=== PATIENT | female | born 1950 | race Caucasian/White ===

== ENCOUNTER → 2018-06-25 11:39 | Outpatient (CLI) | payer OTHER, SELFPAY ==
--- NOTE | 2018-06-25 | DI.CT.S_ITS ---
PROCEDURE: CT KIDNEY URETER BLADDER (KUB) INDICATIONS: Calculus of kidney TECHNIQUE: Noncontrast 5 mm thick sections acquired from the diaphragms to the symphysis. 5 mm thick coronal and sagittal reformats were then performed. For radiation dose reduction, the following was used: automated exposure control, adjustment of mA and/or kV according to patient size. COMPARISON: None. FINDINGS: Image quality: Excellent. Lung bases: There is mild scarring in the lung bases. Heart size is normal. A small hiatal hernia is present. Urinary system: There is a small obstructing urinary stone in the proximal right ureter measuring approximately 4 mm. There is associated mild right hydronephrosis. There are 2 nonobstructing left renal stones measuring up to 3 mm. No left hydronephrosis. The urinary bladder demonstrates normal wall thickness. No calcified bladder stones. Other solid organs: Noncontrast evaluation of the liver demonstrates no focal hepatic lesions. The gallbladder is surgically absent. There is mild biliary ductal dilatation likely related to prior cholecystectomy. Pancreas demonstrates mild atrophy in the uncinate process. No definite pancreatic duct dilatation or peripancreatic fat stranding. Spleen is normal in size. No adrenal nodules. Peritoneum and bowel: Unenhanced bowel loops demonstrate normal wall thickness and caliber. No evidence of appendicitis. No free fluid or air. Nodes and vessels: No retroperitoneal or mesenteric adenopathy by size criteria. Aorta and inferior vena cava are normal in caliber. Abdominal wall: No ventral hernias. Pelvis: No free pelvic fluid. No inguinal hernias or adenopathy. Bones: No suspicious bony lesions. No vertebral body compression fractures. IMPRESSION: 1. Small obstructing urinary stone in the proximal right ureter measuring up to 4 mm with mild right hydronephrosis. 2. Additional small nonobstructing left renal stones. No left hydronephrosis. Dictated by: New Grey M.D. on 06/25/2018 at 11:58 Approved by: New Grey M.D. on 06/25/2018 at 12:06
== END ==
PROVIDERS: PCP Internal Medicine; Visit Provider Specialist
DX: N13.2 Hydronephrosis with renal and ureteral calculous obstruction (principal)
CPT/HCPCS: 74176

== ENCOUNTER 2018-06-27 00:22 | Emergency (ER) | payer OTHER, SELFPAY ==
[2018-06-27 00:31] VITALS: BP 122/61; PULSE 79; RESP 18; TEMP 36.8; O2SAT 98
--- NOTE | 2018-06-27 00:41 | ED.ABDPAIN ---
HPI - Abdominal Pain General Chief Complaint: Abdominal Pain Stated Complaint: kidney stones, nausea Time Seen by Provider: 06/27/18 00:27 Source: patient Mode of arrival: ambulatory Limitations: no limitations History of Present Illness HPI narrative: 68-year-old female here for evaluation of right-sided flank pain. She states that she saw all day provider at her primary care doctor's office earlier this week for right-sided pain. She states that during a urinalysis showed there was potentially some blood. She was sent for CT scan and was diagnosed with a right-sided kidney stone. She was given Flomax. Not given any pain medication however she is on daily morphine at home for chronic pain issues. She does have a follow-up with her primary doctor on Sunday. She returns this evening because earlier the day she started having increasing pain on her right flank. No fevers. No urinary symptoms. No skin changes. Related Data Home Medications Medication Instructions Recorded Confirmed Diphenhydramine Hydrochloride 50 mg PO Q4H #0 cap 03/20/13 (BENADRYL) MOMETASONE FUROATE (Asmanex) 110 mcg INH #30 dose 03/20/13 albuterol sulfate [Proventil HFA] #0 03/20/13 amlodipine [Norvasc] #0 03/20/13 duloxetine [Cymbalta] 60 mg PO Q DAY #0 03/20/13 famotidine [Pepcid] 20 mg PO BID #0 03/20/13 gabapentin [Neurontin] 400 mg PO TID #0 cap 03/20/13 morphine 15 mg PO BID #0 ter 03/20/13 prednisone 15 mg PO AMCC #0 03/20/13 triamcinolone acetonide 0 gm TOPICAL #80 gm 03/20/13 Previous Rx's Medication Instructions Recorded morphine 15 mg PO Q6H PRN #5 tab 06/27/18 Allergies Allergy/AdvReac Type Severity Reaction Status Date / Time ASPIRIN INTOLERANCE Allergy Unknown STATES SHE Uncoded 10/24/17 12:25 GETS POLPYS Review of Systems Constitutional Denies fever(s) and Denies headache(s) ENT Ears, Nose, Mouth, and Throat: Denies headache(s) Cardiovascular Denies chest pain and Denies dyspnea Respiratory Denies dyspnea Gastrointestinal Gastrointestinal: Reports abdominal pain, Denies change in stool character, Reports nausea and Denies vomiting Genitourinary Reports flank pain, Denies urinary incontinence, Denies urinary hesitancy and Denies urinary urgency Musculoskeletal Denies myalgias and Denies arthralgias Integumentary/Breasts Denies lesions and Denies rash Neurologic Denies headache(s) Hematologic/Lymphatic Comments: Not on any anticoagulation [facility] Medical History Fibromyalgia (Acute) Social History marital status: lives independently: Yes Exam Initial Vital Signs Initial Vital Signs: Vital Signs Temperature 98.2 F 06/27/18 00:31 Pulse Rate 79 06/27/18 00:31 Respiratory Rate 18 06/27/18 00:31 Blood Pressure 122/61 06/27/18 00:31 Pulse Oximetry 98 06/27/18 00:31 Const General: cooperative, comfortable, well developed, well groomed and No acute distress Orientation: alert, awake and oriented x3 HENMT Head: normal to inspection and normocephalic Resp Effort & Inspection: normal respiratory effort Auscultation: clear to auscultation bilaterally Cardio Rate: regular rate Rhythm: regular rhythm GI Inspection: non-distended Palpation: soft and No firm Back/Spine/Pelvis Back: No CVA tenderness Skin Lesions: no lesions Rashes: no rashes Neuro General: alert, awake and oriented x3 Cognition: normal cognition Speech: speech normal Extrem General: normal to inspection and capillary refill normal Psych Appearance: grossly normal and well kempt Course Orders Ordered: ED Orders 06/27/18 01:00 Basic Metabolic Panel Stat 06/27/18 02:00 Urinalysis and Microscopic Stat Discontinued Medications Hydromorphone HCl (Dilaudid) 1 mg IV NOW ONE Stop: 06/27/18 00:49 Last Admin: 06/27/18 01:21 Dose: 1 mg Sodium Chloride (Normal Saline 0.9%) 1,000 mls @ 1,000 mls/hr IV BOLUS ONE Stop: 06/27/18 01:47 Last Infusion: 06/27/18 02:49 Dose: 1,000 mls/hr Admin: 06/27/18 01:22 Dose: 1,000 mls/hr Ketorolac Tromethamine (Toradol) 30 mg IV NOW ONE Stop: 06/27/18 00:49 Last Admin: 06/27/18 01:21 Dose: 30 mg Ondansetron HCl (Zofran) 4 mg IV NOW ONE Stop: 06/27/18 00:49 Last Admin: 06/27/18 01:21 Dose: 4 mg Vital Signs - 8 hr 06/27/18 00:31 Temperature 98.2 F Pulse Rate 79 Respiratory Rate 18 Blood Pressure 122/61 Pulse Oximetry 98 MDM - Abdominal Pain Lab Data Attestation: I reviewed the patient's lab results. Result diagrams: 06/27/18 01:00 Lab Results 06/27/18 06/27/18 Range/Units 01:00 02:00 Sodium 139 (137-145) mmol/L Potassium 3.8 (3.4-5.1) mmol/L Chloride 103 (98-107) mmol/L Carbon Dioxide 25 (22-32) mmol/L BUN 12 (7-17) mg/dL Creatinine 0.60 (0.52-1.04) mg/dL Estimated GFR > 60.0 (>60) mL/min BUN/Creatinine Ratio 20.0 (6-22) Glucose 123 H (80-110) mg/dL Calcium 9.4 (8.4-10.2) mg/dL Urine Color Yellow Urine Appearance Clear Urine pH 5.0 (4.5-8.0) Ur Specific [place] 1.025 (1.000-1.035) Urine Protein Trace H (Negative) Urine Glucose (UA) Negative (Normal) g/dL Urine Ketones Negative (NEGATIVE) Urine Occult Blood 3+ H (Negative) Urine Nitrate Negative (Negative) Urine Bilirubin Negative (NEGATIVE) Urine Urobilinogen 0.2 (0.2) E.U./dL Ur Leukocyte Esterase Trace H (NEGATIVE) Urine RBC 10-30/hpf H (0-5/HPF) Urine WBC 1-5/hpf (0-5/HPF) Urine Bacteria Few (2-10) H (None) Urine Mucus 1+ H (Negative) Ur Culture Indicated? Specimen cultured Micro UA Comment Not Reportable Point of care testing: Urine Dip Bedside Urine Glucose Negative Bedside Urine Bilirubin - Negative Bedside Urine Ketone - Negative Urine Specific [place] 1.030 Bedside Urine Occult Blood +++ Bedside Urine pH 6.0 Bedside Urine Protein +/- 15 Bedside Urine Urobilinogen - Negative Bedside Urine Nitrite - Negative Bedside Urine Leukocytes +/- 15 Esterase MDM Narrative Medical decision making narrative: Patient feels much better after the medicines here in the emergency department. No signs of acute kidney injury. Urinalysis not consistent with an infection. Does have a 4 mm stone from the CT scan a couple days ago. Had a long discussion regarding the symptoms. She is currently on Flomax. She takes morphine on a daily basis for other pain. I told her that I would refill a few of her immediate release morphine is but she needed to talk with her primary doctor about that. She has a follow-up with her primary doctor on Sunday. She was given return precautions. She expressed understanding and agreement with plan. Discharge Plan Departure Patient Disposition: Home Clinical Impression: Renal colic on right side Instructions: DI for Kidney Stones Activity Restrictions/Additional Instructions: Recommend you continue to take your pain medication as directed. Also recommend you keep your follow-up appointment on Sunday. Return to the emergency department for any new or worsening symptoms Prescriptions: New morphine 15 mg tablet 15 mg PO Q6H PRN (Reason: pain) Qty: 5 RF: 0 No Action triamcinolone acetonide 0.1 % cream Topical Qty: 80 RF: 0 gabapentin [Neurontin] 400 MG capsule 400 mg PO TID Qty: 0 RF: 0 duloxetine [Cymbalta] 60 MG capsule,delayed release(DR/EC) 60 mg PO Q DAY Qty: 0 RF: 0 prednisone 10 MG tablet 15 mg PO AMCC Qty: 0 RF: 0 amlodipine [Norvasc] 2.5 mg Tablet Qty: 0 RF: 0 morphine 15 MG tablet extended release 15 mg PO BID Qty: 0 RF: 0 albuterol sulfate [Proventil HFA] 90 mcg/actuation Hfa Aerosol Inhaler Qty: 0 RF: 0 Diphenhydramine Hydrochloride (BENADRYL) 50 mg PO Q4H Qty: 0 RF: 0 MOMETASONE FUROATE (Asmanex) 110 mcg INH Qty: 30 RF: 0 famotidine [Pepcid] 20 MG tablet 20 mg PO BID Qty: 0 RF: 0
[2018-06-27] MEDS: HYDROMORPHONE 0.5 MG INJ 1 MG IV (01:21)
[2018-06-27] MEDS: KETOROLAC 60 MG/2 ML VIAL 30 MG IV (01:21)
[2018-06-27] MEDS: ONDANSETRON 4 MG/2 ML INJ IV (01:21)
[2018-06-27] MEDS: SODIUM CHLORIDE 0.9% 1,000 ML 1000 ML IV (01:22)
[2018-06-27 01:30] LABS: Blood Urea Nitrogen 12 mg/dL (7-17); Calcium 9.4 mg/dL (8.4-10.2); Carbon Dioxide 25 mmol/L (22-32); Chloride 103 mmol/L (98-107); Estimated Glomerular Filt Rate > 60.0 mL/min (>60); Glucose 123 mg/dL (80-110); HEMOLYSIS 91 (0-50); Sodium 139 mmol/L (137-145)
[2018-06-27 01:31] LABS: Potassium 3.8 mmol/L (3.4-5.1)
[2018-06-27 03:07] LABS: Appearance Urine UA CLEAR; Bilirubin Urine UA NEGATIVE (NEGATIVE); Color Urine UA YELLOW; Glucose Urine UA NEGATIVE (Normal); Ketones Urine UA NEGATIVE (NEGATIVE); Leukocyte Esterase Urine UA TRACE (NEGATIVE); Nitrite Urine UA NEGATIVE (Negative); Occult Blood Urine UA 3+ (Negative); Protein Urine UA TRACE (Negative); Specific Gravity Urine UA 1.025 (1.000-1.035); Urobilinogen Urine UA 0.2 E.U./dL (0.2)
[2018-06-27 03:08] LABS: RBC Urine 10-30/HPF (0-5/HPF); WBC Urine 1-5/HPF (0-5/HPF)
[2018-06-27 03:09] LABS: Bacteria Urine Few (2-10); Culture Indicated Urine Specimen Cultured; Mucus Urine 1+ (Negative)
[2018-06-27 03:56] VITALS: BP 123/58; PULSE 93; RESP 15; O2SAT 96
== END 2018-06-27 03:58 | disposition home or self-care (01) ==
PROVIDERS: Emergency Provider Emergency Medicine; PCP Internal Medicine
DX: N23 Unspecified renal colic (principal)
CPT/HCPCS: 36591; 80048; 81001; 81003; 87086; 96361; 96374; 96375; 99283; 99284; J1170; J1885; J2405

== ENCOUNTER → 2018-07-25 09:10 | Outpatient (CLI) | payer OTHER, SELFPAY ==
--- NOTE | 2018-07-25 | DI.RAD.S_ITS ---
PROCEDURE: FL BARIUM SWALLOW W SPEECH INDICATIONS: DYSPAGIA TECHNIQUE: Examination was conducted in conjunction with speech pathology per standard protocol. In the lateral projection, filming was performed of the patient swallowing. AP projection filming may also be performed with patient swallowing. COMPARISON: None. FINDINGS: Function: The oral preparatory phase appears normal, with proper containment. The subsequent oral propulsive phase, pharyngeal phase, and esophageal phase of swallowing also appear normal with all proffered substances. No laryngotracheal penetration or aspiration. No pathologic vallecular pooling. 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 No cervical esophageal webs. No Zenker's diverticulum. No strictures. There is a small hiatal hernia. IMPRESSION: No penetration or aspiration is noted during the study. 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 Please refer to speech pathology notes for further information. Dictated by: Theodore Garcia M.D. on 07/25/2018 at 12:07 Approved by: Theodore Garcia M.D. on 07/25/2018 at 12:10
--- NOTE | 2018-07-25 12:15 | ST.SWALLOW ---
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 Pt reported that she may experience choking if she swallows a large amount of liquid; but that her greatest difficulty is the foods listed above as well as taking pills. The pt reported a history of hiatal hernia that was diagnosed approximately 20 years ago. Subjective Observations Pt was seated in the flouroscopy chair. Patient Positioning Position View Lat-A/P Imaging Lateral View Textures Administered Trials Presented Thin Liquid via Spoon Thin Liquid via Cup Regular Textures Barium Tablet Oral Phase Source: MBSIMP (TM) (C) Bolus Specific Scoring Grid Lip Closure No Impairment (WNL) Tongue Control During Bolus Hold No Impairment (WNL) Bolus Prep/Mastication WFL Bolus Transport/Lingual Motion No Impairment (WNL) A/P Lingual Propulsion Delay No Oral Residue WFL Residue Clearing WFL Nasal Regurgitation No Additional Oral Phase Observations oral phase WFL Pharyngeal Phase Source: MBSIMP (TM) (C) Bolus Specific Scoring Grid Delayed Initiation of Pharyngeal Swallow No Soft Palate Elevation WFL Tongue Base Strength/Range of Motion WFL Residue Along the Tongue Base Minimal to trace - clears with subsequent swallows (WFL) Clearance of Residue Along Tongue Base WFL Laryngeal Elevation Minimal Impairment Anterior Hyoid Movement Minimal Impairment Epiglottic Range of Motion WFL Vallecular Residue Yes Clearance of Vallecular Residue Minimal Impairment Laryngeal Vestibular Closure No Impairment (WNL) Pharyngeal Stripping Wave WFL Pharyngeal Contraction Minimal Impairment Posterior Pharyngeal Wall Residue No Clearance of Posterior Pharyngeal Wall WFL Residue Upper Esophageal Sphincter Opening Moderate Impairment Residue in the Pyriform Sinuses Yes Clearance of Residue in the Pyriform WFL Sinuses Esophageal Clearance Upright Position Severe Impairment Pharyngoesophageal Backflow Observed Yes Additional Pharyngeal Phase Observations During the MBSS the pt appeared to swalow all liquid trials WFL. When given a trial cookie with barium, there was significant residue within the valeculla that required a water wash to allow the bolus to pass to the esophagus. A possible cricipharyngeal bar was observe, which impeded the bolus flow. Water washes used to clear the area of the bar easily. Trial barium tablet was swallowed without difficulty through the pharyngeal cavity. The patient reported the sensation of something stuck . A second barium tablet was given to the pt as she had swallowed the first one before the equipment was able to capture rhe initial swallow. A/P View Textures Administered Trials Presented Thin Liquid via Cup Barium Tablet A/P View Observations Pharyngeal Contraction WFL Vocal Fold Function Good Esophageal Function Slowed Clearing Reverse Peristalsis Narrowing Esophageal Clearance Upright Position Severe Impairment Additional Observations In the AP view, the first barium tablet was observed to be approximately 2/3 down the esophagus. The second tablet the appeared at the same point . Water washes were trialed to try to allow the tablets to be swallowed. The water washes were ineffective. Thin barium was then given to the pt to observe the tablets within the esophagus. There appeared to be a restriction to the flow of the bolus at the point of the tablets. There appeared to be a pouching of the esophagus below the tablets with further restriction at the point of the LES. Back flow of the esophagus contents was also observed. Esophageal Observations Esophageal Function The esophagus appeared to have more than one area of restricted bolus flow with the inability to pass trialed barium tablets. Clinical Impressions Dysphagia Type No oropharyngeal dysphagia observed (WFL). Esophageal dysphagia suspected. Patient Appropriate for Therapy No: Recommend referral to GI specialist Recommendations Diet Liquids Order Thin Diet Order Mechanical Soft Medication Recommendation Whole in Carrier Comments using a carrier for medications will east the bolus flow to the stomach Aspiration Precautions Recommended Precautions Upright at 90 Degrees Alternate Liquids/Solids Small Bites/Sips Treatment Plan Recommended Referrals GI Consult Compensatory Strategies Recommendations Sitting Upright (90 deg) Small Bites and Sips Alternate Liquids/Solids Additional Recommendations/Comments The above results and recommendations were discussed with the pt at length following the MBSS. Compensatory strategies were discussed with rationales. Pt indicated that she understood and was appreciative.
== END ==
PROVIDERS: PCP Internal Medicine; Visit Provider Internal Medicine
DX: R13.10 Dysphagia, unspecified (principal); K44.9 Diaphragmatic hernia without obstruction or gangrene
CPT/HCPCS: 74230; 92611

== ENCOUNTER → 2018-08-12 11:57 | Outpatient (CLI) | payer OTHER, SELFPAY ==
--- NOTE | 2018-08-12 | DI.US.S_ITS ---
PROCEDURE: US RENAL COMPLETE INDICATIONS: HISTORY STONES, HYDRONEPHROSIS TECHNIQUE: Real-time scanning was performed of the kidneys and bladder, with image documentation. COMPARISON: [facility], CT, CT KIDNEY URETER BLADDER (KUB), 06/25/2018, 11:39. FINDINGS: Kidneys: Kidneys are normal in size. Right kidney measures 9.9 cm long; left kidney measures 11.5 cm long. Right renal cortical thickness is 0.8 cm; left renal cortical thickness is 1.6 cm. Renal cortical echotexture is normal. No hydronephrosis bilaterally. 5 mm lower pole nonobstructing left renal calcification redemonstrated. Bladder: Pre-void bladder volume is 333 mL. Post-void residual is 0 mL. Pre-void images demonstrate no intraluminal masses or stones. On pre-void images, bilateral ureteral jets are noted with color Doppler interrogation. (Of note, ureteral jets may not be detectable in up to 25% of cases due to insufficient differences in specific gravity between ureteral and bladder urine). Miscellaneous: No free pelvic fluid. IMPRESSION: 1. Nonobstructing 5 mm left inferior pole calcification redemonstrated. 2. Right renal cortical thinning. Dictated by: Can BLEVINS Interpreted: Theodore Garcia MD on 08/12/2018 at 16:36 Approved by: Theodore Garcia M.D. on 08/12/2018 at 17:02
== END ==
PROVIDERS: PCP Internal Medicine; Visit Provider Internal Medicine
DX: N20.0 Calculus of kidney (principal); Z87.442 Personal history of urinary calculi
CPT/HCPCS: 76770

== ENCOUNTER 2018-11-07 06:06 | Emergency (ER) | payer OTHER, SELFPAY ==
--- NOTE | 2018-11-07 06:12 | ED_ITS ---
HPI - General Adult General Chief complaint: Back Pain/Injury Stated complaint: blood in urine yesterday/pain in left kidney Time Seen by Provider: 11/07/18 06:09 Source: patient Mode of arrival: ambulatory Limitations: no limitations History of Present Illness HPI narrative: 68-year-old female here for evaluation of pain in her left kidney and also blood in her urine. She states she started noticing blood in her urine yesterday. She went to her primary doctor's office at an outside facility where the patient states that she had her urine checked and was told that she did not have an infection that she most likely passed a stone. She states the bleeding has continued and over night started having left-sided flank pain. she states it feels just like the time when she had a stone diagnosed on the right side by CT scan. Denies any vomiting. Is on morphine at home for chronic pain. Took 1 of her morphine pills last evening and again this morning with only minimal improvement. Related Data Home Medications Medication Instructions Recorded Confirmed duloxetine [Cymbalta] 60 mg PO DAILY #0 03/20/13 11/07/18 morphine 15 mg PO Q12H #0 ter 03/20/13 11/07/18 triamcinolone acetonide 0 gm TOPICAL #80 gm 03/20/13 albuterol sulfate [ProAir HFA] 1 puff INHALATION PRN PRN 11/07/18 11/07/18 amlodipine 10 mg PO DAILY 11/07/18 11/07/18 atorvastatin 40 mg PO DAILY 11/07/18 11/07/18 fluticasone propion-salmeterol 2 puff INHALATION BID 11/07/18 11/07/18 [Advair HFA] gabapentin 1,200 mg PO TID 11/07/18 11/07/18 lisinopril 20 mg PO DAILY 11/07/18 11/07/18 Previous Rx's Medication Instructions Recorded hydrocodone-acetaminophen 1 tab PO Q6H PRN #14 tab 11/07/18 ondansetron 4 mg PO QID PRN #10 tab 11/07/18 tamsulosin [Flomax] 0.4 mg PO DAILY #7 cap 11/07/18 Allergies Allergy/AdvReac Type Severity Reaction Status Date / Time ibuprofen AdvReac Verified 11/07/18 06:24 ASPIRIN INTOLERANCE Allergy Unknown STATES SHE Uncoded 10/24/17 12:25 GETS POLPYS Review of Systems Constitutional Denies fever(s) and Denies headache(s) ENT Ears, Nose, Mouth, and Throat: Denies headache(s) Cardiovascular Denies chest pain and Denies dyspnea Respiratory Denies dyspnea Gastrointestinal Gastrointestinal: Denies abdominal pain Genitourinary Reports hematuria and Denies dysuria Musculoskeletal Reports back pain (Left flank) and Denies arthralgias Integumentary/Breasts Denies rash Neurologic Denies headache(s) Hematologic/Lymphatic Denies easy bleeding and Denies easy bruising [facility] Medical History Fibromyalgia (Acute) Social History marital status: lives independently: Yes Social History marital status: lives independently: Yes Exam Initial Vital Signs Initial Vital Signs: Vital Signs Temperature 97.1 F L 11/07/18 06:19 Pulse Rate 56 L 11/07/18 06:19 Respiratory Rate 18 11/07/18 06:19 Blood Pressure 187/97 H 11/07/18 06:19 Pulse Oximetry 95 11/07/18 06:19 Const General: cooperative, comfortable, well developed, well groomed and No acute distress Orientation: alert, awake and oriented x3 HENMT Head: normal to inspection and normocephalic Resp Effort & Inspection: normal respiratory effort Cardio Rate: regular rate GI Inspection: non-distended Palpation: soft, No firm and No tender Back/Spine/Pelvis Back: No CVA tenderness (No CVA tenderness to palpation) Skin Lesions: no lesions Rashes: no rashes Neuro General: alert, awake and oriented x3 Extrem General: normal to inspection and capillary refill normal Psych Appearance: grossly normal and well kempt Course Orders Ordered: Discontinued Medications Cyclobenzaprine HCl (Flexeril) 10 mg PO NOW ONE Stop: 11/07/18 08:34 Last Admin: 11/07/18 08:53 Dose: Not Given Hydromorphone HCl (Dilaudid) 1 mg IV NOW ONE Stop: 11/07/18 06:23 Last Admin: 11/07/18 06:30 Dose: Not Given Hydromorphone HCl (Dilaudid) 1 mg IV NOW ONE Stop: 11/07/18 06:29 Last Admin: 11/07/18 06:30 Dose: 1 mg Ketorolac Tromethamine (Toradol) 60 mg IM NOW ONE Stop: 11/07/18 08:34 Last Admin: 11/07/18 08:53 Dose: Not Given Ondansetron HCl (Zofran) 4 mg IV NOW ONE Stop: 11/07/18 06:35 Last Admin: 11/07/18 06:35 Dose: 4 mg Vital Signs - 8 hr 11/07/18 06:19 Temperature 97.1 F L Pulse Rate 56 L Respiratory Rate 18 Blood Pressure 187/97 H Pulse Oximetry 95 Medical Decision Making Lab Data Lab results reviewed: Yes I reviewed the patient's lab results. Result diagrams: 11/07/18 06:18 11/07/18 06:18 Lab Results 11/07/18 11/07/18 11/07/18 Range/Units 06:18 06:18 07:46 WBC 13.2 H (4.5-11.0) X10^3/uL RBC 4.12 (4.0-5.2) X10^6/uL Hgb 12.6 (12.0-16.0) g/dL Hct 37.8 (36-46) % MCV 91.6 (80-100) fL MCH 30.4 (26-34) PG MCHC 33.2 (30-36) % RDW 13.4 (11.6-14.8) % Plt Count 390 (150-400) X10^3/uL Neut % (Auto) 64.6 (50-75) % Lymph % (Auto) 16.2 L (25-40) % [place] % (Auto) 5.9 (3-14) % Eos % (Auto) 12.6 H (2-4) % Baso % (Auto) 0.7 (0-2) % Neut # (Auto) 8500 H (7467-1653) /uL Lymph # (Auto) 2100 (8911-9984) /uL [place] # (Auto) 800 (0-900) /uL Eos # (Auto) 1700 H (0-450) /uL Baso # (Auto) 100 (0-100) /uL Sodium 139 (137-145) mmol/L Potassium 3.7 (3.4-5.1) mmol/L Chloride 101 (98-107) mmol/L Carbon Dioxide 27 (22-32) mmol/L BUN 11 (7-17) mg/dL Creatinine 0.70 (0.52-1.04) mg/dL Estimated GFR > 60.0 (>60) mL/min BUN/Creatinine Ratio 15.7 (6-22) Glucose 117 H (80-110) mg/dL Calcium 9.4 (8.4-10.2) mg/dL Urine Ictotest Negative (Negative) Urine RBC >100/hpf H (0-5/HPF) Urine WBC 10-30/hpf H (0-5/HPF) Ur Squamous Epith Cells 1-5 /hpf (0-5/HPF) Calcium Oxalate Crystal Occasional H Urine Bacteria None seen (None) Ur Culture Indicated? Specimen cultured Urine Dip Bedside Urine Glucose Negative Bedside Urine Bilirubin + 1 Bedside Urine Ketone +/- 5 Urine Specific [place] 1.030 Bedside Urine Occult Blood +++ Bedside Urine pH 5.5 Bedside Urine Protein ++ 100 Bedside Urine Urobilinogen 1+ 2mg Bedside Urine Nitrite + Positive Bedside Urine Leukocytes ++ 125 Esterase Point of care testing: Urine Dip Bedside Urine Glucose Negative Bedside Urine Bilirubin + 1 Bedside Urine Ketone +/- 5 Urine Specific [place] 1.030 Bedside Urine Occult Blood +++ Bedside Urine pH 5.5 Bedside Urine Protein ++ 100 Bedside Urine Urobilinogen 1+ 2mg Bedside Urine Nitrite + Positive Bedside Urine Leukocytes ++ 125 Esterase MDM Narrative Medical decision making narrative: Creatinine is unremarkable. Patient does have a leukocytosis. Urine still pending. Care turned over to day provider at change of shift to follow up on urinalysis results and further disposition. Discharge Plan Departure Patient Disposition: Home Clinical Impression: Kidney stone on left side Discharge Date/Time: 11/07/18 09:53 Interventions: ED Discharge Assessment Last Done: 11/07/18 09:52 Instructions: DI for Kidney Stones Activity Restrictions/Additional Instructions: Your CT scan showed a 5 mm kidney stone, which is causing some blockage of the ureter on your left side. Some swelling of the ureter from backup of urine is noted on CT scan. This stone may pass on its own in the next few hours to few weeks. However, if you're not noticing any improvement in the next week, and certainly, if your symptoms worsen, you should follow-up with urology specialist. You may take the pain and nausea medication, as needed. If you develop a high fever and pain and burning with urination, please return to the emergency department. Prescriptions: New hydrocodone-acetaminophen 5-325 mg tablet 1 tab PO Q6H PRN (Reason: pain) Qty: 14 RF: 0 tamsulosin [Flomax] 0.4 mg capsule 0.4 mg PO DAILY Qty: 7 RF: 0 ondansetron 4 mg tablet,disintegrating 4 mg PO QID PRN (Reason: nausea and vomiting) Qty: 10 RF: 0 No Action triamcinolone acetonide 0.1 % cream Topical Qty: 80 RF: 0 duloxetine [Cymbalta] 60 MG capsule,delayed release(DR/EC) 60 mg PO DAILY Qty: 0 RF: 0 morphine 15 MG tablet extended release 15 mg PO Q12H Qty: 0 RF: 0 atorvastatin 40 mg tablet 40 mg PO DAILY RF: 0 lisinopril 20 mg tablet 20 mg PO DAILY RF: 0 gabapentin 400 mg capsule 1,200 mg PO TID RF: 0 amlodipine 10 mg tablet 10 mg PO DAILY RF: 0 albuterol sulfate [ProAir HFA] 90 mcg/actuation HFA aerosol inhaler 1 puff Inhalation PRN PRN (Reason: Shortness Of Breath) RF: 0 Advair HFA 230-21 mcg/actuation HFA aerosol inhaler 2 puff Inhalation BID RF: 0 Referrals: [facility] Urology [Provider Group] Jigar Mclean MD [Primary Care Provider] -
[2018-11-07 06:19] VITALS: BP 187/97; PULSE 56; RESP 18; TEMP 36.2; O2SAT 95; BMI 31.1
[2018-11-07] MEDS: HYDROMORPHONE 1 MG INJ IV (06:30)
[2018-11-07 06:31] LABS: Add Manual Diff / Slide Review NO; Basophils Absolute Auto 100 /uL (0-100); Basophils Percent Auto 0.7 % (0-2); Eosinophils Absolute Auto 1700 /uL (0-450); Eosinophils Percent Auto 12.6 % (2-4); Hematocrit 37.8 % (36-46); Hemoglobin 12.6 g/dL (12.0-16.0); Lymphocytes Absolute Auto 2100 /uL (1100-4500); Lymphocytes Percent Auto 16.2 % (25-40); Mean Corpuscular HGB Conc 33.2 % (30-36); Mean Corpuscular Hemoglobin 30.4 PG (26-34); Mean Corpuscular Volume 91.6 fL (80-100); Monocytes Absolute Auto 800 /uL (0-900); Monocytes Percent Auto 5.9 % (3-14); Neutrophils Absolute Auto 8500 /uL (1500-7000); Neutrophils Percent Auto 64.6 % (50-75); Platelet Count 390 X10^3/uL (150-400); Red Blood Cell Count 4.12 X10^6/uL (4.0-5.2); Red Cell Distribution Width 13.4 % (11.6-14.8); White Blood Cell Count 13.2 X10^3/uL (4.5-11.0)
[2018-11-07] MEDS: ONDANSETRON 4 MG/2 ML INJ IV (06:35)
[2018-11-07 06:41] LABS: BUN Creatinine Ratio 15.7 (6-22); Blood Urea Nitrogen 11 mg/dL (7-17); Calcium 9.4 mg/dL (8.4-10.2); Carbon Dioxide 27 mmol/L (22-32); Chloride 101 mmol/L (98-107); Estimated Glomerular Filt Rate > 60.0 mL/min (>60); Glucose 117 mg/dL (80-110); HEMOLYSIS < 15 (0-50); Potassium 3.7 mmol/L (3.4-5.1); Sodium 139 mmol/L (137-145)
[2018-11-07 07:47] LABS: Bacteria Urine None Seen
[2018-11-07 08:11] LABS: Calcium Oxalate Crystals Urine Occasional; Culture Indicated Urine Specimen Cultured; Ictotest Urine Negative (Negative); RBC Urine >100/HPF (0-5/HPF); Squamous Epithelial Cell Urine 1-5 /HPF (0-5/HPF); WBC Urine 10-30/HPF (0-5/HPF)
[2018-11-07 08:22] VITALS: BP 118/51; PULSE 54; RESP 16; O2SAT 95
--- NOTE | 2018-11-07 08:33 | DI.CT.S_ITS ---
PROCEDURE: CT KIDNEY URETER BLADDER (KUB) INDICATIONS: Left flank pain, gross hematuria x 24 hours TECHNIQUE: Noncontrast 5 mm thick sections acquired from the diaphragms to the symphysis. 5 mm thick coronal and sagittal reformats were then performed. For radiation dose reduction, the following was used: automated exposure control, adjustment of mA and/or kV according to patient size. COMPARISON: [facility], US, US RENAL COMPLETE, 08/12/2018, 12:38. [facility], CT, CT KIDNEY URETER BLADDER (KUB), 06/25/2018, 11:39. FINDINGS: Image quality: Excellent. Lung bases: Lung bases are clear. Heart size is normal. A small hiatal hernia is incidentally noted. Urinary system: There is a 5 mm obstructing stone seen within the proximal left ureter, as on series 2 image 42. There is associated moderate to prominent left-sided hydroureter and hydronephrosis. Within the inferior left kidney, there is a nonobstructing stone measuring 3 mm, as on series 2 image 38. No right-sided stones are seen. No right-sided hydronephrosis. Both kidneys are normal in size. Bladder wall thickness is normal; no calcified bladder stones. Other solid organs: Liver is normal in size. Gallbladder has been removed. Pancreas is normal in contours. Spleen is normal in size. No adrenal nodules. Peritoneum and bowel: Unenhanced bowel loops demonstrate normal wall thickness and caliber. No free fluid or air. Incidental note is made of a normal-appearing appendix. Nodes and vessels: No retroperitoneal or mesenteric adenopathy by size criteria. Aorta and inferior vena cava are normal in caliber. Atherosclerotic calcification is noted. Abdominal wall: No ventral hernias. Pelvis: No free pelvic fluid. No inguinal hernias or adenopathy. Bones: No suspicious bony lesions. No vertebral body compression fractures. Mild levoconvex scoliotic curvature is noted. Age-appropriate bony degenerative changes are seen. IMPRESSION: 5 mm obstructing stone within the left proximal ureter, with associated left-sided hydroureter and hydronephrosis. Nonobstructing 3 mm left-sided kidney stone. Incidental note is made of: Small hiatal hernia and Levoconvex scoliotic curvature Cholecystectomy Normal appendix Dictated by: Fabrice Swift M.D. on 11/07/2018 at 8:02 Approved by: Fabrice Swift M.D. on 11/07/2018 at 8:05
== END 2018-11-07 09:53 | disposition home or self-care (01) ==
PROVIDERS: Emergency Medicine; Emergency Provider Emergency Medicine; PCP Internal Medicine
DX: N20.0 Calculus of kidney (principal)
CPT/HCPCS: 36591; 74176; 80048; 81003; 81015; 85025; 87086; 96374; 96375; 99282; 99284; J1170; J2405

== ENCOUNTER → 2018-11-08 11:34 | Outpatient (CLI) | payer OTHER, SELFPAY ==
--- NOTE | 2018-11-08 | DI.MG.S_ITS ---
BILATERAL DIGITAL SCREENING MAMMOGRAM 3D/2D WITH CAD: 11/08/2018 CLINICAL: Routine screening. Family history of breast cancer. Comparison is made to exams dated: 10/12/2016 mammogram - [facility], 07/28/2014 mammogram, and 07/03/2014 mammogram - [facility]. There are scattered fibroglandular elements in both breasts. Current study was also evaluated with a Computer Aided Detection (CAD) system. There are benign calcifications in both breasts. No significant masses, calcifications, or other findings are seen in either breast. There has been no significant interval change. IMPRESSION: There is no mammographic evidence of malignancy. A 1 year screening mammogram is recommended. This exam was interpreted at Station ID: [id number]. NOTE: For mammograms, a report in lay terms will be sent to the patient. Approximately 15% of breast malignancies will not be visualized mammographically. In the management of a palpable breast mass, a negative mammogram must not discourage biopsy of a clinically suspicious lesion. Electronically Signed By: Jeison mclain/clinton:11/08/2018 12:53:55 letter sent: Normal Exam ACR BI-RADS Category 2: Benign Finding(s) [id number]
== END ==
PROVIDERS: PCP Internal Medicine; Visit Provider Internal Medicine
DX: Z12.31 Encounter for screening mammogram for malignant neoplasm of breast (principal); Z80.3 Family history of malignant neoplasm of breast
CPT/HCPCS: 77063; 77067

== ENCOUNTER 2018-11-14 20:10 | Emergency (ER) | payer OTHER, SELFPAY ==
[2018-11-14 20:30] VITALS: BP 130/80; PULSE 94; RESP 18; TEMP 36.6; O2SAT 96; BMI 30.7
[2018-11-14 20:43] LABS: Bacteria Urine None Seen
[2018-11-14 20:51] LABS: Culture Indicated Urine Specimen Cultured; RBC Urine 10-30/HPF (0-5/HPF); WBC Urine 5-10/HPF (0-5/HPF)
[2018-11-14 23:09] LABS: Add Manual Diff / Slide Review NO; Basophils Absolute Auto 0 /uL (0-100); Basophils Percent Auto 0.3 % (0-2); Eosinophils Absolute Auto 1400 /uL (0-450); Eosinophils Percent Auto 8.3 % (2-4); Hematocrit 38.5 % (36-46); Hemoglobin 12.6 g/dL (12.0-16.0); Lymphocytes Absolute Auto 1700 /uL (1100-4500); Lymphocytes Percent Auto 10.6 % (25-40); Mean Corpuscular HGB Conc 32.7 % (30-36); Mean Corpuscular Hemoglobin 30.1 PG (26-34); Monocytes Absolute Auto 1200 /uL (0-900); Monocytes Percent Auto 7.1 % (3-14); Neutrophils Absolute Auto 12100 /uL (1500-7000); Neutrophils Percent Auto 73.7 % (50-75); Platelet Count 408 X10^3/uL (150-400); Red Blood Cell Count 4.18 X10^6/uL (4.0-5.2); Red Cell Distribution Width 13.1 % (11.6-14.8); White Blood Cell Count 16.4 X10^3/uL (4.5-11.0)
--- NOTE | 2018-11-14 23:12 | DI.US.S_ITS ---
PROCEDURE: US RENAL COMPLETE INDICATIONS: LT FLANK PAIN TECHNIQUE: Real-time scanning was performed of the kidneys and bladder, with image documentation. COMPARISON: [facility], CT, CT KIDNEY URETER BLADDER (KUB), 11/07/2018, 8:35. FINDINGS: Kidneys: Kidneys are normal in size. Right kidney measures 10.3 cm long; left kidney measures 12.5 cm long. Right renal cortical thickness is one cm; left renal cortical thickness is zero cm. Renal cortical echotexture is normal. No nephrolithiasis. Moderate left-sided hydronephrosis is noted with proximal left ureter measuring 2.0 cm. No suspicious solid mass lesions. Bladder: Pre-void bladder volume is 131 mL. Post-void residual is minimal zero mL. Pre-void images demonstrate no intraluminal masses or stones. On pre-void images, both the right and left ureteral jets are noted with color Doppler interrogation. (Of note, ureteral jets may not be detectable in up to 25% of cases due to insufficient differences in specific gravity between ureteral and bladder urine). Miscellaneous: No free pelvic fluid. IMPRESSION: Moderate left-sided hydronephrosis. Dictated by: Ivana Hartman MD, PhD on 11/15/2018 at 8:43 Approved by: Ivana Hartman MD, PhD on 11/15/2018 at 8:45
[2018-11-14 23:15] VITALS: BP 137/58; PULSE 87; RESP 19; TEMP 37; O2SAT 99
[2018-11-14 23:17] LABS: BUN Creatinine Ratio 18.8 (6-22); Blood Urea Nitrogen 15 mg/dL (7-17); Calcium 9.3 mg/dL (8.4-10.2); Carbon Dioxide 25 mmol/L (22-32); Chloride 103 mmol/L (98-107); Estimated Glomerular Filt Rate > 60.0 mL/min (>60); Glucose 109 mg/dL (80-110); Potassium 4.2 mmol/L (3.4-5.1); Sodium 137 mmol/L (137-145)
[2018-11-14] MEDS: LIDOCAINE 2% 6.3 ML in SODIUM CHLORIDE 0.9% 50 ML 337.8 ML IV (23:18)
[2018-11-14 23:19] LABS: HEMOLYSIS 63 (0-50)
[2018-11-14] MEDS: CEFTRIAXONE 1 GM/50 ML FROZ.PIGGY IV (23:30)
--- NOTE | 2018-11-15 01:32 | ED_ITS ---
HPI - Back Pain/Injury General Chief Complaint: Back Pain/Injury Stated Complaint: STATES KIDNEY STONE Time Seen by Provider: 11/14/18 21:53 Source: patient and EMS Limitations: no limitations History of Present Illness HPI Narrative: 68-year-old female nonsmoker with known left-sided kidney stone presents with worsening pain and nausea over the course of the day. She was here about a week ago and had a CT noting a proximal stone and obstructive uropathy. She had been doing relatively well over the course of the week but this evening developed significant pain and nausea again. She has had no fever or shaking chills, but did feel rather weak yesterday with decreased appetite. her pain is in her left back and left flank. She does not have an existing relationship with a urologist. Related Data Home Medications Medication Instructions Recorded Confirmed duloxetine [Cymbalta] 60 mg PO DAILY #0 03/20/13 11/15/18 morphine 15 mg PO Q12H #0 ter 03/20/13 11/15/18 albuterol sulfate [ProAir HFA] 1 puff INHALATION PRN PRN 11/07/18 11/15/18 amlodipine 10 mg PO DAILY 11/07/18 11/15/18 atorvastatin 40 mg PO DAILY 11/07/18 11/15/18 fluticasone propion-salmeterol 2 puff INHALATION BID 11/07/18 11/15/18 [Advair HFA] gabapentin 1,200 mg PO TID 11/07/18 11/15/18 lisinopril 20 mg PO DAILY 11/07/18 11/15/18 aspirin 325 mg PO BID 11/15/18 11/15/18 Previous Rx's Medication Instructions Recorded hydrocodone-acetaminophen 1 tab PO Q6H PRN #14 tab 11/07/18 ondansetron 4 mg PO QID PRN #10 tab 11/07/18 Allergies Allergy/AdvReac Type Severity Reaction Status Date / Time ibuprofen AdvReac Verified 11/07/18 06:24 ASPIRIN INTOLERANCE Allergy Unknown STATES SHE Uncoded 10/24/17 12:25 GETS POLPYS Review of Systems Review of Systems ROS Unobtainable: All systems reviewed & are unremarkable except as noted in HPI and below Constitutional Denies chills, Denies fever(s), Denies lethargy and Denies weakness Eyes Denies change in vision, Denies eye discharge, Denies irritation and Denies loss of vision ENT Ears, Nose, Mouth, and Throat: Denies change in voice, Denies neck pain and Denies sore throat Cardiovascular Denies chest pain, Denies irregular heart rhythm, Denies lightheadedness, Denies palpitations, Denies dyspnea, Denies dyspnea on exertion and Denies orthopnea Respiratory Denies cough, Denies dyspnea, Denies dyspnea on exertion and Denies wheezing Gastrointestinal Gastrointestinal: Denies abdominal pain, Denies change in bowel habits, Denies diarrhea, Denies nausea and Denies vomiting Genitourinary Denies hematuria, Denies flank pain, Denies urinary incontinence and Denies urinary urgency Musculoskeletal Reports back pain and Denies neck pain Integumentary/Breasts Denies pruritus, Denies erythema, Denies rash and Denies wounds Neurologic Denies confusion, Denies loss of vision and Denies weakness Psychiatric Denies anxiety, Denies confusion, Denies depression, Denies homicidal ideation and Denies suicidal ideation Endocrine Denies palpitations Hematologic/Lymphatic Denies easy bruising Allergic/Immunologic Denies wheezing PFSH Social History marital status: lives independently: Yes Smoking Status: Never smoker Social History marital status: lives independently: Yes Smoking Status: Never smoker Exam Narrative Exam Narrative: GENERAL: 68-year-old female obviously uncomfortable, clutching her left flank HEAD: Atraumatic. Normocephalic. No temporal or scalp tenderness. EYES: Pupils equal round and reactive. Extraocular motions intact. No scleral icterus. No injection or drainage. ENT: Nose without bleeding, purulent drainage or septal hematoma. Throat without erythema, tonsillar hypertrophy or exudate. Uvula midline. Airway patent. NECK: Trachea midline. No JVD or lymphadenopathy. Supple, nontender, no meningeal signs. CARDIOVASCULAR: Regular rate and rhythm without murmurs, gallops, or rubs. RESPIRATORY: Clear to auscultation. Breath sounds equal bilaterally. No wheezes, rales, or rhonchi. GASTROINTESTINAL: Abdomen soft, non-tender, nondistended. No hepato-splenome ramone, or palpable masses. No guarding. EXTREMITIES: No clubbing, cyanosis, or edema. No joint tenderness, effusion, or edema noted. BACK: Left flank pain. NEURO: AOx3. SKIN: No rash or erythema. Initial Vital Signs Initial Vital Signs: Vital Signs Temperature 98 F 11/14/18 20:30 Pulse Rate 94 H 11/14/18 20:30 Respiratory Rate 18 11/14/18 20:30 Blood Pressure 130/80 11/14/18 20:30 Pulse Oximetry 96 11/14/18 20:30 Course Orders Ordered: ED Orders 11/14/18 23:02 Basic Metabolic Panel Stat Complete Blood Count AUTO DIFF Stat 11/14/18 23:12 US renal complete Stat Discontinued Medications Hydromorphone HCl (Dilaudid) 1 mg IV NOW ONE Stop: 11/15/18 04:30 Last Admin: 11/15/18 04:37 Dose: 1 mg Lidocaine HCl 6.3 ml/ Sodium (Chloride) 56.3 mls @ 337.8 mls/hr IV NOW ONE Stop: 11/14/18 22:35 Last Infusion: 11/14/18 23:29 Dose: 0 mls/hr Admin: 11/14/18 23:18 Dose: 337.8 mls/hr Ceftriaxone Sodium/Dextrose (Rocephin) 1 gm in 50 mls @ 100 mls/hr IV NOW ONE Stop: 11/14/18 23:39 Last Infusion: 11/14/18 23:58 Dose: 0 mls/hr Admin: 11/14/18 23:30 Dose: 100 mls/hr Consultations Consultation #1: Given elevated white count, worsening pain, obstructive uropathy on ultrasound I have called Urology at . THey will reach out to patient later in the day to schedule a close follow up and likely ureteral stent Consultation #2: has arranged for follow tomorrow, turns out patient is [place]. Called [facility], they share opinion that transfer and stent is most appropriate. Beds will open at [facility] later in morning. We are on wait list Vital Signs - 8 hr 11/15/18 01:50 11/15/18 03:11 11/15/18 04:48 Pulse Rate 90 84 91 H Respiratory Rate 18 14 16 Blood Pressure [Right Arm] 133/71 144/66 H 129/70 Pulse Oximetry 98 92 99 11/15/18 07:22 Pulse Rate 80 Respiratory Rate 12 Blood Pressure [Right Arm] 133/70 Pulse Oximetry 99 MDM - Back Pain/Injury Lab Data Result diagrams: 11/14/18 23:02 11/14/18 23:02 Lab Results 11/14/18 11/14/18 11/14/18 Range/Units 20:35 23:02 23:02 WBC 16.4 H (4.5-11.0) X10^3/uL RBC 4.18 (4.0-5.2) X10^6/uL Hgb 12.6 (12.0-16.0) g/dL Hct 38.5 (36-46) % MCV 92.0 (80-100) fL MCH 30.1 (26-34) PG MCHC 32.7 (30-36) % RDW 13.1 (11.6-14.8) % Plt Count 408 H (150-400) X10^3/uL Neut % (Auto) 73.7 (50-75) % Lymph % (Auto) 10.6 L (25-40) % [place] % (Auto) 7.1 (3-14) % Eos % (Auto) 8.3 H (2-4) % Baso % (Auto) 0.3 (0-2) % Neut # (Auto) 92200 H (3263-7552) /uL Lymph # (Auto) 1700 (4809-5967) /uL [place] # (Auto) 1200 H (0-900) /uL Eos # (Auto) 1400 H (0-450) /uL Baso # (Auto) 0 (0-100) /uL Sodium 137 (137-145) mmol/L Potassium 4.2 (3.4-5.1) mmol/L Chloride 103 (98-107) mmol/L Carbon Dioxide 25 (22-32) mmol/L BUN 15 (7-17) mg/dL Creatinine 0.80 (0.52-1.04) mg/dL Estimated GFR > 60.0 (>60) mL/min BUN/Creatinine Ratio 18.8 (6-22) Glucose 109 (80-110) mg/dL Calcium 9.3 (8.4-10.2) mg/dL Urine RBC 10-30/hpf H (0-5/HPF) Urine WBC 5-10/hpf H (0-5/HPF) Urine Bacteria None seen (None) Ur Culture Indicated? Specimen cultured Urine Dip Bedside Urine Glucose Negative Bedside Urine Bilirubin - Negative Bedside Urine Ketone - Negative Urine Specific [place] 1.020 Bedside Urine Occult Blood +++ Bedside Urine pH 6.5 Bedside Urine Protein +/- 15 Bedside Urine Urobilinogen +/- 1mg Bedside Urine Nitrite - Negative Bedside Urine Leukocytes + 70 Esterase Imaging Data Renal US: Radiologist's impression: L hydroureter, L hydronephrosis MDM Narrative Medical decision making narrative: [facility] has successfully placed patient at [facility]. BLS unit will arrive at about 0830 Critical Care Time Critical Care Time: Yes Total Critical Care Time: 30 Attestation: The high probability of a clinically significant, sudden or life threatening deterioration of the [renal] system(s) required my full and direct attention, intervention and personal management. The aggregate critical care time was [30] minutes. This time is in addition to time spent performing reported procedures but includes the following: [x] Data Review and interpretation [x] Patient assessment and monitoring of vital signs [x] Documentation [x] Medication orders and management Discharge Plan Departure Patient Disposition: [facility] Clinical Impression: Kidney stone on left side, Renal colic Prescriptions: No Action duloxetine [Cymbalta] 60 MG capsule,delayed release(DR/EC) 60 mg PO DAILY Qty: 0 RF: 0 morphine 15 MG tablet extended release 15 mg PO Q12H Qty: 0 RF: 0 hydrocodone-acetaminophen 5-325 mg tablet 1 tab PO Q6H PRN (Reason: pain) Qty: 14 RF: 0 ondansetron 4 mg tablet,disintegrating 4 mg PO QID PRN (Reason: nausea and vomiting) Qty: 10 RF: 0 atorvastatin 40 mg tablet 40 mg PO DAILY RF: 0 lisinopril 20 mg tablet 20 mg PO DAILY RF: 0 gabapentin 400 mg capsule 1,200 mg PO TID RF: 0 amlodipine 10 mg tablet 10 mg PO DAILY RF: 0 albuterol sulfate [ProAir HFA] 90 mcg/actuation HFA aerosol inhaler 1 puff Inhalation PRN PRN (Reason: Shortness Of Breath) RF: 0 Advair HFA 230-21 mcg/actuation HFA aerosol inhaler 2 puff Inhalation BID RF: 0 aspirin 325 mg Tablet 325 mg PO BID RF: 0 Referrals: Jigar Mclean MD [Primary Care Provider] -
[2018-11-15 01:50] VITALS: BP 133/71; PULSE 90; RESP 18; O2SAT 98
[2018-11-15 03:11] VITALS: BP 144/66; PULSE 84; RESP 14; O2SAT 92
[2018-11-15] MEDS: HYDROMORPHONE 1 MG INJ IV (04:37)
[2018-11-15 04:48] VITALS: BP 129/70; PULSE 91; RESP 16; O2SAT 99
[2018-11-15 07:22] VITALS: BP 133/70; PULSE 80; RESP 12; O2SAT 99
[2018-11-15 08:10] VITALS: BP 121/61; PULSE 85; RESP 11; O2SAT 100
[2018-11-15 09:21] VITALS: BP 120/61; PULSE 83; RESP 15; O2SAT 96
== END 2018-11-15 08:45 | disposition short-term general hospital (02) ==
PROVIDERS: Emergency Provider Emergency Medicine; Family Provider Internal Medicine; PCP Internal Medicine
DX: N20.0 Calculus of kidney (principal); N23 Unspecified renal colic; R11.0 Nausea; R53.1 Weakness; M54.9 Dorsalgia, unspecified
CPT/HCPCS: 36591; 76770; 80048; 81003; 81015; 85025; 87086; 96365; 96375; 99284; 99285; J1170

== ENCOUNTER → 2018-12-05 12:34 | Outpatient (CLI) | payer OTHER, SELFPAY | PROVIDERS: Family Provider Internal Medicine; PCP Internal Medicine; Visit Provider Internal Medicine | DX: Z13.820 Encounter for screening for osteoporosis (principal); M85.851 Other specified disorders of bone density and structure, right thigh; Z78.0 Asymptomatic menopausal state; Z82.62 Family history of osteoporosis | CPT/HCPCS: 77080 ==

== ENCOUNTER 2018-12-09 23:14 | Emergency (ER) | payer OTHER, SELFPAY ==
--- NOTE | 2018-12-09 23:18 | ED_ITS ---
HPI - Fall General Chief Complaint: Extremity Injury, Upper Stated Complaint: fall, right arm injury, facial bruising Time Seen by Provider: 12/09/18 23:17 Source: patient and family Mode of arrival: ambulatory Limitations: no limitations History of Present Illness HPI Narrative: 68-year-old female nonsmoker with history hypertension and hyperlipidemia presents with a ground level fall in which she fell onto an ou tstretched wrist this evening. She has obvious deformity and a laceration on the volar aspect of her wrist. She has decreased range of motion secondary to pain and mechanical obstruction. A few days ago she had a mechanical fall in which she fell and struck the left side of her head. She denied any loss of consciousness, vomiting or blurred vision but does take full-dose aspirin and has significant swelling to left side of her face. MD complaint: fall Onset (ago): hour(s) Fall from: standing Fall witnessed: yes, by family Place fall occurred: home Loss of consciousness: none Prolonged down time: no Symptoms prior to fall: none Context: tripped/slipped Location of injury: head Severity: moderate Quality: burning Associated symptoms (after fall): headache Related Data Home Medications Medication Instructions Recorded Confirmed duloxetine [Cymbalta] 60 mg PO DAILY #0 03/20/13 12/10/18 morphine 15 mg PO Q12H #0 ter 03/20/13 12/10/18 albuterol sulfate [ProAir HFA] 1 puff INHALATION PRN PRN 11/07/18 12/10/18 amlodipine 10 mg PO DAILY 11/07/18 12/10/18 atorvastatin 40 mg PO DAILY 11/07/18 12/10/18 fluticasone propion-salmeterol 2 puff INHALATION BID 11/07/18 12/10/18 [Advair HFA] gabapentin 1,200 mg PO TID 11/07/18 12/10/18 lisinopril 20 mg PO DAILY 11/07/18 12/10/18 aspirin 650 mg PO BID 11/15/18 12/10/18 Allergies Allergy/AdvReac Type Severity Reaction Status Date / Time ibuprofen AdvReac Verified 12/09/18 23:34 ASPIRIN INTOLERANCE Allergy Unknown STATES SHE Uncoded 12/09/18 23:34 GETS POLPYS Review of Systems Constitutional Denies chills, Denies fever(s), Denies lethargy and Denies weakness Eyes Denies change in vision, Denies eye discharge, Denies irritation and Denies loss of vision ENT Ears, Nose, Mouth, and Throat: Denies change in voice, Denies neck pain and Denies sore throat Cardiovascular Denies chest pain, Denies irregular heart rhythm, Denies lightheadedness, Denies palpitations, Denies dyspnea, Denies dyspnea on exertion and Denies orthopnea Respiratory Denies cough, Denies dyspnea, Denies dyspnea on exertion and Denies wheezing Gastrointestinal Gastrointestinal: Denies abdominal pain, Denies change in bowel habits, Denies diarrhea, Denies nausea and Denies vomiting Genitourinary Denies hematuria, Denies flank pain, Denies urinary incontinence and Denies urinary urgency Musculoskeletal Reports joint swelling, Reports limited range of motion and Denies neck pain Integumentary/Breasts Denies pruritus, Denies erythema, Denies rash and Denies wounds Neurologic Denies confusion, Denies loss of vision and Denies weakness Psychiatric Denies anxiety, Denies confusion, Denies depression, Denies homicidal ideation and Denies suicidal ideation Endocrine Denies palpitations Hematologic/Lymphatic Denies easy bruising Allergic/Immunologic Denies wheezing Exam Narrative Exam Narrative: GENERAL: 68F is AOx3, GCS 15, obvious pain, clutching R wrist HEAD: Noted bruising and swelling to L side of face, orbit. Ecchymosis is yellowing, EYES: Pupils equal round and reactive. Extraocular motions intact. Large linear corneal abrasion. No evidence of globe rupture. Vision in tact. ENT: Nose without bleeding, purulent drainage or septal hematoma. Throat without erythema, tonsillar hypertrophy or exudate. Uvula midline. Airway patent. NECK: Trachea midline. No JVD or lymphadenopathy. Supple, nontender, no meningeal signs. CARDIOVASCULAR: Regular rate and rhythm without murmurs, gallops, or rubs. RESPIRATORY: Clear to auscultation. Breath sounds equal bilaterally. No wheezes, rales, or rhonchi. GASTROINTESTINAL: Abdomen soft, non-tender, nondistended. No hepato- splenomegaly, or palpable masses. No guarding. EXTREMITIES: Obvious deformity of R wrist c/w fracture. 1cm laceration on volar surface of wrist, minimal bleeding, no exposed bone. BACK: Nontender without deformity or crepitance. No flank tenderness. NEURO: AOx3. SKIN: No rash or erythema. Initial Vital Signs Initial Vital Signs: Vital Signs Temperature 98.1 F 12/09/18 23:34 Pulse Rate 83 12/09/18 23:34 Respiratory Rate 18 12/09/18 23:34 Blood Pressure 139/71 12/09/18 23:34 Pulse Oximetry 97 12/09/18 23:34 PFSH Social History marital status: lives independently: Yes Smoking Status: Never smoker Social History marital status: lives independently: Yes Smoking Status: Never smoker Procedures Orthopedic Fracture Reduction Fracture #1: Time Out Performed: Yes Side: right Fracture Reduction Location: radius and ulna Analgesia: procedural sedation Technique: direct manipulation and traction/counter-traction Post Reduction X-rays Demonstrate: acceptable reduction Post-reduction neuro exam: intact Post-reduction vascular exam: intact Splint Applied: Yes Patient Tolerated Procedure: Well Orthopedic Splinting/Casting Injury #1: Side: right Upper Extremity Injury Location: wrist Upper Extremity Immobilizer: sling/shoulder immobilizer and sugar tong splint Post splinting neuro exam: intact Post splinting vascular exam: intact Placed by: Provider Procedural Sedation Patient Age: Patient is 5yrs or older Consent signed: Yes Time out performed: Yes Indication: fracture/dislocation reduction ASA Class: III Mallampati Airway Classification: Class II Time of Last PO Intake: 18:30 Preparation: alarm security or surveillance monitor applied, pulse oximeter, capnometry used, supplemental O2 applied, suction/airway equipment at bedside and IV secured Ketamine: IV Ketamine dose (mg): 75 Intraservice time/total sedation time (min): 10 ED Sedation Level: Moderate (Concious) Patient Tolerated Procedure: Well Complications: none Course Orders Ordered: ED Orders 12/09/18 23:30 CT facial bones wo con Stat CT head/brain wo con Stat XR wrist RT 2V Stat 12/09/18 23:31 XR elbow RT min 3V Stat 12/10/18 XR wrist RT 2V Stat 12/10/18 00:20 Basic Metabolic Panel Stat Complete Blood Count AUTO DIFF Stat Prothrombin Time INR Stat Discontinued Medications Diphtheria/Tetanus/Acell Pertussis (Adacel) 0.5 ml IM .ONCE ONE Stop: 12/09/18 23:32 Last Admin: 12/09/18 23:51 Dose: 0.5 ml Fentanyl (Sublimaze) 50 mcg IV NOW ONE Stop: 12/10/18 02:44 Last Admin: 12/10/18 02:50 Dose: 50 mcg Cefazolin Sodium/Dextrose (Ancef) 1 gm in 50 mls @ 200 mls/hr IV NOW ONE Stop: 12/10/18 00:25 Last Infusion: 12/10/18 00:54 Dose: 0 mls/hr Admin: 12/10/18 00:30 Dose: 200 mls/hr Sodium Chloride (Normal Saline 0.9%) 500 mls @ 1,000 mls/hr IV BOLUS ONE Stop: 12/10/18 01:18 Last Infusion: 12/10/18 01:27 Dose: 0 mls/hr Admin: 12/10/18 00:52 Dose: 1,000 mls/hr Sodium Chloride (Normal Saline 0.9%) 1,000 mls @ 1,000 mls/hr IV BOLUS ONE Stop: 12/10/18 01:46 Last Admin: 12/10/18 03:17 Dose: Not Given Ketamine HCl (Ketalar) 75 mg IV NOW ONE Stop: 12/10/18 02:44 Last Admin: 12/10/18 01:40 Dose: 75 mg Ondansetron HCl (Zofran) 4 mg IV NOW ONE Stop: 12/10/18 00:51 Last Admin: 12/10/18 00:54 Dose: 4 mg Proparacaine HCl (Parcaine 0.5% Ophth Cristy) 1 drops EYE-RIGHT NOW ONE Stop: 12/09/18 23:32 Last Admin: 12/09/18 23:50 Dose: 1 drop Consultations Consultation #1: [facility] [place] contacted upon receipt of head CT. Dr. Horowitz to receive patient. We share opinion that low dose ketamine is appropriate choice for procedural sedation. Time: 01:10 Vital Signs - 8 hr 12/09/18 23:34 12/10/18 00:30 12/10/18 00:45 Temperature 98.1 F Pulse Rate 83 53 L 56 L Respiratory Rate 18 18 14 Blood Pressure 139/71 Blood Pressure [Left Arm] 93/48 L 88/46 L Pulse Oximetry 97 96 95 12/10/18 01:00 12/10/18 01:30 12/10/18 01:40 Temperature Pulse Rate 96 H 55 L 59 L Respiratory Rate 18 14 14 Blood Pressure Blood Pressure [Left Arm] 103/48 L 117/48 L 114/53 L Pulse Oximetry 96 100 100 12/10/18 01:45 12/10/18 01:50 12/10/18 01:55 Temperature Pulse Rate 83 94 H 82 Respiratory Rate 15 19 18 Blood Pressure Blood Pressure [Left Arm] 113/87 134/79 130/65 Pulse Oximetry 98 100 97 12/10/18 02:00 12/10/18 02:05 12/10/18 02:15 Temperature Pulse Rate 72 69 69 Respiratory Rate 17 15 16 Blood Pressure Blood Pressure [Left Arm] 125/57 L 116/53 L 116/50 L Pulse Oximetry 99 99 99 12/10/18 02:44 Temperature Pulse Rate 61 Respiratory Rate 12 Blood Pressure Blood Pressure [Left Arm] 110/48 L Pulse Oximetry 98 - Fall Lab Data Result diagrams: 12/10/18 00:20 12/10/18 00:20 Lab Results 12/10/18 12/10/18 12/10/18 Range/Units 00:20 00:20 00:20 WBC 9.1 (4.5-11.0) X10^3/uL RBC 3.39 L (4.0-5.2) X10^6/uL Hgb 10.6 L (12.0-16.0) g/dL Hct 32.2 L (36-46) % MCV 94.9 (80-100) fL MCH 31.1 (26-34) PG MCHC 32.8 (30-36) % RDW 13.7 (11.6-14.8) % Plt Count 374 (150-400) X10^3/uL Neut % (Auto) 65.3 (50-75) % Lymph % (Auto) 17.5 L (25-40) % [place] % (Auto) 6.8 (3-14) % Eos % (Auto) 9.8 H (2-4) % Baso % (Auto) 0.6 (0-2) % Neut # (Auto) 6000 (9677-1307) /uL Lymph # (Auto) 1600 (8247-1270) /uL [place] # (Auto) 600 (0-900) /uL Eos # (Auto) 900 H (0-450) /uL Baso # (Auto) 100 (0-100) /uL PT 11.4 (10.1-12.7) SECONDS INR 1.0 (0.9-1.3) Sodium 138 (137-145) mmol/L Potassium 3.8 (3.4-5.1) mmol/L Chloride 102 (98-107) mmol/L Carbon Dioxide 31 (22-32) mmol/L BUN 10 (7-17) mg/dL Creatinine 0.60 (0.52-1.04) mg/dL Estimated GFR > 60.0 (>60) mL/min BUN/Creatinine Ratio 16.7 (6-22) Glucose 107 (80-110) mg/dL Calcium 9.0 (8.4-10.2) mg/dL Imaging Data CT scan - head: Radiologist's impression: minimal R sided subdural hemorrhage without mass effect Facial Bones CT: Radiologist's impression: No facial bone fracture Wrist Xray: Radiologist's impression: Distal Radius fx with 30% lateral displacement and dorsal angulation. Ulnar component with 25% lateral displacement and dorsal angulation. Laceration overlying distal ulna MDM Narrative Medical decision making narrative: 68F on ASA with fall, head injury, repeat fall, open distal radius/ulna fracture is AOx3, GCS 15. She has had tetanus updated, Ancef IVPB, reduction of R wrist and small SDH on head CT. Patient requires transfer to [facility] [place] for definitive care of multisystem trauma. patient does not require air transport Discharge Plan Departure Patient Disposition: [facility] Clinical Impression: Acute subdural hematoma Corneal laceration of right eye Qualifiers: Encounter type: initial encounter Qualified Code(s): S05.31XA - Ocular laceration without prolapse or loss of intraocular tissue, right eye, initial encounter Open fracture of distal end of radius Qualifiers: Encounter type: initial encounter Open fracture type: open type I or II Fracture morphology: Colles' Laterality: right Qualified Code(s): S52.531B - Col les' fracture of right radius, initial encounter for open fracture type I or II Discharge Date/Time: 12/10/18 03:22 Interventions: ED Discharge Assessment Last Done: 12/10/18 03:21 Prescriptions: No Action duloxetine [Cymbalta] 60 MG capsule,delayed release(DR/EC) 60 mg PO DAILY Qty: 0 RF: 0 morphine 15 MG tablet extended release 15 mg PO Q12H Qty: 0 RF: 0 atorvastatin 40 mg tablet 40 mg PO DAILY RF: 0 lisinopril 20 mg tablet 20 mg PO DAILY RF: 0 gabapentin 400 mg capsule 1,200 mg PO TID RF: 0 amlodipine 10 mg tablet 10 mg PO DAILY RF: 0 albuterol sulfate [ProAir HFA] 90 mcg/actuation HFA aerosol inhaler 1 puff Inhalation PRN PRN (Reason: Shortness Of Breath) RF: 0 Advair HFA 230-21 mcg/actuation HFA aerosol inhaler 2 puff Inhalation BID RF: 0 aspirin 325 mg Tablet 650 mg PO BID RF: 0 Referrals: Jigar Mclean MD [Primary Care Provider] -
--- NOTE | 2018-12-09 23:30 | DI.CT.S_ITS ---
PROCEDURE: CT HEAD/BRAIN WO CON INDICATIONS: fall with facial injury TECHNIQUE: Noncontrast 4.5 mm thick angled axial sections acquired from the foramen magnum to the vertex, with coronal and sagittal reformats. For radiation dose reduction, the following was used: automated exposure control, adjustment of mA and/or kV according to patient size. COMPARISON: None. FINDINGS: Image quality: Excellent. CSF spaces: Basal cisterns are patent. Trace right frontotemporal subdural hematoma (series 2 image 17). The ventricles are symmetric in size and shape. Brain: No intracranial bleeds or masses. There is cerebral volume loss for age, with resultant ventricular and sulcal prominence. There are periventricular and deep white matter chronic small vessel ischemic changes. There is intracranial internal carotid artery atherosclerosis. Skull and face: Calvarium and visualized facial bones appear intact, without suspicious lesions. Sinuses: There is maxillary sinus mucosal thickening bilaterally. Mastoids are clear. IMPRESSION: 1. Trace left frontal subdural hematoma. 2. Cerebral volume loss and chronic microvascular ischemic changes. 3. Bilateral maxillary sinus mucosal thickening. No significant discrepancy with the night assistant radiology preliminary report. Dictated by: Stacy Cisneros M.D. on 12/10/2018 at 7:35 Approved by: Stacy Cisneros M.D. on 12/10/2018 at 7:38
--- NOTE | 2018-12-09 23:30 | DI.CT.S_ITS ---
PROCEDURE: CT FACIAL BONES WO CON INDICATIONS: fall with facial injury TECHNIQUE: Noncontrast 2.5 mm thick axial images acquired from the mandible through the frontal sinuses, with coronal and sagittal reformatting. For radiation dose reduction, the following was used: automated exposure control, adjustment of mA and/or kV according to patient size. COMPARISON: CT, SINUS W/O CONTRAST, 04/24/2012, 12:05. [facility], CT, SINUS SCREEN WO CONTRAST, 09/24/2014, 11:59. FINDINGS: Image quality: Excellent. Bones and teeth: Orbital kelly are intact. Sinus kelly show no fracture or deformity. Nasal bones and septum are intact. Visualized portions of the mandible demonstrate no fractures or subluxation. Zygomatic arches are intact. Pterygoid plates are intact. Visualized portions of the skull base and auditory canals are intact. Sinuses: Bilateral antrectomies. Bilateral maxillary sinus mucosal thickening and small fluid levels. The left frontal sinus is opacified. Mastoid air cells are aerated. Soft tissues: No edema, masses, or fluid collections. No enlarged lymph nodes. No soft tissue lacerations or debris. Vascular: Visualized vascular structures appear normal in the absence of contrast. Bony vascular foramina and canals are intact. IMPRESSION: 1. No facial bone fractures. 2. Bilateral maxillary and left frontal sinusitis. No significant discrepancy with the cnc machinist 2nd shift radiology preliminary report. Dictated by: Stacy Cisneros M.D. on 12/10/2018 at 7:38 Approved by: Stacy Cisneros M.D. on 12/10/2018 at 7:42
--- NOTE | 2018-12-09 23:30 | DI.RAD.S_ITS ---
PROCEDURE: XR WRIST RT 2V INDICATIONS: fall with deformity TECHNIQUE: 2 views of the wrist were acquired. COMPARISON: [facility], CR, XR WRIST RT 2V, 12/10/2018, 1:36. FINDINGS: Bones: No dislocations. No suspicious bony lesions. There is a prominently comminuted intra-articular fracture involving the distal radius with dorsal angulation at the fracture plane and also a moderately comminuted distal ulnar fracture also dorsally angulated but to a lesser degree Scaphoid view: Not obtained. The scaphoid is relatively poorly seen Soft tissues: No suspicious soft tissue calcifications. IMPRESSION: Extensive fractures with dorsal angulation and intra-articular extension at the distal radius and to lesser degree the distal ulna. Dictated by: Jorge L Hernandez M.D. on 12/10/2018 at 8:06 Approved by: Jorge L Hernandez M.D. on 12/10/2018 at 8:07
--- NOTE | 2018-12-09 23:31 | DI.RAD.S_ITS ---
PROCEDURE: XR ELBOW RT MIN 3V INDICATIONS: fall with pain TECHNIQUE: 3 views of the elbow were acquired. COMPARISON: None. FINDINGS: Bones: No fractures or dislocations. No suspicious bony lesions. Soft tissues: No elbow joint effusion. No suspicious soft tissue calcifications. IMPRESSION: No trauma found. Dictated by: Jorge L Hernandez M.D. on 12/10/2018 at 8:07 Approved by: Jorge L Hernandez M.D. on 12/10/2018 at 8:08
[2018-12-09 23:34] VITALS: BP 139/71; PULSE 83; RESP 18; TEMP 36.7; O2SAT 97; BMI 30.6
[2018-12-09] MEDS: PROPARACAINE 0.5% OPHTH SOL 1 DROPS EYE-RIGHT (23:50)
[2018-12-09] MEDS: TET,DIPH,PERTUSS(ACELL),VAC/PF 0.5 ML SYRINGE IM (23:51)
[2018-12-10] VITALS (12 sets, daily range): BP systolic 88–134; BP diastolic 46–87; PULSE 53–96; RESP 12–19; O2SAT 95–100
--- NOTE | 2018-12-10 | DI.RAD.S_ITS ---
PROCEDURE: XR WRIST RT 2V INDICATIONS: POST REDUCTION TECHNIQUE: 2 views of the wrist were acquired. COMPARISON: [facility], CR, XR WRIST RT 2V, 12/09/2018, 23:33. FINDINGS: Bones: No previously unidentified fractures or dislocations. No suspicious bony lesions. The there has been successful reduction in the severity of fracture or malalignment at the distal radius and ulna after closed reduction and splinting. Scaphoid view: Not obtained in the scaphoid is relatively poorly seen. Soft tissues: No suspicious soft tissue calcifications. IMPRESSION: Improvement in malalignment after closed reduction and splinting. Dictated by: Jorge L Hernandez M.D. on 12/10/2018 at 8:08 Approved by: Jorge L Hernandez M.D. on 12/10/2018 at 8:09
[2018-12-10] MEDS: CEFAZOLIN 1 GM/50 ML FROZ.PIGGY IV (00:30)
[2018-12-10] MEDS: SODIUM CHLORIDE 0.9% 500 ML 1000 ML IV (00:52)
[2018-12-10 00:54] LABS: Add Manual Diff / Slide Review NO; Basophils Absolute Auto 100 /uL (0-100); Basophils Percent Auto 0.6 % (0-2); Eosinophils Absolute Auto 900 /uL (0-450); Eosinophils Percent Auto 9.8 % (2-4); Hematocrit 32.2 % (36-46); Hemoglobin 10.6 g/dL (12.0-16.0); Lymphocytes Absolute Auto 1600 /uL (1100-4500); Lymphocytes Percent Auto 17.5 % (25-40); Mean Corpuscular HGB Conc 32.8 % (30-36); Mean Corpuscular Hemoglobin 31.1 PG (26-34); Mean Corpuscular Volume 94.9 fL (80-100); Monocytes Absolute Auto 600 /uL (0-900); Monocytes Percent Auto 6.8 % (3-14); Neutrophils Absolute Auto 6000 /uL (1500-7000); Neutrophils Percent Auto 65.3 % (50-75); Platelet Count 374 X10^3/uL (150-400); Red Blood Cell Count 3.39 X10^6/uL (4.0-5.2); Red Cell Distribution Width 13.7 % (11.6-14.8); White Blood Cell Count 9.1 X10^3/uL (4.5-11.0)
[2018-12-10] MEDS: ONDANSETRON 4 MG/2 ML INJ IV (00:54)
[2018-12-10 00:55] LABS: Prothrombin Time 11.4 SECONDS (10.1-12.7)
[2018-12-10 00:59] LABS: BUN Creatinine Ratio 16.7 (6-22); Blood Urea Nitrogen 10 mg/dL (7-17); Carbon Dioxide 31 mmol/L (22-32); Chloride 102 mmol/L (98-107); Estimated Glomerular Filt Rate > 60.0 mL/min (>60); Glucose 107 mg/dL (80-110); HEMOLYSIS 24 (0-50); Potassium 3.8 mmol/L (3.4-5.1); Sodium 138 mmol/L (137-145)
--- NOTE | 2018-12-10 01:15 | PC.NURSE ---
Pt has bruising to her left arm
[2018-12-10] MEDS: KETAMINE 500 MG/5 ML INJ 75 MG IV (01:40)
[2018-12-10] MEDS: fentaNYL 100 MCG/2 ML INJ 50 MCG IV (02:50)
== END 2018-12-10 03:22 | disposition short-term general hospital (02) ==
PROVIDERS: Emergency Provider Emergency Medicine; Family Provider Internal Medicine; PCP Internal Medicine
DX: S06.5X9A Traumatic subdural hemorrhage with loss of consciousness of unspecified duration, initial encounter (principal); S05.31XA Ocular laceration without prolapse or loss of intraocular tissue, right eye, initial encounter; S52.531B Colles' fracture of right radius, initial encounter for open fracture type I or II; W19.XXXA Unspecified fall, initial encounter; Z79.82 Long term (current) use of aspirin
CPT/HCPCS: 25605; 36591; 70450; 70486; 73080; 73100; 80048; 85025; 85610; 94770; 96361; 96365; 96366; 96372; 99152; 99285; 99291; 99292; 90715; J2405; J3010

== ENCOUNTER 2019-08-19 11:33 | Outpatient (RCR) | payer OTHER, SELFPAY ==
--- NOTE | 2019-08-19 16:36 | PT.OIE ---
Current Diagnoses Abnormal posture (08/19/19) Repeated falls (08/19/19) Past Medical History (Last Reviewed 11/07/18 @ 06:25 by Patrice Hall DO) Fibromyalgia (Acute) Visit Care Team Role Provider Type Jigar Mclean MD Attending Provider Non-Staff Primary Care Provider Referring Provider Specialty: Internal Medicine Address: [address] [place] [address], [id number] Email: Physical Therapy Initial Evaluation PT-OP-A Visit Information Start: 08/19/19 16:06 Freq: Status: Active Protocol: Document 08/19/19 12:00 DCW (Rec: 08/19/19 16:35 DCW [id number]) Out-Patient Physical Therapy Visit Information Visit Information Visit Type Initial Evaluation Visit Start Time 12:00 Visit Stop Time 12:45 Total Visit Minutes 45 Visit Number 1 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 Pt reports she has broken both wrists twice, broken her elbow twice, hit her face and required multiple corrective surgeries for fractures. Pt reports there have been multiple different reasons for the falls, including getting distracted going up the steps, tripping on uneven sidewalks, climbing onto a junk pile in the garage to reach something up high, and many other reasons which include distractions and poor judgment. Pt also notes that she is getting a hunchback, and reports that she has very flat feet. Pt notes she never uses an assistive device, except for a walking stick occasionally when out on uneven surfaces. Treatment Goals Patient/Caregiver Goals I want to learn why I fall, and try to prevent any more falls. I just can't take more injuries. Personal Factors Other Personal Factors That May Effect HTN, Multiple falls, wrist Therapy/Recovery surgery x2 (2019), Osteoporosis, SOB PT-OP-C Subjective Start: 08/19/19 16:06 Freq: Status: Active Protocol: Document 08/19/19 12:00 DCW (Rec: 08/19/19 16:35 [facility] [id number]) OP-PT Pain Assessment Location Right Wrist Intensity 4 Scale Used Numeric (1 - 10) Description Aching,Tightness PT-OP-D Balance Start: 08/19/19 16:06 Freq: Status: Active Protocol: Document 08/19/19 12:00 DCW (Rec: 08/19/19 16:35 [facility] [id number]) OP-PT Balance Assessment Sitting Balance Static Sitting Balance Ability Normal Dynamic Sitting Balance Ability Normal Standing Balance Static Standing Balance Ability Normal Dynamic Standing Balance Ability Normal Device Used None Balance Tests Jade Balance Test Jade Balance Test Score 51/56 Jade Impairment Rating 1 to 19% Impaired (Score 45-55 ) mCTSIB mCTSIB Position 1 30 sec mCTSIB Position 2 30 sec mCTSIB Position 3 30 sec mCTSIB Position 4 30 sec Jade Balance Assessment Evaluation Sitting to Standing Ability Independent w/out Hands Unsupported Stance Safely- 2 minutes Sitting Unsupported, Feet on Floor Safely- 2 minutes Standing to Sitting Ability Safely, Minimal Hand Use Transfer Ability Safely, Minimal Hand Use Unsupported Stance- Eyes Closed Safely, 10 seconds Unsupported Stance- Eyes Open Independent, 1 minute Reaching Forward Standing Confidently, 10 inches Pick- Up Object From Floor Independent/Safe Look Behind Shoulder - Standing Turns Sideways Only Turning 360 Degrees Turns Bilateral, < 4 secs Unsupported Stance, Alternating Feet on (I)- 8 Steps in 20 secs Stair Unsupported Tandem Stance Achieves Tandem Unilateral Leg Stance Lifts Leg/Unable to Hold Total Score Jade Total Score (out of 56 points) 51 Jade Impairment Rating 1 to 19% Impaired (Score 45-55 ) King Fall Scale Copyright Permission PT-OP-E Functional Tests Start: 08/19/19 16:06 Freq: Status: Active Protocol: Document 08/19/19 12:00 DCW (Rec: 08/19/19 16:35 [facility] [id number]) Functional Tests Dynamic Gait Index (DGI) Score 20/24 DGI Impairment Rating 1 to <20% Impaired (Score 20- 23) PT-OP-H Neuro Start: 08/19/19 16:06 Freq: Status: Active Protocol: Document 08/19/19 12:00 DCW (Rec: 08/19/19 16:35 DCW [id number]) Sensation Evaluation Gross Sensation Gross Sensation WNL Location Details Right Foot Light Touch Intact/Normal Deep Pressure Intact/Normal Protective Sensation Intact/Normal Proprioception (Position) Intact/Normal Kinesthesia (Movement) Intact/Normal Left Foot Light Touch Intact/Normal Deep Pressure Intact/Normal Protective Sensation Intact/Normal Proprioception (Position) Intact/Normal Kinesthesia (Movement) Intact/Normal PT-OP-J Posture/Palpation/Skin Start: 08/19/19 16:06 Freq: Status: Active Protocol: Document 08/19/19 12:00 DCW (Rec: 08/19/19 16:35 DCW [id number]) Posture Evaluation Position Standing Evaluation View Lateral T-Spine Posture Increased Kyphosis Ankle/Foot Posture (L) Pronated,(R) Pronated Foot Arch (L) No Arch,(R) No Arch PT-OP-M Strength Start: 08/19/19 16:06 Freq: Status: Active Protocol: Document 08/19/19 12:00 DCW (Rec: 08/19/19 16:35 AZ[facility] [id number]) Hip Strength Hip Manual Muscle Testing Right Flexion (L2) 4- Good- Abduction 4+ Good+ Adduction 4+ Good+ External Rotation 4+ Good+ Internal Rotation 4+ Good+ Left Flexion (L2) 4+ Good+ Abduction 4+ Good+ Adduction 4+ Good+ External Rotation 4+ Good+ Internal Rotation 4+ Good+ Knee Strength Knee Manual Muscle Testing Right Flexion (S2) 4+ Good+ Extension (L3) 4+ Good+ Left Flexion (S2) 4+ Good+ Extension (L3) 4+ Good+ Ankle/Foot Strength Ankle and Foot Manual Muscle Testing Right Dorsiflexion (L4) 4+ Good+ Plantarflexion (S1) 4+ Good+ Left Dorsiflexion (L4) 4+ Good+ Plantarflexion (S1) 4+ Good+ PT-OP-T Assessment and Plan Start: 08/19/19 16:06 Freq: Status: Active Protocol: Document 08/19/19 12:00 DCW (Rec: 08/19/19 16:35 DCW [id number]) Physical Therapy Assessment Evaluation Complexity Number of Personal Factors/Comorbidities 3 or More Number of Body Systems Impaired 4 or More Clinical Presentation at Evaluation Stable Impairments Impairments Balance,Posture Other Concerns Fall Risk Yes per substantial fall history Goals Three Impairment Pt had no arch bilaterally when standing 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 Per her fall history, she is obviously a high falls risk, however her Jade (51/56) and DGI (20/24) scores to not indicate any deficiency, pt had no deductions on the mCTSIB, her sensation and proprioception were completely WNL, and her strength was largely WNL, with the exception of some weakness (4- /5) of her right hip flexors. Further high-level testing ( including FGA and CTSIB) may be necessary next visit in order to uncover any other deficits, but it may be necessary to work on a comprehensive HEP for her to work on independently if no deficit is found. Physical Therapy Plan Frequency and Duration Frequency of Treatment 2x/Week Duration of Treatment 6 weeks Plan of Care Start Date 08/19/19 Plan of Care End Date 10/14/19 Therapeutic Interventions Therapeutic Interventions Balance Training,Gait Training ,Home Exercise Program, Neuromuscular Re-education, Patient/Caregiver Education, Self-Care/Home Management, Therapeutic Exercises Next Visit Focus/Plan Next Note Type Treatment Note Next Visit Plan Further balance testing (TUG, FGA, CTSIB), Balance training, HEP
--- NOTE | 2019-08-19 16:37 | PT.OPPOC ---
Physical, Occupational & Speech Therapy At [facility] Current Diagnoses Abnormal posture (08/19/19) Repeated falls (08/19/19) Visit Care Team Role Provider Type Jigar Mclean MD Attending Provider Non-Staff Primary Care Provider Referring Provider Specialty: Internal Medicine Address: [address] [place] [address], [phone] Email: Plan Of Care PT-OP-T Assessment and Plan Start: 08/19/19 16:06 Freq: Status: Active Protocol: Document 08/19/19 12:00 DCW (Rec: 08/19/19 16:35 DCW [id number]) Physical Therapy Assessment Evaluation Complexity Number of Personal Factors/Comorbidities 3 or More Number of Body Systems Impaired 4 or More Clinical Presentation at Evaluation Stable Impairments Impairments Balance,Posture Other Concerns Fall Risk Yes per substantial fall history Goals Three Impairment Pt had no arch bilaterally when standing Half-Way Goal (LTG) Pt feet to present with minimal arch in stance LTG Duration 09/17/19 Two Impairment R hip flexor weakness can lead to poorR foot swing phase during gait 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 Per her fall history, she is obviously a high falls risk, however her Jade (51/56) and DGI (20/24) scores to not indicate any deficiency, pt had no deductions on the mCTSIB, her sensation and proprioception were completely WNL, and her strength was largely WNL, with the exception of some weakness (4- /5) of her right hip flexors. Further high-level testing ( including FGA and CTSIB) may be necessary next visit in order to uncover any other deficits, but it may be necessary to work on a comprehensive HEP for her to work on independently if no deficit is found. Physical Therapy Plan Frequency and Duration Frequency of Treatment 2x/Week Duration of Treatment 6 weeks Plan of Care Start Date 08/19/19 Plan of Care End Date 10/14/19 Therapeutic Interventions Therapeutic Interventions Balance Training,Gait Training ,Home Exercise Program, Neuromuscular Re-education, Patient/Caregiver Education, Self-Care/Home Management, Therapeutic Exercises Next Visit Focus/Plan Next Note Type Treatment Note Next Visit Plan Further balance testing (TUG, FGA, CTSIB), Balance training, HEP Plan of Care Dates Plan of Care Start Date 08/19/19 Plan of Care End Date 10/14/19 Electronically Signed by: Too Carter, PT 08/19/19 0880 Please Sign and Return: I have reviewed this Plan of Care and certify that the skilled therapy services above are required to meet the patient?s needs. Physician Signature Date Printed Name and Credentials Clinical Instructor Signature Printed Name and Credentials
--- NOTE | 2019-08-21 15:59 | PT-OP ANOTE ---
Pt no-showed to her appointment on 08/21/19
== END 2020-01-28 13:49 | disposition home or self-care (01) ==
LOC: PHYS 11:33
PROVIDERS: PCP Internal Medicine; Referring Provider Internal Medicine; Visit Provider Internal Medicine
DX: R29.6 Repeated falls (principal); R29.3 Abnormal posture
CPT/HCPCS: 97162

== ENCOUNTER → 2020-03-07 11:07 | Outpatient (CLI) | payer OTHER, SELFPAY ==
--- NOTE | 2020-03-07 11:10 | DI.RAD.S_ITS ---
PROCEDURE: XR CHEST 2V INDICATIONS: CHEST PAIN TECHNIQUE: 2 views of the chest were acquired. COMPARISON: None. FINDINGS: Surgical changes and devices: None. Lungs and pleura: Lungs are clear. No pleural effusions or pneumothorax. Mediastinum: Mediastinal contours are normal. Heart size is normal. Bones and chest wall: No suspicious bony abnormalities. Soft tissues appear unremarkable. IMPRESSION: No acute cardiopulmonary findings. Dictated by: Lucrecia Norris M.D. on 03/07/2020 at 10:16 Approved by: Lucrecia Norris M.D. on 03/07/2020 at 10:17
== END ==
PROVIDERS: PCP Internal Medicine; Referring Provider Physician Assistant; Visit Provider Physician Assistant
DX: R07.9 Chest pain, unspecified (principal); R10.13 Epigastric pain; K44.9 Diaphragmatic hernia without obstruction or gangrene; R11.2 Nausea with vomiting, unspecified
CPT/HCPCS: 71046

== ENCOUNTER → 2020-03-09 10:06 | Outpatient (CLI) | payer OTHER, SELFPAY ==
--- NOTE | 2020-03-09 | DI.RAD.S_ITS ---
PROCEDURE: FL BARIUM SWALLOW INDICATIONS: Epigastric pain COMPARISON: , , FL BARIUM SWALLOW W SPEECH, 07/25/2018, 9:33. FINDINGS: Function: Esophageal dysmotility is present. There is delayed esophageal clearance There is intermittently observed retrograde propulsion of contrast material within the esophagus. Distal esophageal short-segment narrowing is present. There is no passage of a calibrated barium tablet at this level. Posterior cervical esophageal diverticulum incidentally noted at the level of C6. Morphology: Air-contrast images are suboptimal due to incomplete gaseous distension. IMPRESSION: Short-segment narrowing of the distal esophagus. Cannot exclude stricture of benign or malignant etiology. Recommend clinical correlation and follow-up with dedicated upper endoscopy as clinically appropriate. Severe esophageal dysmotility. Posterior cervical esophageal diverticulum. Findings and recommendations were personally telephoned and discussed with Nayeli RAMÍREZ at 1100 hours on 03/09/20. Dictated by: Leonel Dupree M.D. on 03/09/2020 at 10:48 Approved by: Leonel Dupree M.D. on 03/09/2020 at 11:05
== END ==
PROVIDERS: PCP Internal Medicine; Referring Provider Internal Medicine; Visit Provider Physician Assistant
DX: R10.13 Epigastric pain (principal); K44.9 Diaphragmatic hernia without obstruction or gangrene; R11.2 Nausea with vomiting, unspecified
CPT/HCPCS: 74220

== ENCOUNTER 2020-03-09 10:40 | Emergency (ER) | payer OTHER, SELFPAY ==
[2020-03-09] VITALS (10 sets, daily range): BP systolic 120–133; BP diastolic 56–62; PULSE 79–97; RESP 14; TEMP 37.1; O2SAT 92–99; BMI 32.3
[2020-03-09 14:34] LABS: Add Manual Diff / Slide Review NO; Basophils Absolute Auto 100 /uL (0-100); Basophils Percent Auto 0.6 % (0-2); Eosinophils Absolute Auto 100 /uL (0-450); Hemoglobin 12.1 g/dL (12.0-16.0); Lymphocytes Absolute Auto 1500 /uL (1100-4500); Lymphocytes Percent Auto 12.1 % (25-40); Mean Corpuscular HGB Conc 32.8 % (30-36); Mean Corpuscular Hemoglobin 30.5 PG (26-34); Mean Corpuscular Volume 93.1 fL (80-100); Monocytes Absolute Auto 1000 /uL (0-900); Monocytes Percent Auto 8.2 % (3-14); Neutrophils Absolute Auto 9800 /uL (1500-7000); Neutrophils Percent Auto 78.1 % (50-75); Platelet Count 413 X10^3/uL (150-400); Red Blood Cell Count 3.97 X10^6/uL (4.0-5.2); White Blood Cell Count 12.5 X10^3/uL (4.5-11.0)
[2020-03-09] MEDS: SODIUM CHLORIDE 0.9% 1,000 ML 1000 ML IV (14:40)
[2020-03-09] MEDS: ONDANSETRON 4 MG/2 ML INJ IV (14:40)
[2020-03-09 14:50] LABS: Alanine Aminotransferase 18 IU/L (<35); Albumin 4.3 g/dL (3.5-5.0); Albumin Globulin Ratio 1.1 (1.0-2.8); Alkaline Phosphatase 123 U/L (38-126); Amylase 54 U/L (30-110); Aspartate Aminotransferase 33 IU/L (14-36); BUN Creatinine Ratio 28.2 (6-22); Bilirubin Total 0.8 mg/dL (0.2-1.3); Blood Urea Nitrogen 22 mg/dL (7-17); Calcium 9.5 mg/dL (8.4-10.2); Carbon Dioxide 38 mmol/L (22-32); Chloride 94 mmol/L (98-107); Estimated Glomerular Filt Rate > 60.0 mL/min (>60); Globulin 3.9 g/dL (1.7-4.1); Glucose 110 mg/dL (80-110); HEMOLYSIS 27 (0-50); Lipase 102 U/L (23-300); Magnesium 2.6 mg/dL (1.6-2.3); Potassium 3.8 mmol/L (3.4-5.1); Sodium 139 mmol/L (137-145); Total Protein 8.2 g/dL (6.3-8.2)
[2020-03-09 15:34] LABS: Bacteria Urine None Seen; RBC Urine None Seen (0-5/HPF)
[2020-03-09 15:51] LABS: Culture Indicated Urine Specimen Cultured; Hyaline Casts Urine 1-5/LPF; Mucus Urine 2+ (Negative); WBC Urine 5-10/HPF (0-5/HPF)
[2020-03-09] MEDS: ONDANSETRON 4 MG ODT SL (16:57)
--- NOTE | 2020-03-09 20:50 | ED_ITS ---
HPI - Nausea/Vomiting/Diarrhea <Chetna Monroe, ELECTRIFICATION ADVISER-BC - Last Filed: 03/09/20 20:55> General Chief complaint: Nausea/Vomiting/Diarrhea Stated complaint: Throwing up every 2 hours, upper abdominal pain. Time Seen by Provider: 03/09/20 13:53 Source: patient Mode of arrival: Wheelchair Limitations: no limitations History of Present Illness HPI Narrative: 70-year-old female nonsmoker with history of hyperlipidemia who presents with a chief complaint of nausea and vomiting ongoing since early this month. She states that it started immediately after she took apple cider vinegar gummies. She states she vomits every few hours and feels like food is ?not going through.She denies any fevers. She has not taken anything to feel better. She denies any chest pain or shortness of breath. She did go to an outside facility last night to be evaluated, did have a barium swallow study today, states that she has an ultrasound tomorrow. Her PCP is Dr. Mclean. She states nothing makes it better, eating makes it worse. Denies any dysuria urgency or frequency but is concerned about being dehydrated. Related Data Home Medications Medication Instructions Recorded Confirmed duloxetine [Cymbalta] 60 mg PO DAILY #0 03/20/13 12/10/18 morphine 15 mg PO Q12H #0 ter 03/20/13 12/10/18 albuterol sulfate [ProAir HFA] 1 puff INHALATION PRN PRN 11/07/18 12/10/18 amlodipine 10 mg PO DAILY 11/07/18 12/10/18 atorvastatin 40 mg PO DAILY 11/07/18 12/10/18 fluticasone propion-salmeterol 2 puff INHALATION BID 11/07/18 12/10/18 [Advair HFA] gabapentin 1,200 mg PO TID 11/07/18 12/10/18 lisinopril 20 mg PO DAILY 11/07/18 12/10/18 aspirin 650 mg PO BID 11/15/18 12/10/18 Previous Rx's Medication Instructions Recorded ondansetron 4 mg PO Q6H PRN #20 tab 03/09/20 Allergies Allergy/AdvReac Type Severity Reaction Status Date / Time ibuprofen AdvReac Verified 03/09/20 10:48 ASPIRIN INTOLERANCE Allergy Unknown STATES SHE Uncoded 12/09/18 23:34 GETS POLPYS Review of Systems <SUSY Dangelo - Last Filed: 03/09/20 20:55> Review of Systems Narrative: GENERAL: See HPI HEENT: Denies sinus pain, ear pain, sore throat, difficulty swallowing, dizziness. RESPIRATORY: Denies dyspnea, cough, wheezing, hemoptysis, sputum. CARDIOVASCULAR: Denies chest pain, palpitations, orthopnea, edema, GASTROINTESTINAL: See HPI : Denies dysuria, frequency, incontinence, hematuria, urinary retention. MUSCULOSKELETAL: denies weakness, joint pain, or bony pain SKIN: Denies rash, skin lesions, or other NEUROLOGIC: Denies weakness, headache, numbness, change in speech, confusion, seizures, incoordination. PSYCHIATRIC: No concerning psychosocial issues. 12 point review of systems is negative except for those stated above Patient History <SUSY Dangelo - Last Filed: 03/09/20 20:55> Medical History (Updated 03/09/20 @ 17:17 by SUSY Dangelo) Fibromyalgia (Acute) Social History marital status: lives independently: Yes Smoking Status: Never smoker Smoking Status: Never smoker alcohol intake frequency: holidays/special occasions only Substance Use Type: does not use Exam <SUSY Dangelo - Last Filed: 03/09/20 20:55> Narrative Exam Narrative: GENERAL: This is a well-nourished, well-developed patient, no acute distress HEAD: Atraumatic. Normocephalic. No temporal or scalp tenderness. EYES: Pupils equal round and reactive. Extraocular motions intact. No scleral icterus. No injection or drainage. ENT: Nose without bleeding, purulent drainage or septal hematoma. Throat without erythema, tonsillar hypertrophy or exudate. Uvula midline. Airway patent. Dry mucous membranes noted NECK: Trachea midline. No JVD or lymphadenopathy. Supple, nontender, no meningeal signs. CARDIOVASCULAR: Regular rate and rhythm RESPIRATORY: Clear to auscultation. Breath sounds equal bilaterally. No wheezes, rales, or rhonchi. No cough. No increased respiratory effort. No accessory muscle use. GASTROINTESTINAL: Abdomen soft, non-tender, nondistended. No hepato- splenomegaly, or palpable masses. No guarding. EXTREMITIES: No clubbing, cyanosis, or edema. No joint tenderness, effusion, or edema noted. BACK: Nontender without deformity or crepitance. No flank tenderness. NEURO: AOx3. SKIN: No rash or erythema. Initial Vital Signs Initial Vital Signs: Vital Signs Temperature 98.7 F 03/09/20 10:48 Pulse Rate 97 H 03/09/20 10:48 Respiratory Rate 14 03/09/20 10:48 Blood Pressure 120/56 L 03/09/20 10:48 Pulse Oximetry 97 03/09/20 10:48 <Tanika Matson MD - Last Filed: 03/12/20 12:54> Initial Vital Signs Initial Vital Signs: Vital Signs Temperature 98.7 F 03/09/20 10:48 Pulse Rate 97 H 03/09/20 10:48 Respiratory Rate 14 03/09/20 10:48 Blood Pressure 120/56 L 03/09/20 10:48 Pulse Oximetry 97 03/09/20 10:48 Course <SUSY Dangelo - Last Filed: 03/09/20 20:55> Orders Ordered: Discontinued Medications Sodium Chloride (Normal Saline 0.9%) 1,000 mls @ 1,000 mls/hr IV BOLUS ONE Stop: 03/09/20 15:25 Last Infusion: 03/09/20 17:01 Dose: 0 mls/hr Documented by: Admin: 03/09/20 14:40 Dose: 1,000 mls/hr Documented by: TIMOTHY Ondansetron HCl (Zofran) 4 mg IV NOW ONE Stop: 03/09/20 14:27 Last Admin: 03/09/20 14:40 Dose: 4 mg Documented by: TIMOTHY Ondansetron HCl (Zofran Odt) 4 mg SL NOW ONE Stop: 03/09/20 16:54 Last Admin: 03/09/20 16:57 Dose: 4 mg Documented by: SREEDHAR Vital Signs Vital signs: Vital Signs - 8 hr 03/09/20 14:00 03/09/20 14:30 03/09/20 15:00 Pulse Rate 87 85 81 Blood Pressure 127/56 L 125/59 L 129/61 Pulse Oximetry 97 99 92 03/09/20 15:30 03/09/20 16:00 03/09/20 16:30 Pulse Rate 82 80 79 Blood Pressure Pulse Oximetry 99 97 97 03/09/20 16:42 03/09/20 17:00 03/09/20 17:30 Pulse Rate 89 82 83 Blood Pressure 129/62 133/61 128/58 L Pulse Oximetry 95 96 94 <Tanika Matson MD - Last Filed: 03/12/20 12:54> Orders Ordered: Discontinued Medications Sodium Chloride (Normal Saline 0.9%) 1,000 mls @ 1,000 mls/hr IV BOLUS ONE Stop: 03/09/20 15:25 Last Infusion: 03/09/20 17:01 Dose: 0 mls/hr Documented by: Admin: 03/09/20 14:40 Dose: 1,000 mls/hr Documented by: TIMOTHY Ondansetron HCl (Zofran) 4 mg IV NOW ONE Stop: 03/09/20 14:27 Last Admin: 03/09/20 14:40 Dose: 4 mg Documented by: TIMOTHY Ondansetron HCl (Zofran Odt) 4 mg SL NOW ONE Stop: 03/09/20 16:54 Last Admin: 03/09/20 16:57 Dose: 4 mg Documented by: SREEDHAR Vital Signs Vital signs: Vital Signs - 8 hr 03/09/20 14:00 03/09/20 14:30 03/09/20 15:00 Pulse Rate 87 85 81 Blood Pressure 127/56 L 125/59 L 129/61 Pulse Oximetry 97 99 92 03/09/20 15:30 03/09/20 16:00 03/09/20 16:30 Pulse Rate 82 80 79 Blood Pressure Pulse Oximetry 99 97 97 03/09/20 16:42 03/09/20 17:00 03/09/20 17:30 Pulse Rate 89 82 83 Blood Pressure 129/62 133/61 128/58 L Pulse Oximetry 95 96 94 MDM - Nausea/Vomiting/Diarrhea <SUSY Dangelo - Last Filed: 03/09/20 20:55> Lab Data Result diagrams: 03/09/20 14:20 03/09/20 14:20 Labs: Lab Results 08/25/20 08/25/20 08/25/20 Range/Units 14:20 14:20 15:33 WBC 12.5 H (4.5-11.0) X10^3/uL RBC 3.97 L (4.0-5.2) X10^6/uL Hgb 12.1 (12.0-16.0) g/dL Hct 37.0 (36-46) % MCV 93.1 (80-100) fL MCH 30.5 (26-34) PG MCHC 32.8 (30-36) % RDW 13.0 (11.6-14.8) % Plt Count 413 H (150-400) X10^3/uL Neut % (Auto) 78.1 H (50-75) % Lymph % (Auto) 12.1 L (25-40) % [place] % (Auto) 8.2 (3-14) % Eos % (Auto) 1.0 L (2-4) % Baso % (Auto) 0.6 (0-2) % Neut # (Auto) 9800 H (9052-4602) /uL Lymph # (Auto) 1500 (6602-0593) /uL [place] # (Auto) 1000 H (0-900) /uL Eos # (Auto) 100 (0-450) /uL Baso # (Auto) 100 (0-100) /uL Sodium 139 (137-145) mmol/L Potassium 3.8 (3.4-5.1) mmol/L Chloride 94 L (98-107) mmol/L Carbon Dioxide 38 H (22-32) mmol/L BUN 22 H (7-17) mg/dL Creatinine 0.78 (0.52-1.04) mg/dL Estimated GFR > 60.0 (>60) mL/min BUN/Creatinine Ratio 28.2 H (6-22) Glucose 110 (80-110) mg/dL Calcium 9.5 (8.4-10.2) mg/dL Magnesium 2.6 H (1.6-2.3) mg/dL Total Bilirubin 0.8 (0.2-1.3) mg/dL AST 33 (14-36) IU/L ALT 18 (<35) IU/L Alkaline Phosphatase 123 (38-126) U/L Total Protein 8.2 (6.3-8.2) g/dL Albumin 4.3 (3.5-5.0) g/dL Globulin 3.9 (1.7-4.1) g/dL Albumin/Globulin Ratio 1.1 (1.0-2.8) Amylase 54 (30-110) U/L Lipase 102 (23-300) U/L Urine RBC None seen (0-5/HPF) Urine WBC 5-10/hpf H (0-5/HPF) Urine Bacteria None seen (None) Hyaline Casts 1-5/lpf (None) Urine Mucus 2+ H (Negative) Ur Culture Indicated? Specimen cultured Urine Dip Bedside Urine Glucose Negative Bedside Urine Bilirubin ++ 2 Bedside Urine Ketone ++ 40 Urine Specific Carlton 1.030 Bedside Urine Occult Blood - Negative Bedside Urine pH 5.0 Bedside Urine Protein + 30 Bedside Urine Urobilinogen +/- 1mg Bedside Urine Nitrite - Negative Bedside Urine Leukocytes +++ 500 Esterase Imaging Data Barium swallow x-ray: Radiologist's Impression: RIGO Lerner [id number] XRay Report Signed Patient: Sue Coy MMR#: [id number] : 9Acct:[id number] Age/Sex: 70 / FDate of Service: 03/09/20 Loc: RAD Accession Number: [id number] Procedure: [place] barium swallow Ordering Provider: Hilda John P.A-C PROCEDURE: [place] BARIUM SWALLOW INDICATIONS: Epigastric pain COMPARISON: [facility], [place] BARIUM SWALLOW W SPEECH, 07/25/2018, 9:33. FINDINGS: Function: Esophageal dysmotility is present. There is delayed esophageal clearance There is intermittently observed retrograde propulsion of contrast material within the esophagus. Distal esophageal short-segment narrowing is present. There is no passage of a calibrated barium tablet at this level. Posterior cervical esophageal diverticulum incidentally noted at the level of C6. Morphology: Air-contrast images are suboptimal due to incomplete gaseous distension. IMPRESSION: Short-segment narrowing of the distal esophagus. Cannot exclude stricture of benign or malignant etiology. Recommend clinical correlation and follow-up with dedicated upper endoscopy as clinically appropriate. Severe esophageal dysmotility. Posterior cervical esophageal diverticulum. Findings and recommendations were personally telephoned and discussed with Nayeli RAMÍREZ at 1100 hours on 03/09/20. Dictated by: Leonel Dupree M.D. on 03/09/2020 at 10:48 Approved by: Leonel Dupree M.D. on 03/09/2020 at 11:05 [facility] Narrative Medical decision making narrative: The patient is a 70-year-old female who presents with a chief complaint of inability keep down food or fluids and epigastric pain. The patient's lab work is grossly reassuring, normal renal function, no significant leukocytosis. Who she does show some evidence of d ehydration with a slightly elevated BUN, slightly elevated platelets., Urine is concerning for infection but she denies any symptoms, so we wait on a urine culture to treat. Of Zofran was able to tolerate p.o. fluids. Of note the patient's at patient's barium swallow did show some esophageal dysmotility with possible stricture versus malignancy. Thus I did speak with Dr. Bennett, the patient's PCP states that he will follow up with the patient to schedule an EGD possible GI consult etcetera. He states he will be able to take care of things from here. Given that the patient is able to keep down p.o. fluids, I did give her prescription of Zofran as well as strict instructions to follow-up with Dr. Bennett. Discussed going back to the ER for any acute concerns. Patient has no questions or concerns upon discharge and states understanding of return precautions as well as follow-up care. <Tanika Matson MD - Last Filed: 03/12/20 12:54> Lab Data Labs: Lab Results 03/09/20 03/09/20 03/09/20 Range/Units 14:20 14:20 15:33 WBC 12.5 H (4.5-11.0) X10^3/uL RBC 3.97 L (4.0-5.2) X10^6/uL Hgb 12.1 (12.0-16.0) g/dL Hct 37.0 (36-46) % MCV 93.1 (80-100) fL MCH 30.5 (26-34) PG MCHC 32.8 (30-36) % RDW 13.0 (11.6-14.8) % Plt Count 413 H (150-400) X10^3/uL Neut % (Auto) 78.1 H (50-75) % Lymph % (Auto) 12.1 L (25-40) % [place] % (Auto) 8.2 (3-14) % Eos % (Auto) 1.0 L (2-4) % Baso % (Auto) 0.6 (0-2) % Neut # (Auto) 9800 H (6243-7197) /uL Lymph # (Auto) 1500 (4165-7932) /uL [place] # (Auto) 1000 H (0-900) /uL Eos # (Auto) 100 (0-450) /uL Baso # (Auto) 100 (0-100) /uL Sodium 139 (137-145) mmol/L Potassium 3.8 (3.4-5.1) mmol/L Chloride 94 L (98-107) mmol/L Carbon Dioxide 38 H (22-32) mmol/L BUN 22 H (7-17) mg/dL Creatinine 0.78 (0.52-1.04) mg/dL Estimated GFR > 60.0 (>60) mL/min BUN/Creatinine Ratio 28.2 H (6-22) Glucose 110 (80-110) mg/dL Calcium 9.5 (8.4-10.2) mg/dL Magnesium 2.6 H (1.6-2.3) mg/dL Total Bilirubin 0.8 (0.2-1.3) mg/dL AST 33 (14-36) IU/L ALT 18 (<35) IU/L Alkaline Phosphatase 123 (38-126) U/L Total Protein 8.2 (6.3-8.2) g/dL Albumin 4.3 (3.5-5.0) g/dL Globulin 3.9 (1.7-4.1) g/dL Albumin/Globulin Ratio 1.1 (1.0-2.8) Amylase 54 (30-110) U/L Lipase 102 (23-300) U/L Urine RBC None seen (0-5/HPF) Urine WBC 5-10/hpf H (0-5/HPF) Urine Bacteria None seen (None) Hyaline Casts 1-5/lpf (None) Urine Mucus 2+ H (Negative) Ur Culture Indicated? Specimen cultured Urine Dip Bedside Urine Glucose Negative Bedside Urine Bilirubin ++ 2 Bedside Urine Ketone ++ 40 Urine Specific [place] 1.030 Bedside Urine Occult Blood - Negative Bedside Urine pH 5.0 Bedside Urine Protein + 30 Bedside Urine Urobilinogen +/- 1mg Bedside Urine Nitrite - Negative Bedside Urine Leukocytes +++ 500 Esterase Discharge Plan Departure Patient Disposition: Home Clinical Impression: Esophageal abnormality Nausea & vomiting Qualifiers: Vomiting type: unspecified Vomiting Intractability: non-intractable Qualified Code(s): R11.2 - Nausea with vomiting, unspecified Discharge Date/Time: 03/09/20 17:53 Instructions: DI for Nausea -- Adult, DI for Vomiting -- Adult Activity Restrictions/Additional Instructions: Thank you so much for trusting us with your care today. As discussed, your kidney function came back. The barium swallow study that you had earlier today illustrated some esophageal dysmotility as well as some narrowing. I spoke with Dr. Bennett regarding this, he will work on getting you an EGD to further evaluate this. In the meantime please take frequent small sips of fluids, focus on fluids rather than solids. Please come back to emergency department for any acute concerns including inability keep down fluids Please follow-up with primary care provider in the next few days and give them a call tomorrow. I sent a prescription of Zofran for nausea to [facility] in [place]. Please be aware that this can be constipating. Prescriptions: New ondansetron 4 mg tablet,disintegrating 4 mg PO Q6H PRN (Reason: nausea and vomiting) Qty: 20 RF: 0 No Action duloxetine [Cymbalta] 60 MG capsule,delayed release(DR/EC) 60 mg PO DAILY Qty: 0 RF: 0 morphine 15 MG tablet extended release 15 mg PO Q12H Qty: 0 RF: 0 atorvastatin 40 mg tablet 40 mg PO DAILY RF: 0 lisinopril 20 mg tablet 20 mg PO DAILY RF: 0 gabapentin 400 mg capsule 1,200 mg PO TID RF: 0 amlodipine 10 mg tablet 10 mg PO DAILY RF: 0 albuterol sulfate [ProAir HFA] 90 mcg/actuation HFA aerosol inhaler 1 puff Inhalation PRN PRN (Reason: Shortness Of Breath) RF: 0 Advair HFA 230-21 mcg/actuation HFA aerosol inhaler 2 puff Inhalation BID RF: 0 aspirin 325 mg Tablet 650 mg PO BID RF: 0 Referrals: Jigar Mclean MD [Primary Care Provider] - <Tanika Matson MD - Last Filed: 03/12/20 12:54> Cosign ED Attending Cosignature Attestation: I was immediately available in the department for consultation throughout this patient's visit. I agree with documentation as above. Tanika Matson MD
== END 2020-03-09 17:53 | disposition home or self-care (01) ==
PROVIDERS: Emergency Provider Nurse Practitioner Family; PCP Internal Medicine
DX: K22.9 Disease of esophagus, unspecified (principal); R10.13 Epigastric pain; K44.9 Diaphragmatic hernia without obstruction or gangrene; R11.2 Nausea with vomiting, unspecified; E78.5 Hyperlipidemia, unspecified
CPT/HCPCS: 36415; 74220; 80053; 81003; 81015; 82150; 83690; 83735; 85025; 87086; 96361; 96374; 99284; J2405

== ENCOUNTER → 2020-03-10 10:10 | Outpatient (CLI) | payer OTHER, SELFPAY ==
--- NOTE | 2020-03-10 | DI.US.S_ITS ---
PROCEDURE: US ABDOMEN COMPLETE INDICATIONS: EPIGASTRIC PAIN TECHNIQUE: Real-time scanning was performed of the abdominal and retroperitoneal organs, with image documentation. COMPARISON: [facility], CT, CT KIDNEY URETER BLADDER (KUB), 11/07/2018, 8:35. FINDINGS: Liver: Liver is normal in size and mildly heterogeneous in echotexture. There is mild intrahepatic biliary distension. Gallbladder: Has been previously resected Biliary ducts: Intrahepatic bile ducts are non-dilated. Extrahepatic bile duct caliber measures 13.6 mm. Normal is 6-7 mm or less in diameter, or 10 mm or less post-cholecystectomy. Pancreas: Visualized small portions of the pancreas are sonographically normal but much of the pancreas is not well visualized due to overlying bowel gas. Spleen: Spleen is normal in size and homogeneous in echotexture. Kidneys: Kidneys are normal in size and echotexture. Right kidney measures 11.5 cm long; left kidney measures 10.9 cm long. No hydronephrosis or nephrolithiasis. No solid masses. There is a small nonobstructive calculus measuring 3 x 9 x 9 mm at the inferior left renal collecting system. Aorta: Visualized aorta is normal in caliber at less than 3 cm. Iliacs: Proximal common iliac arteries are normal in caliber at less than 2.5 cm. IVC: Intrahepatic inferior vena cava is patent. Miscellaneous: No free abdominal fluid. IMPRESSION: Limited quality of valuation due to patient body habitus and bowel gas. The liver appears mildly heterogeneous. There is intrahepatic biliary distension that is mild in overall severity and the extrahepatic common duct is abnormally distended at 13.6 mm. Etiology is uncertain but the pancreas is poorly visualized. A common duct stone could be present or a biliary or pancreatic neoplasm also could be present. Contrast-enhanced CT scanning utilizing pancreatic protocol technique likely is warranted. MR scanning utilizing color angiographic technique also may be warranted. Please correlate with liver function Dictated by: Jorge L Hernandez M.D. on 03/10/2020 at 12:04 Approved by: Jorge L Hernandez M.D. on 03/10/2020 at 12:09
== END ==
PROVIDERS: PCP Internal Medicine; Referring Provider Physician Assistant; Visit Provider Physician Assistant
DX: R10.13 Epigastric pain (principal); K83.8 Other specified diseases of biliary tract
CPT/HCPCS: 76700

== ENCOUNTER → 2020-03-25 11:26 | Outpatient (CLI) | payer OTHER, SELFPAY | PROVIDERS: PCP Internal Medicine; Referring Provider Internal Medicine; Visit Provider Internal Medicine | DX: Z12.31 Encounter for screening mammogram for malignant neoplasm of breast (principal); Z53.8 Procedure and treatment not carried out for other reasons ==

== ENCOUNTER → 2020-04-19 09:21 | Outpatient (CLI) | payer OTHER, SELFPAY ==
--- NOTE | 2020-04-19 | DI.US.S_ITS ---
LIMITED ULTRASOUND OF RIGHT BREAST: 04/19/2020 CLINICAL: Focal right breast pain. Comparison is made to exams dated: 04/19/2020 mammogram and 11/08/2018 mammogram - [facility]. Ultrasound of the right breast 1-4 o'clock region was performed on the area of interest. IMPRESSION: NEGATIVE There is no sonographic evidence of malignancy. There is no mammographic or sonographic abnormality seen in the right breast to correspond with the pain at 2 o'clock, however, clinical followup is recommended. A 1 year screening mammogram is recommended. This exam was interpreted at Station ID: [id number]. Electronically Signed By: Lucrecia mays/clinton:04/19/2020 11:26:28 letter sent: Clinical Evaluation Ultrasound BI-RADS: 1 Negative
--- NOTE | 2020-04-19 | DI.MRI.S_ITS ---
PROCEDURE: MR ABDOMEN WO/W CON INDICATIONS: Duodenal ulcer, unspecified as acute or chronic, without hem TECHNIQUE: Coronal HASTE, axial 2D FLASH in- and [id number]; axial breath-hold T2 FSE. Dynamic axial VIBE during the administration of contrast; post-contrast coronal VIBE or 2D FLASH with fat saturation from the hepatic dome to the iliac crests. Optional diffusion weighted imaging and ADC may be performed. COMPARISON: None. FINDINGS: Image quality: Excellent. Lung bases: No basal pleural effusions. Heart size is normal. There is a small sliding hiatal hernia. Solid organs: Liver is normal in size and enhancement. The gallbladder is surgically absent and the biliary system is dilated. Intrahepatic common ducts are tortuous and dilated, and the extrahepatic common duct is dilated up to 12 mm. No filling defects. The duct is dilated to the ampulla. The pancreatic duct is normal caliber and there is classic ductal anatomy. There is a simple thin-walled 9 mm cystic structure in the tail of the pancreas with connection to the pancreatic duct. Pancreas is otherwise normal in morphology. Spleen is normal in size and enhancement. No adrenal nodules. Both kidneys demonstrate normal size and enhancement, without hydronephrosis. Nodes and vessels: No retroperitoneal or mesenteric adenopathy by size criteria. Aorta and inferior vena cava are normal in size. Bowel and peritoneum: Circumferential wall thickening/narrowing of the 1st portion of the duodenum without surrounding edema. Unenhanced bowel loops are otherwise normal in caliber. Increased quantity of solid colonic stool. No free fluid. Bones and soft tissues: No ventral hernias. Bone marrow is normal in overall signal. IMPRESSION: 1. Mild wall thickening and luminal narrowing of the 1st portion of the duodenum without surrounding inflammatory changes by MRI. This may be physiologic, secondary to peristalsis during the exam, or represent a benign ulcer mound. Correlation with upper endoscopy findings is recommended. 2. Cholecystectomy with resultant intra and extrahepatic biliary dilatation. Correlate with LFTs to determine clinical significance and if elevated, consider sphincterotomy. No evidence of stones. 3. Small hiatal hernia. Dictated by: Jenny Stacy M.D. on 04/19/2020 at 13:56 Approved by: Jenny Stacy M.D. on 04/19/2020 at 14:28
--- NOTE | 2020-04-19 | DI.MG.S_ITS ---
BILATERAL DIGITAL DIAGNOSTIC MAMMOGRAM 3D/2D: 04/19/2020 CLINICAL: Right breast lump. Comparison is made to exams dated: 11/08/2018 mammogram, 10/12/2016 mammogram - [facility], and 07/28/2014 mammogram - [facility]. There are scattered fibroglandular elements in both breasts. No significant masses, calcifications, or other findings are seen in either breast. IMPRESSION: INCOMPLETE: NEEDS ADDITIONAL IMAGING EVALUATION There is no mammographic abnormality seen in the right breast to correspond with the palpable abnormality, however, targeted ultrasound of the right breast is recommended and will be performed immediately following this exam. This exam was interpreted at Station ID: [id number]. NOTE: For mammograms, a report in lay terms will be sent to the patient. Approximately 15% of breast malignancies will not be visualized mammographically. In the management of a palpable breast mass, a negative mammogram must not discourage biopsy of a clinically suspicious lesion. Electronically Signed By: Lucrecia Norris M.D. lk/:04/19/2020 09:55:32 ACR BI-RADS Category 0: Incomplete [id number]
== END ==
PROVIDERS: PCP Internal Medicine; Referring Provider Physician Assistant; Visit Provider Physician Assistant
DX: K26.9 Duodenal ulcer, unspecified as acute or chronic, without hemorrhage or perforation (principal); K83.8 Other specified diseases of biliary tract; K44.9 Diaphragmatic hernia without obstruction or gangrene; R92.8 Other abnormal and inconclusive findings on diagnostic imaging of breast; N63.10 Unspecified lump in the right breast, unspecified quadrant; N64.4 Mastodynia; Z90.49 Acquired absence of other specified parts of digestive tract
CPT/HCPCS: 74183; 76642; 77066; G0279; A9579

== ENCOUNTER → 2020-05-24 11:16 | Outpatient (CLI) | payer OTHER, SELFPAY ==
--- NOTE | 2020-05-24 | DI.RAD.S_ITS ---
PROCEDURE: XR SACROILIAC JOINT MIN 3V INDICATIONS: LBP TECHNIQUE: 3 views of the sacroiliac joints were acquired. COMPARISON: None. FINDINGS: Bones: No bony erosions or ankylosis. No suspicious bony lesions. No fractures. Soft tissues: Overlying bowel gas pattern is normal. No suspicious soft tissue densities. IMPRESSION: No sclerosis or ankylosis. No suspicious bony lesions. Dictated by: Lucrecia Norris M.D. on 05/24/2020 at 15:14 Approved by: Lucrecia Norris M.D. on 05/24/2020 at 15:15
--- NOTE | 2020-05-24 | DI.RAD.S_ITS ---
PROCEDURE: XR RIBS BI MIN 4V W CXR1V INDICATIONS: LBP TECHNIQUE: 2 views of the right and left ribs were acquired, along with a single view chest. COMPARISON: [facility], CT, CT KIDNEY URETER BLADDER (KUB), 11/07/2018, 8:35. [facility], CR, XR CHEST 2V, 03/07/2020, 11:01. [facility], CR, XR THORACIC SPINE 3V, 05/24/2020, 11:29. FINDINGS: Surgical changes and devices: Cholecystectomy clips. Bones and chest wall: Irregularity of the left lateral 7th rib and possibly the left 5th rib. This could be due to nondisplaced fractures. There is also undulation of the right lateral 7th and 8th ribs. No dislocations. No suspicious bony lesions. Overlying soft tissues appear unremarkable. Lungs and pleura: No pleural effusions or pneumothorax. Lungs appear clear. Mediastinum: Mediastinal contours appear normal. Heart size is within normal limits. IMPRESSION: 1. Irregularity of the left lateral 7th rib and possibly the left 5th rib which could be due to nondisplaced fractures. No pneumothorax. 2. Undulation of the inferior lateral ribs bilaterally is similar to the CT from 2019. 3. No acute cardiopulmonary abnormality. Dictated by: Jeremy Russell M.D. on 05/24/2020 at 13:45 Approved by: Jeremy Russell M.D. on 05/24/2020 at 13:52
--- NOTE | 2020-05-24 | DI.RAD.S_ITS ---
PROCEDURE: XR THORACIC SPINE 3V INDICATIONS: LBP TECHNIQUE: 3 views of the thoracic spine were acquired. COMPARISON: [facility], THORACIC SPINE 3 VIEWS, 08/18/2016, 11:27. FINDINGS: Bones: There is a severe compression deformity at T11 which is new when compared with the study dated August 18, 2016. Additionally, this is new when compared with the MRI of the abdomen dated April 19, 2020. Vertebral body height is otherwise preserved. Degenerative changes including intervertebral disc space narrowing and sclerosis is present throughout the thoracolumbar spine. Soft tissues: No paravertebral stripe thickening. IMPRESSION: Compression deformity at T11 which is new compared with the study from April,. Findings are suspicious for an acute or subacute fracture. Please correlate with trauma history. Dictated by: Lucrecia Norris M.D. on 05/24/2020 at 15:12 Approved by: Lucrecia Norris M.D. on 05/24/2020 at 15:14
--- NOTE | 2020-05-24 | DI.RAD.S_ITS ---
PROCEDURE: XR LUMBAR SPINE 2-3V INDICATIONS: LBP TECHNIQUE: 3 views of the lumbar spine were acquired. COMPARISON: [facility], MR, MR ABDOMEN WO/W CON, 04/19/2020, 11:22. [facility], CR, XR RIBS BI MIN 4V W CXR1V, 05/24/2020, 11:29. [facility], CT, CT KIDNEY URETER BLADDER (KUB), 11/07/2018, 8:35. [facility], CT, CT KIDNEY URETER BLADDER (KUB), 06/25/2018, 11:39. [facility], CR, XR CHEST 2V, 03/07/2020, 11:01. FINDINGS: Bones: 5 [id number] vertebrae are present. There is normal bony alignment. There is exaggerated lordosis of the lumbar spine. A severe compression deformity is present at T11 with approximately 90% vertebral body height loss. This is new when compared with the MRI of the abdomen dated April 19, 2020. Vertebral body height is otherwise preserved . No suspicious bony lesions. Soft tissues: Overlying bowel gas pattern is normal. No suspicious soft tissue calcifications. IMPRESSION: 1. Severe compression deformity at T11 which is new when compared with the prior imaging from April 19, 2020. Please correlate with recent trauma. Findings suggest acute or subacute fracture. If further characterization is warranted, noncontrast MRI of the thoracic spine could be used. Additionally, if the patient endorses acute pain associated with this fracture, this may be amenable to vertebral augmentation. If the patient would like to discuss possible therapeutic options, consultation with interventional radiology at [facility] is recommended (Ambulatory consult interventional radiology in [facility]). Dictated by: Lucrecia Norris M.D. on 05/24/2020 at 15:06 Approved by: Lucrecia Norris M.D. on 05/24/2020 at 15:12
== END ==
PROVIDERS: PCP Internal Medicine; Referring Provider Internal Medicine; Visit Provider Physician Assistant
DX: M48.54XA Collapsed vertebra, not elsewhere classified, thoracic region, initial encounter for fracture (principal); M54.6 Pain in thoracic spine; M54.5 Low back pain; R07.81 Pleurodynia; M47.815 Spondylosis without myelopathy or radiculopathy, thoracolumbar region
CPT/HCPCS: 71111; 72072; 72100; 72202

== ENCOUNTER → 2020-06-04 08:02 | Outpatient (CLI) | payer OTHER, SELFPAY ==
--- NOTE | 2020-06-04 | DI.MRI.S_ITS ---
PROCEDURE: MR THORACIC SPINE WO CON INDICATIONS: Pain in thoracic spine TECHNIQUE: Noncontrast sagittal T1 spine echo and T2 fast spin echo, sagittal STIR, axial T1 and T2 fast spin echo through the thoracic spine. COMPARISON: [facility], CT, CHEST W/O CONTRAST, 01/13/2014, 12:24. [facility], CR, XR THORACIC SPINE 3V, 05/24/2020, 11:29. FINDINGS: Image quality: Excellent. Alignment and Curvature: Accentuated thoracic kyphosis is seen. No focal AP alignment abnormality is seen. Bone Marrow: A T11 fracture is again seen, with 70% loss of height centrally. There is posterior displacement of fracture fragments of 6 mm. No additional acute fractures are seen. Within the T6 vertebral body, there is a focus that demonstrates low signal on T1 weighted images with increased signal on the T2 weighted and STIR images. On the 2013 examination, this demonstrates prominent vertical trabeculations. Marrow is of normal overall signal. Spinal Cord: Visualized spinal cord is normal in size and signal. Paraspinous Soft Tissues: No paravertebral masses. Several perineural cysts are seen involving the exit foramina, particularly within the mid thoracic spine. Miscellaneous: At the T11 level, there is at least moderate central canal narrowing. Mass effect can be seen upon the ventral spinal cord. Mild bilateral neural foraminal narrowing is seen at T10-T11. Milder degenerative changes are seen elsewhere. IMPRESSION: There is a subacute compression deformity seen involving T11, with 70% loss of height centrally. 6 mm posterior displacement of fracture fragments can be seen, with at least moderate central canal narrowing. Associated mass effect is seen upon the ventral spinal cord. Please consider interventional radiology consultation for consideration of vertebroplasty. Incidental note is made of: Accentuated thoracic kyphosis T6 atypical vertebral body hemangioma. Dictated by: Fabrice Swift M.D. on 06/04/2020 at 8:32 Approved by: Fabrice Swift M.D. on 06/04/2020 at 8:39
== END ==
PROVIDERS: PCP Internal Medicine; Referring Provider Physician Assistant; Visit Provider Physician Assistant
DX: M51.04 Intervertebral disc disorders with myelopathy, thoracic region (principal)
CPT/HCPCS: 72146

== ENCOUNTER → 2021-05-28 14:48 | Outpatient (CLI) | payer OTHER, SELFPAY ==
--- NOTE | 2021-05-28 | DI.MG.S_ITS ---
BILATERAL DIGITAL SCREENING MAMMOGRAM 3D/2D WITH CAD: 05/28/2021 CLINICAL: Routine screening. Comparison is made to exams dated: 04/19/2020 mammogram, 11/08/2018 mammogram, and 10/12/2016 mammogram - [facility]. There are scattered fibroglandular elements in both breasts. Current study was also evaluated with a Computer Aided Detection (CAD) system. There are benign calcifications in both breasts. No significant masses, calcifications, or other findings are seen in either breast. There has been no significant interval change. IMPRESSION: BENIGN There is no mammographic evidence of malignancy. A 1 year screening mammogram is recommended. This exam was interpreted at Station ID: [id number]. NOTE: For mammograms, a report in lay terms will be sent to the patient. Approximately 15% of breast malignancies will not be visualized mammographically. In the management of a palpable breast mass, a negative mammogram must not discourage biopsy of a clinically suspicious lesion. Electronically Signed By: Rad Josue acr/penrad:05/30/2021 08:16:04 letter sent: Normal Exam ACR BI-RADS Category 2: Benign Finding(s) 3342F
== END ==
PROVIDERS: PCP Internal Medicine; Referring Provider Internal Medicine; Visit Provider Internal Medicine
DX: Z12.31 Encounter for screening mammogram for malignant neoplasm of breast (principal)
CPT/HCPCS: 77063; 77067

== ENCOUNTER → 2021-08-19 09:36 | Outpatient (CLI) | payer OTHER, SELFPAY ==
--- NOTE | 2021-08-19 | DI.US.S_ITS ---
PROCEDURE: US PELVIC COMPLETE INDICATIONS: PELVIC PAIN TECHNIQUE: Real-time scanning was performed of the pelvic organs, with image documentation. Additional endovaginal scanning was necessary due to incomplete visualization of the adnexal and endometrial structures by transabdominal scanning. COMPARISON: None. FINDINGS: Uterus: Uterus is anteverted and normal in size at 3.5 x 1.6 x 2.7 cm. The myometrium is homogeneous. The endometrium measures 0.5 mm combined thickness. Ovaries: Neither ovary is seen on this study. No adnexal masses are seen on either side. Other: No pathologic free abdominal or pelvic fluid. IMPRESSION: Normal study for age, with an atrophic uterus. Neither ovary can be seen. No adnexal masses are seen on either side. We strive to produce accurate, complete, and clear reports of imaging services. To assist us in improving patient care, this report was composed using standard report templates and voice recognition software. Therefore, it may contain abnormal punctuation, insertions and/or omissions. Occasional wrong-word or sound-alike substitutions may occur. Though we review the report and make efforts to correct it, we do recommend that the report be read carefully in proper context to recognize any text inaccuracies. Dictated by: Fabrice Swift M.D. on 08/19/2021 at 9:35 Approved by: Fabrice Swift M.D. on 08/19/2021 at 9:36
== END ==
PROVIDERS: PCP Internal Medicine; Referring Provider Physician Assistant; Visit Provider Physician Assistant
DX: R10.2 Pelvic and perineal pain (principal); K59.00 Constipation, unspecified
CPT/HCPCS: 76830; 76856

== ENCOUNTER → 2022-06-16 11:29 | Outpatient (CLI) | payer OTHER, SELFPAY ==
--- NOTE | 2022-06-16 | DI.MG.S_ITS ---
BILATERAL DIGITAL SCREENING MAMMOGRAM 3D/2D WITH CAD: 06/16/2022 CLINICAL: Routine screening. Comparison is made to exams dated: 05/28/2021 mammogram, 04/19/2020 ultrasound, 04/19/2020 mammogram, 11/08/2018 mammogram, and 10/12/2016 mammogram - . There are scattered areas of fibroglandular density in both breasts (category b / 25%-50% glandular tissue). Current study was also evaluated with a Computer Aided Detection (CAD) system. There are benign calcifications in both breasts. No significant masses, calcifications, or other findings are seen in either breast. There has been no significant interval change. IMPRESSION: BENIGN There is no mammographic evidence of malignancy. A 1 year screening mammogram is recommended. Based on the Tyrer Cuzick model (a risk assessment model) the patient's lifetime risk is 6.8% and her 10 year risk is 5.5%. According to the ACR, ACS, and NCCN guidelines, an annual breast MRI exam along with mammogram is recommended if the patient's lifetime risk is 20% or greater. This exam was interpreted at Station ID: [id number]. NOTE: For mammograms, a report in lay terms will be sent to the patient. Approximately 15% of breast malignancies will not be visualized mammographically. In the management of a palpable breast mass, a negative mammogram must not discourage biopsy of a clinically suspicious lesion. Electronically Signed By: Jenny richardson/clinton:06/16/2022 16:05:26 letter sent: Normal Exam ACR BI-RADS Category 2: Benign Finding(s) [id number]
== END ==
PROVIDERS: PCP Internal Medicine; Referring Provider Internal Medicine; Visit Provider Internal Medicine
DX: Z12.31 Encounter for screening mammogram for malignant neoplasm of breast (principal)
CPT/HCPCS: 77063; 77067

== ENCOUNTER → 2022-07-20 12:15 | Outpatient (CLI) | payer OTHER, SELFPAY ==
--- NOTE | 2022-07-20 | DI.ECHO.S_ITS ---
[facility] +---------+ : : [address] : : : : [id number] : : : : Phone: [phone]+ Echocardiogram Report + + :Name: DELMI RENEE Study Date: 07/20/2022 Height: 63 in : :[facility] ReadingLocation: Weight: 180 lb : : Gender: Female BSA: 1.8 m2 : :: 1950 Age: 72 yrs BP: 122/68 mmHg: :Reason For Study: COPD, TACHYCARDIA, EDEMA : :Ordering Physician: RADHA COLORADOPerformed By: Amy Barrios : :Referring: RADHA COLORADO : + + Interpretation Summary The ejection fraction is estimated to be 60-65%. Unable to grade diastolic function. The right ventricle is normal in size and function. No significant valvular abnormalities. Unable to estimate PASP. The ascending aorta is mildly enlarged. Procedure: A two-dimensional transthoracic echocardiogram with color flow and Doppler was performed. The study quality was technically adequate. There is no prior echocardiogram noted for this patient. The patient was in sinus rhythm with heart rates between 75-86 bpm during the exam. Left Ventricle: The left ventricle is normal in size. There is normal left ventricular wall thickness. The ejection fraction is estimated to be 60-65%. Diastolic function could not be accurately assessed due to unobtainable data. Right Ventricle: The right ventricle is normal in size and function. Atria: The left atrial size is normal. Right atrial size is normal. There is no Doppler evidence for an interatrial shunt. Mitral Valve: The mitral valve is normal in structure and function. There is trace mitral regurgitation. Aortic Valve: The aortic valve is trileaflet. The aortic valve opens well. There is no aortic valve stenosis. No aortic regurgitation is present. Tricuspid Valve: The tricuspid valve is normal in structure and function. No tricuspid regurgitation. Pulmonary artery pressures cannot be estimated because of the lack of a measurable TR jet velocity. Pulmonic Valve: The pulmonic valve leaflets are thin and pliable; valve motion is normal. There is trace pulmonic regurgitation. Great Vessels: The aortic root is normal size. The ascending aorta is mildly enlarged. The IVC is of normal diameter and collapses greater than 50% with a sniff. This suggests a low right atrial pressure of 3 mm Hg. Pericardium/ Pleura There is no pericardial effusion. There is no pleural effusion. MMode/2D Measurements & Calculations LVIDd: 4.0 cm LVOT diam: 2.0 cm LVIDs: 2.6 cm Ao root diam: 3.4 cm FS: 35.4 % asc Aorta Diam: 3.6 cm IVSd: 1.1 cm Ao Arch Diam (Prox Trans): 3.0 cm LVPWd: 0.93 cm LV kelley. diameter/BSA (cm/m^2): 2.2 LV sys. diameter/BSA (cm/m^2): 1.4 LA A2 area: 18.9 cm2 RA long axis: 5.3 cm LA A4 area: 18.7 cm2 RA area: 17.5 cm2 LA length (vol): 5.4 cm RA vol: 49.2 ml LA vol: 55.9 ml RA : 26.6 ml/m2 LA vol index: 30.2 ml/m2 IVC diam: 1.5 cm RVD1 (basal): 3.9 cm RVD2 (mid): 3.9 cm TAPSE: 1.7 cm Doppler Measurements & Calculations Ao V2 max: 182.3 cm/sec LVOT Max James: 116.6 cm/sec Ao V2 mean: 127.9 cm/sec LV V1 max P.4 mmHg Ao max P.3 mmHg LV V1 VTI: 24.0 cm Ao mean P.5 mmHg BRADLEY(I,D): 2.0 cm2 Ao V2 VTI: 37.4 cm BRADLEY(V,D): 2.0 cm2 sev ratio: 0.64 BRADLEY indexed to BSA (cm^2/m^2): 1.1 MV E max james: 94.6 cm/sec PA V2 max: 83.4 cm/sec MV A max james: 103.1 cm/sec PA V2 mean: 56.1 cm/sec MV E/A: 0.92 PA mean P.5 mmHg Med Peak E' James: 5.6 cm/sec PA pr(Accel): 37.9 mmHg E/E' med: 17.0 Lat Peak E' James: 7.1 cm/sec E/E' lat: 13.4 E/e' average: 15.2 MV dec time: 0.29 sec SV(LVOT): 74.5 ml Reading Physician:08:31 PM
== END ==
PROVIDERS: PCP Internal Medicine; Referring Provider Internal Medicine; Visit Provider Internal Medicine
DX: J44.9 Chronic obstructive pulmonary disease, unspecified (principal); R60.0 Localized edema; R00.0 Tachycardia, unspecified; I77.89 Other specified disorders of arteries and arterioles
CPT/HCPCS: 93306

== ENCOUNTER 2022-09-18 15:15 | Emergency (ER) | payer OTHER, SELFPAY ==
[2022-09-18 15:37] VITALS: BP 149/70; PULSE 95; RESP 18; TEMP 36.5; O2SAT 97
--- NOTE | 2022-09-18 17:24 | DI.CT.S_ITS ---
PROCEDURE: CT THORACIC SPINE WO CON INDICATIONS: injury TECHNIQUE: Noncontrast 3 mm thick sections acquired through the region of interest in the thoracic spine. Sagittal and coronal reformats were then constructed. For radiation dose reduction, the following was used: automated exposure control. COMPARISON: [facility], CR, XR THORACIC SPINE 3V, 05/24/2020, 11:29. [facility], MR, MR THORACIC SPINE WO CON, 06/04/2020, 8:29. [facility], CR, XR LUMBAR SPINE 2-3V, 05/24/2020, 11:29. FINDINGS: Image quality: Excellent. Bones: There is normal overall bony alignment. There are compression fractures in thoracic spine, severe at T11, mild at T3 and T6. Compression fracture at T11 was present on 06/04/2020. Compression fractures at T3 and T6 are new. There is an intra osseous hemangioma in T6. Generalized osteopenia. No posterior displacement of fractured vertebral bodies. Central spinal canal is of normal overall caliber. Soft tissues: No paravertebral masses or hematomas. Bilateral atelectasis at lung bases there may be mild infiltrate in lingula. Moderate atherosclerotic calcifications of aorta. Small hiatal hernia. IMPRESSION: 1. Multiple compression fractures in thoracic spine. Severe compression fracture at T11 is chronic. Mild compression fractures of T3 and T6 are new since 06/04/2020, therefore, indeterminate in chronicity but most likely subacute. No posterior displacement of fractured vertebral bodies. 2. Osteopenia. Dictated by: Stacy Cisneros M.D. on 09/18/2022 at 17:51 Approved by: Stacy Cisneros M.D. on 09/18/2022 at 17:59
--- NOTE | 2022-09-18 17:29 | ED_ITS ---
HPI - Back Pain/Injury <Evan Marlow PA-C - Last Filed: 09/19/22 20:20> General Chief Complaint: Back Pain/Injury Stated Complaint: Sent from [facility], back pain, pop on sunday Time Seen by Provider: 09/18/22 15:46 History of Present Illness HPI Narrative: 72-year-old female with past medical history of osteoporosis, hyperlipidemia, history of vertebral fracture presents to the ED with midthoracic back pain for 2 days. 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 Patient states that the pain also radiates to either side of the spine. Patient takes 15 mg of morphine b.i.d. for another condition, states that it has not been touching her back pain. Patient denies numbness, tingling, weakness, chest pain, shortness of breath. Related Data Home Medications Medication Instructions Recorded Confirmed duloxetine 60 mg capsule,delayed 60 mg PO DAILY ##0 03/20/13 09/18/22 release (Cymbalta) morphine 15 mg tablet,extended 15 mg PO Q12H ##0 03/20/13 09/18/22 release albuterol sulfate 90 mcg/actuation 1 puff inhalation PRN PRN 11/07/18 09/18/22 aerosol inhaler Shortness Of Breath amlodipine 10 mg tablet 10 mg PO DAILY 11/07/18 09/18/22 atorvastatin 40 mg tablet 40 mg PO DAILY 11/07/18 09/18/22 fluticasone propionate 230 2 puff inhalation BID 11/07/18 09/18/22 mcg-salmeterol 21 mcg/actuation HFA inhaler lisinopril 20 mg tablet 20 mg PO DAILY 11/07/18 09/18/22 aspirin 325 mg tablet 650 mg PO BID 11/15/18 09/18/22 Previous Rx's Medication Instructions Recorded cyclobenzaprine 10 mg tablet 10 mg PO TID PRN muscle spasm #20 09/18/22 tabs Allergies Allergy/AdvReac Type Severity Reaction Status Date / Time ibuprofen AdvReac Verified 09/18/22 15:40 ASPIRIN INTOLERANCE Allergy Unknown STATES SHE Uncoded 09/18/22 15:41 GETS POLPYS Review of Systems <Evan Marlow PA-C - Last Filed: 09/19/22 20:20> Review of Systems ROS Unobtainable: All systems reviewed & are unremarkable except as noted in HPI and below Constitutional Constitutional: Denies chills, Denies fatigue, Denies fever(s), Denies frequent falls, Denies lethargy and Denies weakness Eyes Eyes: Denies change in vision, Denies eye discharge, Denies irritation and Denies loss of vision ENT Ears, Nose, Mouth, and Throat: Denies change in voice, Denies dizziness, Denies neck pain, Denies sore throat and Denies throat swelling Cardiovascular Cardiovascular: Denies chest pain, Denies irregular heart rhythm, Denies lightheadedness, Denies palpitations, Denies dyspnea, Denies dyspnea on exertion and Denies orthopnea Respiratory Respiratory: Denies cough, Denies dyspnea, Denies dyspnea on exertion and Denies wheezing Gastrointestinal Gastrointestinal: Denies abdominal pain, Denies change in bowel habits, Denies diarrhea, Denies nausea and Denies vomiting Genitourinary Genitourinary: Denies hematuria, Denies flank pain, Denies urinary incontinence and Denies urinary urgency Musculoskeletal Musculoskeletal: Reports back pain, Denies muscle weakness, Denies neck pain, Denies numbness and Denies tingling Integumentary/Breasts Skin/Breast: Denies pruritus, Denies erythema, Denies rash and Denies wounds Neurologic Neurologic: Denies behavioral changes, Denies confusion, Denies dizziness, Denies frequent falls, Denies loss of vision, Denies numbness, Denies tingling and Denies weakness Psychiatric Psychiatric: Denies anxiety, Denies behavioral changes, Denies confusion, Denies depression, Denies homicidal ideation and Denies suicidal ideation Endocrine Endocrine: Denies fatigue, Denies flushing and Denies palpitations Hematologic/Lymphatic Hematologic/Lymphatic: Denies easy bruising Allergic/Immunologic Allergic/Immunologic: Denies urticaria, Denies throat swelling and Denies wheezing Patient History <Evan Marlow PA-C - Last Filed: 09/19/22 20:20> Medical History (Updated 09/18/22 @ 18:53 by Evan Marlow PA-C) Fibromyalgia Social History marital status: lives independently: Yes Smoking Status: Never smoker Smoking Status: Never smoker alcohol intake frequency: holidays/special occasions only Substance Use Type: does not use Exam <Evan Marlow PA-C - Last Filed: 09/19/22 20:20> Narrative Exam Narrative: General:?cooperative, healthy appearing and comfortable [facility] Head:?normal to inspection Ears:?hearing grossly normal bilaterally Nose:?external nose normal Face and sinus:?normal facial exam and sinuses nontender Mouth:?oral mucosae normal Throat:?posterior oropharynx normal Eyes General:?appearance normal, both eyes and all related structures Neck Neck:?normal visual inspection and no lymphadenopathy noted Resp Effort & Inspection:?normal respiratory effort Auscultation:?clear to auscultation bilaterally Cardio Rate:?regular rate Rhythm:?regular rhythm Musculoskeletal Midline tenderness to palpation of midthoracic spine. No paraspinal tenderness to palpation. There is full range of motion. Neuro General:?patient alert, patient awake and patient oriented x3 Initial Vital Signs Initial Vital Signs: Vital Signs Temperature 97.7 F 09/18/22 15:37 Pulse Rate 95 H 09/18/22 15:37 Respiratory Rate 18 09/18/22 15:37 Blood Pressure 149/70 H 09/18/22 15:37 Pulse Oximetry 97 09/18/22 15:37 Oxygen Delivery Method Room Air 09/18/22 15:37 <Chetna Davenport DO - Last Filed: 09/20/22 07:27> Initial Vital Signs Initial Vital Signs: Vital Signs Temperature 97.7 F 09/18/22 15:37 Pulse Rate 95 H 09/18/22 15:37 Respiratory Rate 18 09/18/22 15:37 Blood Pressure 149/70 H 09/18/22 15:37 Pulse Oximetry 97 09/18/22 15:37 Oxygen Delivery Method Room Air 09/18/22 15:37 Course <Evan Marlow PA-C - Last Filed: 09/19/22 20:20> Orders Ordered: Discontinued Medications Cyclobenzaprine HCl (Cyclobenzaprine 10 Mg Tablet) 10 mg PO NOW ONE Stop: 09/18/22 17:26 Last Admin: 09/18/22 18:07 Dose: 10 mg Documented By: JUSTIN Oxycodone/Acetaminophen (Oxycodone/Acetaminophen 5/325 Tablet) 1 tab PO NOW ONE Stop: 09/18/22 17:26 Last Admin: 09/18/22 18:21 Dose: Not Given Documented By: KB Vital Signs Vital signs: Vital Signs - 8 hr 09/18/22 15:37 Temperature 97.7 F Pulse Rate 95 H Respiratory Rate 18 Blood Pressure 149/70 H Pulse Oximetry 97 Oxygen Delivery Method Room Air <Chetna Davenport DO - Last Filed: 09/20/22 07:27> Orders Ordered: Discontinued Medications Cyclobenzaprine HCl (Cyclobenzaprine 10 Mg Tablet) 10 mg PO NOW ONE Stop: 09/18/22 17:26 Last Admin: 09/18/22 18:07 Dose: 10 mg Documented By: JUSTIN Oxycodone/Acetaminophen (Oxycodone/Acetaminophen 5/325 Tablet) 1 tab PO NOW ONE Stop: 09/18/22 17:26 Last Admin: 09/18/22 18:21 Dose: Not Given Documented By: MIAN Vital Signs Vital signs: Vital Signs - 8 hr 09/18/22 15:37 Temperature 97.7 F Pulse Rate 95 H Respiratory Rate 18 Blood Pressure 149/70 H Pulse Oximetry 97 Oxygen Delivery Method Room Air MDM - Back Pain/Injury <Evan Marlow PA-C - Last Filed: 09/19/22 20:20> MDM Narrative Medical decision making narrative: 72-year-old female with past medical history of osteoporosis, hyperlipidemia, history of vertebral fracture presents to the ED with midthoracic back pain for 2 days. Concern for fracture/dislocation versus musculoskeletal sprain/strain. Will obtain CT thoracic spine. Will give Percocet, Flexeril for symptoms. Will reassess. CT shows a severe compression fracture that is chronic at T11, to mild co mpression fractures at T3 and T6 that appear subacute. The T3-T6 fractures seem to clinically correlate with patient's pain and physical exam. Discussed findings with patient. Patient's symptoms improved with Flexeril. Patient agrees to continue Flexeril at home, follow-up with ortho as soon as possible. ED return precautions were discussed with patient. Patient verbalized understanding. Medical records reviewed: Yes Discharge Plan Departure Patient Disposition: Home Clinical Impression: Thoracic spine fracture Instructions: DI for Vertebral Fracture Activity Restrictions/Additional Instructions: You were evaluated in the ED today for mid back pain. Your CT shows mild compression fractures of T3 and T6 that might be contributing to your pain. Your pain improved with Flexeril. You may continue to take Flexeril at home. Please follow-up with [facility] at [phone] as soon as possible. Return to the ED if you have worsening pain, you experience numbness, tingling, weakness. Prescriptions: New cyclobenzaprine 10 mg tablet 10 mg PO TID PRN (Reason: muscle spasm) Qty: 20 0RF No Action duloxetine [Cymbalta] 60 MG capsule,delayed release(DR/EC) 60 mg PO DAILY Qty: 0 morphine 15 MG tablet extended release 15 mg PO Q12H Qty: 0 atorvastatin 40 mg tablet 40 mg PO DAILY Patient Comments: take 1 tablet by mouth once daily lisinopril 20 mg tablet 20 mg PO DAILY Patient Comments: take 1 tablet by mouth once daily amlodipine 10 mg tablet 10 mg PO DAILY albuterol sulfate [ProAir HFA] 90 mcg/actuation HFA aerosol inhaler 1 puff Inhalation PRN PRN (Reason: Shortness Of Breath) Advair HFA 230-21 mcg/actuation HFA aerosol inhaler 2 puff Inhalation BID Patient Comments: inhale 2 puffs by mouth twice a day aspirin 325 mg Tablet 650 mg PO BID Referrals: Jigar Mclean MD [Primary Care Provider] - Stand Alone Forms: Patient Portal/API <Chetna Davenport DO - Last Filed: 09/20/22 07:27> [facility] Att[facility]: I was immediately available in the department for consultation. Documentation has been reviewed. Case was discussed.
[2022-09-18] MEDS: CYCLOBENZAPRINE 10 MG TABLET PO (18:07)
[2022-09-18 19:35] VITALS: BP 131/63; PULSE 91; O2SAT 99
== END 2022-09-18 19:37 | disposition home or self-care (01) ==
PROVIDERS: Emergency Provider Student in an Organized Health Care Education/Training Program; PCP Internal Medicine
DX: S22.009A Unspecified fracture of unspecified thoracic vertebra, initial encounter for closed fracture (principal)
CPT/HCPCS: 72128; 99283; 99284

== ENCOUNTER 2022-09-30 09:43 | Emergency (ER) | payer OTHER, SELFPAY ==
[2022-09-30] VITALS (14 sets, daily range): BP systolic 122–139; BP diastolic 57–69; PULSE 98–118; RESP 12–25; TEMP 36.7; O2SAT 92–98; BMI 30.9
--- NOTE | 2022-09-30 09:59 | PC.NURSE ---
Recent fall, has acute on chronic pain unable to manage pain at home. Reports pain worse with deep breath, feels SOB. Reports dirty urine . Denies fever or chills.
--- NOTE | 2022-09-30 10:00 | DI.RAD.S_ITS ---
PROCEDURE: XR CHEST 1V INDICATIONS: Flu like symptoms TECHNIQUE: One view of the chest was acquired. COMPARISON: [facility], CR, XR CHEST 2V, 03/07/2020, 11:01. FINDINGS: Surgical changes and devices: None. Lungs and pleura: Lungs are clear. No pleural effusions or pneumothorax. Mediastinum: Mediastinal contours appear normal. Heart size is normal. Bones and chest wall: No suspicious bony lesions. Overlying soft tissues appear unremarkable. IMPRESSION: No acute cardiopulmonary findings. Dictated by: Raghav Foy M.D. on 09/30/2022 at 10:21 Approved by: Raghav Foy M.D. on 09/30/2022 at 10:23
--- NOTE | 2022-09-30 10:54 | PC.NURSE ---
Ambulated to restroom unable to ambulate. Patient became increasingly SOB with activity. When back to room heart rate into 130's, oxygen low 90's. Dr Davenport aware.
--- NOTE | 2022-09-30 11:05 | ED.SOB ---
HPI - SOB/Dyspnea General Chief Complaint: Shortness of Breath/Dyspnea Stated Complaint: Lung Pain, Trouble Using Restroom, Out of Meds Time Seen by Provider: 09/30/22 11:03 Source: patient and family Mode of arrival: Wheelchair Limitations: no limitations History of Present Illness HPI Narrative: This is a 72-year-old female with recent history of compression fractures at T3, T6 and T11 seen on 09/18 2012. Patient states she is had persistent pain she is continuing to have pain in her chest around to the side she states it is not really getting any better she is noted some increasing shortness of breath particularly with exertion patient states no fevers no chills she does occasionally get sweaty but states does not seem to be associated. She is had a cough it has been nonproductive. She was worried about developing some pneumonia. She states it does hurt to move she has been ambulating but states not as much as usual. She also notes that she had to use her nebulizer at 1:30 a.m. this morning which was helpful for her breathing. She also notes that she has chronic ?lazy bowel? for constipation she follows with a way inspector she does: [place] therapy she is had improvement for her constipation but still is having some. She feels much more distended than normal. She does not have a lot of pain in her abdomen. She has been having bowel movements but less frequently. She states her urine output seems a little bit decreased. She notes that she is had chronic swelling in her legs it is actually been better for the past 2 or 3 weeks. She states no new changes to medications that might have caused that. She is had decreased appetite. Patient is on medication for hypertension, dyslipidemia she is on 50 mg morphine extended least twice daily for chronic pain at baseline, she is been desensitized and takes an aspirin 324 mg twice daily, GERD and has no known cardiac history never had any prior cardiac stents or workup. She states she is had prior female surgeries, orthopedic injuries requiring surgery for fractures, abdominal surgery for adhesions and cholecystectomy. No tobacco, no alcohol, no illicit. She uses CBD. Dr. Mclean is her primary care. She is not been taking any extra medication on top of her usual extended-release morphine. Related Data Home Medications Medication Instructions Recorded Confirmed duloxetine 60 mg capsule,delayed 60 mg PO DAILY ##0 03/20/13 09/18/22 release (Cymbalta) morphine 15 mg tablet,extended 15 mg PO Q12H ##0 03/20/13 09/18/22 release albuterol sulfate 90 mcg/actuation 1 puff inhalation PRN PRN 11/07/18 09/18/22 aerosol inhaler Shortness Of Breath amlodipine 10 mg tablet 10 mg PO DAILY 11/07/18 09/18/22 atorvastatin 40 mg tablet 40 mg PO DAILY 11/07/18 09/18/22 fluticasone propionate 230 2 puff inhalation BID 11/07/18 09/18/22 mcg-salmeterol 21 mcg/actuation HFA inhaler lisinopril 20 mg tablet 20 mg PO DAILY 11/07/18 09/18/22 aspirin 325 mg tablet 650 mg PO BID 11/15/18 09/18/22 Previous Rx's Medication Instructions Recorded cyclobenzaprine 10 mg tablet 10 mg PO TID PRN muscle spasm #20 09/18/22 tabs lidocaine 5 % topical patch See Rx Instructions topical 09/30/22 .COMPLEX #30 ea prednisone 10 mg tablets in a dose See Rx Instructions PO .COMPLEX 09/30/22 pack #21 ea Allergies Allergy/AdvReac Type Severity Reaction Status Date / Time aspirin AdvReac Unknown Verified 09/30/22 09:59 ibuprofen AdvReac Unknown Verified 09/30/22 09:59 Review of Systems Review of Systems ROS Unobtainable: All systems reviewed & are unremarkable except as noted in HPI and below Patient History Medical History (Updated 09/30/22 @ 14:48 by Chetna Davenport DO) Fibromyalgia Social History marital status: lives independently: Yes Smoking Status: Never smoker Smoking Status: Never smoker alcohol intake frequency: holidays/special occasions only Substance Use Type: does not use Exam Narrative Exam Narrative: GENERAL: Alert and oriented x three, elderly female in mild distress. HEENT: Head normocephalic, atraumatic, EOMI, pupils reactive, face symmetric, moist mucous membranes NECK: Supple, full range of motion CARDIOVASCULAR: Slightly tachycardic but Regular rate and rhythm without murmurs, rubs or gallops. RESPIRATORY: Breath sounds equal bilaterally, no wheezes rales or rhonchi. No tachypnea. Speaks in full sentences. ABDOMEN: Soft, nontender. Patient is distended she feels full to palpation, no fluid wave. Normoactive bowel sounds all 4 quadrants. No guarding or rebound, rigidity, no mass : No CVA tenderness EXTREMITIES: Normal range of motion, no clubbing or edema. Neurovascularly intact. 2+ pulses bilaterally. NEUROLOGICAL: Cranial nerves II through XII grossly intact. Moving all extremities SKIN: Warm, dry, no petechiae, no rashes or lesions. Initial Vital Signs Initial Vital Signs: Vital Signs Temperature 98.0 F 09/30/22 09:54 Pulse Rate 118 H 09/30/22 09:54 Respiratory Rate 24 09/30/22 09:54 Blood Pressure 130/60 09/30/22 09:54 Pulse Oximetry 95 09/30/22 09:54 Oxygen Delivery Method Room Air 09/30/22 09:54 Course Orders Ordered: Discontinued Medications Methylprednisolone (Methylprednisolone 125 Mg/2 Ml Vial) 125 mg IV NOW ONE Stop: 09/30/22 12:33 Last Admin: 09/30/22 13:52 Dose: 125 mg Documented By: SB Morphine Sulfate (Morphine 4 Mg/Ml Inj) 4 mg IV NOW ONE Stop: 09/30/22 12:33 Last Admin: 09/30/22 13:52 Dose: 4 mg Documented By: SB Vital Signs Vital signs: Vital Signs - 8 hr 09/30/22 09:54 09/30/22 10:33 09/30/22 11:00 Temperature 98.0 F Pulse Rate 118 H 104 H 100 H Respiratory Rate 24 25 H 16 Blood Pressure 130/60 Pulse Oximetry 95 94 98 Oxygen Delivery Method Room Air 09/30/22 11:30 09/30/22 12:00 09/30/22 12:17 Temperature Pulse Rate 100 H 98 H 104 H Respiratory Rate 21 18 24 Blood Pressure Pulse Oximetry 95 92 94 Oxygen Delivery Method 09/30/22 12:17 09/30/22 12:30 09/30/22 12:30 Temperature Pulse Rate 100 H Respiratory Rate 15 Blood Pressure 133/63 139/69 Pulse Oximetry 97 Oxygen Delivery Method 09/30/22 13:00 09/30/22 13:30 09/30/22 14:00 Temperature Pulse Rate 104 H 102 H 109 H Respiratory Rate 12 18 23 Blood Pressure Pulse Oximetry 95 92 94 Oxygen Delivery Method Room Air 09/30/22 14:28 09/30/22 14:29 Temperature Pulse Rate 100 H Respiratory Rate 23 Blood Pressure 131/61 Pulse Oximetry 94 Oxygen Delivery Method MDM - SOB/Dyspnea Lab Data 09/30/22 11:10 09/30/22 11:10 Labs: Lab Results 09/30/22 09/30/22 09/30/22 Range/Units 11:10 11:10 11:10 WBC 7.8 (4.5-11.0) X10^3/uL RBC 3.61 L (4.0-5.2) X10^6/uL Hgb 10.1 L (12.0-16.0) g/dL Hct 30.8 L (36-46) % MCV 85.3 (80-100) fL MCH 27.9 (26-34) PG MCHC 32.7 (30-36) % RDW 17.0 H (11.6-14.8) % Plt Count 386 (150-400) X10^3/uL Neut % (Auto) 75.7 H (50-75) % Lymph % (Auto) 11.2 L (25-40) % [place] % (Auto) 8.9 (3-14) % Eos % (Auto) 3.2 (2-4) % Baso % (Auto) 1.0 (0-2) % Neut # (Auto) 5900 (8364-1514) /uL Lymph # (Auto) 900 L (9730-8289) /uL [place] # (Auto) 700 (0-900) /uL Eos # (Auto) 300 (0-450) /uL Baso # (Auto) 100 (0-100) /uL PT 13.3 H (10.1-12.7) SECONDS INR 1.2 (0.9-1.3) APTT 30 (26-36) SECONDS Sodium 138 (137-145) mmol/L Potassium 3.3 L (3.4-5.1) mmol/L Chloride 103 (98-107) mmol/L Carbon Dioxide 26 (22-32) mmol/L BUN 13 (7-17) mg/dL Creatinine 0.59 (0.52-1.04) mg/dL Estimated GFR > 60 (>60) mL/min BUN/Creatinine Ratio 22.0 (6-22) Glucose 103 (80-110) mg/dL Calcium 9.1 (8.4-10.2) mg/dL Magnesium 1.6 (1.6-2.3) mg/dL Total Bilirubin 1.0 (0.2-1.3) mg/dL AST 30 (14-36) IU/L ALT 20 (<35) IU/L Alkaline Phosphatase 99 (38-126) U/L Total Creatine Kinase 76 (30-135) U/L CK-MB (CK-2) TNP CK-MB (CK-2) Rel Index TNP Troponin I < 0.012 (0.01-0.034) ng/mL NT-Pro-B Natriuret Pep (<125) pg/mL Total Protein 7.9 (6.3-8.2) g/dL Albumin 4.0 (3.5-5.0) g/dL Globulin 3.9 (1.7-4.1) g/dL Albumin/Globulin Ratio 1.0 (1.0-2.8) Lipase 45 (23-300) U/L SARS-CoV-2 (PCR) (Negative) Influenza A (RT-PCR) (NEGATIVE) Influenza B (RT-PCR) (NEGATIVE) RSV (PCR) (Negative) 09/30/22 09/30/22 Range/Units 11:10 12:15 WBC (4.5-11.0) X10^3/uL RBC (4.0-5.2) X10^6/uL Hgb (12.0-16.0) g/dL Hct (36-46) % MCV (80-100) fL MCH (26-34) PG MCHC (30-36) % RDW (11.6-14.8) % Plt Count (150-400) X10^3/uL Neut % (Auto) (50-75) % Lymph % (Auto) (25-40) % [place] % (Auto) (3-14) % Eos % (Auto) (2-4) % Baso % (Auto) (0-2) % Neut # (Auto) (3489-0598) /uL Lymph # (Auto) (8158-6656) /uL [place] # (Auto) (0-900) /uL Eos # (Auto) (0-450) /uL Baso # (Auto) (0-100) /uL PT (10.1-12.7) SECONDS INR (0.9-1.3) APTT (26-36) SECONDS Sodium (137-145) mmol/L Potassium (3.4-5.1) mmol/L Chloride (98-107) mmol/L Carbon Dioxide (22-32) mmol/L BUN (7-17) mg/dL Creatinine (0.52-1.04) mg/dL Estimated GFR (>60) mL/min BUN/Creatinine Ratio (6-22) Glucose (80-110) mg/dL Calcium (8.4-10.2) mg/dL Magnesium (1.6-2.3) mg/dL Total Bilirubin (0.2-1.3) mg/dL AST (14-36) IU/L ALT (<35) IU/L Alkaline Phosphatase (38-126) U/L Total Creatine Kinase (30-135) U/L CK-MB (CK-2) CK-MB (CK-2) Rel Index Troponin I (0.01-0.034) ng/mL NT-Pro-B Natriuret Pep 221 H (<125) pg/mL Total Protein (6.3-8.2) g/dL Albumin (3.5-5.0) g/dL Globulin (1.7-4.1) g/dL Albumin/Globulin Ratio (1.0-2.8) Lipase (23-300) U/L SARS-CoV-2 (PCR) Negative (Negative) Influenza A (RT-PCR) Flu a negative (NEGATIVE) Influenza B (RT-PCR) Flu b negative (NEGATIVE) RSV (PCR) Negative (Negative) Imaging Data Chest x-ray: Radiologist's Impression: [address] [address] XRay Report Signed Patient: Sue Coy MR#: [id number] : 1950 Acct:[id number] Age/Sex: 72 / F Date of Service: 09/30/22 Loc: ED Accession Number: [id number] ?? Procedure: XR chest 1V Ordering Provider: Chetna Davenport D.O. PROCEDURE:? XR CHEST 1V ? INDICATIONS:? Flu like symptoms ? TECHNIQUE:? One view of the chest was acquired.? ? COMPARISON:? [facility], CR, XR CHEST 2V, 03/07/2020, 11:01. ? FINDINGS:? ? Surgical changes and devices:? None.? ? Lungs and pleura:? Lungs are clear.? No pleural effusions or pneumothorax.? ? Mediastinum:? Mediastinal contours appear normal.? Heart size is normal.? ? Bones and chest wall:? No suspicious bony lesions.? Overlying soft tissues appear unremarkable.? ? IMPRESSION:? No acute cardiopulmonary findings. ? ? Dictated by: Raghav Foy M.D. on 09/30/2022 at 10:21 ? ? Approved by: Raghav Foy M.D. on 09/30/2022 at 10:23?? ECG Data Attestation: I personally reviewed and interpreted this ECG as follows: Prior ECG tracings: not available for review Interpretation: Sinus rhythm rate of 99 OR 162 QRS of [address]TC [address] No acute ST elevation depression noted. MDM Narrative Medical decision making narrative: This is a 72-year-old female who presents with increasing shortness of breath with exertion lungs are fairly clear on exam she did note that she would a nebulizer 130 this morning which was helpful. She has some baseline asthma history, allergies hypertension dyslipidemia no known cardiac disease but does have risk factors. She is also been more distended in her abdomen feels quite full this could be contributing to her shortness breath as well. She is chronically on narcotics and has been constipated but is not having any obstructive symptoms. She does have known thoracic compression fractures in his been having lot of pain which sounds like has been persistent into her ribs and maybe the source of her pain today. Patient had cardiac workup as well as abdominal. Chest x-ray is negative for fluids she has no acute changes on EKG no priors. CTA shows no pulmonary embolus there is a left upper lobe 1.2 cm ground-glass nodule recommendations include 6-[address] abdomen pelvis shows diverticulosis no evidence of diverticulitis, moderate stool, large nonobstructive left renal stone and mild dilation is CBD without obstruction evidence. Patient labs do not show other clear cause I suspect some of her shortness of breath is secondary to pain, she did feel that her nebulizer was helpful she has known reactive airway history so will give a dose of steroids she can takes long-acting morphine at home Tylenol and aspirin daily for pain management and is open to trying lidocaine patches she thinks this might be helpful to her. We discussed return precautions and follow up with her PCP to discuss if she would be a candidate for kyphoplasty or other interventions. Discharge Plan Departure Patient Disposition: Home Clinical Impression: Atypical chest pain, Pulmonary nodule Compression fracture of thoracic vertebra Qualifiers: Encounter type: subsequent encounter Activity Restrictions/Additional Instructions: Follow-up with your physician for recheck. Talk with your physician if you might be a candidate for kyphoplasty or interventions to help the pain from your thoracic vertebral compression fractures. Continue your home pain medications as prescribed. You can use lidocaine patches as directed with these medications. I would also recommend doing a short course of steroids and continuing your regular inhalers and DuoNeb every 4 hours as needed. Prescription sent to [facility] in [place]. Please return for new or worsening symptoms increasing or new chest pain, shortness of breath, lightheadedness or passing out, requiring breathing treatments or assistance with breathing more frequently, new swelling in her extremities or other new or concerning changes. Prescriptions: New lidocaine 5 % adhesive patch,medicated See Rx Instructions .ROUTE .COMPLEX Qty: 30 0RF Rx Instructions: leave on most painful area for up to 12 hrs prednisone 10 mg tablets,dose pack See Rx Instructions .ROUTE .COMPLEX Qty: 21 0RF Rx Instructions: Take 60 mg p.o. x1 day, then 50 mg p.o. x1 day, then 40 mg p.o. x1 day, then 30 mg p.o. x1 day, then 20 mg p.o. x1 day, then 10 mg p.o. x1 day No Action duloxetine [Cymbalta] 60 MG capsule,delayed release(DR/EC) 60 mg PO DAILY Qty: 0 morphine 15 MG tablet extended release 15 mg PO Q12H Qty: 0 atorvastatin 40 mg tablet 40 mg PO DAILY Patient Comments: take 1 tablet by mouth once daily lisinopril 20 mg tablet 20 mg PO DAILY Patient Comments: take 1 tablet by mouth once daily amlodipine 10 mg tablet 10 mg PO DAILY albuterol sulfate [ProAir HFA] 90 mcg/actuation HFA aerosol inhaler 1 puff Inhalation PRN PRN (Reason: Shortness Of Breath) Advair HFA 230-21 mcg/actuation HFA aerosol inhaler 2 puff Inhalation BID Patient Comments: inhale 2 puffs by mouth twice a day cyclobenzaprine 10 mg tablet 10 mg PO TID PRN (Reason: muscle spasm) Qty: 20 0RF aspirin 325 mg Tablet 650 mg PO BID Referrals: Jigar Mclean MD [Primary Care Provider] - Stand Alone Forms: Patient Portal/API
[2022-09-30 11:19] LABS: Add Manual Diff / Slide Review NO; Basophils Absolute Auto 100 /uL (0-100); Eosinophils Absolute Auto 300 /uL (0-450); Eosinophils Percent Auto 3.2 % (2-4); Hematocrit 30.8 % (36-46); Hemoglobin 10.1 g/dL (12.0-16.0); Lymphocytes Absolute Auto 900 /uL (1100-4500); Lymphocytes Percent Auto 11.2 % (25-40); Mean Corpuscular HGB Conc 32.7 % (30-36); Mean Corpuscular Hemoglobin 27.9 PG (26-34); Mean Corpuscular Volume 85.3 fL (80-100); Monocytes Absolute Auto 700 /uL (0-900); Monocytes Percent Auto 8.9 % (3-14); Neutrophils Absolute Auto 5900 /uL (1500-7000); Neutrophils Percent Auto 75.7 % (50-75); Platelet Count 386 X10^3/uL (150-400); Red Blood Cell Count 3.61 X10^6/uL (4.0-5.2); White Blood Cell Count 7.8 X10^3/uL (4.5-11.0)
[2022-09-30 11:26] LABS: INR 1.2 (0.9-1.3); Prothrombin Time 13.3 SECONDS (10.1-12.7)
[2022-09-30 11:29] LABS: PTT Partial Thromboplastin Tim 30 SECONDS (26-36)
[2022-09-30 11:31] LABS: Alanine Aminotransferase 20 IU/L (<35); Alkaline Phosphatase 99 U/L (38-126); Aspartate Aminotransferase 30 IU/L (14-36); Blood Urea Nitrogen 13 mg/dL (7-17); Calcium 9.1 mg/dL (8.4-10.2); Carbon Dioxide 26 mmol/L (22-32); Chloride 103 mmol/L (98-107); Creatine Kinase 76 U/L (30-135); Estimated Glomerular Filt Rate > 60 mL/min (>60); Globulin 3.9 g/dL (1.7-4.1); Glucose 103 mg/dL (80-110); HEMOLYSIS 19 (0-50); Lipase 45 U/L (23-300); Magnesium 1.6 mg/dL (1.6-2.3); Potassium 3.3 mmol/L (3.4-5.1); Sodium 138 mmol/L (137-145); Total Protein 7.9 g/dL (6.3-8.2)
[2022-09-30 11:39] LABS: NT-proBNP (BNP-Adult 18+) 221 pg/mL (<125)
--- NOTE | 2022-09-30 11:41 | DI.CT.S_ITS ---
PROCEDURE: CT ABDOMEN PELVIS W CON INDICATIONS: distended, hx constipation TECHNIQUE: After the administration of intravenous contrast, axial sections acquired from the lung bases to the pubic symphysis. Coronal and sagittal reformats were performed. For radiation dose reduction, the following was used: automated exposure control, adjustment of mA and/or kV according to patient size. COMPARISON: None. FINDINGS: Image quality: Excellent. Lung bases: Unremarkable. Heart: No significant findings. ABDOMEN: Liver: Unremarkable. Gallbladder: Not identified Biliary ducts: Central biliary ductal dilation with common biliary duct up to 11 Pancreas: Unremarkable. Spleen: Unremarkable. Adrenal Glands: Unremarkable. Kidneys and Ureters: Within the left collecting system there is a large 1.3 cm stone within average density of 1053 Hounsfield units. No hydronephrosis. Stomach and Bowel: Stomach, small bowel loops, and colon are unremarkable. Scattered colonic diverticula without evidence of acute diverticulitis. Moderate to large stool volume with several loops of prominent air-filled small and large bowel. No evidence of obstruction. Peritoneum: No abnormal intraperitoneal fluid. No free air. Ventral Wall: No hernias. Abdominal Nodes: No retroperitoneal or mesenteric adenopathy by size criteria. Vessels: Aorta and inferior vena cava are normal in size. PELVIS: Pelvic Organs: Unremarkable. Bladder: Unremarkable. Pelvic Nodes: No enlarged lymph nodes. Miscellaneous: No hernias are seen. Bones: Unremarkable. IMPRESSION: 1. Diverticulosis without evidence of acute diverticulitis. 2. Moderate stool volume. 3. Large nonobstructive left renal stone. 4. Mild dilation of the common biliary duct without evidence of obstruction. Dictated by: Raghav Foy M.D. on 09/30/2022 at 12:42 Approved by: Raghav Foy M.D. on 09/30/2022 at 12:50
--- NOTE | 2022-09-30 11:41 | DI.CT.S_ITS ---
PROCEDURE: CT ANGIO CHEST PE PROTOCOL INDICATIONS: chest pain,sob TECHNIQUE: After the administration of intravenous contrast, 2 mm thick sections acquired from the pulmonary apices to the posterior costophrenic angles. 3-dimensional maximum intensity projection (MIP) coronal and sagittal reformats were then acquired through the thorax. For radiation dose reduction, the following was used: automated exposure control, adjustment of mA and/or kV according to patient size. COMPARISON: [facility], CT, CT ABDOMEN PELVIS W CON, 09/30/2022, 12:26. FINDINGS: Image quality: Excellent. Pulmonary arteries: Pulmonary arteries are normal in size, and demonstrate no intraluminal filling defects to suggest central pulmonary embolism. Lungs and pleura: Ground-glass nodule within the left upper lobe adjacent to the pleura measuring 1.2 cm (axial image 77). No pleural effusions or pneumothorax. Central and peripheral airways are patent. Mediastinum: Heart size is normal, without pericardial effusion. Moderate pre-vascular lymph node measuring 8 mm short axis. Thoracic aorta is normal in caliber and enhancement. Esophagus is normal in caliber, without hiatal hernia. Bones and chest wall: No suspicious bony lesions. Ribs and thoracic spine appear intact throughout. Thyroid gland appears diminutive without discrete nodule.. No axillary or supraclavicular adenopathy. Abdomen: Sensory biliary dilation. Visualized upper abdominal solid organs otherwise appear normal in the early arterial phase of enhancement. IMPRESSION: 1. No pulmonary embolus. 2. Left upper lobe 1.2 cm ground-glass nodule. Recommend 6-12 month interval imaging. Dictated by: Raghav Foy M.D. on 09/30/2022 at 12:50 Approved by: Raghav Foy M.D. on 09/30/2022 at 13:03
[2022-09-30 11:42] LABS: Troponin I < 0.012 ng/mL (0.01-0.034)
[2022-09-30 12:57] LABS: Influenza A - CEPHEID Flu A NEGATIVE (NEGATIVE); Influenza B - CEPHEID Flu B NEGATIVE (NEGATIVE); Respiratory Syncytial Virus Negative (Negative)
[2022-09-30 12:59] LABS: COVID-19 CEPHEID 4-PLEX PCR Negative (Negative)
[2022-09-30] MEDS: MORPHINE 4 MG/ML INJ IV (13:52)
[2022-09-30] MEDS: methylPREDNISolone 125 MG/2 ML VIAL IV (13:52)
== END 2022-09-30 15:23 | disposition home or self-care (01) ==
PROVIDERS: Emergency Provider Emergency Medicine; PCP Internal Medicine
DX: R07.89 Other chest pain (principal); R91.1 Solitary pulmonary nodule; M48.54XA Collapsed vertebra, not elsewhere classified, thoracic region, initial encounter for fracture; R06.02 Shortness of breath; Z20.822 Contact with and (suspected) exposure to COVID-19
CPT/HCPCS: 0241U; 36415; 71045; 71275; 74177; 80053; 82550; 83690; 83735; 83880; 84484; 85025; 85610; 85730; 93005; 96374; 96375; 99284; J2270; J2930; Q9967

== ENCOUNTER → 2023-03-05 11:05 | Outpatient (CLI) | payer OTHER, SELFPAY ==
--- NOTE | 2023-03-05 | DI.RAD.S_ITS ---
Bone Density Report Name: DELMI RENEE Age: 73 Sex: Female Ethnicity: White Date of : 1950 Indication: osteopenia; monitoring treatment; prior fracture; Referring Provider: UNSPECIFIED Study: Bone densitometry was performed. Exam Date: March 05, 2023 Accession number: [id number] Bone Density: Region BMD T-score Z-score Classification AP Spine(L1-L4) 0.712 -3.0 -0.7 Osteoporosis Femoral Neck (Left) 0.567 -2.5 -0.5 Osteoporosis Total Hip (Left) 0.642 -2.5 -0.7 Osteoporosis Femoral Neck (Right) 0.499 -3.2 -1.1 Osteoporosis Total Hip (Right) 0.591 -2.9 -1.2 Osteoporosis Total Hip Mean 0.617 -2.7 -1.0 Osteoporosis World Health Organization criteria for BMD impression classify patients as: Normal (T-score at or above -1.0), Osteopenia (T-score between -1.0 and -2.5), or Osteoporosis (T-score at or below -2.5). 10-year Fracture Risk: FRAX not reported because: Some T-score for Spine Total or Hip Total or Femoral Neck at or below -2.5 Prior hip or vertebral fracture Treated for osteoporosis Previous Exams: -- Region Exam Age BMD T-score BMD Change BMD Change Date g/cm2 vs Baseline vs Previous -- AP Spine (L1-L4) 03/05/2023 73 0.712 -3.0 -0.157 (-18.1%)# -0.157 (-18.1%)# 12/05/2018 68 0.869 -1.6 Total Hip(Left) 03/05/2023 73 0.642 -2.5 -0.058 (-8.3%)# -0.058 (-8.3%)# 12/05/2018 68 0.700 -2.0 Total Hip(Right) 03/05/2023 73 0.591 -2.9 -0.108 (-15.5%)# -0.108 (-15.5%)# 12/05/2018 68 0.699 -2.0 -- *Denotes significance at 95% confidence level, LSC for AP Spine = 0.022 g/cm2, LSC for Total Hip = 0.027 g/cm2 # Denotes dissimilar scan types or analysis methods Impression: The patient has established osteoporosis, based on the Right Femoral Neck T-score and the existence of a prior fracture. The patient has risk factors, including: previous fracture. No significant bone loss was observed. Discussion: PATIENT UNDER TREATMENT WITH NO SIGNIFICANT BMD LOSS SINCE LAST EXAM. In an untreated patient, BMD typically declines with age. A lack of decline or gain is usually a sign that treatment is efficacious and fracture risk is reduced. It is important to ask patients whether they are taking their medications and to encourage continued and appropriate compliance with their osteoporosis therapies to reduce fracture risk. It is also important to review their risk factors and encourage appropriate calcium and vitamin D intakes, exercise, fall prevention and other lifestyle measures. Follow-Up: Consider a repeat BMD and Vertebral Fracture Assessment (VFA) exam in 2 years or sooner if medically necessary, to reassess this patient's status. Reported by: SURESH SÁNCHEZ MD on 03/05/2023 3:07:00 PM.
== END ==
PROVIDERS: PCP Internal Medicine; Referring Provider Internal Medicine Endocrinology, Diabetes & Metabolism; Visit Provider Internal Medicine Endocrinology, Diabetes & Metabolism
DX: M81.0 Age-related osteoporosis without current pathological fracture (principal); Z79.83 Long term (current) use of bisphosphonates
CPT/HCPCS: 77080

== ENCOUNTER 2023-05-26 17:39 | Inpatient (IN) | payer OTHER, SELFPAY ==
[2023-05-26] VITALS (21 sets, daily range): BP systolic 133–186; BP diastolic 67–113; PULSE 79–120; RESP 16–28; TEMP 37.2–38.6; O2SAT 92–97; BMI 20.5
--- NOTE | 2023-05-26 17:51 | DI.CT.S_ITS ---
PROCEDURE: CT STROKE INDICATIONS: leaning to the right can't speak TECHNIQUE: Noncontrast 4.5 mm thick angled axial sections acquired from the foramen magnum to the vertex, with coronal reformats. For radiation dose reduction, the following was used: automated exposure control, adjustment of mA and/or kV according to patient size. COMPARISON: None. FINDINGS: Image quality: Excellent. CSF spaces: Basal cisterns are patent. No extra-axial fluid collections. Ventricles are normal in size and shape. Brain: No midline shift. No intracranial masses or hemorrhage. Chavez-white matter interface is normal. Moderate cerebral and cerebellar volume loss with multifocal white matter chronic ischemic change noted. Atherosclerotic calcification noted associated with cavernous segments of both internal carotid arteries. Skull and face: Calvarium and visualized facial bones are intact, without suspicious lesions. Sinuses: Bilateral maxillary sinus air-fluid levels with mucosal thickening. Bilateral uncinectomy and middle turbinectomies results in large nasal antral windows. There is the bilateral ethmoidectomy as well. Osseous wall thickening noted in in the maxillary, ethmoid and sphenoid sinus with complete sphenoid sinus opacification. 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 Note: Critical results were discussed with Dr. Hong at 05:23 PM [place] time on 05/26/23 Approved by: Arnav Curry M.D. on 05/26/2023 at 17:29
[2023-05-26 18:05] LABS: Add Manual Diff / Slide Review NO; Basophils Absolute Auto 100 /uL (0-100); Basophils Percent Auto 1.4 % (0-2); Eosinophils Absolute Auto 1100 /uL (0-450); Eosinophils Percent Auto 15.4 % (2-4); Hematocrit 35.5 % (36-46); Hemoglobin 11.7 g/dL (12.0-16.0); Lymphocytes Absolute Auto 1600 /uL (1100-4500); Lymphocytes Percent Auto 22.9 % (25-40); Mean Corpuscular Hemoglobin 28.2 PG (26-34); Mean Corpuscular Volume 85.6 fL (80-100); Monocytes Absolute Auto 500 /uL (0-900); Neutrophils Absolute Auto 3700 /uL (1500-7000); Neutrophils Percent Auto 53.3 % (50-75); Platelet Count 388 X10^3/uL (150-400); Red Blood Cell Count 4.15 X10^6/uL (4.0-5.2); Red Cell Distribution Width 16.1 % (11.6-14.8); White Blood Cell Count 6.9 X10^3/uL (4.5-11.0)
[2023-05-26 18:12] LABS: PTT Partial Thromboplastin Tim 22 SECONDS (26-36)
[2023-05-26 18:13] LABS: Alanine Aminotransferase 16 IU/L (<35); Albumin 3.6 g/dL (3.5-5.0); Albumin Globulin Ratio 0.8 (1.0-2.8); Alkaline Phosphatase 80 U/L (38-126); Aspartate Aminotransferase 35 IU/L (14-36); BUN Creatinine Ratio 18.2 (6-22); Bilirubin Total 0.8 mg/dL (0.2-1.3); Blood Urea Nitrogen 8 mg/dL (7-17); Calcium 9.4 mg/dL (8.4-10.2); Carbon Dioxide 31 mmol/L (22-32); Chloride 97 mmol/L (98-107); Creatine Kinase 67 U/L (30-135); Estimated Glomerular Filt Rate > 60 mL/min (>60); Ethanol (ETOH) < 10 mg/dL; Globulin 4.4 g/dL (1.7-4.1); Glucose 119 mg/dL (80-110); HEMOLYSIS 16 (0-50); Potassium 3.2 mmol/L (3.4-5.1); Sodium 135 mmol/L (137-145)
[2023-05-26] MEDS: ONDANSETRON 4 MG/2 ML INJ IV (18:14)
[2023-05-26] MEDS: SODIUM CHLORIDE 0.9% 1,000 ML 150 ML IV (18:14)
--- NOTE | 2023-05-26 18:17 | DI.CT.S_ITS ---
PROCEDURE: CT ANGIO HEAD AND NECK INDICATIONS: can't speak, leaning to the right TECHNIQUE: After the administration of intravenous contrast, 1 mm thick sections acquired from the aortic arch through the [place] of [place]. 3-dimensional ljujvci-yqmwhkotf-wjqemkaglq (MIP) and/or volume rendering reformats were acquired of the central intracranial vasculature and neck separately. For radiation dose reduction, the following was used: automated exposure control, adjustment of mA and/or kV according to patient size. COMPARISON: None. FINDINGS: Image quality: There is artifact associated with the metallic hardware. BRAIN: CSF spaces: Ventricles are normal in size and shape. Basal cisterns are patent. No extra-axial fluid collections. Brain: No significant abnormality of the brain can be seen. Skull and face: Calvarium and facial bones appear intact, without suspicious lesions. Orbits appear normal. Sinuses: Paranasal sinus disease is again seen. Prior bilateral antrectomy change can be seen. HEAD CT ANGIOGRAPHY: Anterior circulation: Intracranial internal carotid arteries are normal in size and flow. The flow within the paired anterior cerebral arteries is normal and symmetric. The flow within the middle cerebral arteries is normal and symmetric. The anterior communicating artery is seen. No aneurysms are seen. Posterior circulation: Visualized portions of the vertebral arteries demonstrate normal caliber, and join to form a normal appearing basilar artery. Flow within the posterior cerebral arteries is normal and symmetric. No aneurysms are seen. NECK CT ANGIOGRAPHY: Carotid system: The great vessels demonstrate a conventional anatomy as they arise from the aortic arch. The origins of the common carotid arteries appear patent. The common carotid arteries demonstrate normal caliber and courses. The bifurcation regions are both widely patent. The internal carotid arteries demonstrate normal calibers and courses. Posterior circulation: The origins of the vertebral arteries both appear widely patent. The more superior extracranial portions of both vertebral arteries also demonstrate normal courses and calibers. They join to form a normal appearing basilar artery. Soft tissues: Visualized neck soft tissues demonstrate no suspicious abnormalities. Likely scarring can be seen at the lung apices. Bones: No suspicious bony lesions. Visualized cervical spine appears normally aligned. Focal degenerative change is seen involving the C1-C2 interface anteriorly. IMPRESSION: No significant intracranial arterial abnormality is seen. Within the arteries of the neck, no hemodynamically significant stenosis can be seen. If there is strong clinical suspicion for an acute stroke, please consider a brain MRI for further evaluation, as it is more sensitive (assuming that there is no contraindication to MRI). Additional findings: Paranasal sinus disease and prior paranasal sinus surgery Any quantitative measurements of stenosis were performed using NASCET criteria. Dictated by: Fabrice Swift M.D. on 05/26/2023 at 18:52 Approved by: Fabrice Swift M.D. on 05/26/2023 at 18:55
[2023-05-26 18:24] LABS: Troponin I < 0.012 ng/mL (0.01-0.034)
--- NOTE | 2023-05-26 19:24 | ED_ITS ---
HPI - Neuro Symptoms/Deficit General Chief Complaint: Neuro Symptoms/Deficit Stated Complaint: confusion/SOB/ Time Seen by Provider: 05/26/23 17:51 Source: family Mode of arrival: Family Vehicle History of Present Illness HPI Narrative: 73-year-old woman with a history of multiple thoracic spine compression fractures and chronic pain related to this, hypertension, hyperlipidemia, depression, some type of undiagnosed autoimmune disorder, fibromyalgia who presents after her noted she has been having increasing difficulty with speech since around noon today. Initially described word salad like symptoms and by 4 notes that her speech became unintelligible so he brought her into the emergency department for further evaluation. On Anticoagulants: No Related Data Home Medications Medication Instructions Recorded Confirmed duloxetine 60 mg capsule,delayed 60 mg PO DAILY ##0 03/20/13 09/18/22 release (Cymbalta) morphine 15 mg tablet,extended 15 mg PO Q12H ##0 03/20/13 09/18/22 release albuterol sulfate 90 mcg/actuation 1 puff inhalation PRN PRN 11/07/18 09/18/22 aerosol inhaler Shortness Of Breath amlodipine 10 mg tablet 10 mg PO DAILY 11/07/18 09/18/22 atorvastatin 40 mg tablet 40 mg PO DAILY 11/07/18 09/18/22 fluticasone propionate 230 2 puff inhalation BID 11/07/18 09/18/22 mcg-salmeterol 21 mcg/actuation HFA inhaler lisinopril 20 mg tablet 20 mg PO DAILY 11/07/18 09/18/22 aspirin 325 mg tablet 650 mg PO BID 11/15/18 09/18/22 Previous Rx's Medication Instructions Recorded cyclobenzaprine 10 mg tablet 10 mg PO TID PRN muscle spasm #20 09/18/22 tabs lidocaine 5 % topical patch See Rx Instructions topical 09/30/22 .COMPLEX #30 ea prednisone 10 mg tablets in a dose See Rx Instructions PO .COMPLEX 09/30/22 pack #21 ea Allergies Allergy/AdvReac Type Severity Reaction Status Date / Time aspirin AdvReac Unknown Verified 09/30/22 09:59 ibuprofen AdvReac Unknown Verified 09/30/22 09:59 Review of Systems Review of Systems ROS Unobtainable: Unobtainable due to mental status/LOC Hematologic/Lymphatic On Anticoagulants: No Patient History Medical History (Updated 05/26/23 @ 22:39 by Tanika Matson MD) Hyperlipidemia Chronic pain syndrome Hypertension Autoimmune disorder Fibromyalgia Social History marital status: lives independently: Yes Smoking Status: Never smoker Smoking Status: Never smoker alcohol intake frequency: holidays/special occasions only Substance Use Type: does not use Exam Initial Vital Signs Initial Vital Signs: Vital Signs Temperature 98.9 F 05/26/23 17:50 Pulse Rate 92 H 05/26/23 17:50 Respiratory Rate 18 05/26/23 17:50 Blood Pressure 174/92 H 05/26/23 17:50 Pulse Oximetry 95 05/26/23 17:50 Oxygen Delivery Method Room Air 05/26/23 17:50 General: Frail, chronically ill-appearing but in no acute distress. Significant right-sided neglect, unable to follow commands nonpurposeful movement of all limbs. HEENT: Moist mucous membranes, normal sclera with reactive pupils, Neck: No JVD, Respiratory: Lungs are clear to auscultation, no wheezing no rales no rhonchi. Full and symmetrical air movement Cardiac: Regular rate and rhythm no murmurs no bruits Abdomen: Soft, nontender, good bowel tones, no flank pain Skin: Warm and dry, no rashes Neurologic: See NIH score below. NIH of 18 Extremities: No trauma, well perfused Psych: Altered and unaware of surroundings NIH Stroke Scale/Score (NIHSS) RESULT SUMMARY: 18 points NIH Stroke Scale INPUTS: 1A: Level of consciousness ?> 1 = Arouses to minor stimulation 1B: Ask month and age ?> 1 = Dysarthric/intubated/trauma/language barrier 1C: 'Blink eyes' & 'squeeze hands' ?> 2 = Performs 0 tasks 2: Horizontal extraocular movements ?> 2 = Forced gaze palsy: cannot be overcome 3: Visual gottlieb ?> 0 = No visual loss 4: Facial palsy ?> 2 = Partial paralysis (lower face) 5A: Left arm motor drift ?> 0 = No drift for 10 seconds 5B: Right arm motor drift ?> 2 = Drift, hits bed 6A: Left leg motor drift ?> 0 = No drift for 5 seconds 6B: Right leg motor drift ?> 0 = No drift for 5 seconds 7: Limb Ataxia ?> 1 = Ataxia in 1 Limb 8: Sensation ?> 2 = Complete loss: cannot sense being touched at all 9: Language/aphasia ?> 2 = Severe aphasia: fragmentary expression, inference needed, cannot identify materials 10: Dysarthria ?> 1 = Mild-moderate dysarthria: slurring but can be understood 11: Extinction/inattention ?> 2 = Profound amy-inattention (ex: does not recognize own hand) Course Orders Ordered: ED Orders 05/26/23 17:51 CT Stroke Stat 05/26/23 17:52 EKG-12 Lead Stat 05/26/23 17:53 Complete Blood Count AUTO DIFF Stat Comprehensive Metabolic Panel Stat Ethanol (ETOH) Stat PTT Partial Thromboplastin Vikas Stat Prothrombin Time INR Stat Troponin & CK Cardiac Panel Stat 05/26/23 18:17 CT angio head and neck Stat 05/26/23 19:38 Chest [XR chest 1V] Stat 05/26/23 20:38 COVID19 -Nasal RAPID Stat 05/26/23 20:45 Urine Drug Screen, Rapid Stat Sodium Chloride (Normal Saline 0.9%) 1,000 mls @ 150 mls/hr IV CONT JULIA Last Admin: 05/26/23 18:14 Dose: 150 mls/hr Documented By: MIAN Discontinued Medications Albuterol (Albuterol 2.5 Mg/3 Ml Neb (Adult)) 5 mg INH NOW ONE Stop: 05/26/23 19:38 Last Admin: 05/26/23 19:52 Dose: Not Given Documented By: PRIYA Haloperidol (Haloperidol 5 Mg/Ml Vial) 2 mg IV NOW ONE Stop: 05/26/23 20:00 Last Admin: 05/26/23 20:04 Dose: 2 mg Documented By: PRIYA Lorazepam (Lorazepam 2 Mg/Ml Inj) 1 mg IV NOW ONE Stop: 05/26/23 20:40 Last Admin: 05/26/23 20:43 Dose: 1 mg Documented By: PRIYA Ondansetron HCl (Ondansetron 4 Mg/2 Ml Inj) 4 mg IV NOW ONE Stop: 05/26/23 17:53 Last Admin: 05/26/23 18:14 Dose: 4 mg Documented By: MIAN Prednisone (Prednisone 20 Mg Tablet) 60 mg PO NOW ONE Stop: 05/26/23 19:38 Last Admin: 05/26/23 19:52 Dose: Not Given Documented By: PRIYA Vital Signs Vital signs: Vital Signs - 8 hr 05/26/23 17:50 05/26/23 17:51 05/26/23 18:50 Temperature 98.9 F Pulse Rate 92 H 88 Respiratory Rate 18 Blood Pressure 174/92 H 172/79 H Pulse Oximetry 95 94 Oxygen Delivery Method Room Air 05/26/23 18:50 05/26/23 19:00 05/26/23 19:32 Temperature Pulse Rate 79 85 95 H Respiratory Rate 20 20 Blood Pressure Pulse Oximetry 96 97 94 Oxygen Delivery Method 05/26/23 19:32 05/26/23 19:35 05/26/23 19:35 Temperature Pulse Rate 93 H Respiratory Rate 16 Blood Pressure 178/113 H 170/79 H Pulse Oximetry 92 Oxygen Delivery Method 05/26/23 19:45 05/26/23 19:45 05/26/23 20:00 Temperature Pulse Rate 97 H 111 H Respiratory Rate 23 20 Blood Pressure 186/83 H Pulse Oximetry 94 92 Oxygen Delivery Method 05/26/23 20:16 05/26/23 20:16 05/26/23 20:30 Temperature Pulse Rate 116 H 118 H Respiratory Rate Blood Pressure 184/82 H Pulse Oximetry 95 94 Oxygen Delivery Method 05/26/23 20:41 05/26/23 20:41 05/26/23 20:45 Temperature Pulse Rate 113 H Respiratory Rate Blood Pressure 133/88 144/88 H Pulse Oximetry 95 Oxygen Delivery Method 05/26/23 20:45 05/26/23 21:00 05/26/23 21:00 Temperature Pulse Rate 120 H 105 H Respiratory Rate 22 Blood Pressure 183/82 H Pulse Oximetry 96 93 Oxygen Delivery Method 05/26/23 21:15 05/26/23 21:15 05/26/23 21:29 Temperature Pulse Rate 104 H 92 H Respiratory Rate Blood Pressure 185/81 H Pulse Oximetry 94 97 Oxygen Delivery Method 05/26/23 21:30 05/26/23 21:30 05/26/23 21:45 Temperature Pulse Rate 94 H 88 Respiratory Rate Blood Pressure 180/85 H Pulse Oximetry 96 95 Oxygen Delivery Method 05/26/23 21:45 05/26/23 22:00 05/26/23 22:00 Temperature Pulse Rate 86 Respiratory Rate Blood Pressure 167/77 H 166/77 H Pulse Oximetry 95 Oxygen Delivery Method MDM - Neuro Symptoms/Deficit Lab Data 05/26/23 17:53 05/26/23 17:53 Labs: Lab Results 05/26/23 05/26/23 05/26/23 Range/Units 17:53 20:38 20:45 WBC 6.9 (4.5-11.0) X10^3/uL RBC 4.15 (4.0-5.2) X10^6/uL Hgb 11.7 L (12.0-16.0) g/dL Hct 35.5 L (36-46) % MCV 85.6 (80-100) fL MCH 28.2 (26-34) PG MCHC 33.0 (30-36) % RDW 16.1 H (11.6-14.8) % Plt Count 388 (150-400) X10^3/uL Neut % (Auto) 53.3 (50-75) % Lymph % (Auto) 22.9 L (25-40) % [place] % (Auto) 7.0 (3-14) % Eos % (Auto) 15.4 H (2-4) % Baso % (Auto) 1.4 (0-2) % Neut # (Auto) 3700 (3858-6647) /uL Lymph # (Auto) 1600 (9325-3392) /uL [place] # (Auto) 500 (0-900) /uL Eos # (Auto) 1100 H (0-450) /uL Baso # (Auto) 100 (0-100) /uL PT 12.0 (10.1-12.7) SECONDS INR 1.0 (0.9-1.3) APTT 22 L (26-36) SECONDS Sodium 135 L (137-145) mmol/L Potassium 3.2 L (3.4-5.1) mmol/L Chloride 97 L (98-107) mmol/L Carbon Dioxide 31 (22-32) mmol/L BUN 8 (7-17) mg/dL Creatinine 0.44 L (0.52-1.04) mg/dL Estimated GFR > 60 (>60) mL/min BUN/Creatinine Ratio 18.2 (6-22) Glucose 119 H (80-110) mg/dL Calcium 9.4 (8.4-10.2) mg/dL Total Bilirubin 0.8 (0.2-1.3) mg/dL AST 35 (14-36) IU/L ALT 16 (<35) IU/L Alkaline Phosphatase 80 (38-126) U/L Total Creatine Kinase 67 (30-135) U/L Troponin I < 0.012 (0.01-0.034) ng/mL Total Protein 8.0 (6.3-8.2) g/dL Albumin 3.6 (3.5-5.0) g/dL Globulin 4.4 H (1.7-4.1) g/dL Albumin/Globulin Ratio 0.8 L (1.0-2.8) U Opiates 300ng/mL cut Positive H (Negative) Ur Oxycodone Screen Negative (Negative) Urine Methadone Screen Negative (Negative) Ur Barbiturates Screen Negative (Negative) U Tricyclic Antidepress Negative (Negative) Ur Phencyclidine Scrn Negative (Negative) Ur Amphetamines Screen Negative (Negative) U Methamphetamines Scrn Negative (Negative) Ur MDMA Scrn (Ecstasy) Negative (Negative) U Benzodiazepines Scrn Negative (Negative) Urine Cocaine Screen Negative (Negative) U Marijuana (THC) Screen Negative (Negative) Ethyl Alcohol < 10 ( - 10) mg/dL SARS-CoV-2 (PCR) Negative (Negative) Point of Care Testing Glucose POC 119 Urine Dip Bedside Urine Glucose Negative Bedside Urine Bilirubin - Negative Bedside Urine Ketone - Negative Urine Specific [place] 1.005 Bedside Urine Occult Blood - Negative Bedside Urine pH 8 Bedside Urine Protein - Negative Bedside Urine Urobilinogen - Negative Bedside Urine Nitrite - Negative Bedside Urine Leukocytes - Negative Esterase MDM Narrative Medical decision making narrative: CC: Speech difficulties Complicating co-morbidities: Hypertension, hyperlipidemia, depression Data collected from: patient, Medical records reviewed: Only available notes for review are multiple ER visits concerning atypical chest pain, esophageal abnormalities, thoracic spine fracture, a subdural hematoma that required transfer in November of 2018 Differential considered: Stroke, intracranial tumor, severe infection Exam documented above, pertinent findings include: Patient is confused, significant right-sided neglect is able to move her right side but does not respond to pain unclear if this is because she also has decreased sensation or is simply the neglect. She is not able to Lab Test results independently reviewed as above. Pertinent findings: CBC is unremarkable Chemistries are notable for slightly low potassium at 3.2. Troponin is undetectable Urine dip is unremarkable Independently reviewed EKG poor baseline but sinus rhythm at a rate of 95 with no acute ischemic changes Imaging studies independently reviewed: CT scan of the brain does not show any acute intracranial hemorrhage CT angiogram of the head and neck does not show any obvious abnormalities or large vessel occlusions Consultations: Care is reviewed with the admitting hospitalist Discussion: In further discussion once her is available. It sounds like she has been having progressive neurologic symptoms for somewhere between 12 and 24 hours. He needed to help her get to the bathroom and she was unable to lift up her right foot or follow commands which he noted, in retrospect, after we discussed her right-sided neglect. He does not describe any issues with infection or infectious disease concerns. Patient has clearly had a stroke is not going to be a tPA candidate due to unclear time of onset. All of this is reviewed with her . She will be admitted for further evaluation and continued stroke workup. At this time there is no evidence of infection, sepsis, acute coronary syndrome, hypertensive crisis or alternative explanation for her clinical presentation MIPS:Stroke & Stroke Rehabilitation: Thrombolytic Therapy Patient arrived more than 2 hours after last known well time, or the time last known well is unknown TPA is not administered Discharge Plan Departure Patient Disposition: Admitted As Inpatient Clinical Impression: Cerebrovascular accident Qualifiers: CVA mechanism: unspecified Qualified Code(s): I63.9 - Cerebral infarction, unspecified Admit Date/Time: 05/26/23 22:15 Admit Provider: Patrice Giordano
--- NOTE | 2023-05-26 19:38 | DI.RAD.S_ITS ---
PROCEDURE: XR CHEST 1V INDICATIONS: cough/O2 91% TECHNIQUE: One view of the chest was acquired. COMPARISON: [facility], CT, CT ANGIO HEAD AND NECK, 05/26/2023, 19:19. [facility], CT, CT STROKE, 05/26/2023, 17:55. [facility], CR, XR CHEST 1V, 09/30/2022, 10:23. FINDINGS: Surgical changes and devices: None. Lungs and pleura: On this semiupright portable chest examination, no large pneumothorax or large pleural effusions are seen. Patchy interstitial infiltrates are seen, which are worse than on the prior examination. Mediastinum: The cardiac contours are at the upper limits of normal. The aorta demonstrates calcification and tortuosity. Bones and chest wall: No suspicious bony lesions. Age-appropriate bony degenerative changes are seen. Overlying soft tissues appear unremarkable. IMPRESSION: Patchy interstitial infiltrates are seen. Please consider mild pulmonary edema versus atypical infiltrate. The heart size is at the upper limits of normal Dictated by: Fabrice Swift M.D. on 05/26/2023 at 18:59 Approved by: Fabrice Swift M.D. on 05/26/2023 at 19:02
--- NOTE | 2023-05-26 19:45 | PC.NURSE ---
Patient is agitated, grabbing at IV lines, staff, bed and attempting to get out of bed. Patient is yelling and not following commands. Dr. Matson notified.
[2023-05-26] MEDS: HALOPERIDOL 5 MG/ML VIAL 2 MG IV (20:04)
[2023-05-26] MEDS: LORazepam 2 MG/ML INJ 1 MG IV (20:43)
[2023-05-26 21:07] LABS: COVID19 -Nasal RAPID Negative (Negative)
[2023-05-26 21:30] LABS: UR Morphine/Opiate cutoff 300 Positive (Negative); Ur Creatinine Normal (Normal); Ur Specific Gravity Normal (Normal); Urine Amphetamines Negative (Negative); Urine Cocaine Negative (Negative); Urine Methamphetamines Negative (Negative); Urine Phencyclidine Negative (Negative); Urine Tetrahydrocannabinol Negative (Negative); Urine pH Normal (Normal)
[2023-05-26 21:31] LABS: Urine Barbiturates Negative (Negative); Urine Benzodiazepines Negative (Negative); Urine MDMA Negative (Negative); Urine Methadone Negative (Negative); Urine Oxycodone Negative (Negative); Urine Tricyclic Antidepressant Negative (Negative)
[2023-05-27] VITALS (11 sets, daily range): BP systolic 121–146; BP diastolic 60–96; PULSE 73–105; RESP 16–28; TEMP 36.8–38.6; O2SAT 93–95
--- NOTE | 2023-05-27 | DI.CT.S_ITS ---
PROCEDURE: CT HEAD/BRAIN WO CON INDICATIONS: altered mental status TECHNIQUE: Noncontrast 4.5 mm thick angled axial sections acquired from the foramen magnum to the vertex, with coronal and sagittal reformats. For radiation dose reduction, the following was used: automated exposure control, adjustment of mA and/or kV according to patient size. COMPARISON: [facility], CT, CT HEAD/BRAIN WO CON, 12/09/2018, 23:44. FINDINGS: Image quality: Excellent. CSF spaces: Basal cisterns are patent. No extra-axial fluid collections. The ventricles are symmetric in size and shape. Brain: No intracranial bleeds or masses. There is cerebral volume loss for age, with resultant ventricular and sulcal prominence. There are periventricular and deep white matter chronic small vessel ischemic changes. There is intracranial internal carotid artery atherosclerosis. Skull and face: Calvarium and visualized facial bones appear intact, without suspicious lesions. Sinuses: Visualized sinuses demonstrate mild maxillary as well as moderate to severe ethmoid, sphenoid and frontal sinus mucosal thickening. Appearances are progressive since 2019. IMPRESSION: 1. No acute intracranial process. 2. Moderate atrophy and chronic microvascular ischemic changes. Dictated by: Marjorie Gaines M.D. on 05/27/2023 at 18:14 Approved by: Marjorie Gaines M.D. on 05/27/2023 at 18:15
--- NOTE | 2023-05-27 | PM.HP.1 ---
History of Present Illness History of Present Illness Date Patient Seen: 05/27/23 Time Patient Seen: 00:00 Chief complaint: confusion/SOB/ Narrative: The pt is a 73 chronically debilitated female who was noted to have difficulty speaking around noon today which progressed to around 1600 today she was essentially non-responsive. EMS was called and she was brought to the ER for evaluation. During my exam on the medical unit she was unresponsive and not following commands. She is on chronic narcotics for chronic back pain and has a hx of compression fractures in the past. No other problems are known about her, left from the ER. [facility] Medical History (Updated 05/27/23 @ 00:06 by Patrice Giordano MD) Hyperlipidemia Chronic pain syndrome Hypertension Autoimmune disorder Fibromyalgia Social History marital status: lives independently: Yes Smoking Status: Never smoker Meds Home Medications and Allergies Home Medications Medication Instructions Recorded Confirmed Type duloxetine 60 mg capsule,delayed 60 mg PO DAILY ##0 03/20/13 09/18/22 History release (Cymbalta) morphine 15 mg tablet,extended 15 mg PO Q12H ##0 03/20/13 09/18/22 History release albuterol sulfate 90 mcg/actuation 1 puff inhalation PRN PRN 11/07/18 09/18/22 History aerosol inhaler Shortness Of Breath amlodipine 10 mg tablet 10 mg PO DAILY 11/07/18 09/18/22 History atorvastatin 40 mg tablet 40 mg PO DAILY 11/07/18 09/18/22 History fluticasone propionate 230 2 puff inhalation BID 11/07/18 09/18/22 History mcg-salmeterol 21 mcg/actuation HFA inhaler lisinopril 20 mg tablet 20 mg PO DAILY 11/07/18 09/18/22 History aspirin 325 mg tablet 650 mg PO BID 11/15/18 09/18/22 History cyclobenzaprine 10 mg tablet 10 mg PO TID PRN muscle spasm #20 09/18/22 Rx tabs lidocaine 5 % topical patch See Rx Instructions topical 09/30/22 Rx .COMPLEX #30 ea prednisone 10 mg tablets in a dose See Rx Instructions PO .COMPLEX 09/30/22 Rx pack #21 ea Allergies Allergy/AdvReac Type Severity Reaction Status Date / Time aspirin AdvReac Unknown Verified 09/30/22 09:59 ibuprofen AdvReac Unknown Verified 09/30/22 09:59 Exam Vital Signs (past 8 hours): - 05/26/23 17:50 05/26/23 17:51 05/26/23 18:50 Temperature 98.9 F Pulse Rate 92 H 88 Respiratory Rate 18 Blood Pressure 174/92 H 172/79 H Pulse Oximetry 95 94 Oxygen Delivery Method Room Air Oxygen Flow Rate 05/26/23 18:50 05/26/23 19:00 05/26/23 19:32 Temperature Pulse Rate 79 85 95 H Respiratory Rate 20 20 Blood Pressure Pulse Oximetry 96 97 94 Oxygen Delivery Method Oxygen Flow Rate 05/26/23 19:32 05/26/23 19:35 05/26/23 19:35 Temperature Pulse Rate 93 H Respiratory Rate 16 Blood Pressure 178/113 H 170/79 H Pulse Oximetry 92 Oxygen Delivery Method Oxygen Flow Rate 05/26/23 19:45 05/26/23 19:45 05/26/23 20:00 Temperature Pulse Rate 97 H 111 H Respiratory Rate 23 20 Blood Pressure 186/83 H Pulse Oximetry 94 92 Oxygen Delivery Method Oxygen Flow Rate 05/26/23 20:16 05/26/23 20:16 05/26/23 20:30 Temperature Pulse Rate 116 H 118 H Respiratory Rate Blood Pressure 184/82 H Pulse Oximetry 95 94 Oxygen Delivery Method Oxygen Flow Rate 05/26/23 20:41 05/26/23 20:41 05/26/23 20:45 Temperature Pulse Rate 113 H Respiratory Rate Blood Pressure 133/88 144/88 H Pulse Oximetry 95 Oxygen Delivery Method Oxygen Flow Rate 05/26/23 20:45 05/26/23 21:00 05/26/23 21:00 Temperature Pulse Rate 120 H 105 H Respiratory Rate 22 Blood Pressure 183/82 H Pulse Oximetry 96 93 Oxygen Delivery Method Oxygen Flow Rate 05/26/23 21:15 05/26/23 21:15 05/26/23 21:29 Temperature Pulse Rate 104 H 92 H Respiratory Rate Blood Pressure 185/81 H Pulse Oximetry 94 97 Oxygen Delivery Method Oxygen Flow Rate 05/26/23 21:30 05/26/23 21:30 05/26/23 21:45 Temperature Pulse Rate 94 H 88 Respiratory Rate Blood Pressure 180/85 H Pulse Oximetry 96 95 Oxygen Delivery Method Oxygen Flow Rate 05/26/23 21:45 05/26/23 22:00 05/26/23 22:00 Temperature Pulse Rate 86 Respiratory Rate Blood Pressure 167/77 H 166/77 H Pulse Oximetry 95 Oxygen Delivery Method Oxygen Flow Rate 05/26/23 22:15 05/26/23 22:15 05/26/23 22:30 Temperature Pulse Rate 89 88 Respiratory Rate 16 Blood Pressure 159/76 H Pulse Oximetry 95 94 Oxygen Delivery Method Oxygen Flow Rate 05/26/23 22:30 05/26/23 23:00 05/26/23 23:00 Temperature 101.4 F H Pulse Rate 97 H Respiratory Rate 28 H Blood Pressure 149/69 H 152/67 H Pulse Oximetry 97 97 Oxygen Delivery Method Room Air Oxygen Flow Rate 0 0 Oxygen Delivery Method Room Air Oxygen Flow Rate 0 Const General: disheveled, frail appearing and lethargic Resp Auscultation: clear to auscultation bilaterally Cardio Rate: regular rate Rhythm: regular rhythm Neuro General: patient obtunded and unable to assess gait Comatose Patient: response to noxious stimuli present and other Objective Labs 05/26/23 17:53 05/26/23 17:53 Labs: Laboratory Results - last 24 hr 05/26/23 05/26/23 05/26/23 17:53 20:38 20:45 WBC 6.9 RBC 4.15 Hgb 11.7 L Hct 35.5 L MCV 85.6 MCH 28.2 MCHC 33.0 RDW 16.1 H Plt Count 388 Neut % (Auto) 53.3 Lymph % (Auto) 22.9 L [place] % (Auto) 7.0 Eos % (Auto) 15.4 H Baso % (Auto) 1.4 Neut # (Auto) 3700 Lymph # (Auto) 1600 [place] # (Auto) 500 Eos # (Auto) 1100 H Baso # (Auto) 100 PT 12.0 INR 1.0 APTT 22 L Sodium 135 L Potassium 3.2 L Chloride 97 L Carbon Dioxide 31 BUN 8 Creatinine 0.44 L Estimated GFR > 60 BUN/Creatinine Ratio 18.2 Glucose 119 H Calcium 9.4 Total Bilirubin 0.8 AST 35 ALT 16 Alkaline Phosphatase 80 Total Creatine Kinase 67 Troponin I < 0.012 Total Protein 8.0 Albumin 3.6 Globulin 4.4 H Albumin/Globulin Ratio 0.8 L U Opiates 300ng/mL cut Positive H Ur Oxycodone Screen Negative Urine Methadone Screen Negative Ur Barbiturates Screen Negative U Tricyclic Antidepress Negative Ur Phencyclidine Scrn Negative Ur Amphetamines Screen Negative U Methamphetamines Scrn Negative Ur MDMA Scrn (Ecstasy) Negative U Benzodiazepines Scrn Negative Urine Cocaine Screen Negative U Marijuana (THC) Screen Negative Ethyl Alcohol < 10 SARS-CoV-2 (PCR) Negative Assessment & Plan Assessment and plan (1) Cerebrovascular accident: Qualifiers: CVA mechanism: unspecified Qualified Code(s): I63.9 - Cerebral infarction, unspecified Status: Acute (2) Chronic pain syndrome: Status: Acute (3) Hypertension: Status: Acute Plan Probable CVA based upon clinical findings, Discussed with the ER provider who noted that the pt had a right side neglect ( she was unresponsive for my exam). CThead, CTA of head and neck reviewed and there is no acute findings only atrophy. MRI of the head ordered for the morning, PT/OT/ speech consulted, bedside swallow eval done by nursing was failed. Poor prognosis, will need to address code status and goal of care with . It is possible that she accidentally took too many of her morphine pills at home but unlikely.
--- NOTE | 2023-05-27 00:09 | PC.ADMIT ---
Addendum entered by Corinne Montano R.N. 05/27/23 03:57: Slept for approximately 1 hour following dose of Haldol but is once more exhibiting very restless behavior. Continuing to throw legs out end of bed and has now positioned herself with head against upper right siderail so seizure pad placed to prevent further injury. Noted to have new bruise on right upper back and stage 1 pressure injury mid spine presumed to be from her thrashing around in bed. Has removed telemetry and keeps pulling at external catheter tubing. Is moving all extremites non purposefully and will still not follow directions but is saying more words than previously. Noted to have gross motor movement in right UE but not fine motor ability. VSS with temp of 98.2. Dr. Giordano informed of patient behavior and new order received. Continues to have 1:1 staff for safety. Addendum entered by Corinne Montano R.N. 05/27/23 01:12: Now seeming to wake up more and responds with sounds and occasional response to yes/no questions. Is attempting to sit up in bed and throwing legs off side of bed. Seeming to move all extremities. Needing 1:1 observation/intervention for safety. Medicated with Haldol but continuing to need 1:1 as still making attempts to get out of bed, has removed her gown and trying to remove her brief. Needing close observation to prevent her from removing tele and IV's. Temp after giving tylenol suppository was 100.8. Original Note: Patient admitted to room 219 at 2320 via stretcher and transferred into bed with slider board. Patient will resist when extremities moved but bilaterally weakness noted. NIH not complete related to lack of responsiveness by patient. Breath sounds CTA but diminished throughout; RA sat 97%. HRR and telemetry reading was SR w/1st degree AVB. BT present and abdomen is soft. Was incontinent through pad and bedding when brought up by ER staff; external catheter placed. Has bruising on bilateral arms and very dry, flaky skin all over body. Heels are reddened so feet are being floated and staff with reposition her q2h. Bilateral calf SCD's put on. FLACC score is 2. Temp elevated at 101.4 axillary and made aware and order received for [place] tylenol. [email or web address] [facility] Admission Note: The patient,Sue Coy,73 y/o, was given written information regarding hospital policies, unit procedures and contact persons. Patient's smoking status: Never smoker. Vital Signs - 8 hr 05/26/23 17:50 05/26/23 17:51 05/26/23 18:50 Temperature 98.9 F Pulse Rate 92 H 88 Respiratory Rate 18 Blood Pressure 174/92 H 172/79 H Pulse Oximetry 95 94 Oxygen Delivery Method Room Air Oxygen Flow Rate 05/26/23 18:50 05/26/23 19:00 05/26/23 19:32 Temperature Pulse Rate 79 85 95 H Respiratory Rate 20 20 Blood Pressure Pulse Oximetry 96 97 94 Oxygen Delivery Method Oxygen Flow Rate 05/26/23 19:32 05/26/23 19:35 05/26/23 19:35 Temperature Pulse Rate 93 H Respiratory Rate 16 Blood Pressure 178/113 H 170/79 H Pulse Oximetry 92 Oxygen Delivery Method Oxygen Flow Rate 05/26/23 19:45 05/26/23 19:45 05/26/23 20:00 Temperature Pulse Rate 97 H 111 H Respiratory Rate 23 20 Blood Pressure 186/83 H Pulse Oximetry 94 92 Oxygen Delivery Method Oxygen Flow Rate 05/26/23 20:16 05/26/23 20:16 05/26/23 20:30 Temperature Pulse Rate 116 H 118 H Respiratory Rate Blood Pressure 184/82 H Pulse Oximetry 95 94 Oxygen Delivery Method Oxygen Flow Rate 05/26/23 20:41 05/26/23 20:41 05/26/23 20:45 Temperature Pulse Rate 113 H Respiratory Rate Blood Pressure 133/88 144/88 H Pulse Oximetry 95 Oxygen Delivery Method Oxygen Flow Rate 05/26/23 20:45 05/26/23 21:00 05/26/23 21:00 Temperature Pulse Rate 120 H 105 H Respiratory Rate 22 Blood Pressure 183/82 H Pulse Oximetry 96 93 Oxygen Delivery Method Oxygen Flow Rate 05/26/23 21:15 05/26/23 21:15 05/26/23 21:29 Temperature Pulse Rate 104 H 92 H Respiratory Rate Blood Pressure 185/81 H Pulse Oximetry 94 97 Oxygen Delivery Method Oxygen Flow Rate 05/26/23 21:30 05/26/23 21:30 05/26/23 21:45 Temperature Pulse Rate 94 H 88 Respiratory Rate Blood Pressure 180/85 H Pulse Oximetry 96 95 Oxygen Delivery Method Oxygen Flow Rate 05/26/23 21:45 05/26/23 22:00 05/26/23 22:00 Temperature Pulse Rate 86 Respiratory Rate Blood Pressure 167/77 H 166/77 H Pulse Oximetry 95 Oxygen Delivery Method Oxygen Flow Rate 05/26/23 22:15 05/26/23 22:15 05/26/23 22:30 Temperature Pulse Rate 89 88 Respiratory Rate 16 Blood Pressure 159/76 H Pulse Oximetry 95 94 Oxygen Delivery Method Oxygen Flow Rate 05/26/23 22:30 05/26/23 23:00 05/26/23 23:00 Temperature 101.4 F H Pulse Rate 97 H Respiratory Rate 28 H Blood Pressure 149/69 H 152/67 H Pulse Oximetry 97 97 Oxygen Delivery Method Room Air Oxygen Flow Rate 0 0 05/27/23 00:06 Temperature Pulse Rate Respiratory Rate Blood Pressure Pulse Oximetry Oxygen Delivery Method Room Air Oxygen Flow Rate
[2023-05-27] MEDS: ACETAMINOPHEN 650 MG SUPP PR ×2 (00:20→22:23)
[2023-05-27] MEDS: HALOPERIDOL 5 MG/ML VIAL IV ×2 (00:52→08:02)
[2023-05-27] MEDS: LORazepam 2 MG/ML INJ 1 MG IV ×2 (04:14→18:08)
[2023-05-27] MEDS: cefTRIAXone 1,000 MG in SODIUM CHLORIDE 0.9% 100 ML 200 MG IV (08:03)
[2023-05-27] MEDS: ENOXAPARIN 40 MG/0.4 ML SYRINGE SUBCUT (08:15)
[2023-05-27] MEDS: SODIUM CHLORIDE 0.9% FLUSH 10 ML IV ×2 (08:16→21:58)
--- NOTE | 2023-05-27 08:27 | DI.ECHO.S_ITS ---
[facility] +---------+ : : [address] : : : : [id number] : : : : Phone: [phone] Echocardiogram Report + + :Name: DELMI RENEE Study Date: 05/28/2023 Height: 65 in : :[facility] ReadingLocation: Weight: 121 lb : : Gender: Female BSA: 1.6 m2 : :: 1950 Age: 73 yrs BP: 156/79 mmHg: :Reason For Study: V-TACH/ Possible CVA : :Ordering Physician: GUANAKITO, : :FRANCISCA Performed By: Kiana Ellison : :Referring: FRANCISCA CALABRESE : + + Interpretation Summary The ejection fraction is estimated to be 55-60%. Diastolic parameters suggest probable normal left ventricular diastolic function and normal filling pressures. The right ventricle is normal in size and function. No significant valvular abnormalities. Pulmonary artery pressures cannot be estimated because of the lack of a measurable TR jet velocity but the IVC suggests a CVP of around 3 mmHg. Procedure: A two-dimensional transthoracic echocardiogram with color flow and Doppler was performed. The study quality was technically adequate. Comparison is made with the echocardiogram of 07/20/2022. The patient was in normal sinus rhythm during the exam. The patient had occasional PVCs during the exam. Left Ventricle: The left ventricle is normal in size. The ejection fraction is estimated to be 55-60%. Diastolic parameters suggest probable normal left ventricular diastolic function and normal filling pressures. Right Ventricle: The right ventricle is normal in size and function. Atria: The left atrial size is normal. Right atrial size is normal. There is no Doppler evidence for an interatrial shunt. Mitral Valve: The mitral valve is normal. There is mild mitral annular calcification. There is no mitral valve stenosis. There is trace mitral regurgitation. Aortic Valve: The aortic valve is trileaflet. The aortic valve opens well. The aortic valve is slightly calcified. There is no aortic valve stenosis. No aortic regurgitation is present. Tricuspid Valve: The tricuspid valve is normal. There is no tricuspid stenosis. There is trace tricuspid regurgitation. Pulmonary artery pressures cannot be estimated because of the lack of a measurable TR jet velocity but the IVC suggests a CVP of around 3 mmHg. Pulmonic Valve: The pulmonic valve leaflets are thin and pliable; valve motion is normal. There is no pulmonic valvular stenosis. There is trace pulmonic regurgitation. Great Vessels: The aortic root is normal size. The ascending aorta is at the upper limits of normal in size. The pulmonary artery is normal size. The IVC is of normal diameter and collapses greater than 50% with a sniff. This suggests a low right atrial pressure of 3 mm Hg. Pericardium/ Pleura There is no pericardial effusion. There is no pleural effusion. MMode/2D Measurements & Calculations LVIDd: 3.5 cm LVOT diam: 1.9 cm LVIDs: 3.0 cm Ao root diam: 3.0 cm FS: 14.3 % asc Aorta Diam: 3.4 cm IVSd: 1.5 cm LVPWd: 1.1 cm LV kelley. diameter/BSA (cm/m^2): 2.2 LV sys. diameter/BSA (cm/m^2): 1.9 LA A2 area: 14.9 cm2 RA long axis: 4.6 cm LA A4 area: 13.2 cm2 RA area: 10.3 cm2 LA length (vol): 4.9 cm RA vol: 19.8 ml LA vol: 33.9 ml RA : 12.4 ml/m2 LA vol index: 21.2 ml/m2 RVD1 (basal): 3.4 cm LVLs ap4: 5.5 cm LVLd ap2: 6.9 cm TAPSE_phl: 1.8 cm LVLs ap2: 5.6 cm Doppler Measurements & Calculations Ao V2 max: 147.8 cm/sec LVOT Max James: 92.4 cm/sec Ao V2 mean: 99.6 cm/sec LV V1 max P.4 mmHg Ao max P.0 mmHg LV V1 VTI: 16.8 cm Ao mean P.0 mmHg BRADLEY(I,D): 1.8 cm2 Ao V2 VTI: 26.4 cm BRADLEY(V,D): 1.8 cm2 sev ratio: 0.63 BRADLEY indexed to BSA (cm^2/m^2): 1.1 MV E max james: 57.4 cm/sec TR max james: 222.0 cm/sec MV A max james: 105.0 cm/sec TR max P.7 mmHg MV E/A: 0.55 PA V2 max: 79.3 cm/sec Med Peak E' James: 3.4 cm/sec PA V2 mean: 54.3 cm/sec E/E' med: 16.8 PA mean P.0 mmHg Lat Peak E' James: 7.9 cm/sec PA pr(Accel): 47.0 mmHg E/E' lat: 7.3 E/e' average: 12.0 MV dec time: 0.24 sec SV(LVOT): 47.5 ml AV VR_phl: 0.62 BRADLEY(VTI)/BSA_phl: 1.1 Reading Physician:04:50 PM
[2023-05-27 08:47] LABS: Add Manual Diff / Slide Review NO; Basophils Absolute Auto 0 /uL (0-100); Basophils Percent Auto 0.5 % (0-2); Eosinophils Absolute Auto 0 /uL (0-450); Eosinophils Percent Auto 0.3 % (2-4); Hematocrit 32.6 % (36-46); Hemoglobin 10.8 g/dL (12.0-16.0); Lymphocytes Absolute Auto 900 /uL (1100-4500); Lymphocytes Percent Auto 10.1 % (25-40); Mean Corpuscular HGB Conc 33.1 % (30-36); Mean Corpuscular Hemoglobin 28.4 PG (26-34); Mean Corpuscular Volume 85.9 fL (80-100); Monocytes Absolute Auto 700 /uL (0-900); Monocytes Percent Auto 7.6 % (3-14); Neutrophils Absolute Auto 7500 /uL (1500-7000); Neutrophils Percent Auto 81.5 % (50-75); Platelet Count 318 X10^3/uL (150-400); Red Blood Cell Count 3.79 X10^6/uL (4.0-5.2); Red Cell Distribution Width 15.9 % (11.6-14.8); White Blood Cell Count 9.2 X10^3/uL (4.5-11.0)
[2023-05-27] MEDS: MAGNESIUM SULFATE 2 GM/50 ML PIGGYBACK IV (08:51)
[2023-05-27 09:00] LABS: Cholesterol 116 mg/dL (140-199); HDL Cholesterol 44 mg/dL (40-60); LDL Cholesterol Calculated 56 mg/dL (<100); Triglycerides 80 mg/dL (35-150)
[2023-05-27 09:01] LABS: BUN Creatinine Ratio 9.8 (6-22); Blood Urea Nitrogen 4 mg/dL (7-17); Calcium 8.8 mg/dL (8.4-10.2); Carbon Dioxide 28 mmol/L (22-32); Chloride 97 mmol/L (98-107); Estimated Glomerular Filt Rate > 60 mL/min (>60); Glucose 106 mg/dL (80-110); Potassium 3.8 mmol/L (3.4-5.1); Sodium 132 mmol/L (137-145)
[2023-05-27 09:03] LABS: Hemoglobin A1C% w Est Avg Glu 5.8 % (4.0-6.0)
[2023-05-27 09:10] LABS: HEMOLYSIS 55 (0-50)
[2023-05-27] MEDS: POTASSIUM CHLORIDE IN WATER 10 MEQ/100 ML PIGGYBACK 100 MEQ IV ×4 (09:13→12:41)
[2023-05-27] MEDS: AZITHROMYCIN 500 MG in DEXTROSE 5% IN WATER 250 ML 250 MG IV (09:36)
[2023-05-27 10:50] LABS: Appearance Urine UA CLEAR; Bilirubin Urine UA NEGATIVE (NEGATIVE); Color Urine UA YELLOW; Glucose Urine UA NEGATIVE (Negative); Ketones Urine UA 1+ (NEGATIVE); Leukocyte Esterase Urine UA NEGATIVE (NEGATIVE); Nitrite Urine UA NEGATIVE (Negative); Occult Blood Urine UA TRACE-INTACT (Negative); Protein Urine UA NEGATIVE (Negative); Specific Gravity Urine UA 1.015 (1.000-1.035)
[2023-05-27 10:59] LABS: Bacteria Urine Occasional (0-1); Culture Indicated Urine Cult Not Indicated; RBC Urine 0-1/HPF (0-5/HPF); Squamous Epithelial Cell Urine 0-1 /HPF (0-5/HPF); WBC Urine 0-1/HPF (0-5/HPF)
--- NOTE | 2023-05-27 12:02 | PT-IP ANOTE ---
Per hospitalist during AM rounds, pt is not appropriate for PT at this time due to going on to hospice care. PT will discharge PT orders.
--- NOTE | 2023-05-27 16:21 | CM.DANOTE ---
DCP Assessment Note Patient is a 73yo F here under the hospitalist care following potential stroke. Patient is chronically debilitated and was having trouble speaking/right side weakness. PCP Dr. Vinay Santiago and self pay HEEL PACKER reviewed EMR. Per provider in rounds, patient may have a potential unknown cancer diagnosis due to rapid weight loss since September. Pending brain MRI. Patient having runs of vtach and is rigid. Provider reported appropriate to hold PT eval at this time. Per RN, patient declining throughout day. DCP pending comfort care/status conversation. HEEL PACKER lvm with spouse/unable to meet with today due to triaging needs. Plan: pending goals of care conversation with spouse. Likely either SNF or hospice house private pay, home with hospice, or unexpected rapid recovery. CM team will continue to follow closely. DAVID Garcia Discharge Planning/Care Management Advanced directive, confirm from FAMILY Start: 05/27/23 00:04 Freq: Q24H Status: Active Protocol: Document 05/27/23 07:00 LDV (Rec: 05/27/23 10:45 LDV [id number]) Advance Directive, confirm on record Time 09:00 Person contacted Copy received No CM Discharge Assessment Start: 05/27/23 16:18 Freq: Status: Active Protocol: Document 05/27/23 16:18 SL (Rec: 05/27/23 16:21 SL [id number]) Discharge Planning Assessment Assigned Technical Fellow DAVID Ponce DPOA/Assigned Designee Name Todd Coy (spouse) Contact Information [phone] Advance Directives? Yes Advance Directives on File No: unknown, pt currently unable to respond History Provided By Medical Record Household Members spouse Independent with ADL's No: per H&P, chonically debhilitated Is patient alert and oriented? No: patient unresponsive Barriers to Discharge Yes Comment pending status/comfort care conversation between provider and spouse Transportation Arrangement pending patient progression. Whiteboard Updated in Patient Room with No name and ext. # of Technical Fellow Review Status In Process Next Review Type Continued Stay Review
--- NOTE | 2023-05-27 17:17 | P.PN_ITS ---
Subjective Subjective Interval history: 73-year-old female with hyperlipidemia, hypertension, fibromyalgia, chronic pain syndrome who was brought in last evening due to acute neurologic changes. Per report she began having difficulty speaking around noon yesterday which progressed through the afternoon and she had become unresponsive. She was brought to the emergency department for further evaluation. It was noted she had some right-sided neglect. She was admitted for presumed stroke. CT did not show any acute changes. She was admitted for neuro checks and brain MRI this morning. Due to agitation, she was given Haldol overnight, receiving 1 dose of 2 mg in the emergency department, 5 mg at around 1:00 a.m. and another 5 mg at 8:00 a.m.. I called the , Jose Alfredo, and obtained additional history. He notes she has been losing weight for several months. She reportedly saw her physician approximately 1 month ago. The patient was told her physician was suspicious that she has either brain cancer or some other cancer. He believes she may have had imaging done but is uncertain. He states had she had imaging performed it would have been done either at [facility] or [facility]. However neither hospital has record of imaging since September of this year. At that time there was a lung nodule noted with recommendation for 6-12 month follow-up per Fleischner criteria. He states 1-2 weeks ago, she followed up with her primary care provider. It was noted she would lost more weight. He states she had some blood work done. She was due to follow-up with her primary care provider again on May 31. He reports yesterday she was eating mac and cheese and was having difficulty holding the fork. He states this was around noon. At that time her speech was okay. Around 4:00 p.m., he notes she started speaking but it was nonsensical/gibberish. She then became increasingly anxious and was trying to get up to go to the bathroom. He states she got worse on route to the emergency department and when they got to the emergency department, she had difficulty getting out of the car. He notes she did develop bruising to her right arm when staff was assisting her out of the car. He notes she is a history of easy bruising. He states when he left last night she was notably weak. He notes with this possibility of malignancy they have had multiple conversations recently about end of life. He feels comfortable that she would not want to reside in a nursing facility. He also has affirmed that she would not want resuscitation. This morning, she was noticeably rigid and more tremulous. Nonverbal, non communicative. She also developed runs of ventricular tachycardia that were not sustained. Exam Vital Signs (past 8 hours): - 05/27/23 12:00 Temperature 100.1 F H Pulse Rate 75 Respiratory Rate 16 Blood Pressure 121/60 Pulse Oximetry 94 Oxygen Flow Rate 0 Oxygen Delivery Method Room Air Oxygen Flow Rate 0 Narrative Exam Narrative: GEN: Obtunded elderly female, ill-appearing HEENT:NC, Face symmetric CHEST: Respiratory excursions symmetric, CTAB CV: RRR, no M/R/G ABD: Soft, NT/ND, BT present in all 4 quadrants, no organomegaly or masses EXTR: warm, well perfused, no C/C/E, bruising noted to the right arm and shoulder area SKIN: warm and dry, no rash NEURO: Patient is unresponsive, non communicative, she does withdraw to pain to her feet but not to her hands, she is quite rigid with tremors noted to all extremities Objective Labs 05/27/23 08:35 05/27/23 08:35 Labs: Laboratory Results - last 24 hr 05/26/23 05/26/23 05/26/23 17:53 20:38 20:45 WBC 6.9 RBC 4.15 Hgb 11.7 L Hct 35.5 L MCV 85.6 MCH 28.2 MCHC 33.0 RDW 16.1 H Plt Count 388 Neut % (Auto) 53.3 Lymph % (Auto) 22.9 L [place] % (Auto) 7.0 Eos % (Auto) 15.4 H Baso % (Auto) 1.4 Neut # (Auto) 3700 Lymph # (Auto) 1600 [place] # (Auto) 500 Eos # (Auto) 1100 H Baso # (Auto) 100 PT 12.0 INR 1.0 APTT 22 L Sodium 135 L Potassium 3.2 L Chloride 97 L Carbon Dioxide 31 BUN 8 Creatinine 0.44 L Estimated GFR > 60 BUN/Creatinine Ratio 18.2 Glucose 119 H Hemoglobin A1c Calcium 9.4 Total Bilirubin 0.8 AST 35 ALT 16 Alkaline Phosphatase 80 Total Creatine Kinase 67 Troponin I < 0.012 Total Protein 8.0 Albumin 3.6 Globulin 4.4 H Albumin/Globulin Ratio 0.8 L Triglycerides Cholesterol LDL Cholesterol, Calc HDL Cholesterol Urine Color Urine Appearance Urine pH Ur Specific [place] Urine Protein Urine Glucose (UA) Urine Ketones Urine Occult Blood Urine Nitrate Urine Bilirubin Urine Urobilinogen Ur Leukocyte Esterase Urine RBC Urine WBC Ur Squamous Epith Cells Urine Bacteria Ur Culture Indicated? U Opiates 300ng/mL cut Positive H Ur Oxycodone Screen Negative Urine Methadone Screen Negative Ur Barbiturates Screen Negative U Tricyclic Antidepress Negative Ur Phencyclidine Scrn Negative Ur Amphetamines Screen Negative U Methamphetamines Scrn Negative Ur MDMA Scrn (Ecstasy) Negative U Benzodiazepines Scrn Negative Urine Cocaine Screen Negative U Marijuana (THC) Screen Negative Ethyl Alcohol < 10 SARS-CoV-2 (PCR) Negative 05/27/23 05/27/23 08:35 10:35 WBC 9.2 RBC 3.79 L Hgb 10.8 L Hct 32.6 L MCV 85.9 MCH 28.4 MCHC 33.1 RDW 15.9 H Plt Count 318 Neut % (Auto) 81.5 H D Lymph % (Auto) 10.1 L [place] % (Auto) 7.6 Eos % (Auto) 0.3 L Baso % (Auto) 0.5 Neut # (Auto) 7500 H Lymph # (Auto) 900 L [place] # (Auto) 700 Eos # (Auto) 0 Baso # (Auto) 0 PT INR APTT Sodium 132 L Potassium 3.8 Chloride 97 L Carbon Dioxide 28 BUN 4 L Creatinine 0.41 L Estimated GFR > 60 BUN/Creatinine Ratio 9.8 Glucose 106 Hemoglobin A1c 5.8 Calcium 8.8 Total Bilirubin AST ALT Alkaline Phosphatase Total Creatine Kinase Troponin I Total Protein Albumin Globulin Albumin/Globulin Ratio Triglycerides 80 Cholesterol 116 L LDL Cholesterol, Calc 56 HDL Cholesterol 44 Urine Color Yellow Urine Appearance Clear Urine pH 8.0 Ur Specific [place] 1.015 Urine Protein Negative Urine Glucose (UA) Negative Urine Ketones 1+ H Urine Occult Blood Trace-intact Urine Nitrate Negative Urine Bilirubin Negative Urine Urobilinogen 2.0 H Ur Leukocyte Esterase Negative Urine RBC 0-1/hpf Urine WBC 0-1/hpf Ur Squamous Epith Cells 0-1 /hpf Urine Bacteria Occasional (0-1) Ur Culture Indicated? Cult not indicated U Opiates 300ng/mL cut Ur Oxycodone Screen Urine Methadone Screen Ur Barbiturates Screen U Tricyclic Antidepress Ur Phencyclidine Scrn Ur Amphetamines Screen U Methamphetamines Scrn Ur MDMA Scrn (Ecstasy) U Benzodiazepines Scrn Urine Cocaine Screen U Marijuana (THC) Screen Ethyl Alcohol SARS-CoV-2 (PCR) [facility] Medical History (Updated 05/27/23 @ 00:06 by Patrice Giordano MD) Hyperlipidemia Chronic pain syndrome Hypertension Autoimmune disorder Fibromyalgia Social History marital status: household members: spouse lives independently: Yes Smoking Status: Never smoker Assessment & Plan Assessment & Plan narrative: 1. Possible stroke Has been raises the possibility she was told she had brain malignancy. I am unable to find any imaging to verify that. Will attempt to get the MRI done and determine if there is a clear etiology for her altered state and acute symptoms. Additional possibilities would be seizure related to stroke or tumor. 2. Rigidity/tremors This was not present per report on admission. It may be secondary to Haldol. This has been discontinued. She does have lorazepam available as needed. 3. Weight loss, severe protein calorie malnutrition Patient has lost nearly 60 lb since September of this year. She very likely does have underlying malignancy. It is unclear to me whether that had as of yet been identified. 4. Chronic pain syndrome She is typically on oral morphine at baseline. Given her encephalopathy and rigidity, I have elected to hold her morphine pending further imaging and hopefully diagnosis. Will monitor for withdrawal symptoms. 5. Nonsustained ventricular tachycardia Patient had borderline low magnesium levels and low potassium. Both were repleted this morning. No significant recurrence. Code status DNR/DNI after discussion with , he confirmed this would be consistent with her wishes Prophylaxis presently receiving Lovenox. Disposition Acute care.
[2023-05-27] MEDS: SODIUM CHLORIDE 0.9% 1,000 ML 100 ML IV (21:57)
--- NOTE | 2023-05-27 23:51 | PC.NURSE ---
Addendum entered by Sonia Radford R.N. 05/28/23 04:25: Patient awoke this morning @ 0415 and was able to make consistent eye contact and nod yes/no, however had difficulty getting words out. Reoriented patient to place & situation. Asked if patient was comfortable, patient replied yes. Patient is still lethargic and appears to be drifting in and out of sleep. Original Note: epic specialist: Patient arousable to voice and touch, opens eyes and makes eye contact briefly, mostly resting in bed w/ eyes closed. Patient unable to give verbal response, slightly nodded once when orienting patient to place & situation. Patient unable to follow commands, appears lethargic. Occasionally turns self in bed, spontaneously moves extremities. VSS, 94% on RA, elevated temp (100.1 axillary) noted @ 2200. Tylenol suppository given, temp down to 99.2. Patient having frequent loose stools, brief changes and skin care performed. Purewick in place. NS infusing as ordered. Fall precautions in place.
[2023-05-28] VITALS (7 sets, daily range): BP systolic 146–160; BP diastolic 79–84; PULSE 68–88; RESP 17–20; TEMP 36.5–36.8; O2SAT 96–98
[2023-05-28] MEDS: SODIUM CHLORIDE 0.9% 1,000 ML 100 ML IV (06:42)
[2023-05-28] MEDS: cefTRIAXone 1,000 MG in SODIUM CHLORIDE 0.9% 100 ML 200 MG IV (06:46)
--- NOTE | 2023-05-28 07:45 | DI.MRI.S_ITS ---
PROCEDURE: MR HEAD/BRAIN WO CON INDICATIONS: right sided neglect TECHNIQUE: Non-contrast axial T1 spin echo, axial T2 fast spin echo, sagittal and axial FLAIR, coronal T2 fast spin echo, axial gradient echo, axial diffusion and ADC through the brain. COMPARISON: CT head, 05/27/2023 and 05/26/2023. FINDINGS: Image quality: Severe motion artifacts. Incomplete exam. CSF spaces: Ventricles appear prominent but symmetric in size and shape. Basal cisterns are patent. No definitive extra-axial fluid collections. Brain: Not sufficiently evaluated. Skull and face: Not sufficiently evaluated. Sinuses: Not sufficiently evaluated. IMPRESSION: Nondiagnostic examination due to significant motion artifacts and incomplete exam. Dictated by: Stacy Cisneros M.D. on 05/28/2023 at 8:27 Approved by: Stacy Cisneros M.D. on 05/28/2023 at 8:29
[2023-05-28] MEDS: AZITHROMYCIN 500 MG in DEXTROSE 5% IN WATER 250 ML 250 MG IV (10:19)
[2023-05-28] MEDS: SODIUM CHLORIDE 0.9% FLUSH 10 ML IV ×2 (10:20→21:47)
[2023-05-28] MEDS: ENOXAPARIN 40 MG/0.4 ML SYRINGE SUBCUT (10:20)
--- NOTE | 2023-05-28 12:26 | ST.IPCSEOM ---
Visit Care Team Role Provider Type Jigar Mclean MD Primary Care Provider Non-Staff Specialty: Internal Medicine Address: [address] [place], [address] Email: Tanika Matson MD Emergency Provider Physician Referring Provider Specialty: Emergency Medicine Address: [address] [place] [address], [id number] Email: Patrice Giordano MD Admit Provider Physician Attending Provider Specialty: Internal Medicine Address: [address] [place] [address], [id number] Fax: Email: [email or web address] [email or web address] Chronic pain syndrome (05/26/23) Essential (primary) hypertension (05/26/23) Cerebral infarction, unspecified (05/26/23) Past Medical History (Last Updated 05/27/23 @ 00:06 by Patrice Giordano MD) Autoimmune disorder (Medical) Chronic pain syndrome (Medical) Fibromyalgia (Medical) Hyperlipidemia (Medical) Hypertension (Medical) Speech-Language Pathology Swallow Evaluation [employer] Clinical Swallow Evaluation Start: 05/28/23 11:56 Freq: Status: Active Protocol: Document 05/28/23 11:56 KANIKA (Rec: 05/28/23 12:26 MA [id number]) Clinical Swallow Evaluation Session Time Visit Start Time 08:40 Visit Stop Time 09:25 Total Visit Minutes 45 Visit Information Visit Number [address] Giordano Reason for Referral Potential stroke Setting Assessment Location Acute Care Visit Type Note Type Initial evaluation Next Note Type Next Note Type Treatment Note Patient Information History Per H&P: The pt is a 73 chronically debilitated female who was noted to have difficulty speaking around noon today which progressed to around 1600 today she was essentially non-responsive. EMS was called and she was brought to the ER for evaluation. During my exam on the medical unit she was unresponsive and not following commands. She is on chronic narcotics for chronic back pain and has a hx of compression fractures in the past. No other problems are known about her, left from the ER. PMHx significant for: Hyperlipidemia Chronic pain syndrome Hypertension Autoimmune disorder Fibromyalgia Pt referred for ST evaluation d/t Pt admitted for potential stroke and to determine if swallow safe. Subjective Observations Pt seen for 1:1 dysphagia evaluation. Pt laying in bed, however awake and alert. Pt Ox0 at beginning of session, however stated first name by end of session by saying, Jemal , however unable to state last name. Pt smiling and laughing when asked questions with difficulties following directions. ST positioned Pt upright utilizing bed controls for PO trials. Nursing reports Pt with increased alertness this date compared to yesterday. Reported by Patient/Caregiver Comment Per H&P, Pt reports Pt with weight loss past few months. Results Baseline diet and feeding method unknown at this time d/ t Pt unable to answer and Pt not present during evaluation. The IDDSI Framework Protocol: IDDSI.1 Objective Assessment Mental Status Alert,Cooperative,Confused Oral Integrity Oral residue Dentition Within normal limits Lip Function Moderate impairment Observation of Lips at Rest Symmetrical Comment Informal oral motor exam completed d/t Pt demonstrating difficulties following directions secondary to cognitive deficits. ST provided oral care utilizing a toothette. Pt with natural dentition, fair condition, mild oral residue. Pt with weak/inconsistent lip seal around spoon during PO trials. Pt with overall generalized lingual and labial weakness and reduced ROM. Food and Liquid Trials Position During Assessment Upright (90 degrees) Liquids Trialed Ice chips,Thin (IDDSI 0), Mildly Thick (IDDSI 2) Solid Trials Purred (IDDSI 4) Administration Type Tea spoon,Cup single sip Oral Impairment Mildly impaired Oral Phase Comments ST attempted initial PO trial of ice chip, however Pt expelled into hand. Pt required feeding assistance of applesauce/pudding, and thin/ nectar via tsp, however able to drink from cup when handed cup. Pt with slight hand tremor, however able to drink from cup effectively. Pt consumed about 3 oz of applesauce and pudding, 2 oz of thin water via tsp, nectar thick via cup/tsp about 8 oz. For water via tsp, Pt demonstrated bolus holding, prolonged ap transport, weak lip seal around spoon, suspected loss of bolus resulting in premature spillage. For applesauce/ pudding Pt demonstrated no lip seal around spoon provided cues resulting in ST scraping spoon against hard palate to trigger lip seal, disorganized bolus formation, prolonged ap transport, occasional bolus holding, good oral acceptance and containment. For nectar thick liquids via tsp Pt with weak lip seal, prolonged ap transport. Calio thick via cup Pt with single cup sips, adequate rate, extended ap transport. Pharyngeal Impairment Moderately impaired Pharyngeal Phase Comments Pt demonstrated suspected delay in swallow with all PO trials and audible swallow reflex. For thin liquids via tsp Pt exhibited reduced laryngeal elevation, multiple swallows, consecutive swallows , 1x throat clear. For nectar thick liquids via tsp and cup Pt demonstrated multiple swallows with 1 sip, reduced laryngeal elevation, no overt s/s of aspiration. Fatigue/Endurance Mild fatigue The IDDSI Framework Protocol: IDDSI.1 Findings Swallowing Function Oropharyngeal phase dysphagia Severity of Swallow Impairment Moderately impaired Contributing Factors to Swallow Difficulty following Impairment directions,Reduced oral strength/coordination/ sensation Based on Cognitive status,Comorbidities Comment Pt presents with mild-mod oral phase dysphagia and suspected moderate pharyngeal phase dysphagia. Impact on Safety and Functioning Risk for aspiration,Risk for inadequate nutrition/hydration Recommendations Instrumental Assessment No Swallowing Treatment Yes Frequency Daily while Pt inpatient Duration Until discharge Recommended Solids Pureed (IDDSI 4) Recommended Liquids Mildly Thick (IDDSI 2) Other Recommendations ST recommends IDDSI 4 and IDDSI 2 with 100% feeding assistance and supervision. Pt must be awake and alert during meals. Safety Precautions/Swallowing Supervision needed for all Recommendations meals,1 to 1 close supervision ,To be fed only by trained staff/family,Feed only when alert,Remain upright (90 degrees) during all oral intake,Needs verbal cues to use recommended strategies, Upright position at least 30 minutes after meals,Small bites and sips when eating, Slow rate; swallow between bites,Alternate liquids and solids,1 to 1 feeding assistance,Strict oral care after intake,Check for pocketing Medication Recommendations As Tolerated Education Patient/Caregiver Education Family/caregivers require further education/training Goals Short-term Goals STG 1: Patient will tolerate therapeutic PO trials of IDDSI 4/5/6 with no clinical s/s of dysphagia 100% of the time in order to consume least restrictive diet. STG 2: Patient will tolerate therapeutic PO trials of IDDSI 2/0 liquids with no clinical s/s of aspiration 100% of the time in order to consume least restrictive diet. Long-term Goals LTG: Patient will tolerate safest and most efficient diet with no clinical s/s of aspiration or dysphagia 100% of the time in order to consume least restrictive diet .
--- NOTE | 2023-05-28 12:50 | OT.IP.EVAL ---
Current Diagnoses Chronic pain syndrome (05/26/23) Essential (primary) hypertension (05/26/23) Cerebral infarction, unspecified (05/26/23) Past Medical History (Last Updated 05/27/23 @ 00:06 by Patrice Giordano MD) Autoimmune disorder Chronic pain syndrome Fibromyalgia Hyperlipidemia Hypertension Occupational Therapy Inpatient Evaluation/Re-Eval M1 PT/OT-IP Prior Functional Status Start: 05/28/23 13:45 Freq: NEEDED Status: Active Protocol: Document 05/28/23 13:46 CGR (Rec: 05/28/23 14:10 R [id number]) Medical Review Prior Functional Status Medical History Reviewed Yes Communication Pt was a functional communicator prior to admit. Mobility and Gait Pt was IND in her home environment but furniture surfed and used a 3ww for community distances. Pt has a hx of falls. Activities of Daily Living and IADL's Pt was IND in most simple ADLs . Pt's states that he would assist her with getting in and out of the tub and he helps with washing the pt's hair. Pt does not do housework or more complicated cooking. Social History Household Members spouse Living Arrangements House Number of Floors (Floors) One Floor Number of Stairs To Enter/Railing? 1 step then flat area then 1 step railing on L assending. Home Environment High Toilet,Tub/Shower Home Equipment Straight Cane,Manual Wheelchair,Shower Seat with Backrest Employment Status Retired Additional Social History Comment Adjustable bed but typically sleeps in recliner. M2 OT-IP Current Condition Start: 05/28/23 13:45 Freq: Status: Active Protocol: Document 05/28/23 13:46 CGR (Rec: 05/28/23 14:10 R [id number]) Occupational Therapy Current Condition Current Condition Evaluation Date 05/28/23 Treatment Diagnosis AMS, likely CVA Diagnosis Onset Date 05/26/23 M3 OT- IP Subjective and Pain Start: 05/28/23 13:45 Freq: Status: Active Protocol: Document 05/28/23 13:46 CGR (Rec: 05/28/23 14:10 R [id number]) OT- Subjective Occupational Therapy Visit Type Type Initial Evaluation Visit Start Time 12:18 Visit Stop Time 12:50 Total Visit Minutes 32 OT Pain Assessment Pain When Pain Assessed At Rest Pain Present Pain Present Denied Pain M4 OT- IP ADL's Start: 05/28/23 13:45 Freq: Status: Active Protocol: Document 05/28/23 13:46 CGR (Rec: 05/28/23 14:10 CGR [id number]) OT ECT-Yvyb-Bjqejir General Evaluation Self-Feeding Ability Moderate Assistance Comments OT Self-Feeding Comments Pt was able to get the first bite of food to her mouth once food was put on her spoon and put in her hand. She was able to drink using her L hand to hold the cup. OT ADL-Grooming Comments OT Grooming Comments not performed OT ADL-Oral Care Comments Oral Care Comments not performed OT ADL-Dressing General Eval Lower Body Dressing Ability Total Assistance Areas Needing Assistance Underpants/Brief,Socks OT ADL-Toileting General Evaluation Toileting Ability Total Assistance Areas Needing Assistance Manage Clothing,Perform Perineal Hygiene Comments OT Toileting Comments Pt had BM when OT entered. Total assist for pericare and clothing management. OT ADL-Bathing Comments OT Bathing Comments Not performed M5 OT- IP IADL's Start: 05/28/23 13:45 Freq: Status: Active Protocol: Document 05/28/23 13:46 CGR (Rec: 05/28/23 14:10 CGR [id number]) OT-Instrumental Activities of Daily Living Deficits IADL Deficits Identified Deficits Home Safety Awareness Awareness of Need for Assistance at Home Decreased Awareness Ability to Problem Solve Emergency Unable to Problem Solve Situations Medication Management Medication Management Comments Concerns regarding pt's ability to perform Money Management Money Management Caregiver Provides Assistance Meal Preparation Meal Preparation Caregiver Provides Assist Packing Line Operator Packing Line Operator Caregiver Provides Assist Driving Driving Comments Per pt's , ~3 weeks ago pt stated that she wanted to quit driving because she was worried about damaging the car or hurting someone. M6 OT- IP Functional Cognition Start: 05/28/23 13:45 Freq: Status: Active Protocol: Document 05/28/23 13:46 CGR (Rec: 05/28/23 14:10 CGR [id number]) Cognitive Factors Limiting Selfcare Function Cognitive Ability Level of Alertness Alert,Confusional State Attention Span Ability Unable to Focus,Unable to Sustain Attention Cognitive Comments Cognitive Assessment Comments Pt was not able to follow commands in this session but was able to participate some. OT- Vision and Hearing OT- Hearing Assessment OT- Hearing Assessment WFL OT- Vision Assessment Vision Assessment Comments Pt was unable to follow commands to assess. M7 OT- IP Mobility and Balance Start: 05/28/23 13:45 Freq: Status: Active Protocol: Document 05/28/23 13:46 CGR (Rec: 05/28/23 14:10 CGR [id number]) OT- Bed Mobility Assessment Supine to Sit Supine to Sit Assist Minimal Assistance,Head of Bed Elevated,Bedrails Scooting Scooting to Edge of Bed Maximum Assistance,1 Person Assistance OT-Transfer Assessment Sit to and From Stand Sit to and from Stand Minimal Assistance Transfers Transfer Ability Moderate Assistance Technique Transfer Destination Bed,Chair Transfer Technique Stand Step Pivot Devices Transfer Assistive Devices Gait Belt,Front Wheeled Walker Comments Mobility Comments Pt stood from EOB with MIN A then stood for prolonged period of time for pericare. Pt then transfered to chair with MOD A and max vc. Needed this advertising writer to move hands to chair to assist with stand to sit. OT- Gait Assessment Comments Gait Ability Comments not performed OT- Balance Assessment Sitting Balance and Reactions Static Sitting Balance Ability Good Dynamic Sitting Balance Ability Fair M8 OT- IP Objective Assessments Start: 05/28/23 13:45 Freq: Status: Active Protocol: Document 05/28/23 13:46 CGR (Rec: 05/28/23 14:10 CGR [id number]) OT Gross Range of Motion Upper Extremity Range of Motion ROM Impairments 0-90 to B shlds. OT Strength Comments Strength Comments unable to test d/t not following commands but pt is using her L hand significantly more than her R. OT- Coordination Assessment Comments Coordination Comments unable to test OT-Muscle Tone Assessment Muscle Tone WNL Yes OT Sensation Assessment Edema Edema Absent M9 OT- IP Assessment and Plan Start: 05/28/23 13:45 Freq: Status: Active Protocol: Document 05/28/23 13:46 CGR (Rec: 05/28/23 14:10 CGR [id number]) OT Summary Assessment and Plan Potential Rehabilitation Potential Fair Analytic Complexity at Evaluation High Summary OT Impairments Range of Motion,Strength, Balance,Coordination, Functional Cognition, Functional Mobility,Self- Feeding,Grooming,Dressing, Toileting,Bathing,Toilet Transfers,Shower Transfers, Activity Tolerance Progress Towards Goals Slow Progress due to Medical Issues Assessment Summary Pt presents as a high complexity evaluation s/p admit for possible CVA. Pt was unable to stay still for MRI. Concern for undx CA d/t recent weight loss. Pt is minimally able to follow commands but appears agreeable . She was able to state I can 't, you'll kill him and I am a single mother when asking pt to eat and drink. Pt otherwise said nothing in the session. Pt will benefit from continued therapy services. Recommend d/c to SNF. Goals Self-Feeding Goal Independent Grooming Goal Independent Dressing Goal Independent Toileting Goal Independent Bathing Goal Minimal Assistance Toilet Transfer Goal Independent Shower Transfer Goal Minimal Assistance Days to Meet Goals 30 Frequency of Treatment Frequency Of Treatment Once a Day Treatment Plan OT Treatment Plan ADL Training,Functional Cognition Training,Functional Mobility,Therapeutic Exercises ,Patient/Family Education, Discharge Planning Other Treatment Recommendations and Next Simple ADLs seated, reassess Treatment Focus pt's ability to follow commands. Discharge Recommendations OT Discharge Recommendations SNF Rehab Transportation Needs at Discharge Wheelchair/Cabulance
[2023-05-28] MEDS: LORazepam 2 MG/ML INJ 1 MG IV (14:54)
--- NOTE | 2023-05-28 15:29 | PT.IIE ---
Current Diagnoses Chronic pain syndrome (05/26/23) Essential (primary) hypertension (05/26/23) Cerebral infarction, unspecified (05/26/23) Medical History (Last Updated 05/27/23 @ 00:06 by Patrice Giordano MD) Autoimmune disorder Chronic pain syndrome Fibromyalgia Hyperlipidemia Hypertension Physical Therapy Inpatient Evaluation/Re-Eval M1 PT/OT-IP Prior Functional Status Start: 05/28/23 13:45 Freq: NEEDED Status: Active Protocol: Document 05/28/23 15:29 AW (Rec: 05/28/23 16:43 AW [id number]) Medical Review Prior Functional Status Medical History Reviewed Yes Communication Pt was a functional communicator prior to admit. Mobility and Gait Pt was IND in her home environment but furniture surfed and used a 3ww for community distances. Pt has a hx of falls. Activities of Daily Living and IADL's Pt was IND in most simple ADLs . Pt's states that he would assist her with getting in and out of the tub and he helps with washing the pt's hair. Pt does not do housework or more complicated cooking. Social History Household Members spouse Living Arrangements House Number of Floors (Floors) One Floor Number of Stairs To Enter/Railing? 1 step then flat area then 1 step railing on L assending. Home Environment High Toilet,Tub/Shower Home Equipment Straight Cane,Manual Wheelchair,Shower Seat with Backrest Employment Status Retired Additional Social History Comment Adjustable bed but typically sleeps in recliner. M2 PT-IP Current Condition Start: 05/28/23 14:15 Freq: NEEDED Status: Active Protocol: Document 05/28/23 15:29 AW (Rec: 05/28/23 16:43 AW [id number]) Physical Therapy Current Condition Current Condition Evaluation Date 05/28/23 Treatment Diagnosis AMS of uncertain etiology; impaired mobility and gait Onset Date 05/26/23 M3 PT-IP Subjective Start: 05/28/23 14:15 Freq: NEEDED Status: Active Protocol: Document 05/28/23 15:29 AW (Rec: 05/28/23 16:43 AW [id number]) Subjective Physical Therapy Visit Type Type Initial Evaluation Visit Start Time 15:01 Visit Stop Time 15:29 Total Visit Minutes 28 Physical Therapy Visit Comments Patient Comments Pt responds verbally to direct questions. Speech is sometimes incomprehensible, always with gravelly, whisper quality. Patient Goals I'm going to walk home Therapy Pain Assessment Pain When Pain Assessed During Mobility Pain Present Pain Present Unable to Respond FLACC Pain Scale Face Occasional grimace/frown Legs Normal position; relaxed Activity Quiet, moves easily Cry No cry (awake or asleep) Consolability Reassurable with touch FLACC Total 2 M4 PT-IP Mobility and Gait Start: 05/28/23 14:15 Freq: NEEDED Status: Active Protocol: Document 05/28/23 15:29 AW (Rec: 05/28/23 16:43 AW [id number]) PT-Bed Mobility Assessment Supine to Sit Supine to Sit Minimal Assistance,1 Person Assistance Sit to Supine Sit to Supine Minimal Assistance,1 Person Assistance Scooting Scooting to Edge of Bed Minimal Assistance PT-Transfer Assessment Sit to and From Stand Sit to and from Stand Moderate Assistance,1 Person Assistance,Use of Upper Extremities Equipment Transfer Assistive Device Gait Belt,Front Wheeled Walker Orthotic/Prosthetic Devices or Brace: No Transfers Transfer Destination Bed,Toilet Transfer Technique Stand Step Pivot Transfer Ability Level of Assist Moderate Assistance,1 Person Assistance,Use of Upper Extremities Comments Mobility Comments Pt is found lying in bed, easily roused, and clearly expressing interest in using the toilet. There's a whole bathroom in there? Min A is provided for bed mobility and pt has fair seated balance. Mod A to stand to FWW. Pt ambulates 15 feet to the toilet where she needs assist for garments and mod A for transfer. After voiding, she stands with mod A and returns to the bed, using FWW but with some challenge maintaining contact RUE to walker. Her right hand drifts and it is unclear whether she is adjusting garments or if this is due to functional weakness. Regardless, she needs [place] assist to maintain right hand contact with the walker. At bedside, she abandons the walker and takes the final steps with furniture support. Min A for return to supine. Gait Assessment Gait Gait Assistance Required: Minimum Assistance,Moderate Assistance,1 Person Assist Distance (Feet) 15 Assistive Devices Assistive Device Gait Belt,Front Wheeled Walker Gait Deviations General Gait Pattern Decreased Stride Length, Decreased Feet Clearance, Flexed Trunk Factors Limiting Gait Function Factors Limiting Gait Function Decreased Strength,Difficulty Following Directions,Poor Balance,Poor Safety Awareness Comments Gait Comments See mobility comments for details. Pt's right hand tends to drift away from the walker during gait tasks. Stair Climbing Assessment Comments Stair Climbing Comments Not assessed. PT-Balance Assessment Sitting Balance and Reactions Static Sitting Balance Ability Good Dynamic Sitting Balance Ability Fair Standing Balance and Reactions Static Standing Balance Ability Fair Dynamic Standing Balance Ability Poor Device Used FWW M5 PT-IP Objective Assessments Start: 05/28/23 14:15 Freq: NEEDED Status: Active Protocol: Document 05/28/23 15:29 AW (Rec: 05/28/23 16:43 AW [id number]) Orientation Orientation/Cognition Level of Alertness Confusional State Orientation Name Language Function Ability Garbled Speech Safety Awareness Decreased Safety Awareness Memory Description Short Term Impaired Comments Pt presents as oriented to self only. Speech is intermittently difficult to understand. Gross Range of Motion Upper Extremity ROM Assessment Within Functional Limits Lower Extremity ROM Assessment Within Functional Limits Strength Comments Strength Comments Pt does not understand instructions for MMT but clearly has antigravity strength in all limbs. No unilateral deficit is appreciated. Coordination Assessment Assessment Coordination Comments Unable to assess Sensation Assessment Comments Sensation Comments Unable to assess Muscle Tone Comments Muscle Tone Comments No rigidity or increased tone. Modified Allyn scale: 0. M7 PT-IP Assessment and Plan Start: 05/28/23 14:15 Freq: NEEDED Status: Active Protocol: Document 05/28/23 15:29 AW (Rec: 05/28/23 16:43 AW [id number]) PT Summary Assessment and Plan Potential Rehabilitation Potential Fair Status of Condition at Evaluation Evolving Summary Impairments Strength,Balance,Cognition,Bed Mobility,Transfers,Gait Assessment Summary Sue Coy is a 73 yo woman seen for PT evaluation per stroke protocol. Presenting symptoms were possible right neglect, altered mental status, and increased tone. Imaging has been inconclusive as pt has not been able to tolerate lying still for studies. Chart review indicates possible concern for cancer secondary to recent unintentional weight loss. PLOF: Pt is independent at home, modified independent in the community, using 3WW. CLOF: Pt is responsive and alert but oriented only to self. She speaks if half to full sentences though speech is intermittently incoherent. Pt does follow directions for mobility assessment and requires min to mod assist for all mobilization attempts. Pt has possible right inattention as evidenced by her right hand drifting during gait tasks with FWW. PT recommends continued rehab in the acute setting and SNF for ongoing rehab at discharge to progress pt to her highest mobility potential. Goals Bed Mobility Goal Standby Assistance Transfer Goal Standby Assistance,Front Wheeled Walker Gait Goal Standby Assistance,Front Wheel Walker Gait Distance 75 Other Goals - up/down 2 steps using LRAD with CGA - progress transfers and gait to SBA with LRAD Days to Meet Goals 10 Frequency of Treatment Frequency Of Treatment Once a Day Treatment Plan Physical Therapy Treatment Plan Bed Mobility Training,Transfer Training,Gait Training, Therapeutic Exercise,Balance Retraining,Discharge Planning, Hot or Cold Pack,Neuromuscular Re-ed Precautions Other Precautions falls history Recommendations To Nursing Amount of Assist Needed 1 Person Assist Discharge Recommendations PT Discharge Recommendations SNF Rehab Transportation Needs at Discharge Wheelchair/Cabulance
--- NOTE | 2023-05-28 16:03 | CM.DPC ---
DCP Continued: PROPERTY ADJUSTER reviewed EMR. Per provider in rounds, patient less likely to in hospital than previously thought. PROPERTY ADJUSTER attempted to speak with patient multiple times throughout the day. patient was either working with therapies or getting an echo. OT rec SNF at this time. Speech recommending 1:1 feeding at this time. Feeding supervision could be a barrier for SNF placement. Plan: hospice vs SNF pending formal conversation with family. CM team will continue to follow closely. DAVID Garcia
[2023-05-28] MEDS: SENNOSIDES 8.6 MG TABLET 17.2 MG PO (21:42)
[2023-05-29] VITALS (15 sets, daily range): BP systolic 124–167; BP diastolic 64–86; PULSE 70–109; RESP 17–19; TEMP 36–36.4; O2SAT 94–98
[2023-05-29] MEDS: SODIUM CHLORIDE 0.9% FLUSH 10 ML IV ×2 (08:18→20:05)
[2023-05-29] MEDS: cefTRIAXone 1,000 MG in SODIUM CHLORIDE 0.9% 100 ML 200 MG IV (08:18)
--- NOTE | 2023-05-29 08:21 | DI.CT.S_ITS ---
PROCEDURE: CT HEAD/BRAIN WO CON INDICATIONS: unable to complete MRI, f/u to see if CVA TECHNIQUE: Noncontrast 4.5 mm thick angled axial sections acquired from the foramen magnum to the vertex, with coronal and sagittal reformats. For radiation dose reduction, the following was used: automated exposure control, adjustment of mA and/or kV according to patient size. COMPARISON: [facility], CT, CT HEAD/BRAIN WO CON, 05/27/2023, 17:38. [facility], CT, CT STROKE, 05/26/2023, 17:55. [facility], CT, CT ANGIO HEAD AND NECK, 05/26/2023, 19:19. [facility], MR, MR HEAD/BRAIN WO CON, 05/27/2023, 14:53. FINDINGS: Image quality: Excellent. CSF spaces: Basal cisterns are patent. No extra-axial fluid collections. The ventricles are symmetric in size and shape. Brain: No intracranial bleeds or masses. There is cerebral volume loss for age, with resultant ventricular and sulcal prominence. There are periventricular and deep white matter chronic small vessel ischemic changes. There is intracranial internal carotid artery atherosclerosis. Skull and face: Calvarium and visualized facial bones appear intact, without suspicious lesions. Sinuses: Moderate mucosal thickening can be seen within the paranasal sinuses, with chronic remodeling changes and prior postoperative change. No abnormal fluid is seen within the mastoid air cells. IMPRESSION: No developing territorial infarct can be seen to the limits of CT. - Please consider continued follow-up. Additional findings: Paranasal sinus disease and prior postoperative change. Dictated by: Fabrice Swift M.D. on 05/29/2023 at 9:14 Approved by: Fabrice Swift M.D. on 05/29/2023 at 9:16
[2023-05-29] MEDS: CLOPIDOGREL 75 MG TABLET PO (08:33)
[2023-05-29] MEDS: ASPIRIN EC 81 MG TABLET PO (08:33)
[2023-05-29] MEDS: ENOXAPARIN 40 MG/0.4 ML SYRINGE SUBCUT (08:33)
[2023-05-29] MEDS: AZITHROMYCIN 500 MG in DEXTROSE 5% IN WATER 250 ML 250 MG IV (09:27)
--- NOTE | 2023-05-29 11:18 | ST.IPDYTX ---
Visit Care Team Role Provider Type Jigar Mclean MD Primary Care Provider Non-Staff Specialty: Internal Medicine Address: [address] [place] [address], [id number] Email: Tanika Matson MD Emergency Provider Physician Referring Provider Specialty: Emergency Medicine Address: [address] [place] [address], [id number] Email: Patrice Giordano MD Admit Provider Physician Attending Provider Specialty: Internal Medicine Address: [address] [place] [address], [id number] Fax: Email: [email or web address] ONCOLOGY NURSE Dysphagia Treatment ONCOLOGY NURSE Dysphagia Treatment Start: 05/29/23 11:10 Freq: Status: Active Protocol: Document 05/29/23 11:10 MA (Rec: 05/29/23 11:18 MA [id number]) Dysphagia Treatment Session Time Visit Start Time 08:55 Visit Stop Time 09:25 Total Visit Minutes 30 Visit Information Visit Number 2 Setting Assessment Location Acute Care Next Note Type Next Note Type Treatment Note Patient Information Subjective Observations Pt seen for 1:1 dysphagia treatment. Pt sitting upright in bed with nursing present feeding patient breakfast meal . Nursing reports Pt consumed 4 oz of yogurt with no observed difficulties and demonstrated 1x bolus holding of applesauce when consuming medications, however able to initiate swallow with cue. Pt with increased alertness this morning compared to yesterday characterized by increased communication (Pt asked are you the speech therapist?) and able to state full name. Pt no oriented to time and stated place as [place]. Treatment Liquids Trialed Thin (IDDSI 0),Mildly Thick ( IDDSI 2) Solids Trialed Purred (IDDSI 4) Treatment Activities Therapeutic PO trials, education related to safe swallowing strategies. The IDDSI Framework Protocol: IDDSI.1 Assessment Assessment of Improvement Pt presented with 6 oz of thin water via cup, 2 oz of nectar thick smoothie, and 6 oz of oatmeal. Pt able to drink from cup independently and eat oatmeal out of bowl. For thin water Pt demonstrated single cup sips, good oral acceptance and containment, suspected loss of bolus resulting in premature spillage, bolus holding x1, multiple swallows, reduced laryngeal elevation. For nectar thick liquids Pt demonstrated good oral acceptance and containment, tiemly ap transport, suspected delay in swallow, clear vocal quality, no overt s/s of aspiration. For oatmeal Pt demonstrated slow rate, small bites, adequate bolus formation and control, extended ap transport, piecemeal deglutition, suspected delay in swallow, no overt s/s of aspiration. ST educated Pt on safe swallowing strategies, such as slow rate , small sips/bites, upright 90 degrees, up right for [address] recommends continuation of IDDSI 4 and IDDSI 2, however Pt may feed self with 100% supervision. Recommendations Recommendations Continue Current Diet Liquids Order Mildly Thick (IDDSI 2) Diet Order Pureed (IDDSI 4) Medication Recommendations As Tolerated Aspiration Precautions Recommended Precautions Upright at 90 Degrees,Small Bites/Sips Referrals/Other Recommended Referrals GI Consult
--- NOTE | 2023-05-29 12:06 | P.PN_ITS ---
Subjective Subjective Date Patient Seen: 05/28/23 Time Patient Seen: 11:00 Interval history: 73-year-old female with hyperlipidemia, hypertension, fibromyalgia, chronic pain syndrome who was brought in last evening due to acute neurologic changes. MRI attempted, patient is arousable and responds to name but simply laughs to questions. Presumed stroke at this time. Exam Vital Signs (past 8 hours): - 05/29/23 05:31 05/29/23 09:00 Temperature 97.3 F L 97.1 F L Pulse Rate 73 70 Respiratory Rate 17 18 Blood Pressure 150/76 H 167/70 H Pulse Oximetry 98 98 Oxygen Flow Rate 0 0 Oxygen Delivery Method Room Air Oxygen Flow Rate 0 Narrative Exam Narrative: GEN: 73 F alert, not oriented but responds to name, no acute distress HEENT:NC, Face symmetric CHEST: Respiratory excursions symmetric, CTAB CV: RRR, no M/R/G ABD: Soft, NT/ND, BT present in all 4 quadrants, no organomegaly or masses EXTR: warm, well perfused, no C/C/E, bruising noted to the right arm and shoulder area SKIN: warm and dry, no rash Objective Labs 05/27/23 08:35 05/27/23 08:35 [facility] Medical History (Updated 05/27/23 @ 00:06 by Patrice Giordano MD) Hyperlipidemia Chronic pain syndrome Hypertension Autoimmune disorder Fibromyalgia Social History marital status: household members: spouse lives independently: Yes Smoking Status: Never smoker Assessment & Plan Assessment & Plan narrative: 1. Possible stroke, acute metabolic encephalopathy Has been raises the possibility she was told she had brain malignancy. I am unable to find any imaging to verify that. Will attempt to get the MRI done and determine if there is a clear etiology for her altered state and acute symptoms. Additional possibilities would be seizure related to stroke or tumor. 2. Rigidity/tremors This was not present per report on admission. It may be secondary to Haldol or sedating medications. This has been discontinued. She does have lorazepam available as needed. 3. Weight loss, severe protein calorie malnutrition Patient has lost nearly 60 lb since September of this year. Etiology not clear at this time. 4. Chronic pain syndrome She is typically on oral morphine at baseline. Given her encephalopathy and rigidity, I have elected to hold her morphine pending further imaging and hopefully diagnosis. Will monitor for withdrawal symptoms. 5. Nonsustained ventricular tachycardia Patient had borderline low magnesium levels and low potassium. Both were repleted this morning. No significant recurrence. Code status DNR/DNI after discussion with , he confirmed this would be consistent with her wishes Prophylaxis presently receiving Lovenox. Disposition Acute care. Quality MIPS - Admit I confirm the patient?s Advance Care Plan is present, Code status is documented, Surrogate decision maker is in patient?s record [If Yes, STOP here]: Yes
--- NOTE | 2023-05-29 12:07 | P.PN_ITS ---
Subjective Subjective Date Patient Seen: 05/29/23 Time Patient Seen: 12:07 Interval history: 73 F admitted with acute neurological changes and altered mental status. She is actually markedly improved today, alert and oriented to name and location today. She is up and eating a diet by herself this afternoon at lunch. She has lost quite a bit of weight recently, and with continued gradual improvement I am starting to suspect a toxic or metabolic source, but with improvement will reattempt MRI today. She complains of back pain today, would like to restart her pain medications. Exam Vital Signs (past 8 hours): - 05/29/23 05:31 05/29/23 09:00 Temperature 97.3 F L 97.1 F L Pulse Rate 73 70 Respiratory Rate 17 18 Blood Pressure 150/76 H 167/70 H Pulse Oximetry 98 98 Oxygen Flow Rate 0 0 Oxygen Delivery Method Room Air Oxygen Flow Rate 0 Narrative Exam Narrative: GEN: 73 F alert, oriented to name and location, not date. Sitting upright eating lunch. HEENT:NC, Face symmetric with grossly normal cranial nerves bilaterally. CHEST: Respiratory excursions symmetric, CTAB CV: RRR, no M/R/G ABD: Soft, NT/ND, BT present in all 4 quadrants, no organomegaly or masses EXTR: warm, well perfused, no C/C/E, bruising noted to the right arm and shoulder area SKIN: warm and dry, no rash Neuro: No focal deficits Objective Labs 05/27/23 08:35 05/27/23 08:35 [facility] Medical History (Updated 05/27/23 @ 00:06 by Patrice Giordano MD) Hyperlipidemia Chronic pain syndrome Hypertension Autoimmune disorder Fibromyalgia Social History marital status: household members: spouse lives independently: Yes Smoking Status: Never smoker Assessment & Plan Assessment & Plan narrative: 1. Possible stroke, or acute toxic and/or metabolic encephalopathy - imaging thus far has been unremarkable. And her improvement over the last couple of days tend to suggest a more toxic or metabolic etiology. My suspicion is that with her weight loss, her morphine has continued to become more and more sedating for her leading to her presentation. It is also possible this led to hypercapnea with a history of lung disease on advair and albuterol at home. Another possibility is encephalopathy due to pneumonia based on presenting imaging. - will re-order MRI to hopefully rule out stroke as an underlying etiology, but it still remains a possibility she had a stroke which led to presentation - echocardiogram was unremarkable with grossly normal function - continue home asa 325 mg BID (s/p aspirin desensitization therapy), and statin. - discussed pain management. Trial oxycodone instead of morphine 10 mg BID, consider reducing even further. - given improvement, will check VBG with regular labs to assess if hypercapnea present at baseline. - with improvement, can start PT /OT. 2. Weight loss, severe protein calorie malnutrition Patient has lost nearly 60 lb since September of this year. Etiology not clear at this time. Imaging thus far unremarkable for obvious malignancy. Would recommend age appropriate screening with primary care. 3. Chronic pain syndrome She is typically on oral morphine at baseline. Given her encephalopathy and rigidity, I have elected to hold her morphine pending further imaging and hopefully diagnosis. Will monitor for withdrawal symptoms. 4. Possible bacterial pnuemonia - continue ceftriaxone and azithromycin, no current symptoms but will complete 5 day treatment for pneumonia based on infiltrates seen on initial CXR combined with unremarkable echocardiogram. 5. Nonsustained ventricular tachycardia Patient had borderline low magnesium levels and low potassium. Both were repleted this morning. No significant recurrence. 6. COPD without exacerbation - replace home advair with duoneb BID, albuterol prn. No current shortness of breath. Code status DNR/DNI after discussion with , he confirmed this would be consistent with her wishes Prophylaxis presently receiving Lovenox. Disposition Acute care. Additional history was obtained via patient's family. Discussed with case management and family to form the above assessment and plan.
--- NOTE | 2023-05-29 12:33 | DI.MRI.S_ITS ---
PROCEDURE: MR HEAD/BRAIN WO CON INDICATIONS: Please evaluate for CVA, more alert can likely tolerate machine TECHNIQUE: Non-contrast axial T1 spin echo, axial T2 fast spin echo, sagittal and axial FLAIR, coronal T2 fast spin echo, axial gradient echo, axial diffusion and ADC through the brain. COMPARISON: [facility], CT, CT STROKE, 05/26/2023, 17:55. [facility], CT, CT HEAD/BRAIN WO CON, 05/29/2023, 8:29. [facility], CT, CT HEAD/BRAIN WO CON, 05/27/2023, 17:38. [facility], MR, MR HEAD/BRAIN WO CON, 05/27/2023, 14:53. FINDINGS: Image quality: This patient could not leave far back FT use standard head coil, with compromise in image quality. CSF spaces: Ventricles appear symmetric in size and shape. Basal cisterns are patent. No extra-axial fluid collections. Brain: No intracranial bleeds or mass effects. There is cerebral volume loss for age. There are periventricular and deep white matter chronic small vessel ischemic changes. Brainstem appears normal. Diffusion-weighted images show no acute ischemic insults. No chronic ischemic insults. Normal intravascular flow voids are present. Skull and face: Calvarial bone marrow is normal in signal. Orbits are normal. Note is made of bilateral lens replacements. Sinuses: Sinuses and mastoids are clear. IMPRESSION: No findings of acute or subacute infarction can be seen. Dictated by: Fabrice Swift M.D. on 05/29/2023 at 14:22 Approved by: Fabrice Swift M.D. on 05/29/2023 at 14:23
[2023-05-29] MEDS: ASPIRIN EC 325 MG TABLET PO ×2 (13:34→20:06)
[2023-05-29] MEDS: OXYCODONE ER 10 MG TAB PO ×2 (13:34→20:06)
[2023-05-29] MEDS: LORazepam 0.5 MG TABLET PO (13:35)
--- NOTE | 2023-05-29 14:29 | PT.IPTN ---
Current Diagnoses Chronic pain syndrome (05/26/23) Essential (primary) hypertension (05/26/23) Cerebral infarction, unspecified (05/26/23) Physical Therapy Treatment Note M2 PT-IP Current Condition Start: 05/28/23 14:15 Freq: NEEDED Status: Active Protocol: Document 05/28/23 15:29 AW (Rec: 05/28/23 16:43 AW [id number]) Physical Therapy Current Condition Current Condition Evaluation Date 05/28/23 Treatment Diagnosis AMS of uncertain etiology; impaired mobility and gait Onset Date 05/26/23 M3 PT-IP Subjective Start: 05/28/23 14:15 Freq: NEEDED Status: Active Protocol: Document 05/29/23 14:06 NBM (Rec: 05/29/23 15:02 NBM [id number]) Subjective Physical Therapy Visit Type Type Treatment Note Visit Start Time 14:06 Visit Stop Time 14:29 Total Visit Minutes 23 Number of BELT BACK OPERATOR Visits 1 Physical Therapy Visit Comments Patient Comments Pt responds verbally and clearly to direct questions. She is oriented to self [place] and location [place] but not day of week . She recalls instructions from family members earlier today not to walk on own. Therapy Pain Assessment Pain When Pain Assessed At Rest Pain Present Pain Present Pain Reported Location Right Anterior Lateral Hicks Intensity 4 Scale Used Numeric (0 - 10) Description With Movement Pain Behaviors Facial Grimacing,Holding Area Pain Management Techniques Distraction,Re-positioning M4 PT-IP Mobility and Gait Start: 05/28/23 14:15 Freq: NEEDED Status: Active Protocol: Document 05/29/23 14:06 NBM (Rec: 05/29/23 15:02 NB [id number]) PT-Transfer Assessment Sit to and From Stand Sit to and from Stand Moderate Assistance,1 Person Assistance,Use of Upper Extremities Equipment Transfer Assistive Device Gait Belt,Front Wheeled Walker Orthotic/Prosthetic Devices or Brace: No Transfers Transfer Destination Bed Transfer Technique Stand Step Pivot Transfer Ability Level of Assist Moderate Assistance,1 Person Assistance,Use of Upper Extremities Comments Mobility Comments Pt is reclined in chair upon arrival w/ chair alarm and telemetry, awaiting MRI and is agreeable to PT. She is alert to self and place but not day of week, and is responsive and clear in responses. Seated therex is performed and pt reports increase in R lower limb pain with heel raise but is able to complete ther ex w/ good eccentric control. Pt requires cues for scooting to edge of chair and safe hand placement for sit to stand up to FWW w/ freezing x2 until this BELT BACK OPERATOR manually moves pt's hand from FWW to chair x2. modA for STS, CGA for ambulation 50' in room w/ cues for upright posture. Pt requires no cues for R hand on FWW this treatment and uses appropriate proximation to walker and navigation around obstacles in room. Pt fatigued requesting to sit when staff arrive for MRI so transfer from standing to bed in preparation for transfer to MRI table. Pt cued heavily for backing up to bed leaves FWW for last few steps to bed despite cueing. She requires 2PA for sitting EOB to supine for LE elevation and 1PA for scooting up in bed. Pt is left w/ MRI staff and RN for prepartion for MRI. Gait Assessment Gait Gait Assistance Required: Minimum Assistance,Moderate Assistance,1 Person Assist Distance (Feet) 50 Able to Maintain Weight Bearing Status Yes During Gait Assistive Devices Assistive Device Gait Belt,Front Wheeled Walker Orthotic/Prosthetic Devices or Brace: No Gait Deviations General Gait Pattern Decreased Stride Length, Decreased Feet Clearance, Flexed Trunk Factors Limiting Gait Function Factors Limiting Gait Function Decreased Strength,Difficulty Following Directions,Poor Balance,Poor Safety Awareness Comments Gait Comments See mobility comments for details. Pt's right hand stays on the walker during gait tasks without cueing. Stair Climbing Assessment Comments Stair Climbing Comments Not assessed. PT-Balance Assessment Sitting Balance and Reactions Static Sitting Balance Ability Good Dynamic Sitting Balance Ability Fair Standing Balance and Reactions Static Standing Balance Ability Fair Dynamic Standing Balance Ability Fair Device Used FWW M5 PT-IP Objective Assessments Start: 05/28/23 14:15 Freq: NEEDED Status: Active Protocol: Document 05/28/23 15:29 AW (Rec: 05/28/23 16:43 AW [id number]) Orientation Orientation/Cognition Level of Alertness Confusional State Orientation Name Language Function Ability Garbled Speech Safety Awareness Decreased Safety Awareness Memory Description Short Term Impaired Comments Pt presents as oriented to self only. Speech is intermittently difficult to understand. Gross Range of Motion Upper Extremity ROM Assessment Within Functional Limits Lower Extremity ROM Assessment Within Functional Limits Strength Comments Strength Comments Pt does not understand instructions for MMT but clearly has antigravity strength in all limbs. No unilateral deficit is appreciated. Coordination Assessment Assessment Coordination Comments Unable to assess Sensation Assessment Comments Sensation Comments Unable to assess Muscle Tone Comments Muscle Tone Comments No rigidity or increased tone. Modified Allyn scale: 0. M6 PT-IP Treatment Start: 05/28/23 14:15 Freq: NEEDED Status: Active Protocol: Document 05/29/23 14:06 [facility] (Rec: 05/29/23 15:02 [facility] [id number]) Physical Therapy Treatment Exercises Exercises Seated Knee Flexion/Extension Other Treatments Other Treatment Performed Heel raises ruth x5 ea - increased R hicks pain reported . Seated marching ruth x5 ea w/ visual target - good eccentric control w/ all Therex. M7 PT-IP Assessment and Plan Start: 05/28/23 14:15 Freq: NEEDED Status: Active Protocol: Document 05/29/23 14:06 [facility] (Rec: 05/29/23 15:02 [facility] [id number]) PT Summary Assessment and Plan Potential Rehabilitation Potential Fair Status of Condition at Evaluation Evolving Summary Impairments Strength,Balance,Cognition,Bed Mobility,Transfers,Gait Assessment Summary Pt is responsive and alert but oriented only to self and place. Pt does follow directions but freezes x2 for sit to stand when cued not to use both hands on FWW until this BELT BACK OPERATOR manually moves pt's hand to chair x2. Pt requires min to mod assist for all mobilization attempts. They show appropriate eccentric control with seated ther-ex. Pt has no incidence of right hand drifting during gait tasks with FWW this session and requires no cueing to maintain right hand on FWW and demonstrates appropriate proximation to walker and ability to navigate around obstacles, but demonstrates unsafe behavior with transferring from FWW to bed in leaving FWW to walk to bed despite verbal cueing. PT recommends continued rehab in the acute setting and SNF for ongoing rehab at discharge to progress pt to her highest mobility potential. Goals Bed Mobility Goal Standby Assistance Transfer Goal Standby Assistance,Front Wheeled Walker Gait Goal Standby Assistance,Front Wheel Walker Gait Distance 75 Other Goals - up/down 2 steps using LRAD with CGA - progress transfers and gait to SBA with LRAD Days to Meet Goals 10 Frequency of Treatment Frequency Of Treatment Once a Day Treatment Plan Physical Therapy Treatment Plan Bed Mobility Training,Transfer Training,Gait Training, Therapeutic Exercise,Balance Retraining,Discharge Planning, Hot or Cold Pack,Neuromuscular Re-ed Precautions Other Precautions falls history Recommendations To Nursing Amount of Assist Needed 1 Person Assist Discharge Recommendations PT Discharge Recommendations SNF Rehab Transportation Needs at Discharge Wheelchair/Cabulance
--- NOTE | 2023-05-29 16:58 | OT.IPNOTE ---
Not able to see pt as away at MRI earlier. To check on pt tomorrow for OT.
--- NOTE | 2023-05-29 17:51 | CM.DPC ---
Addendum entered by DAVID Garcia 05/29/23 17:57: MIRIAN Shilpa kindly agreed to email Esthela initial referral information. SL Original Note: DCP Continued: PAPERHANGER CONTRACTOR reviewed EMR. Per provider in rounds, cat scan today. Cognition slowly getting better. PAPERHANGER CONTRACTOR entered room and introduced self and role. Patient accompanied by spouse and daughter at bedside. Patient agreeable to SNF. Lives in [place] with spouse, dtr just arrived from [place]. Patient preference is [facility] to be closer to home. Second preference is [facility]. Primary participant in DCP conversation was spouse, patient primarily listened and nodded head along with conversation. At this time, speech continues to rec 1:1 feeds. Patient and family understand this may be a barrier to SNF placement. Per spouse, patient has been eating more independently with each meal. Spouse reports he would be agreeable to come eat at least one meal a day with her to monitor her. PAPERHANGER CONTRACTOR spoke with Esthela at [facility]. Agreed to review and attempt at [facility]. Plan: SNF pending placement. CM team will follow up with Esthela tomorrow. CM team will continue to follow closely. DAVID Garcia
[2023-05-29] MEDS: ALBUTEROL/IPRATROPIUM 3 ML AMPUL INH (19:05)
[2023-05-29] MEDS: LORazepam 2 MG/ML INJ 1 MG IV (20:05)
[2023-05-29] MEDS: SENNOSIDES 8.6 MG TABLET 17.2 MG PO (20:06)
[2023-05-30] VITALS (13 sets, daily range): BP systolic 123–145; BP diastolic 67–77; PULSE 85–105; RESP 16–19; TEMP 36.3–36.6; O2SAT 93–100
[2023-05-30 05:30] LABS: Add Manual Diff / Slide Review NO; Basophils Absolute Auto 100 /uL (0-100); Basophils Percent Auto 2.1 % (0-2); Eosinophils Absolute Auto 400 /uL (0-450); Eosinophils Percent Auto 8.2 % (2-4); Hematocrit 33.9 % (36-46); Hemoglobin 11.3 g/dL (12.0-16.0); Lymphocytes Absolute Auto 1500 /uL (1100-4500); Lymphocytes Percent Auto 29.2 % (25-40); Mean Corpuscular HGB Conc 33.4 % (30-36); Mean Corpuscular Hemoglobin 28.9 PG (26-34); Mean Corpuscular Volume 86.4 fL (80-100); Monocytes Absolute Auto 500 /uL (0-900); Monocytes Percent Auto 9.2 % (3-14); Neutrophils Absolute Auto 2600 /uL (1500-7000); Neutrophils Percent Auto 51.3 % (50-75); Platelet Count 329 X10^3/uL (150-400); Red Blood Cell Count 3.92 X10^6/uL (4.0-5.2); Red Cell Distribution Width 16.2 % (11.6-14.8); White Blood Cell Count 5.1 X10^3/uL (4.5-11.0)
[2023-05-30 05:38] LABS: Alanine Aminotransferase 19 IU/L (<35); Albumin Globulin Ratio 0.8 (1.0-2.8); Alkaline Phosphatase 63 U/L (38-126); Aspartate Aminotransferase 31 IU/L (14-36); BUN Creatinine Ratio 11.1 (6-22); Bilirubin Total 0.8 mg/dL (0.2-1.3); Blood Urea Nitrogen 5 mg/dL (7-17); Calcium 9.1 mg/dL (8.4-10.2); Carbon Dioxide 26 mmol/L (22-32); Chloride 103 mmol/L (98-107); Estimated Glomerular Filt Rate > 60 mL/min (>60); Globulin 3.7 g/dL (1.7-4.1); Glucose 98 mg/dL (80-110); HEMOLYSIS < 15 (0-50); Magnesium 1.9 mg/dL (1.6-2.3); Sodium 135 mmol/L (137-145); Total Protein 6.7 g/dL (6.3-8.2)
[2023-05-30 06:02] LABS: Potassium 2.7 mmol/L (3.4-5.1)
[2023-05-30] MEDS: POTASSIUM CHLORIDE IN WATER 10 MEQ/100 ML PIGGYBACK 100 MEQ IV ×2 (07:06→08:37)
[2023-05-30] MEDS: ALBUTEROL/IPRATROPIUM 3 ML AMPUL INH ×2 (07:31→19:25)
[2023-05-30] MEDS: cefTRIAXone 1,000 MG in SODIUM CHLORIDE 0.9% 100 ML 200 MG IV (08:34)
--- NOTE | 2023-05-30 09:29 | PM.PN.1 ---
Subjective Subjective Date Patient Seen: 05/30/23 Time Patient Seen: 09:29 Interval history: 73 F admitted with acute neurological changes and altered mental status. She is actually markedly improved today, alert and oriented to name and location today. She is up and eating a diet by herself this afternoon at breakfast. She has lost quite a bit of weight recently, and with continued gradual improvement I am starting to suspect a toxic or metabolic source, and MRI was negative yesterday. Today she complains of low back pain, will attempt to add non-narcotic medications for now to relieve pain. Discussed with family and given her continued improvement, SNF recommendation, they are agreeable to SNF for continued therapies. Exam Vital Signs (past 8 hours): - 05/30/23 03:00 05/30/23 04:00 05/30/23 07:39 Temperature 97.3 F L Pulse Rate 87 85 Respiratory Rate 19 16 Blood Pressure 145/67 H Pulse Oximetry 94 93 97 Oxygen Delivery Method Room Air Room Air Oxygen Flow Rate 0 05/30/23 08:17 05/30/23 08:20 Temperature 97.8 F Pulse Rate 92 H Respiratory Rate 16 Blood Pressure 126/77 Pulse Oximetry 98 98 Oxygen Delivery Method Room Air Oxygen Flow Rate 0 Oxygen Delivery Method Room Air Oxygen Flow Rate 0 Narrative Exam Narrative: GEN: 73 F alert, oriented to name and location. Sitting upright eating breakfast. HEENT:NC, Face symmetric with grossly normal cranial nerves bilaterally. CHEST: Respiratory excursions symmetric, CTAB CV: RRR, no M/R/G ABD: Soft, NT/ND, BT present in all 4 quadrants, no organomegaly or masses EXTR: warm, well perfused, no C/C/E, bruising noted to the right arm and shoulder area SKIN: warm and dry, no rash Neuro: No focal deficits Objective Labs 05/30/23 04:55 05/30/23 04:55 Labs: Laboratory Results - last 24 hr 05/30/23 04:55 WBC 5.1 RBC 3.92 L Hgb 11.3 L Hct 33.9 L MCV 86.4 MCH 28.9 MCHC 33.4 RDW 16.2 H Plt Count 329 Neut % (Auto) 51.3 Lymph % (Auto) 29.2 Andrews % (Auto) 9.2 Eos % (Auto) 8.2 H Baso % (Auto) 2.1 H Neut # (Auto) 2600 Lymph # (Auto) 1500 Andrews # (Auto) 500 Eos # (Auto) 400 Baso # (Auto) 100 Sodium 135 L Potassium 2.7 L* Chloride 103 Carbon Dioxide 26 BUN 5 L Creatinine 0.45 L Estimated GFR > 60 BUN/Creatinine Ratio 11.1 Glucose 98 Calcium 9.1 Magnesium 1.9 Total Bilirubin 0.8 AST 31 ALT 19 Alkaline Phosphatase 63 Total Protein 6.7 Albumin 3.0 L Globulin 3.7 Albumin/Globulin Ratio 0.8 L [facility] Medical History (Updated 05/27/23 @ 00:06 by Patrice Giordano MD) Hyperlipidemia Chronic pain syndrome Hypertension Autoimmune disorder Fibromyalgia Social History marital status: household members: spouse lives independently: Yes Smoking Status: Never smoker Assessment & Plan Assessment & Plan narrative: 1. Possible stroke, or acute toxic and/or metabolic encephalopathy - imaging thus far has been unremarkable. And her improvement over the last couple of days tend to suggest a more toxic or metabolic etiology. My suspicion is that with her weight loss, her morphine has continued to become more and more sedating for her leading to her presentation. It is also possible this led to hypercapnea with a history of lung disease on advair and albuterol at home. Another possibility is encephalopathy due to pneumonia based on presenting imaging. - MRI was negative yesterday for stroke. Even if TIA she already is on statin and aspirin therapy. - echocardiogram was unremarkable with grossly normal function - continue home asa 325 mg BID (s/p aspirin desensitization therapy), and statin. - discussed pain management. Trial oxycodone of morphine 10 mg BID, consider reducing even further. Will add scheduled tylenol, lidocaine patch, and gabapentin to hopefully reduce opiate need. - given improvement, ordered VBG with regular labs to assess if hypercapnea present at baseline. - PT/OT to continue, recommended for SNF 2. Weight loss, severe protein calorie malnutrition Patient has lost nearly 60 lb since September of this year. Etiology not clear at this time. Imaging thus far unremarkable for obvious malignancy. Would recommend age appropriate screening with primary care. It is possible weight loss was due to lack of appetite with morphine and chronic pain. 3. Chronic pain syndrome management as discussed above in problem #1 4. Possible bacterial pnuemonia - continue ceftriaxone and azithromycin, no current symptoms but will complete 5 day treatment for pneumonia based on infiltrates seen on initial CXR combined with unremarkable echocardiogram. 5. Nonsustained ventricular tachycardia Patient had borderline low magnesium levels and low potassium. Both were repleted this morning. No significant recurrence. 6. COPD without exacerbation - replace home advair with duoneb BID, albuterol prn. No current shortness of breath. Code status DNR/DNI after discussion with , he confirmed this would be consistent with her wishes Prophylaxis presently receiving Lovenox. Disposition Acute care. Likely SNF in the next couple of days Additional history was obtained via patient's family. Discussed with case management and family to form the above assessment and plan.
[2023-05-30] MEDS: OXYCODONE ER 10 MG TAB PO ×2 (09:44→20:55)
[2023-05-30] MEDS: ACETAMINOPHEN 325 MG TABLET 650 MG PO ×2 (09:45→16:30)
[2023-05-30] MEDS: GABAPENTIN 300 MG CAPSULE PO ×3 (09:47→20:56)
[2023-05-30] MEDS: ENOXAPARIN 40 MG/0.4 ML SYRINGE SUBCUT (09:49)
[2023-05-30] MEDS: ASPIRIN EC 325 MG TABLET PO ×2 (09:49→20:55)
[2023-05-30] MEDS: POTASSIUM CHLORIDE 20 MEQ TAB PO (10:42)
[2023-05-30] MEDS: AZITHROMYCIN 500 MG in DEXTROSE 5% IN WATER 250 ML 250 MG IV (10:42)
--- NOTE | 2023-05-30 12:33 | OT.IP.TRT ---
Current Diagnoses Chronic pain syndrome (05/26/23) Essential (primary) hypertension (05/26/23) Cerebral infarction, unspecified (05/26/23) Occupational Therapy Treatment Note M2 OT-IP Current Condition Start: 05/28/23 13:45 Freq: Status: Active Protocol: Document 05/28/23 13:46 CGR (Rec: 05/28/23 14:10 CGR [id number]) Occupational Therapy Current Condition Current Condition Evaluation Date 05/28/23 Treatment Diagnosis AMs , PNA, weakness M3 OT- IP Subjective and Pain Start: 05/28/23 13:45 Freq: Status: Active Protocol: Document 05/30/23 12:33 CCC (Rec: 05/30/23 12:42 CCC [id number]) OT- Subjective Occupational Therapy Visit Type Type Treatment Note Visit Start Time 12:06 Visit Stop Time 12:33 Total Visit Minutes 27 Occupational Therapy Visit Comments Patient Comments Pt agreed to get up to use the bathroom. Patient/Caregiver Goals TO get better. OT Pain Assessment Pain When Pain Assessed At Rest Pain Present Pain Present Denied Pain M4 OT- IP ADL's Start: 05/28/23 13:45 Freq: Status: Active Protocol: Document 05/30/23 12:33 CCC (Rec: 05/30/23 12:42 CCC [id number]) OT [id number] Comments OT Self-Feeding Comments Not at meal time. OT ADL-Grooming Comments OT Grooming Comments Pt able to wash her face and hands after set-up. OT ADL-Oral Care Comments Oral Care Comments not performed OT ADL-Dressing General Eval Lower Body Dressing Ability Maximum Assistance,Total Assistance Areas Needing Assistance Underpants/Brief,Socks Comments OT Dressing Comments Assist to help get brief over her feet and up over her hips. OT ADL-Toileting Comments OT Toileting Comments Pt needing assist for hygiene and clothing needs. OT ADL-Bathing Comments OT Bathing Comments Not performed M5 OT- IP IADL's Start: 05/28/23 13:45 Freq: Status: Active Protocol: Document 05/28/23 13:46 CGR (Rec: 05/28/23 14:10 CGR [id number]) OT-Instrumental Activities of Daily Living Deficits IADL Deficits Identified Deficits Home Safety Awareness Awareness of Need for Assistance at Home Decreased Awareness Ability to Problem Solve Emergency Unable to Problem Solve Situations Medication Management Medication Management Comments Concerns regarding pt's ability to perform Money Management Money Management Caregiver Provides Assistance Meal Preparation Meal Preparation Caregiver Provides Assist Cloth Spreader Screen Printing Cloth Spreader Screen Printing Caregiver Provides Assist Driving Driving Comments Per pt's , ~3 weeks ago pt stated that she wanted to quit driving because she was worried about damaging the car or hurting someone. M6 OT- IP Functional Cognition Start: 05/28/23 13:45 Freq: Status: Active Protocol: Document 05/30/23 12:33 [facility] (Rec: 05/30/23 12:42 [facility] [id number]) Cognitive Factors Limiting Selfcare Function Cognitive Ability Level of Alertness Alert Attention Span Ability Capable of Focused Attention, Unable to Sustain Attention Cognitive Comments Cognitive Assessment Comments Pt able to follow commands for toileting and mobility needs with the FWW. Pt needing cues for hand placement and to keep the FWW in front of her as well. M7 OT- IP Mobility and Balance Start: 05/28/23 13:45 Freq: Status: Active Protocol: Document 05/30/23 12:33 [facility] (Rec: 05/30/23 12:42 [facility] [id number]) OT- Bed Mobility Assessment Supine to Sit Supine to Sit Assist Moderate Assistance,Head of Bed Elevated,Bedrails Scooting Scooting to Edge of Bed Maximum Assistance,1 Person Assistance OT-Transfer Assessment Sit to and From Stand Sit to and from Stand Minimal Assistance,Moderate Assistance Transfers Transfer Ability Minimal Assistance,Moderate Assistance Technique Transfer Destination Bed,Chair,Shower Stall Devices Transfer Assistive Devices Gait Belt,Front Wheeled Walker Comments Mobility Comments Assist to help get her trunk upright and use of bed sheet to help scoot her forwards. MIN/MODA to stand from the bed and toilet to FWW. Assist to help guide the FWW, keeping it close to her and for her balance. OT- Balance Assessment Sitting Balance and Reactions Static Sitting Balance Ability Good Dynamic Sitting Balance Ability Fair Standing Balance and Reactions Static Standing Balance Ability Fair Dynamic Standing Balance Ability Poor M8 OT- IP Objective Assessments Start: 05/28/23 13:45 Freq: Status: Active Protocol: Document 05/28/23 13:46 CGR (Rec: 05/28/23 14:10 CGR [id number]) OT Gross Range of Motion Upper Extremity Range of Motion ROM Impairments 0-90 to B shlds. OT Strength Comments Strength Comments unable to test d/t not following commands but pt is using her L hand significantly more than her R. OT- Coordination Assessment Comments Coordination Comments unable to test OT-Muscle Tone Assessment Muscle Tone WNL Yes OT Sensation Assessment Edema Edema Absent M9 OT- IP Assessment and Plan Start: 05/28/23 13:45 Freq: Status: Active Protocol: Document 05/30/23 12:33 [facility] (Rec: 05/30/23 12:42 [facility] [id number]) OT Summary Assessment and Plan Potential Rehabilitation Potential Fair Analytic Complexity at Evaluation High Summary OT Impairments Range of Motion,Strength, Balance,Coordination, Functional Cognition, Functional Mobility,Self- Feeding,Grooming,Dressing, Toileting,Bathing,Toilet Transfers,Shower Transfers, Activity Tolerance Progress Towards Goals Progressing Toward Goals Assessment Summary Per medical chart, pt has possibly PNA. Pt currently has decreased activity tolerance, now needing extensive assist for ADL needs and at this time would be best for pt to go to skilled rehab to work on maximizing her level of independence for ADl and mobility needs. Prior to this hospitalization pt did not use any devices in the house and only had assist from her for bathing and washing her hair. Pt is very motivated to get better. Goals Self-Feeding Goal Independent Grooming Goal Independent Dressing Goal Independent Toileting Goal Independent Bathing Goal Minimal Assistance Toilet Transfer Goal Independent Shower Transfer Goal Minimal Assistance Days to Meet Goals 25 Frequency of Treatment Frequency Of Treatment Once a Day Treatment Plan OT Treatment Plan ADL Training,Functional Cognition Training,Functional Mobility,Therapeutic Exercises ,Patient/Family Education, Discharge Planning Other Treatment Recommendations and Next shower Treatment Focus Discharge Recommendations OT Discharge Recommendations SNF Rehab Transportation Needs at Discharge Wheelchair/Cabulance
--- NOTE | 2023-05-30 12:57 | PC.NURSE ---
Day shift: Pt calm and cooperative with care this AM and on assessment. PO meds in applesauce one at a time and did well. Family in room for support. OOB to chair with PT and PCT (2 person assist) for lunch. In chair now and tolerating well. Minced and moist diet with thin liquids and tolerating well. Sitting up 90 degrees when eating and drinking. Chair/bed alarm in place. High fall risk at this time. Call light in reach.
--- NOTE | 2023-05-30 13:43 | PT.IPTN ---
Current Diagnoses Chronic pain syndrome (05/26/23) Essential (primary) hypertension (05/26/23) Cerebral infarction, unspecified (05/26/23) Physical Therapy Treatment Note M2 PT-IP Current Condition Start: 05/28/23 14:15 Freq: NEEDED Status: Active Protocol: Document 05/28/23 15:29 AW (Rec: 05/28/23 16:43 AW [id number]) Physical Therapy Current Condition Current Condition Evaluation Date 05/28/23 Treatment Diagnosis AMS of uncertain etiology; impaired mobility and gait Onset Date 05/26/23 M3 PT-IP Subjective Start: 05/28/23 14:15 Freq: NEEDED Status: Active Protocol: Document 05/30/23 14:04 ZF (Rec: 05/30/23 14:31 ZF [id number]) Subjective Physical Therapy Visit Type Type Treatment Note Visit Start Time 13:43 Visit Stop Time 14:02 Total Visit Minutes 19 Number of PLASTIC MAKER Visits 2 Physical Therapy Visit Comments Patient Comments Pt is sleeping in recliner w/ lunch in front of her when approached for therapy. Pt reports that she'd like to eat her lunch, agreeable to brief mobility training to increase her wakefulness so she can finish eating lunch. M4 PT-IP Mobility and Gait Start: 05/28/23 14:15 Freq: NEEDED Status: Active Protocol: Document 05/30/23 14:04 ZF (Rec: 05/30/23 14:31 ZF [id number]) PT-Transfer Assessment Sit to and From Stand Sit to and from Stand Minimal Assistance,1 Person Assistance,Use of Upper Extremities Equipment Transfer Assistive Device Gait Belt,Front Wheeled Walker Orthotic/Prosthetic Devices or Brace: No Transfers Transfer Destination Bed,Chair Transfer Technique Stand Pivot Transfer Ability Level of Assist Minimal Assistance,1 Person Assistance,Use of Upper Extremities Comments Mobility Comments Pt sleeping in recliner when approached for therapy. Agreeable to therapy and then finishing her lunch. Required VC for scooting forward in chair. STS from low seat requires Brie, w/2ww. VC for proper handplacement and forward lean to initiate stand . Pt amb ~25' in room w/2ww, requires Brie for occasional AD management. Initially pt reports feeling good and requests amb in hallway, but abruptly reports that she needs to sit. Pt requires rest break EOB. Pt reports fatigue and slight lightheadedness. Requests getting back in chair . Pt tends to abandon 2WW before reaching destination, requires VC for staying centered in AD until in safe position to sit to reduce fall risk. Gait Assessment Gait Gait Assistance Required: Minimum Assistance,Moderate Assistance,1 Person Assist Distance (Feet) 25 Assistive Devices Assistive Device Gait Belt,Front Wheeled Walker Gait Deviations General Gait Pattern Decreased Stride Length, Decreased Feet Clearance, Flexed Trunk Factors Limiting Gait Function Factors Limiting Gait Function Decreased Strength,Difficulty Following Directions,Poor Balance,Poor Safety Awareness Comments Gait Comments See mobility comments above. PT-Balance Assessment Sitting Balance and Reactions Static Sitting Balance Ability Good Dynamic Sitting Balance Ability Fair Standing Balance and Reactions Static Standing Balance Ability Fair Dynamic Standing Balance Ability Poor Device Used FWW M5 PT-IP Objective Assessments Start: 05/28/23 14:15 Freq: NEEDED Status: Active Protocol: Document 05/28/23 15:29 AW (Rec: 05/28/23 16:43 AW [id number]) Orientation Orientation/Cognition Level of Alertness Confusional State Orientation Name Language Function Ability Garbled Speech Safety Awareness Decreased Safety Awareness Memory Description Short Term Impaired Comments Pt presents as oriented to self only. Speech is intermittently difficult to understand. Gross Range of Motion Upper Extremity ROM Assessment Within Functional Limits Lower Extremity ROM Assessment Within Functional Limits Strength Comments Strength Comments Pt does not understand instructions for MMT but clearly has antigravity strength in all limbs. No unilateral deficit is appreciated. Coordination Assessment Assessment Coordination Comments Unable to assess Sensation Assessment Comments Sensation Comments Unable to assess Muscle Tone Comments Muscle Tone Comments No rigidity or increased tone. Modified Allyn scale: 0. M6 PT-IP Treatment Start: 05/28/23 14:15 Freq: NEEDED Status: Active Protocol: Document 05/29/23 14:06 NBM (Rec: 05/29/23 15:02 NBM [id number]) Physical Therapy Treatment Exercises Exercises Seated Knee Flexion/Extension Other Treatments Other Treatment Performed Heel raises ruth x5 ea - increased R hicks pain reported . Seated marching ruth x5 ea w/ visual target - good eccentric control w/ all Therex. M7 PT-IP Assessment and Plan Start: 05/28/23 14:15 Freq: NEEDED Status: Active Protocol: Document 05/30/23 14:04 ZF (Rec: 05/30/23 14:31 ZF [id number]) PT Summary Assessment and Plan Potential Rehabilitation Potential Fair Summary Impairments Strength,Balance,Cognition,Bed Mobility,Transfers,Gait Progress Towards Goals Slow Progress due to Medical Issues Assessment Summary Pt requires Brie for all mobility today, and Max cueing for set up and sequencing of transfers and for safety as pt tends to abandon AD when not appropriate. PT recommends continued rehab in the acute setting and SNF for ongoing rehab at discharge to progress pt to her highest mobility potential. Goals Bed Mobility Goal Standby Assistance Transfer Goal Standby Assistance,Front Wheeled Walker Gait Goal Standby Assistance,Front Wheel Walker Gait Distance 75 Other Goals - up/down 2 steps using LRAD with CGA - progress transfers and gait to SBA with LRAD Days to Meet Goals 10 Frequency of Treatment Frequency Of Treatment Once a Day Treatment Plan Physical Therapy Treatment Plan Bed Mobility Training,Transfer Training,Gait Training, Therapeutic Exercise,Balance Retraining,Discharge Planning, Hot or Cold Pack,Neuromuscular Re-ed Precautions Other Precautions falls history Recommendations To Nursing Amount of Assist Needed 1 Person Assist Discharge Recommendations PT Discharge Recommendations SNF Rehab Transportation Needs at Discharge Wheelchair/Cabulance
--- NOTE | 2023-05-30 14:15 | ST.IPDYTX ---
Visit Care Team Role Provider Type Jigar Mclean MD Primary Care Provider Non-Staff Specialty: Internal Medicine Address: [address] [place] [address], [id number] Email: Tanika Matson MD Emergency Provider Physician Referring Provider Specialty: Emergency Medicine Address: [address] [place] [address], [id number] Email: Patrice Giordano MD Admit Provider Physician Attending Provider Specialty: Internal Medicine Address: [address] [place] [address], [id number] Fax: Email: [email or web address] CLIENT DIRECTOR Dysphagia Treatment CLIENT DIRECTOR Dysphagia Treatment Start: 05/29/23 11:10 Freq: Status: Active Protocol: Document 05/30/23 13:38 CG (Rec: 05/30/23 14:02 CG [id number]) Dysphagia Treatment Session Time Visit Start Time 11:25 Visit Stop Time 12:10 Total Visit Minutes 45 Visit Information Visit Number 3 Setting Assessment Location Acute Care Next Note Type Next Note Type Treatment Note Patient Information Subjective Observations Pt seen for 1:1 dysphagia treatment. Pt sitting partially upright in bed with family present at bedside. Nursing reports Pt consumed a bowl of oatmeal this morning with no observed difficulties. Pt with sustained increase in alertness this morning, oriented to person and place. Partially oriented to situation, but states she has never been to this hospital before, which her family reports is not true. She also continues to demonstrate some overall confusion, including believing that CLIENT DIRECTOR's spouse works at this hospital and helped her with toileting this morning. However, she understood CLIENT DIRECTOR's role and was agreeable to PO trials. She asked some appropriate questions related to CLIENT DIRECTOR recommendations as outlined below. With the help of family , pt was repositioned (boosted up in bed and positioned further upright) before initiation of therapeutic trials. Treatment Liquids Trialed Thin (IDDSI 0) Solids Trialed Purred (IDDSI 4),Minced & Moist (IDDSI 5) Administration Type Tea Spoon,Cup Single Sip, Controlled Cup Sip,Self- Feeding Oral Strategies Upright at 90 degrees,Lingual Sweep,Controlled Bite/Sip Size Pharyngeal Strategies Sitting Upright (90 deg),Small Bites and Sips Treatment Activities Therapeutic PO trials, education related to safe swallowing strategies. Education re the role of oral care in reducing risk of aspiration pneumonia. Discussion with pt and family regarding outside referrals and follow-up with MBS and GI due to suspected exacerbation of esophageal dysfunction. The IDDSI Framework Protocol: IDDSI.1 Assessment Assessment of Improvement Pt presented with trials thin water via tsp and via controlled cup sip. Solid trials included trials IDDSI 4 (vanilla pudding) and IDDSI 5 (radha crackers crushed into vanilla pudding), one teaspoon at a time. Pt able to drink from cup independently, utilizing small sips. For thin water Pt demonstrated single cup sips, good oral acceptance and containment, mildly delayed/slowed A-P transport and swallow initation, but no overt s/sx aspiration/penetration ( although silent aspiration cannot be ruled out without an instrumental assessment). For pudding, Pt demonstrated slow rate, small bites, adequate bolus formation and control, extended ap transport, piecemeal deglutition, suspected delay in swallow, no overt s/s of aspiration. For pudding with radha cracker pieces (IDDSI 5), pt demonstrated slow rate, small bites, extensive mastication time but adequate mastication, and piecemeal swallow. After the swallow of IDDSI 5, minimal oral residue remained, and pt with good sensation of residue. Pt was able to clear residue with lingual sweep. Audible esophageal gurgling sounds were noted, as well as some hiccups, after trials of solids. These are indicative of esophageal dysfunction. Asked pt and family about hx of esophageal issues, and family reported that the pt had had an esophageal stricture in the past which had to be dilated. This was apparently seen on MBSS, as family reported the pt has had ongoing dysphagia with multiple MBSSs related to this esophageal issue. Highly recommend pursuing MBS and GI consultation as esophageal stricture may negatively impact swallowing safety due to potential for severe pharyngeal residue. ST educated Pt on safe swallowing strategies, such as slow rate, small sips/bites, upright 90 degrees, up right for [address] recommends upgrade to thin liquids via small sips and minced and moist solids (IDDSI 5) via small bites, one at a time. Due to need for slow rate and small bites given suspected esophageal stricture, there is concern for pt being able to meet her nutritional needs. Pt and family report the pt is already working with dietary team and receiving supplemental nutrition shakes. Pt has lost significant weight recently, and nutrition will continue to be a concern as long as dysphagia remains at its current level. In summary, CLIENT DIRECTOR recommends: 1. Upgrade to thin liquids and IDDSI 5 Minced/Moist solids via small bites and sips. 2. Position upright 90 degrees for meals and 30 minutes after meals. 3. One bite/sip at a time due to concern re esophageal clearance. 4. Follow up with MBS as soon as possible. 5. GI consult recommended. 6. Continue to collaborate with RD to maintain nutrition given reduced PO intake. 7. Continue to monitor cognition to evaluate for safest discharge plan. Recommendations Recommendations Upgrade Diet Order Liquids Order Thin (IDDSI 0) Diet Order Minced & Moist (IDDSI 5) Medication Recommendations As Tolerated Comments using a carrier for medications will ease the bolus flow to the stomach Additional Dietary Needs 1:1 Supervision Aspiration Precautions Recommended Precautions Upright at 90 Degrees,Small Bites/Sips Treatment Plan Placement Recommendation after Discharge [facility]irement Facility Appropriate for Continued Therapy Yes Referrals/Other Recommended Referrals GI Consult
[2023-05-30] MEDS: SENNOSIDES 8.6 MG TABLET 17.2 MG PO (20:55)
[2023-05-30 21:20] LABS: BUN Creatinine Ratio 12.7 (6-22); Blood Urea Nitrogen 7 mg/dL (7-17); Calcium 9.6 mg/dL (8.4-10.2); Carbon Dioxide 27 mmol/L (22-32); Chloride 101 mmol/L (98-107); Estimated Glomerular Filt Rate > 60 mL/min (>60); Glucose 107 mg/dL (80-110); HEMOLYSIS < 15 (0-50); Sodium 136 mmol/L (137-145)
[2023-05-30] MEDS: SODIUM CHLORIDE 0.9% FLUSH 10 ML IV (21:24)
[2023-05-30] MEDS: POTASSIUM CHLORIDE 20 MEQ TAB 40 MEQ PO (23:13)
[2023-05-31 03:00] VITALS: BP 108/61; PULSE 74; RESP 21; TEMP 36.4; O2SAT 96
[2023-05-31 04:00] VITALS: O2SAT 98
[2023-05-31 05:54] LABS: Add Manual Diff / Slide Review NO; Basophils Absolute Auto 100 /uL (0-100); Basophils Percent Auto 1.2 % (0-2); Eosinophils Absolute Auto 800 /uL (0-450); Eosinophils Percent Auto 9.5 % (2-4); Hematocrit 34.6 % (36-46); Hemoglobin 11.3 g/dL (12.0-16.0); Lymphocytes Absolute Auto 1800 /uL (1100-4500); Lymphocytes Percent Auto 20.5 % (25-40); Mean Corpuscular HGB Conc 32.7 % (30-36); Mean Corpuscular Hemoglobin 28.5 PG (26-34); Mean Corpuscular Volume 87.1 fL (80-100); Monocytes Absolute Auto 500 /uL (0-900); Monocytes Percent Auto 5.7 % (3-14); Neutrophils Absolute Auto 5600 /uL (1500-7000); Neutrophils Percent Auto 63.1 % (50-75); Platelet Count 346 X10^3/uL (150-400); Red Blood Cell Count 3.97 X10^6/uL (4.0-5.2); Red Cell Distribution Width 16.4 % (11.6-14.8); White Blood Cell Count 8.8 X10^3/uL (4.5-11.0)
[2023-05-31 06:07] LABS: Alanine Aminotransferase 18 IU/L (<35); Albumin Globulin Ratio 0.8 (1.0-2.8); Alkaline Phosphatase 60 U/L (38-126); Aspartate Aminotransferase 24 IU/L (14-36); Bilirubin Total 0.6 mg/dL (0.2-1.3); Blood Urea Nitrogen 6 mg/dL (7-17); Calcium 9.6 mg/dL (8.4-10.2); Carbon Dioxide 25 mmol/L (22-32); Chloride 108 mmol/L (98-107); Estimated Glomerular Filt Rate > 60 mL/min (>60); Globulin 3.7 g/dL (1.7-4.1); Glucose 91 mg/dL (80-110); HEMOLYSIS < 15 (0-50); Magnesium 1.9 mg/dL (1.6-2.3); Potassium 3.4 mmol/L (3.4-5.1); Sodium 140 mmol/L (137-145); Total Protein 6.7 g/dL (6.3-8.2)
[2023-05-31 07:00] VITALS: BP 144/90; PULSE 101; RESP 16; TEMP 36.6; O2SAT 96
[2023-05-31] MEDS: cefTRIAXone 1,000 MG in SODIUM CHLORIDE 0.9% 100 ML 200 MG IV (07:00)
[2023-05-31] MEDS: AZITHROMYCIN 500 MG in DEXTROSE 5% IN WATER 250 ML 250 MG IV (08:46)
[2023-05-31] MEDS: ENOXAPARIN 40 MG/0.4 ML SYRINGE SUBCUT (08:46)
[2023-05-31] MEDS: ASPIRIN EC 325 MG TABLET PO (08:47)
[2023-05-31] MEDS: POTASSIUM CHLORIDE 20 MEQ TAB PO ×2 (08:47)
[2023-05-31] MEDS: OXYCODONE ER 10 MG TAB PO (08:47)
[2023-05-31] MEDS: GABAPENTIN 300 MG CAPSULE PO (08:47)
[2023-05-31] MEDS: ACETAMINOPHEN 325 MG TABLET 650 MG PO (08:47)
[2023-05-31] MEDS: SODIUM CHLORIDE 0.9% FLUSH 10 ML IV (08:48)
[2023-05-31 09:33] VITALS: O2SAT 97
[2023-05-31 09:40] VITALS: PULSE 116; RESP 16; O2SAT 99
[2023-05-31] MEDS: ALBUTEROL/IPRATROPIUM 3 ML AMPUL INH (09:40)
--- NOTE | 2023-05-31 09:51 | PC.NURSE ---
Day shift: Pt having good morning w/ family in room. Ate breakfast with no issues. Meds in applesauce one at a time. Did better with meds this AM. Tolerating IV antibiotics. Does c/o 09/22 back pain. Bed alarm is on and call light in reach. Pt likely close to baseline.
--- NOTE | 2023-05-31 11:24 | CM.DPNOTE ---
Addendum entered by DAVID Ku 05/31/23 14:11: ADD: [facility] authorization # [id number] Original Note: DC Note Patient is medically stable for discharge today, [facility] authorization in place. Discussed with Gisselle at [facility] and Esthela at [facility]. [facility] has a bed reserved and able to admit patient today. Reviewed discharge plan with patient and spouse, both agreeable to discharge to [facility] today. Transport arranged for picker / packer between [id number]. PASRR completed, signed and given to PAL Massey for further coordination. Dr Hong completing DC ppk which will be sent to [facility]. JAIR Cornell made aware of picker / packer time and nurse to nurse report number. Plan: Discharge to [facility] today via wheelchair van JW
[2023-05-31] MEDS: INFLUENZA VACCINE QIV 0.5 ML SYRINGE IM (11:31)
--- NOTE | 2023-05-31 11:34 | PM.DS.1 ---
History of Present Illness History of Present Illness Date Patient Seen: 05/27/23 Time Patient Seen: 00:00 Chief complaint: confusion/SOB/ Narrative: The pt is a 73 chronically debilitated female who was noted to have difficulty speaking around noon today which progressed to around 1600 today she was essentially non-responsive. EMS was called and she was brought to the ER for evaluation. During my exam on the medical unit she was unresponsive and not following commands. She is on chronic narcotics for chronic back pain and has a hx of compression fractures in the past. No other problems are known about her, left from the ER. Discharge Providers Provider Date of admission: 05/26/23 22:15 Discharge Date: 05/31/23 Primary care physician: Jigar Mclean MD Consults: 05/26/23 22:56 Consult to Occupational Therapy Evaluate & Treat Comment: Physician Instructions: Evaluate and treat Consult to Physical Therapy Evaluate & Treat Comment: Physician Instructions: Evaluate and Treat 05/26/23 23:53 Consult to Speech Therapy Evaluate & Treat Comment: Physician Instructions: Evaluate and treat 05/28/23 10:33 Consult to Physical Therapy Evaluate & Treat Comment: Physician Instructions: Evaluate and Treat 05/29/23 15:14 Consult to Occupational Therapy Evaluate & Treat Comment: Physician Instructions: Evaluate and treat Consult to Physical Therapy Evaluate & Treat Comment: Physician Instructions: Evaluate and Treat Discharge provider: Brian Hong DO Summary Hospital Course Discharge Diagnosis: 1. Acute toxic and/or metabolic encephalopathy, resolving with acute stroke ruled out - imaging thus far has been unremarkable. And her improvement over the last couple of days tend to suggest a more toxic or metabolic etiology. My suspicion is that with her weight loss, her morphine has continued to become more and more sedating for her leading to her presentation. It is also possible this led to hypercapnea with a history of lung disease on advair and albuterol at home. Another possibility is encephalopathy due to pneumonia based on presenting imaging. - MRI was negative yesterday for stroke. Even if TIA she already is on statin and aspirin therapy. - echocardiogram was unremarkable with grossly normal function - continue home asa 325 mg BID (s/p aspirin desensitization therapy), and statin. - discussed pain management. Trial oxycodone instead of morphine 10 mg BID. Will add scheduled tylenol, lidocaine patch, and gabapentin to hopefully reduce opiate need. - given improvement, ordered VBG with regular labs to assess if hypercapnea present at baseline. - PT/OT to continue, recommended for SNF 2. Weight loss, severe protein calorie malnutrition Patient has lost nearly 60 lb since September of this year. Etiology not clear at this time. Imaging thus far unremarkable for obvious malignancy. Would recommend age appropriate screening with primary care. It is possible weight loss was due to lack of appetite with morphine and chronic pain. 3. Chronic pain syndrome management as discussed above in problem #1 4. Possible bacterial pnuemonia - continue ceftriaxone and azithromycin, no current symptoms but will complete 5 day treatment for pneumonia based on infiltrates seen on initial CXR combined with unremarkable echocardiogram. 5. Nonsustained ventricular tachycardia - Patient had borderline low magnesium levels and low potassium. Both were repleted this morning. No significant recurrence. 6. COPD without exacerbation - replace home advair with duoneb BID, albuterol prn. No current shortness of breath. Hospital Course: Admitted for encephalopathy which was likely toxic due to too much morphine ER with patient's significant weight loss. Morphine switched to oxycodone ER with scheduled tylenol, lidocaine patch and gabapentin and patient's mentation improved. She was very weak and PT rec SNF. Received abx for a possible PNA. Discharged to SNF on 05/31 and her morphine was switched to oxycodone ER. Exam Vital Signs (past 8 hours): - 05/31/23 04:00 05/31/23 07:00 05/31/23 09:33 Temperature 97.8 F Pulse Rate 101 H Respiratory Rate 16 Blood Pressure 144/90 H Pulse Oximetry 98 96 97 Oxygen Delivery Method Room Air Room Air Oxygen Flow Rate 0 05/31/23 09:40 Temperature Pulse Rate 116 H Respiratory Rate 16 Blood Pressure Pulse Oximetry 99 Oxygen Delivery Method Room Air Oxygen Flow Rate Oxygen Delivery Method Room Air Oxygen Flow Rate 0 Narrative Exam Narrative: GEN: 73 F alert, oriented to name and location. Sitting upright eating breakfast. HEENT:NC, Face symmetric with grossly normal cranial nerves bilaterally. CHEST: Respiratory excursions symmetric, CTAB CV: RRR, no M/R/G ABD: Soft, NT/ND, BT present in all 4 quadrants, no organomegaly or masses EXTR: warm, well perfused, no C/C/E, bruising noted to the right arm and shoulder area SKIN: warm and dry, no rash Neuro: No focal deficits Objective Labs 05/31/23 05:00 05/31/23 05:00 Labs: Laboratory Results - last 24 hr 05/30/23 05/31/23 20:58 05:00 WBC 8.8 D RBC 3.97 L Hgb 11.3 L Hct 34.6 L MCV 87.1 MCH 28.5 MCHC 32.7 RDW 16.4 H Plt Count 346 Neut % (Auto) 63.1 Lymph % (Auto) 20.5 L [place] % (Auto) 5.7 Eos % (Auto) 9.5 H Baso % (Auto) 1.2 Neut # (Auto) 5600 Lymph # (Auto) 1800 [place] # (Auto) 500 Eos # (Auto) 800 H Baso # (Auto) 100 Sodium 136 L 140 Potassium 3.0 L 3.4 Chloride 101 108 H Carbon Dioxide 27 25 BUN 7 6 L Creatinine 0.55 0.50 L Estimated GFR > 60 > 60 BUN/Creatinine Ratio 12.7 12.0 Glucose 107 91 Calcium 9.6 9.6 Magnesium 1.9 Total Bilirubin 0.6 AST 24 ALT 18 Alkaline Phosphatase 60 Total Protein 6.7 Albumin 3.0 L Globulin 3.7 Albumin/Globulin Ratio 0.8 L [facility] Medical History (Updated 05/27/23 @ 00:06 by Patrice Giordano MD) Hyperlipidemia Chronic pain syndrome Hypertension Autoimmune disorder Fibromyalgia Social History marital status: household members: spouse lives independently: Yes Smoking Status: Never smoker Discharge Plan Discharge orders & Medications Discharge Orders: Discharge (Order); Ordered 05/31/23 Ordered By: Brian Hong Prescriptions: New oxycodone [OxyContin] 10 mg Tablet,Oral Only,Ext.Rel.12 Hr 10 mg PO BID Qty: 30 0RF potassium chloride [Klor-Con M20] 20 mEq Tablet,Er Particles/Crystals 20 meq PO DAILYCC Qty: 30 0RF lidocaine 5 % Adhesive Patch,Medicated 1 patch topical DAILY Qty: 15 0RF gabapentin 300 mg Capsule 300 mg PO TID Qty: 30 0RF acetaminophen 500 mg tablet 500 mg PO Q8H Qty: 30 0RF Continued atorvastatin 40 mg tablet 40 mg PO DAILY Patient Comments: take 1 tablet by mouth once daily albuterol sulfate 90 mcg/actuation HFA aerosol inhaler 1 puff Inhalation PRN PRN (Reason: Shortness Of Breath) fluticasone propion-salmeterol 230-21 mcg/actuation HFA aerosol inhaler 2 puff Inhalation BID Patient Comments: inhale 2 puffs by mouth twice a day aspirin 325 mg Tablet 325 mg PO BID Discontinued morphine 15 MG tablet extended release 15 mg PO Q12H Qty: 0 morphine 15 mg tablet extended release 15 mg PO Q12H Follow up/Referrals: Jigar Mclean MD [Primary Care Provider] - 2 Weeks Visit Report/Discharge Packet Stand Alone Forms: Patient Portal/API Discharge Data Primary Care Provider: Jigar Mclean
--- NOTE | 2023-05-31 12:53 | PC.NURSE ---
Day shift: Report given to Elisabet at [facility] at approx 1145. All questions answered. Awaiting transport SNF person at this time (1300).
[2023-05-31 12:54] VITALS: O2SAT 98
--- NOTE | 2023-05-31 13:09 | PC.NURSE ---
Day shift: Left unit via WC w/ SNF transport person at approx 1310. Ate lunch. Rt hand is wrapped from d/c IV. Has all personal belongings. SNF packet given to transport person.
== END 2023-05-31 13:11 | DRG 91 ==
LOC: ED 18:46 → AC 22:16
PROVIDERS: Emergency Medicine; Family Medicine; Internal Medicine; Admitting Provider Internal Medicine; Emergency Provider Emergency Medicine; PCP Internal Medicine; Referring Provider Emergency Medicine; Visit Provider Internal Medicine
DX: G92.8 Other toxic encephalopathy (principal); E43 Unspecified severe protein-calorie malnutrition; G93.41 Metabolic encephalopathy; J15.9 Unspecified bacterial pneumonia; I47.20 Ventricular tachycardia, unspecified; J44.0 Chronic obstructive pulmonary disease with (acute) lower respiratory infection; G89.4 Chronic pain syndrome; I10 Essential (primary) hypertension; T40.2X5A Adverse effect of other opioids, initial encounter; E78.5 Hyperlipidemia, unspecified; Z23 Encounter for immunization; Z66 Do not resuscitate; Z68.20 Body mass index [BMI] 20.0-20.9, adult
CPT/HCPCS: 36415; 70450; 70496; 70498; 70551; 71045; 80048; 80053; 80061; 80305; 80320; 81001; 81003; 82550; 82962; 83036; 83735; 84484; 85025; 85610; 85730; 87635; 90471; 90656; 92526; 92610; 93005; 93010; 93306; 94640; 96374; 96375; 97110; 97162; 97167; 97530; 97535; 99285; C9803; J0696; J1630; J1650; J2060; J2405; J3475; Q2038

== ENCOUNTER 2023-06-16 10:09 | Emergency (ER) | payer OTHER, SELFPAY ==
[2023-05-26 22:21] VITALS: BMI 20.5
[2023-06-16] VITALS (7 sets, daily range): BP systolic 143–154; BP diastolic 67–68; PULSE 96–112; RESP 14–31; TEMP 37.6–38.1; O2SAT 93–97; BMI 22.6
--- NOTE | 2023-06-16 11:13 | DI.RAD.S_ITS ---
PROCEDURE: XR CHEST 2V INDICATIONS: eval for PNA TECHNIQUE: 2 views of the chest were acquired. COMPARISON: [facility], CT, CT ANGIO CHEST PE PROTOCOL, 09/30/2022, 12:26. [facility], CR, XR CHEST 1V, 05/26/2023, 19:39. [facility], CR, XR CHEST 1V, 09/30/2022, 10:23. FINDINGS: Surgical changes and devices: None. Lungs and pleura: Lungs are clear. No pleural effusions or pneumothorax. Mediastinum: Mediastinal contours are normal. Heart size is normal. Bones and chest wall: Similar compression deformity of the T11 and T6 vertebral bodies, with exaggerated kyphosis. IMPRESSION: No acute cardiopulmonary abnormality is seen. Dictated by: Esequiel Garcia M.D. on 06/16/2023 at 11:32 Approved by: Esequiel Garcia M.D. on 06/16/2023 at 11:34
[2023-06-16 11:16] LABS: Influenza A - CEPHEID Flu A NEGATIVE (NEGATIVE); Influenza B - CEPHEID Flu B NEGATIVE (NEGATIVE); Respiratory Syncytial Virus POSITIVE (Negative)
[2023-06-16 11:17] LABS: COVID-19 CEPHEID 4-PLEX PCR Negative (Negative)
--- NOTE | 2023-06-16 11:33 | ED.GENADULT ---
HPI - General Adult General Chief complaint: Upper Respiratory Symptoms Stated complaint: sinus infection Time Seen by Provider: 06/16/23 11:07 Source: patient and family Mode of arrival: Wheelchair History of Present Illness HPI narrative: Patient is a 73-year-old female. Was recently admitted to this facility and subsequently sent to rehab. Has been out of rehab for at least the past week. For the past 2 days has had sinus congestion. No chest pain. No shortness of breath. No fevers. No skin rashes. Has not tried anything for the symptoms. She was here thinking that she has a sinus infection. Related Data Home Medications Medication Instructions Recorded Confirmed albuterol sulfate 90 mcg/actuation 1 puff inhalation PRN PRN 11/07/18 05/29/23 aerosol inhaler Shortness Of Breath atorvastatin 40 mg tablet 40 mg PO DAILY 11/07/18 05/29/23 fluticasone propionate 230 2 puff inhalation BID 11/07/18 05/29/23 mcg-salmeterol 21 mcg/actuation HFA inhaler aspirin 325 mg tablet 325 mg PO BID 11/15/18 05/29/23 Previous Rx's Medication Instructions Recorded acetaminophen 500 mg tablet 500 mg PO Q8H #30 tabs 05/31/23 gabapentin 300 mg capsule 300 mg PO TID #30 caps 05/31/23 lidocaine 5 % topical patch 1 patch topical DAILY #15 ea 05/31/23 oxycodone 10 mg tablet,crush 10 mg PO BID #30 tabs 05/31/23 resistant,extended release 12 hr (OxyContin) potassium chloride 20 mEq 20 meq PO DAILYCC #30 tabs 05/31/23 tablet,extended release(part/cryst) (Klor-Con M) Allergies Allergy/AdvReac Type Severity Reaction Status Date / Time aspirin AdvReac Unknown Verified 09/30/22 09:59 ibuprofen AdvReac Unknown Verified 09/30/22 09:59 Review of Systems Constitutional Constitutional: Reports system reviewed and no additional complaints, except as documented ENT Ears, Nose, Mouth, and Throat: Reports system reviewed and no additional complaints, except as documented Respiratory Respiratory: Reports system reviewed and no additional complaints, except as documented Gastrointestinal Gastrointestinal: Reports system reviewed and no additional complaints, except as documented Integumentary/Breasts Skin/Breast: Reports system reviewed and no additional complaints, except as documented Neurologic Neurologic: Reports system reviewed and no additional complaints, except as documented Patient History Medical History Hyperlipidemia Chronic pain syndrome Hypertension Autoimmune disorder Fibromyalgia Social History marital status: household members: spouse lives independently: Yes Smoking Status: Never smoker Smoking Status: Never smoker alcohol intake frequency: holidays/special occasions only Substance Use Type: does not use Exam Initial Vital Signs Initial Vital Signs: Vital Signs Temperature 99.7 F H 06/16/23 10:19 Pulse Rate 112 H 06/16/23 10:19 Respiratory Rate 16 06/16/23 10:19 Blood Pressure 147/68 H 06/16/23 10:19 Pulse Oximetry 94 06/16/23 10:19 Oxygen Delivery Method Room Air 06/16/23 10:19 HENMT Head: normal to inspection and normocephalic Resp Effort & Inspection: normal respiratory effort Auscultation: clear to auscultation bilaterally Cardio Rate: tachycardic Rhythm: regular rhythm Skin General: no rashes or lesions noted Neuro General: patient alert and moves all extremities Extrem General: normal to inspection Course Orders Ordered: ED Orders 06/16/23 10:30 Covid-19 + FLU A/B + RSV - PCR Stat 06/16/23 11:13 XR chest 2V Stat Vital Signs Vital signs: Vital Signs - 8 hr 06/16/23 10:19 06/16/23 11:32 06/16/23 11:57 Temperature 99.7 F H 100.6 F H Pulse Rate 112 H 104 H 100 H Respiratory Rate 16 20 31 H Blood Pressure 147/68 H 154/68 H Pulse Oximetry 94 95 95 Oxygen Delivery Method Room Air Room Air 06/16/23 12:00 06/16/23 12:15 06/16/23 12:30 Temperature Pulse Rate 102 H 99 H 96 H Respiratory Rate 26 H 14 19 Blood Pressure Pulse Oximetry 97 95 93 Oxygen Delivery Method Room Air Medical Decision Making Medical Records Medical records reviewed: Yes I reviewed the patient's medical records. Lab Data Lab results reviewed: Yes I reviewed the patient's lab results. Labs: Lab Results 06/16/23 Range/Units 10:30 SARS-CoV-2 (PCR) Negative (Negative) Influenza A (RT-PCR) Flu a negative (NEGATIVE) Influenza B (RT-PCR) Flu b negative (NEGATIVE) RSV (PCR) Positive A (Negative) Imaging Data Chest x-ray: Radiologist's Impression: PROCEDURE: XR CHEST 2V INDICATIONS: eval for PNA TECHNIQUE: 2 views of the chest were acquired. COMPARISON: [facility], CT, CT ANGIO CHEST PE PROTOCOL, 09/30/2022, 12:26. [facility], CR, XR CHEST 1V, 05/26/2023, 19:39. [facility], CR, XR CHEST 1V, 09/30/2022, 10:23. FINDINGS: Surgical changes and devices: None. Lungs and pleura: Lungs are clear. No pleural effusions or pneumothorax. Mediastinum: Mediastinal contours are normal. Heart size is normal. Bones and chest wall: Similar compression deformity of the T11 and T6 vertebral bodies, with exaggerated kyphosis. IMPRESSION: No acute cardiopulmonary abnormality is seen. ECG Data Attestation: I personally reviewed and interpreted this ECG as follows: Interpretation: Sinus rhythm Ventricular rate 100 Normal axis Normal QRS Normal QTC ST T wave changes MDM Narrative Medical decision making narrative: Patient is RSV positive. Lungs are clear. Chest x-ray is unremarkable. Patient has symptoms that are consistent with RSV. No indication for antibiotics. I did discuss this with the patient. Discussed return precautions. She expressed understanding and agreement. Discharge Plan Departure Patient Disposition: Home Clinical Impression: Respiratory syncytial virus (RSV) Instructions: DI for Respiratory Syncytial Virus -- Adults Activity Restrictions/Additional Instructions: Continue to take all of your medications as directed. You can take Tylenol or ibuprofen for any fevers or body aches. I would suspect that your symptoms will improve over the next couple days. Return to the emergency department for new or worsening symptoms Prescriptions: No Action atorvastatin 40 mg tablet 40 mg PO DAILY Patient Comments: take 1 tablet by mouth once daily albuterol sulfate 90 mcg/actuation HFA aerosol inhaler 1 puff Inhalation PRN PRN (Reason: Shortness Of Breath) fluticasone propion-salmeterol 230-21 mcg/actuation HFA aerosol inhaler 2 puff Inhalation BID Patient Comments: inhale 2 puffs by mouth twice a day oxycodone [OxyContin] 10 mg Tablet,Oral Only,Ext.Rel.12 Hr 10 mg PO BID Qty: 30 0RF potassium chloride [Klor-Con M20] 20 mEq Tablet,Er Particles/Crystals 20 meq PO DAILYCC Qty: 30 0RF lidocaine 5 % Adhesive Patch,Medicated 1 patch topical DAILY Qty: 15 0RF gabapentin 300 mg Capsule 300 mg PO TID Qty: 30 0RF acetaminophen 500 mg tablet 500 mg PO Q8H Qty: 30 0RF aspirin 325 mg Tablet 325 mg PO BID Referrals: Jigar Mclean MD [Primary Care Provider] - Stand Alone Forms: Patient Portal/API
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
== END 2023-06-16 13:05 | disposition home or self-care (01) ==
PROVIDERS: Emergency Provider Emergency Medicine; PCP Internal Medicine
DX: J98.8 Other specified respiratory disorders (principal); B97.4 Respiratory syncytial virus as the cause of diseases classified elsewhere; I10 Essential (primary) hypertension
CPT/HCPCS: 0241U; 71046; 93005; 99283; 99284

== ENCOUNTER → 2024-02-13 11:03 | Outpatient (CLI) | payer OTHER, SELFPAY ==
[2023-05-26 22:21] VITALS: BMI 20.5
--- NOTE | 2024-02-13 11:04 | DI.RAD.S_ITS ---
PROCEDURE: [place] BARIUM SWALLOW INDICATIONS: DYSPHAGIA COMPARISON: [facility], , [place] BARIUM SWALLOW, 03/09/2020, 9:20. FINDINGS: Function: Esophageal dysmotility is present. There is delayed esophageal clearance. intermittently visualized retrograde propulsion of contrast material within the esophagus. Moderate-sized Zenker's diverticulum. There is passage over barium coated tablet. No elicited gastroesophageal reflux. There is normal transit of a calibrated barium tablet. Mild gastroesophageal reflux. Morphology: Air-contrast images demonstrate normal mucosal morphology. Single contrast views show no esophageal strictures, extrinsic mass effects, or diverticula. Limited images of the stomach demonstrate normal appearance. Small hiatal hernia. IMPRESSION: 1. Moderate-sized diverticulum. 2. Esophageal dysmotility. 3. Mild gastroesophageal reflux. Dictated by: Faisal Foy M.D. on 02/13/2024 at 13:03 Approved by: Faisal Foy M.D. on 02/13/2024 at 13:08
== END ==
PROVIDERS: PCP Internal Medicine; Referring Provider Internal Medicine Gastroenterology; Visit Provider Internal Medicine Gastroenterology
DX: K22.5 Diverticulum of esophagus, acquired (principal); K22.4 Dyskinesia of esophagus; K21.9 Gastro-esophageal reflux disease without esophagitis; R13.19 Other dysphagia
CPT/HCPCS: 74220

== ENCOUNTER → 2024-09-10 11:35 | Outpatient (CLI) | payer OTHER, SELFPAY ==
[2023-05-26 22:21] VITALS: BMI 20.5
--- NOTE | 2024-09-10 11:42 | DI.CT.S_ITS ---
PROCEDURE: CT SINUS SCREEN WO CON INDICATIONS: CHRONIC PANSINUSITIS TECHNIQUE: Noncontrast 3.0 mm axial images acquired from the frontal sinuses to the mid-sella, with coronal and sagittal reformats. For radiation dose reduction, the following was used: automated exposure control, adjustment of mA and/or kV according to patient size. COMPARISON: [facility], CT, CT HEAD/BRAIN WO CON, 05/29/2023, 8:29. [facility], CT, SINUS SCREEN WO CONTRAST, 09/24/2014, 11:59. FINDINGS: Image quality: Excellent. Maxillary Sinuses: There is [id number] mucosal thickening within the maxillary sinuses. There is abnormal thickening of the outer kelly of the maxillary sinuses. The superior medial kelly of the maxillary sinuses have been removed. Ethmoid Air Cells: Moderate mucosal thickening can be seen within the anterior left ethmoid air cells. Numerous ethmoid air cell bony septations have been removed. Sphenoid Sinuses: There is at least moderate mucosal thickening seen on the right. Bony remodeling changes are seen. Frontal Sinuses: At least moderate mucosal thickening can be seen on the right. Bony removal can be seen on the right inferior medially. There is remodeling change, with thickening seen of the outer kelly of the left frontal sinus. Ostiomeatal Complexes: Removed. Miscellaneous: Visualized intra-orbital contents are normal. Portions of the nasal turbinates been removed. There is minimal S shaped nasal septal deviation. IMPRESSION: Multifocal paranasal sinus disease can be seen, which is overall worst within the right sphenoid sinus. Extensive postoperative change seen, with bilateral antrectomy. Bony remodeling changes are seen, which are consistent with chronic sinusitis. Dictated by: Fabrice Swift M.D. on 09/10/2024 at 12:31 Approved by: Fabrice Swift M.D. on 09/10/2024 at 12:33
== END ==
PROVIDERS: PCP Internal Medicine; Referring Provider Otolaryngology; Visit Provider Otolaryngology
DX: J32.4 Chronic pansinusitis (principal)
CPT/HCPCS: 70486

== ENCOUNTER 2024-11-14 22:34 | Emergency (ER) | payer OTHER, SELFPAY ==
[2023-05-26 22:21] VITALS: BMI 20.5
[2024-11-14 23:17] VITALS: BP 153/75; PULSE 96; RESP 16; TEMP 37.1; O2SAT 98; BMI 23.8
[2024-11-15] VITALS (9 sets, daily range): BP systolic 128–160; BP diastolic 60–80; PULSE 88–98; RESP 16; O2SAT 93–98
--- NOTE | 2024-11-15 00:56 | ED_ITS ---
HPI - Dental/Oral General Chief complaint: Dental/Oral Stated complaint: mouth px, abcess on antibiotics Time Seen by Provider: 11/15/24 00:28 Source: patient Mode of arrival: Ambulatory History of Present Illness HPI Narrative: 74-year-old female recently had dental extraction of the right lower molar 2 weeks ago placed on amoxicillin prescription presents today with right-sided facial swelling radiating up to the nasolabial fold. She denies fever, chills, difficulty swallowing, cough, sore throat, nausea, vomiting, chest pain, or shortness of breath. Other than what is stated 14 point review is is negative. Related Data Home Medications Medication Instructions Recorded Confirmed albuterol sulfate 90 mcg/actuation 1 puff inhalation PRN PRN 11/07/18 11/14/24 aerosol inhaler Shortness Of Breath atorvastatin 40 mg tablet 40 mg PO DAILY 11/07/18 11/14/24 fluticasone propionate 230 2 puff inhalation BID 11/07/18 11/14/24 mcg-salmeterol 21 mcg/actuation HFA inhaler aspirin 325 mg tablet 325 mg PO BID 11/15/18 11/14/24 amlodipine 10 mg tablet 10 mg PO DAILY 11/14/24 11/14/24 amoxicillin 500 mg capsule 500 mg PO 3XD 11/14/24 11/14/24 atorvastatin 40 mg tablet 40 mg PO DAILY 11/14/24 11/14/24 lidocaine 5 % topical patch 1 patch topical DAILY PRN Pain, 11/14/24 11/14/24 Moderate methadone 5 mg tablet 5 - 10 mg PO DAILY chronic pain 11/14/24 11/14/24 pantoprazole 40 mg tablet,delayed 40 mg PO BID 11/14/24 11/14/24 release Previous Rx's Medication Instructions Recorded acetaminophen 500 mg tablet 500 mg PO Q8H #30 tabs 05/31/23 gabapentin 300 mg capsule 300 mg PO TID #30 caps 05/31/23 Allergies Allergy/AdvReac Type Severity Reaction Status Date / Time aspirin AdvReac Unknown Verified 09/30/22 09:59 ibuprofen AdvReac Unknown Verified 09/30/22 09:59 Review of Systems Review of Systems ROS Unobtainable: All systems reviewed & are unremarkable except as noted in HPI and below Patient History Medical History Hyperlipidemia Chronic pain syndrome Hypertension Autoimmune disorder Fibromyalgia Social History marital status: household members: spouse lives independently: Yes Smoking Status: Never smoker Smoking Status: Never smoker alcohol intake frequency: holidays/special occasions only Exam Narrative Exam Narrative: GENERAL: [74] year old patient appears stated age. Well-developed patient, in mild distress. HEAD: Atraumatic. Normocephalic. EYES: Pupils equal round and reactive. Extraocular motions intact. No scleral icterus. No injection or drainage. ENT: Nose without bleeding, purulent drainage. Throat without erythema, tonsillar hypertrophy or exudate. Airway patent. R maxillary sinus TTP NECK: Trachea midline. Non tender CARDIOVASCULAR: Regular rate and rhythm without murmurs, gallops, or rubs. RESPIRATORY: Clear to auscultation. Breath sounds equal bilaterally. No wheezes, rales, or rhonchi. GASTROINTESTINAL: Abdomen soft, non-tender, nondistended. EXTREMITIES: No edema or joint tenderness. BACK: Nontender without deformity or crepitance. No flank tenderness. NEURO: AOx3. SKIN: No rash or erythema of visible areas Initial Vital Signs Initial Vital Signs: Vital Signs Temperature 98.8 F 11/14/24 23:17 Pulse Rate 96 H 11/14/24 23:17 Respiratory Rate 16 11/14/24 23:17 Blood Pressure 153/75 H 11/14/24 23:17 Pulse Oximetry 98 11/14/24 23:17 Oxygen Delivery Method Room Air 11/14/24 23:17 Course Orders Ordered: ED Orders 11/15/24 00:16 CBC Auto Diff [Complete Blood Count AUTO DIFF] Stat CMP [Comprehensive Metabolic Panel] Stat 11/15/24 01:06 CT facial bones w con Stat Sodium Chloride (Normal Saline 0.9%) 1,000 mls @ 1,000 mls/hr IV BOLUS PRN PRN Reason: Fluid replacement Last Infusion: 11/15/24 01:12 Dose: 0 mls/hr Documented By: Admin: 11/15/24 01:11 Dose: 1,000 mls/hr Documented By: AI Discontinued Medications Ketorolac Tromethamine (Ketorolac 30 Mg/Ml Vial) 15 mg IV NOW ONE Stop: 11/15/24 01:07 Last Admin: 11/15/24 01:11 Dose: 15 mg Documented By: SHARONA Vital Signs Vital signs: Vital Signs - 8 hr 11/14/24 23:17 11/15/24 00:19 11/15/24 00:19 Temperature 98.8 F Pulse Rate 96 H 94 H Respiratory Rate 16 Blood Pressure 153/75 H 157/74 H Pulse Oximetry 98 96 Oxygen Delivery Method Room Air 11/15/24 00:30 11/15/24 00:30 11/15/24 01:00 Temperature Pulse Rate 96 H 98 H Respiratory Rate Blood Pressure 150/80 H Pulse Oximetry 97 98 Oxygen Delivery Method 11/15/24 01:00 Temperature Pulse Rate Respiratory Rate 16 Blood Pressure 160/74 H Pulse Oximetry Oxygen Delivery Method MDM - Dental/Oral Lab Data 11/15/24 00:16 11/15/24 00:16 Labs: Lab Results 11/15/24 Range/Units 00:16 WBC 9.3 (4.5-11.0) X10^3/uL RBC 4.30 (4.0-5.2) X10^6/uL Hgb 12.8 (12.0-16.0) g/dL Hct 38.4 (36-46) % MCV 89.4 (80-100) fL MCH 29.8 (26-34) PG MCHC 33.4 (30-36) % RDW 14.9 H (11.6-14.8) % Plt Count 344 (150-400) X10^3/uL Neut % (Auto) 74.0 (50-75) % Lymph % (Auto) 8.2 L (25-40) % [place] % (Auto) 7.8 (3-14) % Eos % (Auto) 7.2 H (2-4) % Baso % (Auto) 2.8 H (0-2) % Neut # (Auto) 6900 (1465-7494) /uL Lymph # (Auto) 800 L (8940-5763) /uL [place] # (Auto) 700 (0-900) /uL Eos # (Auto) 700 H (0-450) /uL Baso # (Auto) 300 H (0-100) /uL Sodium 140 (137-145) mmol/L Potassium 3.7 (3.4-5.1) mmol/L Chloride 105 (98-107) mmol/L Carbon Dioxide 27 (22-32) mmol/L BUN 8 (7-17) mg/dL Creatinine 0.57 (0.52-1.04) mg/dL Estimated GFR > 60 (>60) mL/min BUN/Creatinine Ratio 14.0 (6-22) Glucose 116 H (70-99) mg/dL Calcium 9.5 (8.4-10.2) mg/dL Total Bilirubin 0.6 (0.2-1.3) mg/dL AST 34 (14-36) IU/L ALT 16 (<35) IU/L Alkaline Phosphatase 88 (38-126) U/L Total Protein 8.6 H (6.3-8.2) g/dL Albumin 4.5 (3.5-5.0) g/dL Globulin 4.1 (1.7-4.1) g/dL Albumin/Globulin Ratio 1.1 (1.0-2.8) Imaging Data CT scan - head: Radiologist's Impression: [address] [address] [address] Scan Report Signed Patient: Sue Coy MR#: [id number] : 1950 Acct:[id number] Age/Sex: 74 / F Date of Service: 11/15/24 Loc: ED Accession Number: [id number] Procedure: CT facial bones w con Ordering Provider: Aris Trinidad D.O. PROCEDURE: CT FACIAL BONES W CON INDICATIONS: R facial swelling/pain TECHNIQUE: After the administration of intravenous contrast, 2.5 mm axial sections acquired from the mid-neck to the frontal sinuses, with coronal and sagittal reformats. For radiation dose reduction, the following was used: automated exposure control, adjustment of mA and/or kV according to patient size. COMPARISON: None. FINDINGS: Image quality: Excellent. Soft tissues: No edema, masses, or fluid collections. No enlarged lymph nodes. Vascular: Visualized vascular structures appear patent throughout. Bony vascular foramina and canals appear normal. Bones: Facial bones appear intact, without fractures, erosions, or destruction. Visualized portions of the skull base and auditory canals also appear normal. Sinuses: Right maxillary sinus and right sphenoid mucosal thickening, similar. Mastoid air cells are aerated. IMPRESSION: No acute abnormality is identified. Chronic sinusitis. Dictated by: Jeremy Russell M.D. on 11/15/2024 at 3:16 Approved by: Jeremy Russell M.D. on 11/15/2024 at 3:20 MDM Narrative Medical decision making narrative: All lab work, vital signs, nurse triage note, previous ER visits and all imaging modalities reviewed. Pt given toradol and NS 1L bolus here. Patient is already on amoxicillin prescription at this time will reinforce to continue taking it and finish course of regimen. Differential diagnosis includes sinusitis, dental abscess, facial cellulitis. Return with new or worsening symptoms. Discharge Plan Departure Patient Disposition: Home Clinical Impression: Chronic maxillary sinusitis Instructions: DI for Sinusitis Activity Restrictions/Additional Instructions: Return with new or worsening symptoms. Take amoxicillin as previously prescribed. Follow up with PCP in 1-2 weeks if no improvement in symptoms. Prescriptions: No Action atorvastatin 40 mg tablet 40 mg PO DAILY Patient Comments: take 1 tablet by mouth once daily albuterol sulfate 90 mcg/actuation HFA aerosol inhaler 1 puff Inhalation PRN PRN (Reason: Shortness Of Breath) fluticasone propion-salmeterol 230-21 mcg/actuation HFA aerosol inhaler 2 puff Inhalation BID Patient Comments: inhale 2 puffs by mouth twice a day gabapentin 300 mg Capsule 300 mg PO TID Qty: 30 0RF acetaminophen 500 mg tablet 500 mg PO Q8H Qty: 30 0RF aspirin 325 mg Tablet 325 mg PO BID amoxicillin 500 mg capsule 500 mg PO 3XD atorvastatin 40 mg tablet 40 mg PO DAILY amlodipine 10 mg tablet 10 mg PO DAILY pantoprazole 40 mg tablet,delayed release (DR/EC) 40 mg PO BID methadone 5 mg tablet 5 - 10 mg PO DAILY lidocaine 5 % adhesive patch,medicated 1 patch topical DAILY PRN (Reason: Pain, Moderate) Referrals: Jigar Mclean MD [Primary Care Provider] - Stand Alone Forms: Patient Portal/API/Survey
--- NOTE | 2024-11-15 01:06 | DI.CT.S_ITS ---
PROCEDURE: CT FACIAL BONES W CON INDICATIONS: R facial swelling/pain TECHNIQUE: After the administration of intravenous contrast, 2.5 mm axial sections acquired from the mid-neck to the frontal sinuses, with coronal and sagittal reformats. For radiation dose reduction, the following was used: automated exposure control, adjustment of mA and/or kV according to patient size. COMPARISON: None. FINDINGS: Image quality: Excellent. Soft tissues: No edema, masses, or fluid collections. No enlarged lymph nodes. Vascular: Visualized vascular structures appear patent throughout. Bony vascular foramina and canals appear normal. Bones: Facial bones appear intact, without fractures, erosions, or destruction. Visualized portions of the skull base and auditory canals also appear normal. Sinuses: Right maxillary sinus and right sphenoid mucosal thickening, similar. Mastoid air cells are aerated. IMPRESSION: No acute abnormality is identified. Chronic sinusitis. Dictated by: Jeremy Russell M.D. on 11/15/2024 at 3:16 Approved by: Jeremy Russell M.D. on 11/15/2024 at 3:20
[2024-11-15] MEDS: SODIUM CHLORIDE 0.9% 1,000 ML 1000 ML IV (01:11)
[2024-11-15] MEDS: KETOROLAC 30 MG/ML VIAL 15 MG IV (01:11)
[2024-11-15 01:36] LABS: Add Manual Diff / Slide Review NO; Basophils Absolute Auto 300 /uL (0-100); Basophils Percent Auto 2.8 % (0-2); Eosinophils Absolute Auto 700 /uL (0-450); Eosinophils Percent Auto 7.2 % (2-4); Hematocrit 38.4 % (36-46); Hemoglobin 12.8 g/dL (12.0-16.0); Lymphocytes Absolute Auto 800 /uL (1100-4500); Lymphocytes Percent Auto 8.2 % (25-40); Mean Corpuscular HGB Conc 33.4 % (30-36); Mean Corpuscular Hemoglobin 29.8 PG (26-34); Mean Corpuscular Volume 89.4 fL (80-100); Monocytes Absolute Auto 700 /uL (0-900); Monocytes Percent Auto 7.8 % (3-14); Neutrophils Absolute Auto 6900 /uL (1500-7000); Platelet Count 344 X10^3/uL (150-400); Red Cell Distribution Width 14.9 % (11.6-14.8); White Blood Cell Count 9.3 X10^3/uL (4.5-11.0)
[2024-11-15 01:40] LABS: Alanine Aminotransferase 16 IU/L (<35); Albumin 4.5 g/dL (3.5-5.0); Albumin Globulin Ratio 1.1 (1.0-2.8); Alkaline Phosphatase 88 U/L (38-126); Aspartate Aminotransferase 34 IU/L (14-36); Bilirubin Total 0.6 mg/dL (0.2-1.3); Blood Urea Nitrogen 8 mg/dL (7-17); Calcium 9.5 mg/dL (8.4-10.2); Carbon Dioxide 27 mmol/L (22-32); Chloride 105 mmol/L (98-107); Estimated Glomerular Filt Rate > 60 mL/min (>60); Globulin 4.1 g/dL (1.7-4.1); Glucose 116 mg/dL (70-99); HEMOLYSIS 61 (0-50); Potassium 3.7 mmol/L (3.4-5.1); Sodium 140 mmol/L (137-145); Total Protein 8.6 g/dL (6.3-8.2)
== END 2024-11-15 03:51 | disposition home or self-care (01) ==
PROVIDERS: Emergency Provider Family Medicine; PCP Internal Medicine
DX: J32.0 Chronic maxillary sinusitis (principal)
CPT/HCPCS: 36415; 70487; 80053; 85025; 96361; 96374; 99284; J1885; Q9967

== ENCOUNTER 2025-01-22 10:03 | Emergency (ER) | payer OTHER, SELFPAY ==
[2023-05-26 22:21] VITALS: BMI 20.5
[2025-01-22 10:08] VITALS: BP 167/74; PULSE 92; RESP 14; TEMP 36.7; O2SAT 98; BMI 26.6
--- NOTE | 2025-01-22 10:20 | ED.DENTAL ---
HPI - Dental/Oral General Chief complaint: Dental/Oral Stated complaint: possible tooth infection Time Seen by Provider: 01/22/25 10:10 Source: patient Mode of arrival: Ambulatory History of Present Illness HPI Narrative: 74-year-old female seen by me on November 15 for dental abscess given Augmentin and most recently seen by ENT Dr. Hurley yesterday who recommended patient be seen by dentist for re-evaluation of right sided facial tenderness and swelling for which patient went online and was concerned with what she researched that it could be leading to another infection and came in to be evaluated. Patient reports attempting to call to other dentist but was unsuccessful. She is able to eat drink and swallow with no difficulty. She denies fever, chills, body aches, sore throat, cough, earache. Other than what is stated 14 point review of system is negative. Related Data Home Medications ?Medication ?Instructions ?Recorded ?Confirmed albuterol sulfate 90 mcg/actuation 1 puff inhalation PRN PRN 11/07/18 11/14/24 aerosol inhaler Shortness Of Breath atorvastatin 40 mg tablet 40 mg PO DAILY 11/07/18 11/14/24 fluticasone propionate 230 2 puff inhalation BID 11/07/18 11/14/24 mcg-salmeterol 21 mcg/actuation HFA inhaler aspirin 325 mg tablet 325 mg PO BID 11/15/18 11/14/24 amlodipine 10 mg tablet 10 mg PO DAILY 11/14/24 11/14/24 amoxicillin 500 mg capsule 500 mg PO 3XD 11/14/24 11/14/24 atorvastatin 40 mg tablet 40 mg PO DAILY 11/14/24 11/14/24 lidocaine 5 % topical patch 1 patch topical DAILY PRN Pain, 11/14/24 11/14/24 Moderate methadone 5 mg tablet 5 - 10 mg PO DAILY chronic pain 11/14/24 11/14/24 pantoprazole 40 mg tablet,delayed 40 mg PO BID 11/14/24 11/14/24 release Previous Rx's ?Medication ?Instructions ?Recorded acetaminophen 500 mg tablet 500 mg PO Q8H #30 tabs 05/31/23 gabapentin 300 mg capsule 300 mg PO TID #30 caps 05/31/23 Allergies Allergy/AdvReac Type Severity Reaction Status Date / Time amoxicillin (From Augmentin) AdvReac Mild Diarrhea Verified 01/22/25 10:08 clavulanic acid (From AdvReac Mild Diarrhea Verified 01/22/25 10:08 Augmentin) aspirin AdvReac Unknown Verified 01/22/25 10:08 ibuprofen AdvReac Unknown Verified 01/22/25 10:08 Review of Systems Review of Systems ROS Unobtainable: All systems reviewed & are unremarkable except as noted in HPI and below Patient History Medical History Hyperlipidemia Chronic pain syndrome Hypertension Autoimmune disorder Fibromyalgia Social History marital status: household members: spouse lives independently: Yes alcohol intake frequency: holidays/special occasions only Exam Narrative Exam Narrative: GENERAL: [74] year old patient appears stated age. Well-developed patient, in mild distress. HEAD: Atraumatic. Normocephalic. EYES: Pupils equal round and reactive. Extraocular motions intact. No scleral icterus. No injection or drainage. ENT: Nose without bleeding, purulent drainage. Throat without erythema, tonsillar hypertrophy or exudate. Airway patent. R max sinus min TTP. I do not appreciate any abscess or gingivitis or dental caries on exam of the mouth and teeth and gum. NECK: Trachea midline. Non tender EXTREMITIES: No edema or joint tenderness. BACK: Nontender without deformity or crepitance. No flank tenderness. NEURO: AOx3. SKIN: No rash or erythema of visible areas Initial Vital Signs Initial Vital Signs: Vital Signs Temperature 98.1 F 01/22/25 10:08 Pulse Rate 92 H 01/22/25 10:08 Respiratory Rate 14 01/22/25 10:08 Blood Pressure 167/74 H 01/22/25 10:08 Pulse Oximetry 98 01/22/25 10:08 Oxygen Delivery Method Room Air 01/22/25 10:08 Course Vital Signs Vital signs: Vital Signs - 8 hr 01/22/25 10:08 Temperature 98.1 F Pulse Rate 92 H Respiratory Rate 14 Blood Pressure 167/74 H Pulse Oximetry 98 Oxygen Delivery Method Room Air MDM - Dental/Oral MDM Narrative Medical decision making narrative: Vital signs, nurse triage note, medication list, previous ER visits, and all imaging studies reviewed. Will have patient called dentist office to be evaluated since she has been already been treated multiple times for sinusitis, dental abscess, gingivitis. Discharge Plan Departure Patient Disposition: Home Clinical Impression: Dental disorder Instructions: DI for Dental Pain Activity Restrictions/Additional Instructions: Return with new or worsening symptoms. Please call dentist office for appointment. Prescriptions: No Action atorvastatin 40 mg tablet 40 mg PO DAILY Patient Comments: take 1 tablet by mouth once daily albuterol sulfate 90 mcg/actuation HFA aerosol inhaler 1 puff Inhalation PRN PRN (Reason: Shortness Of Breath) fluticasone propion-salmeterol 230-21 mcg/actuation HFA aerosol inhaler 2 puff Inhalation BID Patient Comments: inhale 2 puffs by mouth twice a day gabapentin 300 mg Capsule 300 mg PO TID Qty: 30 0RF acetaminophen 500 mg tablet 500 mg PO Q8H Qty: 30 0RF aspirin 325 mg Tablet 325 mg PO BID amoxicillin 500 mg capsule 500 mg PO 3XD atorvastatin 40 mg tablet 40 mg PO DAILY amlodipine 10 mg tablet 10 mg PO DAILY pantoprazole 40 mg tablet,delayed release (DR/EC) 40 mg PO BID methadone 5 mg tablet 5 - 10 mg PO DAILY lidocaine 5 % adhesive patch,medicated 1 patch topical DAILY PRN (Reason: Pain, Moderate) Referrals: Jigar Mclean MD [Primary Care Provider, Internal Medicine] Stand Alone Forms: Patient Portal/API
== END 2025-01-22 10:35 | disposition home or self-care (01) ==
PROVIDERS: Emergency Provider Family Medicine; PCP Internal Medicine
DX: K08.9 Disorder of teeth and supporting structures, unspecified (principal)
CPT/HCPCS: 99281

== ENCOUNTER → 2025-03-25 13:40 | Outpatient (CLI) | payer OTHER, SELFPAY ==
[2023-05-26 22:21] VITALS: BMI 20.5
--- NOTE | 2025-03-25 13:43 | DI.CT.S_ITS ---
PROCEDURE: CT KIDNEY URETER BLADDER (KUB) INDICATIONS: PAIN TECHNIQUE: CT of the abdomen and pelvis was obtained without intravenous contrast. Coronal and sagittal reformats were performed. For radiation dose reduction, the following was used: automated exposure control, adjustment of mA and/or kV according to patient size. COMPARISON: [facility], CT, CT ABDOMEN PELVIS W CON, 09/30/2022, 12:26. FINDINGS: Image quality: Diagnostic. Lower Chest: No significant findings. ABDOMEN: Liver: No contour-deforming mass. Clip adjacent to the posterior liver. Gallbladder: Absent. Biliary ducts: No biliary dilation. Pancreas: No ductal dilation. Spleen: Size is within normal limits. Adrenal Glands: No adrenal nodules. Kidneys and Ureters: No contour-deforming mass. No right kidney stones. No right hydronephrosis. Mild left hydronephrosis. Obstructing calculus in the left renal pelvis measuring 1.3 x 1 cm, (55). A 2nd stone in the left renal pelvis measures 1.3 x 1 cm. There is mild stranding about the left renal pelvis. Nonobstructing calculus in the inferior left kidney measuring 1.1 cm. Stomach and Bowel: Normal colonic caliber, without significant wall thickening. No diverticulitis. Normal appendix. Peritoneum: No abnormal intraperitoneal fluid. No free air. Ventral Wall: No significant hernia. Abdominal Nodes: No retroperitoneal or mesenteric adenopathy by size criteria. Vessels: Aorta and inferior vena cava are normal in size. PELVIS: Pelvic Organs: Anteverted uterus. Bladder: Decompressed. No stone. Pelvic Nodes: No enlarged lymph nodes. Miscellaneous: No inguinal hernias are seen. Bones: No aggressive osseous abnormality. T11 compression fracture is unchanged. IMPRESSION: 1. Mild left hydronephrosis. Obstructing calculi x2 in the left renal pelvis measuring 1.3 cm. 2. No right kidney stones. Dictated by: Jeremy Russell M.D. on 03/25/2025 at 16:11 Approved by: Jeremy Russell M.D. on 03/25/2025 at 16:26
== END ==
LOC: CT 13:40
PROVIDERS: PCP Internal Medicine; Referring Provider Internal Medicine; Visit Provider Family Medicine
DX: N30.91 Cystitis, unspecified with hematuria (principal); N13.2 Hydronephrosis with renal and ureteral calculous obstruction; Z87.442 Personal history of urinary calculi; Z90.49 Acquired absence of other specified parts of digestive tract
CPT/HCPCS: 74176

== ENCOUNTER → 2025-04-15 16:18 | Outpatient (CLI) | payer OTHER, SELFPAY ==
[2023-05-26 22:21] VITALS: BMI 20.5
== END ==
PROVIDERS: PCP Family Medicine; Visit Provider Urology
DX: N20.1 Calculus of ureter (principal); R39.9 Unspecified symptoms and signs involving the genitourinary system
CPT/HCPCS: 81002; 87086; 99214

== ENCOUNTER 2025-05-08 06:03 | Day surgery (SDC) | payer OTHER, SELFPAY ==
[2023-05-26 22:21] VITALS: BMI 20.5
[2025-04-27 14:58] VITALS: BMI 27.4
--- NOTE | 2025-05-07 13:20 | EKG_ITS ---
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
--- NOTE | 2025-05-08 | DI.RAD.S_ITS ---
PROCEDURE: XR ABDOMEN 1V INDICATIONS: LEFT STENT PLACEMENT TECHNIQUE: Fluoroscopic images were obtained during a procedure and submitted for interpretation following the completion of the procedure. COMPARISON: [facility], CT, CT KIDNEY URETER BLADDER (KUB), 03/25/2025, 13:59. FINDINGS/IMPRESSION: Fluoroscopic imaging was performed for intraoperative localization. Please correlate with intraoperative findings. Dictated by: Fabrice Swift M.D. on 05/08/2025 at 8:55 Approved by: Fabrice Swift M.D. on 05/08/2025 at 8:56
[2025-05-08 06:42] VITALS: BP 151/80; PULSE 96; RESP 16; TEMP 37.4; O2SAT 97
[2025-05-08] MEDS: LACTATED RINGERS 1,000 ML 21 ML IV (06:56)
[2025-05-08] MEDS: ACETAMINOPHEN 325 MG TABLET 650 MG PO (06:58)
[2025-05-08] MEDS: ALBUTEROL/IPRATROPIUM 3 ML AMPUL INH (07:00)
--- NOTE | 2025-05-08 07:38 | PM.PREOP ---
Pre-operative Note COVID-19 COVID-19 status: Not tested Interval Note History & Physical reviewed/Exam performed by Physician: Yes Changes to H&P: Yes H&P completed within 30 days and has changed as indicated here:: She has decided to move forward with a cystoscopy, left ureteroscopy, laser lithotripsy and left ureteral stent placement.
--- NOTE | 2025-05-08 08:49 | SUR.OPER ---
Lithotomy on padded OR bed, head on pillow, arms secured on padded arm boards at <90 degrees abduction. Legs secured in padded yellow fins stirrups. Final positioning done by provider
--- NOTE | 2025-05-08 09:20 | P.OP_ITS ---
Operative Date/Time/Diagnoses Date of procedure: 05/08/25 Time of procedure: 08:00 Pre-op diagnosis: Left ureteral calculi Post-op diagnosis: same Procedure & Clinicians Procedure: Cystoscopy Left retrograde ureteropyelogram Left ureteroscopy, laser lithotripsy Left ureteral stent placement Intraoperative interpretation of fluoroscopic images, total time < 1 hour Same procedure(s) as scheduled: Yes Indications: 75 y/o F w/ h/o nephrolithiasis who was noted to have two 1.3cm stones at the level of her left UPJ with resultant mild left hydronephrosis and an additional 1.1cm left lower pole calyx stone on a CT KUB in Mar. She continues to have intermittent pain/discomfort, however, this responds well to Tylenol and Lidocaine patches. Discussed treatment options to include continued medical expulsion therapy (not recommended given the very large size of her stones vs cystoscopy, ureteroscopy, laser lithotripsy with ureteral stent placement vs a referral to stone center for a left PCNL. Discussed risks of the ureteroscopy to include but not limited to pain, bleeding, infection, injury to urethra/bladder/ureter, inability to access the ureter requiring discussion with Interventional Radiology regarding a possible ureteral stent placement in an antegrade fashion vs a possible nephroureteral stent and/or percutaneous nephrostomy tube, urinary tract infection, inability to remove all of the stone in one setting, need for emergent open repair of bladder and/or ureter, need for multiple ureteroscopic interventions necessary to render the patient stone free. Discussed extensively that she would need at least 2 URS's given her large stone volume, could be as many as 3 or 4, vs a possible PCNL being able to remov e all the stone in one setting. She consented to management via a cystoscopy, left ureteroscopy, laser lithotripsy and left ureteral stent placement. Surgeon: Kieran Bradford Assisted?: No Anesthesia Type: General Operative Notes Findings: Two large calculi within her left renal pelvis, one large calculi within her left lower pole calyx Closure Type: not applicable Specimen(s): none sent Applied: none Estimated Blood Loss (mL): 2 Procedure in detail: Procedures: 1) Cystoscopy 2) Left retrograde ureteropyelogram 3) Left ureteroscopy, laser lithotripsy 4) Left ureteral stent placement 5) Intraoperative interpretation of fluoroscopic images, < 1 hour, all images saved to PACS Indication: Patient was identified in the preoperative holding area and consent confirmed. She was then brought to the operating room where general anesthesia was induced.? She was placed in the low lithotomy position. She was then prepped and draped in the usual sterile fashion. A surgical timeout was conducted and all were in agreement. ?Access to the bladder was obtained via a 30 degree cystoscope.? Complete cystoscopy was then performed and no concerning bladder masses or lesions were appreciated.? Bilateral ureteral orifices were easily identified and noted to be orthotopic in nature.? The left ureteral orifice was then easily cannulated using a 0.035 sensor tip ureteral guidewire and this was advanced into the left renal pelvis. An 11/13Fr ureteral access sheath was then advanced over the ureteral guidewire and into the proximal left ureter.? The ureteral guidewire and inner obturator were then removed.? The flexible ureteroscope was then advanced through the ureteral access sheath and to the level of the left UPJ where two large stones were visualized.? Complete pyeloscopy was then performed and an additiona large calculus was noted within the left lower pole calyx.? Laser lithotripsy was then performed utilizing the 200 micron laser fiber.? After lasering for more than 60 minutes, visibility became very poor and the decision was made to return for a second look left ureteroscopy. The ureteral guidewire was then readvanced through the ureteroscope and into the left renal pelvis.? The ureter was then directly visualized upon removal of the ureteroscope and ureteral access sheath and noted to be stone free.? The cystoscope was then backloaded over the ureteral guidewire and advanced into the bladder.? A 6Fr multi-length JJ ureteral stent without strings was then advanced over the ureteral guidewire.? Upon removal of the guidewire, a good curl was noted within the left renal pelvis upon fluoroscopy and visually within the bladder.? The bladder was then drained and the cystoscope was removed.? Anesthesia was reversed, she was extubated in the OR and transferred to the PACU in stable condition for recovery. Complications: none Post-operative Condition: stable Disposition: PACU Plan for aftercare: Discharge home from PACU. Will return to OR in 2-12 weeks for a second look ureteroscopy.
[2025-05-08 09:23] VITALS: BP 91/50; PULSE 91; RESP 18; TEMP 36.6; O2SAT 92
[2025-05-08 09:30] VITALS: BP 92/50; PULSE 63; RESP 14; TEMP 36.6; O2SAT 98
--- NOTE | 2025-05-08 09:30 | SUR.OPER ---
LASER NOTE Totoal time 38.29 sec Lasing time 29.05 sec Total joules 21.81 Max wallace 12.0
[2025-05-08 09:34] VITALS: BP 102/57; PULSE 67; RESP 18; TEMP 36.6; O2SAT 97
[2025-05-08 09:40] VITALS: BP 107/57; PULSE 67; RESP 15; TEMP 36.6; O2SAT 96
== END 2025-05-08 10:26 | disposition home or self-care (01) ==
PROVIDERS: PCP Family Medicine; Referring Provider Urology; Visit Provider Urology
PROC: (CPT 52356; principal; 2025-05-08 07:45)
DX: N20.2 Calculus of kidney with calculus of ureter (principal); Z79.82 Long term (current) use of aspirin
CPT/HCPCS: 52356; 74018; 76000; 93010; C2617; J1100; J2405; J2704; J3010; J7120; Q9967

== ENCOUNTER 2025-06-05 07:09 | Day surgery (SDC) | payer OTHER, SELFPAY ==
[2023-05-26 22:21] VITALS: BMI 20.5
[2025-05-29 13:20] VITALS: BMI 27.4
[2025-06-05] VITALS (9 sets, daily range): BP systolic 130–150; BP diastolic 66–78; PULSE 34–94; RESP 13–30; TEMP 36.6–37.2; O2SAT 95–97
--- NOTE | 2025-06-05 | DI.RAD.S_ITS ---
PROCEDURE: XR ABDOMEN 1V INDICATIONS: LT STENT PLACEMENT TECHNIQUE: One view of the abdomen acquired. COMPARISON: [facility], CR, XR ABDOMEN 1V, 05/08/2025, 9:19. FINDINGS: Operative images demonstrating a labeled left ureterovesicular stent. There is prominence of the renal collecting system. IMPRESSION: Intraoperative stent placement as above. Dictated by: Marjorie Gaines M.D. on 06/07/2025 at 12:16 Approved by: Marjorie Gaines M.D. on 06/07/2025 at 12:17
[2025-06-05] MEDS: LACTATED RINGERS 1,000 ML 21 ML IV (08:16)
--- NOTE | 2025-06-05 08:40 | PM.PREOP ---
Pre-operative Note COVID-19 COVID-19 status: Not tested Interval Note History & Physical reviewed/Exam performed by Physician: Yes Changes to H&P: No
[2025-06-05] MEDS: ACETAMINOPHEN 325 MG TABLET 975 MG PO (09:00)
[2025-06-05] MEDS: ALBUTEROL/IPRATROPIUM 3 ML AMPUL INH (09:00)
[2025-06-05] MEDS: levoFLOXacin 500 MG/100 ML PIGGYBACK 100 MG IV (09:20)
--- NOTE | 2025-06-05 09:58 | SUR.OPER ---
Lithotomy on padded OR bed, head on pillow, arms secured on padded arm boards at <90 degrees abduction. Legs secured in padded yellow fins stirrups.
--- NOTE | 2025-06-05 10:26 | P.OP_ITS ---
Operative Date/Time/Diagnoses Date of procedure: 06/05/25 Time of procedure: 09:30 Pre-op diagnosis: Left ureteral calculi Post-op diagnosis: same Procedure & Clinicians Procedure: Cystoscopy Left retrograde ureteropyelogram Left ureteroscopy, laser lithotripsy Left ureteral stent exchange Intraoperative interpretation of fluoroscopic images, total time < 1 hour Same procedure(s) as scheduled: Yes Indications: 75 y/o F w/ h/o nephrolithiasis who was noted to have two 1.3cm stones at the level of her left UPJ with resultant mild left hydronephrosis and an additional 1.1cm left lower pole calyx stone on a CT KUB in Mar. She continues to have intermittent pain/discomfort, however, this responds well to Tylenol and Lidocaine patches. Discussed treatment options to include continued medical expulsion therapy (not recommended given the very large size of her stones vs cystoscopy, ureteroscopy, laser lithotripsy with ureteral stent placement vs a referral to stone center for a left PCNL. Discussed risks of the ureteroscopy to include but not limited to pain, bleeding, infection, injury to urethra/bladder/ureter, inability to access the ureter requiring discussion with Interventional Radiology regarding a possible ureteral stent placement in an antegrade fashion vs a possible nephroureteral stent and/or percutaneous nephrostomy tube, urinary tract infection, inability to remove all of the stone in one setting, need for emergent open repair of bladder and/or ureter, need for multiple ureteroscopic interventions necessary to render the patient stone free. Discussed extensively that she would need at least 2 URS's given her large stone volume, could be as many as 3 or 4, vs a possible PCNL being able to remove all the stone in one setting. She underwent a left ureteroscopy, laser lithotripsy and left ureteral stent placement on 08 May 2025 and returns today for a second look left ureteroscopy, laser lithotripsy and left ureteral stent exchange. Surgeon: Kieran Bradford Assisted?: No Anesthesia Type: General Operative Notes Findings: Two large calculi within her left lower pole calyx Closure Type: not applicable Specimen(s): none sent Applied: none Estimated Blood Loss (mL): 5 Blood products transfused: none Procedure in detail: 1) Cystoscopy 2) Left retrograde ureteropyelogram 3) Left ureteroscopy, laser lithotripsy 4) Left ureteral stent exchange 5) Intraoperative interpretation of fluoroscopic images, < 1 hour, all images saved to PACS Indication: Patient was identified in the preoperative holding area and consent confirmed. She was then brought to the operating room where general anesthesia was induced.? She was placed in the low lithotomy position. She was then prepped and draped in the usual sterile fashion. A surgical timeout was conducted and all were in agreement. ?Access to the bladder was obtained via a 30 degree cystoscope.? Complete cystoscopy was then performed and no concerning bladder masses or lesions were appreciated.? Bilateral ureteral orifices were easily identified and noted to be orthotopic in nature. The previously placed left ureteral stent was then externalized and a 0.035 sensor tip ureteral guidewire was advanced through the stent and into the left renal pelvis. A 12/14Fr ureteral access sheath was then advanced over the ureteral guidewire and into the proximal left ureter.? The ureteral guidewire and inner obturator were then removed.? The flexible ureteroscope was then advanced through the ureteral access sheath and into the left renal collecting system.? Complete pyeloscopy was then performed and two large calculi were noted within the left lower pole calyx.? Laser lithotripsy was then performed utilizing the 200 micron laser fiber.? After lasering for more than 40 minutes, visibility became very poor and the decision was made to return for a third look left ureteroscopy. The ureteral guidewire was then readvanced through the ureteroscope and into the left renal pelvis.? The ureter was then directly visualized upon removal of the ureteroscope and ureteral access sheath and noted to be stone free.? The cystoscope was then backloaded over the ureteral guidewire and advanced into the bladder.? A 6Fr multi-length J J ureteral stent without strings was then advanced over the ureteral guidewire.? Upon removal of the guidewire, a good curl was noted within the left renal pelvis upon fluoroscopy and visually within the bladder.? The bladder was then drained and the cystoscope was removed.? Anesthesia was reversed, she was extubated in the OR and transferred to the PACU in stable condition for recovery. Complications: none Post-operative Condition: stable Disposition: PACU Plan for aftercare: Discharge home from PACU. Will return to OR in 2-12 weeks for a third look ureteroscopy.
--- NOTE | 2025-06-05 10:30 | PM.HP.IH.1 ---
History of Present Illness History of Present Illness Date Patient Seen: 06/05/25 Time Patient Seen: 09:00 Chief complaint: Large left kidney stones Narrative: 75 y/o F returns to OR for a second look left ureteroscopy, laser lithotripsy and left ureteral stent exchange following a left ureteroscopy with laser lithotripsy and left ureteral stent placement on 08 May 2025. Briefly, she has never passed a kidney stone on her own. She required ureteroscopy once more than 5 years ago. She developed severe left flank pain that would radiate into her left groin in early Mar. This is currently managed w/ lidocaine patches and Tylenol. Her CT KUB in Mar was notable for two 1.3cm stones at the level of her left UPJ with resultant mild left hydronephrosis and an additional 1.1cm left lower pole calyx stone. She continues to have intermittent pain that is well controlled with the aforementioned medications. Of note, she does take ASA 325mg daily. She does not have a prior Cardiac history and does not consume other blood thinners on a regular basis. 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) Asthma Compression fracture of thoracic vertebra Hx of osteoporosis Hx of osteoarthritis History of kidney stones History of depression History of COPD History of asthma Hx of chronic arthritis Hyperlipidemia Chronic pain syndrome Hypertension Autoimmune disorder Fibromyalgia Surgical History Hx of rhinoplasty (1983) S/P cystoscopy with ureteral stent placement (05/08/25) History of ureteroscopy (03/2025) Hx of tubal ligation Hx of mastectomy Hx of removal of ovary Hx of lithotripsy Hx of laparoscopy Hx of cholecystectomy (1994) Hx of appendectomy Family History Mother Cancer Father Coronary artery disease Hyperlipidemia Hypertension Sister Eczema Social History marital status: number of children: 1 household members: spouse lives independently: Yes Smoking Status: Never smoker alcohol intake: never caffeine: No Type(s) of exercise: walking frequency: 3-4 times per week duration: 30-45 minutes/day Meds Home Medications and Allergies Home Medications ?Medication ?Instructions ?Recorded ?Confirmed ?Type fluticasone propionate 230 2 puff inhalation BID 11/07/18 04/17/25 History mcg-salmeterol 21 mcg/actuation HFA inhaler aspirin 325 mg tablet 325 mg PO BID 11/15/18 05/08/25 History acetaminophen 500 mg tablet 500 mg PO Q8H #30 tabs 05/31/23 05/08/25 Rx gabapentin 300 mg capsule 300 mg PO TID #30 caps 05/31/23 05/08/25 Rx amlodipine 10 mg tablet 10 mg PO DAILY 11/14/24 05/08/25 History atorvastatin 40 mg tablet 40 mg PO DAILY 11/14/24 05/08/25 History lidocaine 5 % topical patch 1 patch topical DAILY PRN Pain, 11/14/24 05/08/25 History Moderate methadone 5 mg tablet 5 - 10 mg PO DAILY chronic pain 11/14/24 05/08/25 History pantoprazole 40 mg tablet,delayed 40 mg PO BID 11/14/24 05/08/25 History release albuterol sulfate 2.5 mg/3 mL 2.5 mg inhalation Q4H 04/14/25 05/08/25 History (0.083 %) solution for nebulization albuterol sulfate 90 mcg/actuation 4 puff inhalation Q6H Shortness Of 04/14/25 05/08/25 History aerosol inhaler Breath budesonide 2 mg/10 mL oral 1 packet PO BID 04/14/25 05/08/25 History suspension in packet bupropion HCl 150 mg 24 hr tablet, 150 mg PO QAM 04/14/25 05/08/25 History extended release estradiol 0.01% (0.1 mg/gram) 1 g vaginal 2XW 04/14/25 04/17/25 History vaginal cream furosemide 20 mg tablet 20 mg PO Q OTHER DAY 04/14/25 04/17/25 History ibandronate 150 mg tablet 150 mg PO QMONTH 04/14/25 05/08/25 History mometasone 50 mcg/actuation nasal 2 spray intranasal DAILY 04/14/25 04/17/25 History spray (Allergy Nasal (mometasone)) polyethylene glycol 3350 17 17 g PO DAILY PRN 04/14/25 04/17/25 History gram/dose oral powder sennosides 8.6 mg tablet (Natural 8.6 mg PO BID 04/14/25 04/17/25 History Senna Laxative) Allergies Allergy/AdvReac Type Severity Reaction Status Date / Time cephalexin AdvReac Severe Diarrhea Verified 06/05/25 07:54 amoxicillin (From Augmentin) AdvReac Mild Diarrhea Verified 06/05/25 07:54 clavulanic acid (From AdvReac Mild Diarrhea Verified 06/05/25 07:54 Augmentin) ibuprofen AdvReac Unknown Verified 06/05/25 07:54 Review of Systems Review of Systems Narrative: A complete ROS was completed with all pertinent positives and negatives documented in HPI. All other systems were reviewed and are negative. Exam Vital Signs (past 8 hours): - 06/05/25 08:08 Temperature 98.4 F Pulse Rate 94 H Respiratory Rate 16 Blood Pressure 150/78 H Pulse Oximetry 97 Oxygen Delivery Method Room Air Oxygen Delivery Method Room Air Narrative Exam Narrative: GEN: Alert and oriented X3. No acute distress. Well-nourished. EYES: PERRLA, EOMI. HENT: Moist mucus membranes, no scleral icterus, normal neck ROM. RESP: Unlabored breathing, equal rise and fall of chest bilaterally, no cyanosis appreciated. CV: No peripheral edema, unremarkable heart rate. ABD: Soft, non-tender, non-distended, no palpable masses. EXT: No edema, clubbing or cyanosis. SKIN: No rashes or lesions. NEURO: No focal neurologic deficits, CN II-XII grossly intact. PSYCH: Cooperative, appropriate mood and affect. Assessment & Plan Assessment and plan (1) Left ureteral calculus: Status: Acute Plan: 75 y/o F w/ h/o nephrolithiasis who was noted to have two 1.3cm stones at the level of her left UPJ with resultant mild left hydronephrosis and an additional 1.1cm left lower pole calyx stone on a CT KUB in Mar. She continues to have intermittent pain/discomfort, however, this responds well to Tylenol and Lidocaine patches. Discussed treatment options to include continued medical expulsion therapy (not recommended given the very large size of her stones vs cystoscopy, ureteroscopy, laser lithotripsy with ureteral stent placement vs a referral to stone center for a left PCNL. Discussed risks of the ureteroscopy to include but not limited to pain, bleeding, infection, injury to urethra/bladder/ureter, inability to access the ureter requiring discussion with Interventional Radiology regarding a possible ureteral stent placement in an antegrade fashion vs a possible nephroureteral stent and/or percutaneous nephrostomy tube, urinary tract infection, inability to remove all of the stone in one setting, need for emergent open repair of bladder and/or ureter, need for multiple ureteroscopic interventions necessary to render the patient stone free. Discussed extensively that she would need at least 2 URS's given her large stone volume, could be as many as 3 or 4, vs a possible PCNL being able to remove all the stone in one setting. She is now s/p a left ureteroscopy with laser lithotripsy and left ureteral stent placement on 08 May 2025 and returns today for a second look left ureteroscopy with laser lithotripsy and left ureteral stent exchange. Time-Based Coding :: [TOTAL MINUTES] spent with patient and on the chart (including review of chart, obtaining history, exam, reviewing outside data, placing orders, documenting exam and treatment plan, and counseling patient) on [DATE]. [employer] Document charge(s): No
[2025-06-05] MEDS: PHENAZOPYRIDINE 100 MG TABLET 200 MG PO (10:56)
== END 2025-06-05 11:55 | disposition home or self-care (01) ==
PROVIDERS: PCP Family Medicine; Referring Provider Family Medicine; Visit Provider Urology
PROC: (CPT 52356; principal; 2025-06-05 09:00)
DX: N20.1 Calculus of ureter (principal); J45.909 Unspecified asthma, uncomplicated; I10 Essential (primary) hypertension; E78.5 Hyperlipidemia, unspecified; K21.9 Gastro-esophageal reflux disease without esophagitis; M79.7 Fibromyalgia; F41.9 Anxiety disorder, unspecified; Z79.82 Long term (current) use of aspirin
CPT/HCPCS: 52356; 74018; 76000; C2617; J1956; J2405; J2704; J7120; Q9967

== ENCOUNTER 2025-07-03 06:21 | Day surgery (SDC) | payer OTHER, SELFPAY ==
[2023-05-26 22:21] VITALS: BMI 20.5
[2025-06-29 14:39] VITALS: BMI 27.4
[2025-07-03] VITALS (7 sets, daily range): BP systolic 125–150; BP diastolic 60–80; PULSE 76–98; RESP 14–18; TEMP 36.2–37; O2SAT 93–98
--- NOTE | 2025-07-03 | DI.RAD.S_ITS ---
PROCEDURE: XR ABDOMEN 1V INDICATIONS: LT STENT PLACEMENT TECHNIQUE: Fluoroscopic images were obtained during a procedure and submitted for interpretation following the completion of the procedure. COMPARISON: [facility], , XR ABDOMEN 1V, 06/05/2025, 10:19. FINDINGS/IMPRESSION: Fluoroscopic imaging was performed for intraoperative localization. Please correlate with intraoperative findings. Dictated by: Fabrice Swift M.D. on 07/04/2025 at 11:16 Approved by: Fabrice Swift M.D. on 07/04/2025 at 11:16
[2025-07-03] MEDS: ALBUTEROL 2.5 MG/3 ML NEB (ADULT) INH (07:24)
[2025-07-03] MEDS: LACTATED RINGERS 1,000 ML 21 ML IV (07:25)
--- NOTE | 2025-07-03 07:34 | PM.PREOP ---
Pre-operative Note COVID-19 COVID-19 status: Not tested Interval Note History & Physical reviewed/Exam performed by Physician: Yes Changes to H&P: No
[2025-07-03] MEDS: FAMOTIDINE 20 MG/2 ML VIAL IV (07:39)
[2025-07-03] MEDS: ACETAMINOPHEN IV 1,000 MG/100 ML VIAL 400 MG IV (08:21)
--- NOTE | 2025-07-03 08:33 | SUR.OPER ---
Lithotomy on padded OR bed, head on pillow, arms secured on padded arm boards at <90 degrees abduction. Legs secured in padded yellow fins stirrups.
--- NOTE | 2025-07-03 08:53 | PM.OP.1 ---
Operative Date/Time/Diagnoses Date of procedure: 07/03/25 Time of procedure: 08:15 Pre-op diagnosis: Left ureteral calculi Post-op diagnosis: same Procedure & Clinicians Procedure: Cystoscopy Left retrograde ureteropyelogram Left ureteroscopy, basket stone extraction Left ureteral stent exchange Intraoperative interpretation of fluoroscopic images, total time < 1 hour Same procedure(s) as scheduled: Yes Indications: 75 y/o F w/ h/o nephrolithiasis who was noted to have two 1.3cm stones at the level of her left UPJ with resultant mild left hydronephrosis and an additional 1.1cm left lower pole calyx stone on a CT KUB in Mar. She continues to have intermittent pain/discomfort, however, this responds well to Tylenol and Lidocaine patches. Discussed treatment options to include continued medical expulsion therapy (not recommended given the very large size of her stones vs cystoscopy, ureteroscopy, laser lithotripsy with ureteral stent placement vs a referral to stone center for a left PCNL. Discussed risks of the ureteroscopy to include but not limited to pain, bleeding, infection, injury to urethra/bladder/ureter, inability to access the ureter requiring discussion with Interventional Radiology regarding a possible ureteral stent placement in an antegrade fashion vs a possible nephroureteral stent and/or percutaneous nephrostomy tube, urinary tract infection, inability to remove all of the stone in one setting, need for emergent open repair of bladder and/or ureter, need for multiple ureteroscopic interventions necessary to render the patient stone free. Discussed extensively that she would need at least 2 URS's given her large stone volume, could be as many as 3 or 4, vs a possible PCNL being able to remove all the stone in one setting. She underwent a left ureteroscopy, laser lithotripsy and left ureteral stent placement on 08 May 2025 and a second look left ureteroscopy, laser lithotripsy and left ureteral stent exchange on 05 Jun 2025. She returns today for her third look left ureteroscopy with left ureteral stent exchange. Surgeon: Kieran Bradford Assisted?: No Anesthesia Type: General Operative Notes Findings: Large collection of small stones within left lower pole calyx Closure Type: not applicable Specimen(s): other (left ureteral stones) Applied: none Estimated Blood Loss (mL): 2 Blood products transfused: none Procedure in detail: 1) Cystoscopy 2) Left retrograde ureteropyelogram 3) Left ureteroscopy, basket stone extraction 4) Left ureteral stent exchange 5) Intraoperative interpretation of fluoroscopic images, < 1 hour, all images saved to PACS Indication: Patient was identified in the preoperative holding area and consent confirmed. She was then brought to the operating room where general anesthesia was induced.? She was placed in the low lithotomy position. She was then prepped and draped in the usual sterile fashion. A surgical timeout was conducted and all were in agreement. ?Access to the bladder was obtained via a 30 degree cystoscope.? Complete cystoscopy was then performed and no concerning bladder masses or lesions were appreciated.? Bilateral ureteral orifices were easily identified and noted to be orthotopic in nature. The previously placed left ureteral stent was then externalized and a 0.035 sensor tip ureteral guidewire was advanced through the stent and into the left renal pelvis. A 12/14Fr ureteral access sheath was then advanced over the ureteral guidewire and into the proximal left ureter.? The ureteral guidewire and inner obturator were then removed.? The flexible ureteroscope was then advanced through the ureteral access sheath and into the left renal collecting system.? Complete pyeloscopy was then performed and she was noted to have a large collection of small stones within her left lower pole calyx. These were removed via the stone basket and sent for chemical analysis. The ureteral guidewire was then readvanced through the ureteroscope and into the left renal pelvis.? The ureter was then directly visualized upon removal of the ureteroscope and ureteral access sheath and noted to be stone free.? The cystoscope was then backloaded over the ureteral guidewire and advanced into the bladder.? A 6Fr multi-length JJ ureteral stent with strings was then advanced over the ureteral guidewire.? Upon removal of the guidewire, a good curl was noted within the left renal pelvis upon fluoroscopy and visually within the bladder.? The bladder was then drained and the cystoscope was removed.? Anesthesia was reversed, she was extubated in the OR and transferred to the PACU in stable condition for recovery. Complications: none Post-operative Condition: stable Disposition: PACU Plan for aftercare: Discharge home from PACU. Will return to Urology clinic in 3 months for a RBUS and stone analysis review.
== END 2025-07-03 10:02 | disposition home or self-care (01) ==
PROVIDERS: PCP Family Medicine; Referring Provider Urology; Visit Provider Urology
PROC: (CPT 52352; principal; 2025-07-03 07:45)
DX: N20.1 Calculus of ureter (principal); Z79.82 Long term (current) use of aspirin
CPT/HCPCS: 52352; 52332; 74018; 76000; 82365; C2617; J0131; J0689; J1100; J2405; J2704; J3010; J3490; J7120; J7613; Q9967

== ENCOUNTER 2025-07-08 10:25 | Emergency (ER) | payer OTHER, SELFPAY ==
[2023-05-26 22:21] VITALS: BMI 20.5
[2025-07-08] VITALS (11 sets, daily range): BP systolic 119–164; BP diastolic 65–73; PULSE 81–98; RESP 14–25; TEMP 36.8; O2SAT 91–98; BMI 27.4
--- OUTSIDE RECORDS SUMMARY | 2025-07-08 01:26 | XMS_ITS | Continuity of Care Document ---
Author Organization [place] [address] Phone Care Team Providers Care Bulk System Operator Name Role Phone Raghav Contreras DO Primary Care Provider Raghav Contreras DO Referring Provider [phone] Eddie Houston PA-C Attending Provider Care Teams Patient Care Team Team Status: Active Member Role/Relationship Status Dates Raghav Contreras DO Primary Care Provider Active Patient Care Team Team Status: Inactive Member Role/Relationship Status Dates Raghav Contreras DO Primary Care Provider Active St art: July 08, 2025 End: July 08, 2025 Raghav Contreras DO Referring Provider Active Start : July 08, 2025 End: July 08, 2025 Eddie Houston PA-C Attending Provider Active Start: July 08, 2025 End: July 08, 2025 Chief Complaint and Reason for Visit Chief Complaint Admit Date TIGHNESS IN LUNGS, SOME PAIN. SOME COUGH . July 08, 2025 8:44am Allergies, Adverse Reactions, Alerts Allergen Type Severity Reaction Last Updated Verified Status Comments aspirin Allergy Severe Unknown July 08, 2025 9:07am Yes Active has gone through process of desensitizing through daily dosing per pt ibuprofen Allergy Severe Unknown July 08, 2025 9:07am Yes Active Social History Smoking Status Status Start Date End Date Date of Observa tion Never smoked tobacco (finding) April 12, 2015 11:49pm Observation Status Observation Response Date of Response Legal Sex Female Sex Assigned At Female February Family History Relationship Condition Age at Onset Recorded Date/T alta Unknown Respiratory?Asthma, COPD, Sleep apnea Unknown April 12, 2015 10:49pm Problems Active Problems Problem Diagnosis/Recorded Date Onset Date Stat us UTI (urinary tract infection) April 12, 2015 2:0 2pm Unknown Active Diarrhea April 12, 2015 2:02pm Unknown Active Tachycardia July 08, 2025 9:22am Unknown A ctive Pain, dental January 10, 2025 12:40pm Unknown Acti ve Chest tightness July 08, 2025 9:22am Unknown Active Mucus in stool January 23, 2025 9:24am Unknown Act ca Elevated blood pressure read ing in office without diagnosis of hypertension March 10, 2025 2:55pm Unknown Active Change in consistency of stool January 23, 2025 9:20am Unknown Active Dehydration April 12, 2015 2:02pm Unknown Active Medications Medication Status Dose Units Route Directions Qty Days Refills S tart Date Stop Date End Date Reason(s) Instructions Adherence Morphine 15 MG tablet extended release Discont inued 15 MG TWICE A DAY 2014 11:00p m January 10, 2025 12:09 pm Lisinopril 10 MG tablet Active 10 MG DAILY 2014 11:00p m Unknown Amlodipine 10 MG tablet Active 10 MG DAILY 2014 11:00p m Unknown Duloxetine 20 MG capsule,del ayed release(DR/ EC) Discont inued 20 MG DAILY 2014 11:00p m January 10, 2025 12:26 pm Morphine 15 MG tablet Discont inued 15 MG FOUR TIMES DAILY as needed for Analgesia 2014 11:00p m January 10, 2025 12:09 pm Acetaminoph en (Tylenol Extra Strength) 500 MG tablet Active 2 TAB FOUR TIMES DAILY as needed for Analgesia 2014 11:00p m Unknown Gabapentin 300 MG capsule Active 3 TAB THREE TIMES A DAY 2014 11:00p m Unknown Albuterol Sulfate 8.5 GM HFA aerosol inhaler Active as needed for Wheezing 2014 11:00p m Unknown Ciprofloxac in Hcl (Cipro) 500 MG tablet Discont inued 500 MG PO TWICE A DAY 10 0 2014 11:00p m January 10, 2025 12:09 pm Ondansetron 4 MG tablet,disi ntegrating Discont inued 4 MG TL Q6H as needed for Nausea / Vomiting 10 0 Septem 2014 11:00p m January 10, 2025 12:09 pm Duloxetine 20 mg capsule,del ayed release(DR/ EC) Active 60 MG PO DAILY January 10, 2025 12:24p m Unknown Docusate Sodium (Stool Softener) 100 mg capsule Active 100 MG PO every day March 09, 2025 11:00p m Unknown Lactobacill us Combo No.11 (Probiotic) 15 billion cell capsule, sprinkle Active 1 CAP PO every day t 2024 11:00p m do not crush/chew/cu t; swallow whole OR may open and sprinkle in cold drink/food Unknown Cephalexin 500 mg capsule Discont inued 500 MG PO THREE TIMES A DAY 21 7 0 March 09, 2025 11:00p m Augus t 2024 11:00 pm Septe mber 2024 11:01 pm Methadone 5 mg tablet Active MG PO 0 January 09, 2025 11:00p m Unknown Fluticasone Propion-Sumanth meterol (Advair Hfa) 230-21 mcg/actuati on HFA aerosol inhaler Active INH January 09, 2025 11:00p m Unknown Ibandronate 150 mg tablet Active MG PO January 09, 2025 11:00p m Unknown Atorvastati n 40 mg tablet Active MG PO January 09, 2025 11:00p m Unknown Bupropion Hcl 150 mg tablet extended release 24 hr Active MG PO January 09, 2025 11:00p m Unknown Pantoprazol e 40 mg tablet,william yed release (DR/EC) Active MG PO January 09, 2025 11:00p m Unknown Sennosides 8.6 mg tablet Active 8.6 MG PO TWICE A DAY January 09, 2025 11:00p m Unknown Furosemide (Lasix) 20 mg tablet Active 20 MG PO every day January 09, 2025 11:00p m Unknown Estradiol 0.01 % (0.1 mg/gram) cream Active 1 GM VG every week January 09, 2025 11:00p m Unknown Aspirin 325 mg tablet Active 325 MG PO every day January 09, 2025 11:00p m Complies with drug therapy Budesonide 6 mg capsule, extended release Active 6 MG PO every day January 09, 2025 11:00p m taken with 6 oz of water Unknown Albuterol Sulfate 2.5 mg /3 mL (0.083 %) solution for nebulizatio n Active 2.5 MG INH Q4H as needed January 09, 2025 11:00p m Complies with drug therapy Amoxicillin -Pot Clavulanate 875-125 mg tablet Discont inued 1 TAB PO TWICE A DAY 20 10 0 January 09, 2025 11:00p m January 18, 2025 11:00 pm January 19, 2025 11:00 pm Vital Signs Vital Reading Result Reference Range Collection Date/Time Weight 68.03 kg July 08, 2025 9:08am Body Temperature 37.1 Fany 36.5-37.9 July 082024 9:08am Heart Rate 109 /min 60-100 July 08, 2025 9:08am Respiratory rate 20 /min 12-July 082024 9:08am Oxygen saturation by Pulse oximetry 96 % 92-100 July 08, 2025 9:08am BP Systolic 149 mm[Hg] 90-130 July 08, 2025 9:08am BP Diastolic 77 mm[Hg] 60-90 July 08, 2025 9:08am Advance Directives Advance Directive Response Recorded Date/ Time Advance Directives No October 16 9:44am Advance Directives Information Provided No October 16, 2022 9:44am Insurance Providers Guarantor Ck Wooten Address [address] [facility] [address] Contact Info. Home Phone: Payer Group Member ID Coverage Type Subscriber Relationship to Subscriber Effective Date Expiration Date Medicaid [facility] Id: [id number] null Ck Wooten Id: [id number] [facility] [address] Home Phone: Email: [email or web address] Self Encounters Encounter Location(s) Arrival/Admit Date Discharge/Departure Date Discharge/Departure Disposition Provider(s) Departed Physician/ Provider Office Visit -Walk-In Care [place] July 08, 2025 8:44am July 08, 2025 9:25am Discharged to home care or self care (routine discharge) Eddie Houston PA-C
--- NOTE | 2025-07-08 11:01 | ED.SOB ---
HPI - SOB/Dyspnea General Chief Complaint: Shortness of Breath/Dyspnea Stated Complaint: WIC: concern for lung blood clot; wheezing Time Seen by Provider: 07/08/25 11:00 Source: patient, RN notes reviewed and old records reviewed Mode of arrival: Ambulatory Limitations: no limitations History of Present Illness HPI Narrative: 75-year-old female history of GERD takes aspirin 650 mg daily to maintain desensitization, asthma/bronchitis, hypertension, dyslipidemia, GERD, recurrent kidney stones had recent lithotripsy and ureteral stent placed approximately a week ago. Patient is supposed to follow up Sunday for stent removal. Patient states she has had some increased shortness of breath for the last several days. She states she performed a neb last night and this morning which was somewhat helpful. She denies fevers or chills, no cough cold or congestion symptoms that she is aware. She has a little bit of chest tightness but denies any pain. No syncope. No nausea or vomiting. No new GI or urinary symptoms. She does have chronic lower extremity swelling but states it is not worse, no new warmth, redness or pain. Patient states she went to the walk-in clinic today they sent her here because they did not think she was wheezy and was concerned for blood clots. Patient states she does not have any other drug allergies. She has had a prior ovary removed but no other surgeries besides several lithotripsies and her recent ureteral stent. No tobacco, alcohol or recreational drugs. Dr. Contreras has been her primary care physician. Related Data Home Medications ?Medication ?Instructions ?Recorded ?Confirmed fluticasone propionate 230 2 puff inhalation BID 11/07/18 07/03/25 mcg-salmeterol 21 mcg/actuation HFA inhaler aspirin 325 mg tablet 325 mg PO BID 11/15/18 07/03/25 amlodipine 10 mg tablet 10 mg PO DAILY 11/14/24 07/03/25 atorvastatin 40 mg tablet 40 mg PO DAILY 11/14/24 07/03/25 lidocaine 5 % topical patch 1 patch topical DAILY PRN Pain, 11/14/24 07/03/25 Moderate methadone 5 mg tablet 5 - 10 mg PO DAILY chronic pain 11/14/24 07/03/25 pantoprazole 40 mg tablet,delayed 40 mg PO BID 11/14/24 07/03/25 release albuterol sulfate 2.5 mg/3 mL 2.5 mg inhalation Q4H 04/14/25 07/03/25 (0.083 %) solution for nebulization albuterol sulfate 90 mcg/actuation 4 puff inhalation Q6H Shortness Of 04/14/25 07/03/25 aerosol inhaler Breath budesonide 2 mg/10 mL oral 1 packet PO BID 04/14/25 07/03/25 suspension in packet bupropion HCl 150 mg 24 hr tablet, 150 mg PO QAM 04/14/25 07/03/25 extended release estradiol 0.01% (0.1 mg/gram) 1 g vaginal 2XW 04/14/25 07/03/25 vaginal cream furosemide 20 mg tablet 20 mg PO Q OTHER DAY 04/14/25 07/03/25 ibandronate 150 mg tablet 150 mg PO QMONTH 04/14/25 07/03/25 mometasone 50 mcg/actuation nasal 2 spray intranasal DAILY 04/14/25 07/03/25 spray (Allergy Nasal (mometasone)) polyethylene glycol 3350 17 17 g PO DAILY PRN 04/14/25 06/26/25 gram/dose oral powder sennosides 8.6 mg tablet (Natural 8.6 mg PO BID 04/14/25 06/26/25 Senna Laxative) Previous Rx's ?Medication ?Instructions ?Recorded acetaminophen 500 mg tablet 500 mg PO Q8H #30 tabs 05/31/23 gabapentin 300 mg capsule 300 mg PO TID #30 caps 05/31/23 levofloxacin 500 mg tablet 500 mg PO DAILY #3 tabs 07/03/25 prednisone 10 mg tablets in a dose See Rx Instructions PO .COMPLEX 07/08/25 pack #21 ea Allergies Allergy/AdvReac Type Severity Reaction Status Date / Time cephalexin AdvReac Severe Diarrhea Verified 07/08/25 10:42 amoxicillin (From Augmentin) AdvReac Mild Diarrhea Verified 07/08/25 10:42 clavulanic acid (From AdvReac Mild Diarrhea Verified 07/08/25 10:42 Augmentin) ibuprofen AdvReac Unknown Verified 07/08/25 10:42 Review of Systems Review of Systems ROS Unobtainable: All systems reviewed & are unremarkable except as noted in HPI and below Patient History Medical History Sleep apnea GERD (gastroesophageal reflux disease) Subdural hematoma (11/2018) Chronic pansinusitis 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) Asthma Compression fracture of thoracic vertebra Hx of osteoporosis Hx of osteoarthritis History of kidney stones History of depression History of COPD History of asthma Hx of chronic arthritis Hyperlipidemia Chronic pain syndrome Hypertension Autoimmune disorder Fibromyalgia Surgical History S/P cystoscopy with ureteral stent placement (06/05/25) Hx of rhinoplasty (1983) S/P cystoscopy with ureteral stent placement (05/08/25) History of ureteroscopy (03/2025) Hx of tubal ligation Hx of mastectomy Hx of removal of ovary Hx of lithotripsy Hx of laparoscopy Hx of cholecystectomy (1994) Hx of appendectomy Family History Mother Cancer Father Coronary artery disease Hyperlipidemia Hypertension Sister Eczema Social History marital status: number of children: 1 household members: spouse lives independently: Yes Smoking Status: Never smoker alcohol intake: never caffeine: No Type(s) of exercise: walking frequency: 3-4 times per week duration: 30-45 minutes/day Smoking Status: Never smoker alcohol intake frequency: holidays/special occasions only Exam Narrative Exam Narrative: GEN: well nourished, well appearing female, alert and oriented x 3, patient appears to be in mild distress. HEENT: Atraumatic, pupils are equal round reactive to light, extraocular movements are intact, nares are clear, there is no conjunctival pallor. Throat is clear without any exudates, erythema, tonsillar enlargement or uvular deviation HEART: Regular rate and rhythm without murmur, clicks, rubs. Patient has a have bilateral lower extremity edema LUNGS:Lungs clear to auscultation, no wheezes, rales, crackles, chest moves symmetrically, no tachypnea accessory muscle use ABD:bowel sounds normal, soft, non-tender, no guarding, rebound, rigidity, no masses noted, no hepatosplenomegaly :No CVA tenderness MSCL: Non-tender, muscles strength 5/5 upper and lower extremities, full range of motion NEURO:CN 2-12 intact, sensation normal Initial Vital Signs Initial Vital Signs: Vital Signs Blood Pressure 156/73 H 12/24/25 10:38 Course Orders Ordered: ED Orders 07/08/25 10:45 Complete Blood Count AUTO DIFF Stat Comprehensive Metabolic Panel Stat D Dimer Stat Lipase Stat Magnesium Stat NT-proBNP (BNP-Adult 18+) Stat Troponin I Stat 07/08/25 11:43 CT angio chest PE protocol Stat RT Consult Eval and Treat NOW 07/08/25 12:05 EKG-12 Lead Stat 07/08/25 13:28 Trop I [Troponin I] Stat Discontinued Medications Albuterol/Ipratropium (Albuterol/Ipratropium 3 Ml Ampul) 3 ml INH NOW ONE Stop: 07/08/25 13:42 Last Admin: 07/08/25 13:57 Dose: 3 ml Documented By: MARY ALICE Aspirin (Aspirin 81 Mg Chew Tab) 324 mg PO NOW ONE Stop: 07/08/25 12:06 Last Admin: 07/08/25 12:44 Dose: Not Given Documented By: MIAN Fentanyl (Fentanyl 100 Mcg/2 Ml Inj) 50 mcg IV NOW ONE Stop: 07/08/25 11:07 Last Admin: 07/08/25 12:44 Dose: Not Given Documented By: MIAN Methylprednisolone (Methylprednisolone Succ 125 Mg/2 Ml Vial) 125 mg IV NOW ONE Stop: 07/08/25 11:44 Last Admin: 07/08/25 11:58 Dose: 125 mg Documented By: JUSTIN Potassium Chloride (Potassium Chloride 20 Meq Tab) 40 meq PO NOW ONE Stop: 07/08/25 13:22 Last Admin: 07/08/25 13:35 Dose: 40 meq Documented By: LANI Vital Signs Vital signs: Vital Signs - 8 hr 07/08/25 10:38 07/08/25 10:39 07/08/25 10:39 Temperature Pulse Rate 90 Respiratory Rate 18 Blood Pressure 156/73 H 150/73 H Pulse Oximetry 98 Oxygen Delivery Method 07/08/25 10:42 07/08/25 11:00 07/08/25 11:00 Temperature 98.3 F Pulse Rate 96 H 86 Respiratory Rate 22 23 Blood Pressure 156/73 H 139/66 Pulse Oximetry 96 97 Oxygen Delivery Method Room Air 07/08/25 11:30 07/08/25 11:30 07/08/25 12:00 Temperature Pulse Rate 82 Respiratory Rate 20 Blood Pressure 138/67 141/65 H Pulse Oximetry 96 Oxygen Delivery Method 07/08/25 12:00 07/08/25 13:09 07/08/25 13:09 Temperature Pulse Rate 83 98 H Respiratory Rate 16 18 Blood Pressure 146/70 H Pulse Oximetry 96 91 Oxygen Delivery Method 07/08/25 13:30 07/08/25 13:30 07/08/25 14:00 Temperature Pulse Rate 85 94 H Respiratory Rate 14 25 H Blood Pressure 164/73 H Pulse Oximetry 94 96 Oxygen Delivery Method 07/08/25 14:01 07/08/25 14:01 07/08/25 14:20 Temperature Pulse Rate 90 81 Respiratory Rate 16 16 Blood Pressure 119/70 Pulse Oximetry 96 97 Oxygen Delivery Method Room Air MDM - SOB/Dyspnea Lab Data 07/08/25 10:45 07/08/25 10:45 Labs: Lab Results 07/08/25 07/08/25 Range/Units 10:45 13:28 WBC 11.2 H (4.5-11.0) X10^3/uL RBC 4.57 (4.0-5.2) X10^6/uL Hgb 12.4 (12.0-16.0) g/dL Hct 38.5 (36-46) % MCV 84.2 (80-100) fL MCH 27.0 (26-34) PG MCHC 32.1 (30-36) % RDW 16.7 H (11.6-14.8) % Plt Count 438 H (150-400) X10^3/uL Neut % (Auto) 72.7 (50-75) % Lymph % (Auto) 14.9 L (25-40) % [place] % (Auto) 6.5 (3-14) % Eos % (Auto) 5.2 H (2-4) % Baso % (Auto) 0.7 (0-2) % Neut # (Auto) 8200 H (8185-8789) /uL Lymph # (Auto) 1700 (0535-2872) /uL [place] # (Auto) 700 (0-900) /uL Eos # (Auto) 600 H (0-450) /uL Baso # (Auto) 100 (0-100) /uL D-Dimer 2027 H (<500) ng/ml Sodium 139 (137-145) mmol/L Potassium 3.0 L (3.4-5.1) mmol/L Chloride 101 (98-107) mmol/L Carbon Dioxide 29 (22-32) mmol/L BUN 10 (7-17) mg/dL Creatinine 0.79 (0.52-1.04) mg/dL Estimated GFR > 60 (>60) mL/min BUN/Creatinine Ratio 12.7 (6-22) Glucose 107 H (70-99) mg/dL Calcium 9.6 (8.4-10.2) mg/dL Magnesium 2.0 (1.6-2.3) mg/dL Total Bilirubin 0.7 (0.2-1.3) mg/dL AST 47 H (14-36) IU/L ALT 17 (<35) IU/L Alkaline Phosphatase 82 (38-126) U/L Troponin I < 0.012 < 0.012 (0.01-0.034) ng/mL NT-Pro-B Natriuret Pep 568 H (<450) pg/mL Total Protein 8.8 H (6.3-8.2) g/dL Albumin 4.5 (3.5-5.0) g/dL Globulin 4.3 H (1.7-4.1) g/dL Albumin/Globulin Ratio 1.0 (1.0-2.8) Lipase 60 (23-300) U/L MDM Narrative Medical decision making narrative: 75-year-old female history of bronchitis and GERD with nasal polyps, aspirin allergies has been desensitized and takes aspirin 650 mg daily to maintain this as well as asthma. Patient presents with what she feels is likely a flare of her bronchitis but went to walk-in clinic and was sent here for evaluation for pulmonary embolism. She is not wheezy for me on exam her vitals are otherwise appropriate she had recent lithotripsy with ureteral stent placement after discussion we will workup for possible blood clot but bronchitis/asthma exacerbation also on the differential Labs white count 11.2 hemoglobin of 12.4, platelets are 438. Potassium is 3, placed orally, electrolytes are otherwise appropriate BUN and creatinine normal AST is 47 but bilirubin ALT are normal, lipase is 60, troponins less than 0.012 with a BNP of 568. Repeat troponin is less than 0.012 EKG, sinus rhythm rate 87 [place] 192 QRS of 96 QTC 445, no acute ST-elevation or depression. Patient had prior at the walk-in clinic today which showed a sinus rhythm, [place] 192 QRS of 97 QTC of [address] changes and appears similar to today's. CT chest PE protocol, no acute pulmonary embolism, no acute pulmonary pulmonary process, to chronic compression fractures to her severe help result significant increased thoracic kyphosis. Patient received steroids, she did have an additional neb. She is continuing to feel improved here. Reviewed all of her findings. She elects to hold off had a COVID/influenza/RSV swab. Discussed return precautions all questions answered. Discharge Plan Departure Patient Disposition: Home Clinical Impression: Bronchitis Instructions: DI for Acute Bronchitis Activity Restrictions/Additional Instructions: Follow up with your physician as needed. Your imaging today does not show any signs of pneumonia, blood clots or other changes. Your potassium was slightly low. If you are taking your site Lasix regularly you do need to follow up with your physician to have your potassium level rechecked. Take prednisone until completed. Prescription sent to [facility] in [place] Please return if you have new or worsening chest pain, shortness of breath, any lightheadedness or passing out, fevers, worsening swelling of your extremities or other new or concerning changes. Prescriptions: New prednisone 10 mg tablets,dose pack See Rx Instructions .ROUTE .COMPLEX Qty: 21 0RF Rx Instructions: 6 tabs p.o. x1 day, then 5 tabs p.o. x1 day, then 4 tablets p.o. x1 day, then 3 tabs p.o. x1 day, then 2 tabs p.o. x1 day, then 1 tab p.o. x1 day No Action fluticasone propion-salmeterol 230-21 mcg/actuation HFA aerosol inhaler 2 puff Inhalation BID Patient Comments: inhale 2 puffs by mouth twice a day albuterol sulfate 90 mcg/actuation HFA aerosol inhaler 4 puff Inhalation Q6H gabapentin 300 mg Capsule 300 mg PO TID Qty: 30 0RF acetaminophen 500 mg tablet 500 mg PO Q8H Qty: 30 0RF aspirin 325 mg Tablet 325 mg PO BID atorvastatin 40 mg tablet 40 mg PO DAILY amlodipine 10 mg tablet 10 mg PO DAILY pantoprazole 40 mg tablet,delayed release (DR/EC) 40 mg PO BID methadone 5 mg tablet 5 - 10 mg PO DAILY lidocaine 5 % adhesive patch,medicated 1 patch topical DAILY PRN (Reason: Pain, Moderate) levofloxacin 500 mg tablet 500 mg PO DAILY Qty: 3 0RF Rx Instructions: take one tab the morning before, the morning of and the morning after your stent removal sennosides [Natural Senna Laxative] 8.6 mg tablet 8.6 mg PO BID albuterol sulfate 2.5 mg /3 mL (0.083 %) solution for nebulization 2.5 mg inhalation Q4H furosemide 20 mg tablet 20 mg PO Q OTHER DAY polyethylene glycol 3350 17 gram/dose powder 17 g PO DAILY PRN estradiol 0.01 % (0.1 mg/gram) cream 1 g vaginal 2XW budesonide 2 mg/10 mL suspension in packet 1 packet PO BID Rx Instructions: administer in the morning and evening mometasone [Allergy Nasal (mometasone)] 50 mcg/actuation spray,non-aerosol 2 spray intranasal DAILY Rx Instructions: administer into each nostril bupropion HCl 150 mg tablet extended release 24 hr 150 mg PO QAM ibandronate 150 mg tablet 150 mg PO QMONTH Referrals: Raghav Contreras DO [Primary Care Provider, Family Practice] Stand Alone Forms: Patient Portal/API
--- NOTE | 2025-07-08 11:43 | DI.CT.S_ITS ---
PROCEDURE: CT ANGIO CHEST PE PROTOCOL INDICATIONS: recent surgery, shortness of breath. hx bronchitis TECHNIQUE: After the administration of intravenous contrast, 2 mm thick sections acquired from the pulmonary apices to the posterior costophrenic angles. 3-dimensional maximum intensity projection (MIP) coronal and sagittal reformats were then acquired through the thorax. For radiation dose reduction, the following was used: automated exposure control, adjustment of mA and/or kV according to patient size. COMPARISON: [facility], CT, CT ANGIO CHEST PE PROTOCOL, 09/30/2022, 12:26. FINDINGS: Image quality: Diagnostic. Pulmonary arteries: Pulmonary arteries are normal in size, and demonstrate no intraluminal filling defects to suggest central pulmonary embolism. Lower Neck: No enlarged lymph nodes. Thyroid: No thyroid nodules which require sonographic follow up, per consensus guidelines. Axillae: No enlarged lymph nodes. Chest Wall: Unremarkable. Bones: There are 2 severe compression fractures, T6 and T11 which contribute to significant increased thoracic kyphosis. The T6 compression has collapsed further since the prior study, but is likely chronically further compressed. Lungs and Pleura: No pneumothorax or pleural effusions. No consolidation or suspicious nodules. Heart: Heart size is normal. No pericardial effusion. Thoracic Vessels: No aortic aneurysm. Mediastinum and Andie: No enlarged lymph nodes. Esophagus: No wall thickening. No hiatal hernia. Upper Abdomen: Visualized upper abdomen solid organs and bowel loops appear normal. IMPRESSION: No pulmonary embolus. No acute cardiopulmonary process. 2 chronic compression fractures which are severe help result in significant increased thoracic kyphosis. Dictated by: Moustapha Watters M.D. on 07/08/2025 at 13:23 Approved by: Moustapha Watters M.D. on 07/08/2025 at 13:27
[2025-07-08] MEDS: methylPREDNISolone succ 125 MG/2 ML VIAL IV (11:58)
[2025-07-08 12:03] LABS: Lipase 60 U/L (23-300)
[2025-07-08 12:04] LABS: Alanine Aminotransferase 17 IU/L (<35); Albumin 4.5 g/dL (3.5-5.0); Albumin Globulin Ratio 1.0 (1.0-2.8); Alkaline Phosphatase 82 U/L (38-126); Blood Urea Nitrogen 10 mg/dL (7-17); Calcium 9.6 mg/dL (8.4-10.2); Carbon Dioxide 29 mmol/L (22-32); Chloride 101 mmol/L (98-107); Estimated Glomerular Filt Rate > 60 mL/min (>60); Globulin 4.3 g/dL (1.7-4.1); Glucose 107 mg/dL (70-99); HEMOLYSIS 48 (0-50); Magnesium 2.0 mg/dL (1.6-2.3); Potassium 3.0 mmol/L (3.4-5.1); Sodium 139 mmol/L (137-145); Total Protein 8.8 g/dL (6.3-8.2)
[2025-07-08 12:06] LABS: Add Manual Diff / Slide Review NO; Hematocrit 38.5 % (36-46); Hemoglobin 12.4 g/dL (12.0-16.0); Lymphocytes Absolute Auto 1700 /uL (1100-4500); Mean Corpuscular HGB Conc 32.1 % (30-36); Mean Corpuscular Hemoglobin 27.0 PG (26-34); Mean Corpuscular Volume 84.2 fL (80-100); Platelet Count 438 X10^3/uL (150-400)
[2025-07-08 12:16] LABS: NT-proBNP (BNP-Adult 18+) 568 pg/mL (<450); Troponin I < 0.012 ng/mL (0.01-0.034)
--- NOTE | 2025-07-08 13:15 | EKG_ITS ---
[address] [address] Test Date: 2025-07-08 Pat Name: Sue Coy Department: Room: Gender: Female [employer]: : 1950 Requested By: Order Number: [id number] Reading MD: Aris Gibbs MD Measurements Intervals [place] Rate: 87 P: 1 DE: 192 QRS: -14 QRSD: 96 T: 28 QT: 370 QTc: 445 Interpretive Statements Normal sinus rhythm Possible Anterior infarct , age undetermined Electronically Signed On 07-10-2025 8:11:29 PST by Aris Gibbs MD
[2025-07-08] MEDS: POTASSIUM CHLORIDE 20 MEQ TAB 40 MEQ PO (13:35)
[2025-07-08] MEDS: ALBUTEROL/IPRATROPIUM 3 ML AMPUL INH (13:57)
[2025-07-08 14:04] LABS: Troponin I < 0.012 ng/mL (0.01-0.034)
== END 2025-07-08 14:34 | disposition home or self-care (01) ==
PROVIDERS: Emergency Provider Emergency Medicine; PCP Family Medicine
DX: J40 Bronchitis, not specified as acute or chronic (principal); R06.2 Wheezing; I10 Essential (primary) hypertension
CPT/HCPCS: 36415; 71275; 80053; 83690; 83735; 83880; 84484; 85025; 85379; 93005; 94640; 96374; 99284; J2919; Q9967